=== PATIENT | female | born 1950 | race Caucasian/White ===

== ENCOUNTER 2023-04-26 15:52 | Outpatient (OUT) | payer OTHER, MEDICARE, SELFPAY ==
[2023-04-26 16:23] LABS: Basophils Absolute Auto 0.1 10^3/uL (0.0-0.1); Basophils Percent Auto 0.7 % (0.2-2.0); Eosinophils Absolute Auto 0.2 10^3/uL (0.0-0.7); Hemoglobin 14.3 g/dL (12.0-16.0); Immature Granulocytes Abs Auto 0.03 10^3/uL (0.00-0.03); Immature Granulocytes Pct Auto 0.4 % (0.0-0.5); Lymphocytes Absolute Auto 2.7 10^3/uL (1.2-3.8); Lymphocytes Percent Auto 32.2 % (20.5-60.0); Mean Corpuscular HGB Conc 33.3 g/dL (29.9-35.2); Mean Corpuscular Hemoglobin 30.8 pg (26.7-34.0); Mean Corpuscular Volume 92.5 fL (81.0-99.0); Mean Platelet Volume 10.2 fL (9.5-13.5); Monocytes Absolute Auto 0.9 10^3/uL (0.3-0.8); Monocytes Percent Auto 10.4 % (1.7-12.0); Neutrophils Absolute Auto 4.6 10^3/uL (1.4-6.5); Neutrophils Percent Auto 54.3 % (43.0-75.0); Platelet Count 170 10^3/uL (150-450); Red Blood Count 4.65 10^6/uL (4.20-5.40); White Blood Count 8.5 10^3/uL (4.0-11.0)
[2023-04-26 16:27] LABS: Estimated GFR (African America 48 (>=60); Estimated GFR (Non-African Ame 39 (>=60)
[2023-04-26 16:28] LABS: C Reactive Protein <0.2 mg/dL (<=1.0)
[2023-04-26 16:49] LABS: Erythrocyte Sedimentation Rate 13 mm/hr (<=30)
[2023-04-26 16:58] LABS: Bilirubin Urine NEGATIVE (NEGATIVE); Blood Urine NEGATIVE (NEGATIVE); Clarity Urine CLEAR (CLEAR); Color Urine LT. YELLOW (YELLOW); Glucose Urine UA NEGATIVE (NEGATIVE); Ketones Urine NEGATIVE (NEGATIVE); Leukocyte Esterase Urine SMALL (NEGATIVE); Nitrite Urine NEGATIVE (NEGATIVE); Protein Urine NEGATIVE (NEG/TRACE); Specific Gravity Urine <=1.005 (1.005-1.025); Urobilinogen Urine 0.2 EU/dL (0.2-1.0)
[2023-04-26 17:53] LABS: Bacteria Urine TRACE #/HPF (NONE SEEN); Cast Seen? NONE SEEN #/LPF (NONE SEEN); Crystals Seen? None Seen #/HPF (None Seen); Mucus Urine NONE SEEN (NONE SEEN); RBC Urine 0-2 #/HPF (0-2); Squamous Epithelial Cell Urine RARE #/LPF (NONE/RARE); Urine Culture Indicated YES
[2023-04-28 06:08] LABS: Complement C3, Serum 149 mg/dL (82-167); Complement C4, Serum 24 mg/dL (12-38)
== END 2023-04-26 15:53 | disposition home or self-care (01) ==
LOC: LAB 15:53
PROVIDERS: PCP Internal Medicine; Visit Provider Internal Medicine Rheumatology
DX: M35.9 Systemic involvement of connective tissue, unspecified (principal)
CPT/HCPCS: 36415; 81001; 82565; 85025; 85652; 86140; 86160; 87086

== ENCOUNTER 2023-06-11 15:55 | Outpatient (OUT) | payer OTHER, MEDICARE, SELFPAY ==
[2023-06-11 16:39] LABS: Estimated GFR (African America >60 (>=60); Estimated GFR (Non-African Ame >60 (>=60)
[2023-06-11 16:44] LABS: Bilirubin Urine NEGATIVE (NEGATIVE); Blood Urine NEGATIVE (NEGATIVE); Clarity Urine CLEAR (CLEAR); Color Urine LT. YELLOW (YELLOW); Glucose Urine UA NEGATIVE (NEGATIVE); Ketones Urine NEGATIVE (NEGATIVE); Leukocyte Esterase Urine NEGATIVE (NEGATIVE); Nitrite Urine NEGATIVE (NEGATIVE); Protein Urine NEGATIVE (NEG/TRACE); Specific Gravity Urine 1.015 (1.005-1.025); Urobilinogen Urine 0.2 EU/dL (0.2-1.0)
[2023-06-11 16:51] LABS: Bacteria Urine NONE SEEN #/HPF (NONE SEEN); Cast Seen? NONE SEEN #/LPF (NONE SEEN); Crystals Seen? None Seen #/HPF (None Seen); Mucus Urine NONE SEEN (NONE SEEN); RBC Urine 0-2 #/HPF (0-2); Squamous Epithelial Cell Urine NONE SEEN #/LPF (NONE/RARE); Urine Culture Indicated NO; WBC Urine NONE SEEN #/HPF (NONE SEEN)
== END 2023-06-11 15:56 | disposition home or self-care (01) ==
LOC: LAB 15:55
PROVIDERS: PCP Internal Medicine; Visit Provider Internal Medicine Rheumatology
DX: N18.9 Chronic kidney disease, unspecified (principal)
CPT/HCPCS: 36415; 81001; 82565

== ENCOUNTER 2023-10-16 16:03 | Outpatient (OUT) | payer OTHER, MEDICARE, SELFPAY ==
--- NOTE | 2023-10-16 16:07 | MM_ITS ---
Patient Name: LEXII VAZQUEZ MR#: [id number] : 1950 Exam Date: 10/16/2023 Ordering Doctor: DR Jevon Medina D.O. RADIOLOGY REPORT PROCEDURE: MM TOMOSYNTHESIS SCREENING BI COMPARISON: MG MAMM SCREEN 3D JAMEY CAD, 10/10/2021. MG MAMM SCREEN 3D JAMEY CAD, 10/12/2022. INDICATIONS: screening Calculator Name NCI Breast Cancer Risk Assessment Tool 5 Year Breast Cancer Risk 2.40% Lifetime Breast Cancer Risk 5.80% Personal Breast Cancer No Personal Ovarian Cancer No Treatments None Family Cancers Father with leukemia cancer at age 89. LOCATION: [facility] BREAST COMPOSITION: Heterogeneously dense,which may obscure small masses. FINDINGS: DIAGNOSTIC CATEGORY 2--BENIGN FINDING. NO CHANGE FROM COMPARISON. Scattered benign-appearing calcifications are present. Scattered benign-appearing lymph nodes are present. RIGHT BREAST: No significant suspicious finding. LEFT BREAST: No significant suspicious finding. Linear scar markers RECOMMENDATIONS: ROUTINE MAMMOGRAM AND CLINICAL EVALUATION IN 12 MONTHS. PLEASE NOTE: A NORMAL MAMMOGRAM DOES NOT EXCLUDE THE POSSIBILITY OF BREAST CANCER. A CLINICALLY SUSPICIOUS PALPABLE LUMP SHOULD BE BIOPSIED. Dictated by: Richmond Armstrong MD on 10/17/2023 at 06:54 Approved by: Richmond Armstrong MD on 10/17/2023 at 06:57
== END 2023-10-16 16:04 | disposition home or self-care (01) ==
LOC: MAMMO 16:04
PROVIDERS: PCP Internal Medicine; Visit Provider Internal Medicine
DX: Z12.31 Encounter for screening mammogram for malignant neoplasm of breast (principal); Z80.6 Family history of leukemia
CPT/HCPCS: 77063; 77067

== ENCOUNTER 2023-12-13 15:47 | Outpatient (OUT) | payer OTHER, MEDICARE, SELFPAY ==
[2023-12-13 16:05] LABS: Basophils Absolute Auto 0.1 10^3/uL (0.0-0.1); Basophils Percent Auto 0.8 % (0.2-2.0); Eosinophils Absolute Auto 0.2 10^3/uL (0.0-0.7); Eosinophils Percent Auto 2.1 % (0.9-7.0); Hematocrit 43.3 % (36.0-48.0); Hemoglobin 14.1 g/dL (12.0-16.0); Immature Granulocytes Abs Auto 0.02 10^3/uL (0.00-0.03); Immature Granulocytes Pct Auto 0.2 % (0.0-0.5); Lymphocytes Absolute Auto 3.3 10^3/uL (1.2-3.8); Lymphocytes Percent Auto 37.3 % (20.5-60.0); Mean Corpuscular HGB Conc 32.6 g/dL (29.9-35.2); Mean Corpuscular Hemoglobin 31.2 pg (26.7-34.0); Mean Corpuscular Volume 95.8 fL (81.0-99.0); Mean Platelet Volume 10.5 fL (9.5-13.5); Monocytes Absolute Auto 0.8 10^3/uL (0.3-0.8); Monocytes Percent Auto 9.3 % (1.7-12.0); Neutrophils Absolute Auto 4.5 10^3/uL (1.4-6.5); Neutrophils Percent Auto 50.3 % (43.0-75.0); Platelet Count 170 10^3/uL (150-450); Red Blood Count 4.52 10^6/uL (4.20-5.40); Red Cell Distribution Width 12.9 % (11.0-15.0)
[2023-12-13 16:24] LABS: C Reactive Protein <0.50 mg/dL (<=0.50); Estimated GFR (African America >60 (>=60); Estimated GFR (Non-African Ame 57 (>=60)
[2023-12-13 16:34] LABS: Erythrocyte Sedimentation Rate 14 mm/hr (<=30)
[2023-12-13 16:56] LABS: Bilirubin Urine NEGATIVE (NEGATIVE); Blood Urine SMALL (NEGATIVE); Clarity Urine CLEAR (CLEAR); Color Urine LT. YELLOW (YELLOW); Glucose Urine UA NEGATIVE (NEGATIVE); Ketones Urine NEGATIVE (NEGATIVE); Leukocyte Esterase Urine TRACE (NEGATIVE); Nitrite Urine NEGATIVE (NEGATIVE); Protein Urine NEGATIVE (NEG/TRACE); Specific Gravity Urine <=1.005 (1.005-1.025); Urobilinogen Urine 0.2 EU/dL (0.2-1.0)
[2023-12-13 17:12] LABS: WBC Urine 0-2 #/HPF (NONE SEEN)
[2023-12-13 17:13] LABS: Bacteria Urine TRACE #/HPF (NONE SEEN); Cast Seen? NONE SEEN #/LPF (NONE SEEN); Crystals Seen? None Seen #/HPF (None Seen); Mucus Urine NONE SEEN (NONE SEEN); RBC Urine NONE SEEN #/HPF (0-2); Squamous Epithelial Cell Urine FEW #/LPF (NONE/RARE)
[2023-12-15 05:11] LABS: Complement C3, Serum 144 mg/dL (82-167); Complement C4, Serum 23 mg/dL (12-38)
== END 2023-12-13 15:48 | disposition home or self-care (01) ==
LOC: LAB 15:47
PROVIDERS: PCP Internal Medicine; Visit Provider Internal Medicine Rheumatology
DX: M32.9 Systemic lupus erythematosus, unspecified (principal); Z79.899 Other long term (current) drug therapy
CPT/HCPCS: 36415; 81001; 82565; 85025; 85652; 86140; 86160

== ENCOUNTER 2023-12-31 15:57 | Outpatient (OUT) | payer OTHER, MEDICARE, SELFPAY ==
--- NOTE | 2023-12-31 16:00 | XR_ITS ---
The [address] [address] Patient Name: LEXII VAZQUEZ MRN: [id number] date: 1950 Sex: F Assigned Patient Location: [facility] Current Patient Location: Accession/Order Number: [id number] Exam Date: 12/31/2023 16:08 Report Date: 01/01/2024 08:13 At the request of: BELINDA RITTER Procedure: XR abdomen 1V EXAMINATION: XR abdomen 1V HISTORY: Kidney Stone N20.0 ; follow-up COMPARISON: XR abdomen 12/23/2022 FINDINGS: KIDNEY/URETER - RIGHT: Stable small calcification projecting over superior pole of the kidney. KIDNEY/URETER - LEFT: A few small calcifications projecting over left kidney. PELVIS: No visible ureteral stones. Stable right pelvic calcification favoring a phlebolith. BOWEL: No abnormal dilation or deviation. BONES: Dextroscoliosis and degenerative changes of lumbar spine. OTHER: Negative. No abnormal gaseous collections. XR/XR abdomen 1V IMPRESSION: 1. Grossly stable bilateral nephrolithiasis. 2. Evaluation of right kidney is limited by dense overlying bowel content. Electronically authenticated by: ALEXANDRO ZAPATA Date: 01/01/2024 08:13
--- OUTSIDE RECORDS SUMMARY | 2023-12-31 16:05 | XMS_ITS | CCD ---
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 Name Role Phone Jevon Medina Unavailable Unavailable Unavailable Jevon Medina Unavailable ADAM, DR BILLINGSLEY Primary Care Unavailable RIYA, BELINDA Admitting Unavailable RIYA, BELINDA Attending Unavailable RIYA, BELINDA Consulting Unavailable BALL, DR BILLINGSLEY Primary Care Unavailable BALL, DR BILLINGSLEY Admitting Unavailable BALL, DR BILLINGSLEY Attending Unavailable BALL, DR BILLINGSLEY Consulting Unavailable HALADAY, DR RAO Attending Unavailable HALADAY, DR RAO Consulting Unavailable BALL, DR BILLINGSLEY Primary Care Unavailable HALADAY, DR RAO Admitting Unavailable BALL, DR BILLINGSLEY Admitting Unavailable BALL, DR BILLINGSLEY Attending Unavailable BALL, DR BILLINGSLEY Consulting Unavailable BALL, DR BILLINGSLEY Primary Care Unavailable Zieber, Jose Armando Consulting Unavailable HALADAY, DR RAO Attending Unavailable HALADAY, DR RAO Consulting Unavailable HALADAY, DR RAO Admitting Unavailable BALL, DR BILLINGSLEY Primary Care Unavailable BALL, DR BILLINGSLEY Admitting Unavailable BALL, DR BILLINGSLEY Attending Unavailable BALL, DR BILLINGSLEY Consulting Unavailable BALL, DR BILLINGSLEY Primary Care Unavailable Zieber, Jose Armando Consulting Unavailable RIYA, BELINDA Youssef Attending Unavailable RIYA, BELINDA Youssef Attending Unavailable BROWN, ENEIDA Clemens Attending Unavailable BROWN, ENEIDA Clemens Attending Unavailable BROWN, ENEIDA Clemens Attending Unavailable Allergies Allergy Classification Reported Allergen(s) Allergy Type Date of Onset Reaction(s) Facility (1 source) Contrast media Allergy to substance (finding) [facility] [employer] 250 DO Work Phone: (17 sources) hydrOXYzine; Translations: [V[facility]il CAPS] [facility] (1 source) Metoclopramide; Translations: [Reglan TABS] Drug Allergy -[facility] 250 DO Work Phone: (8 sources) Contrast media Propensity to adverse reactions shortness of breath [facility] Other (8 sources) hydrOXYzine Drug Allergy Unknown [facility] Other (9 sources) Wheat; Translations: [Wheat] Propensity to adverse reactions hives [facility] Repository (2 sources) hydrOXYzine; Translations: [Vistaril] Drug Allergy [facility] Repository (1 source) Iodine (And Iodine Containting Drugs) Drug allergy (disorder) [facility] Repository (2 sources) Iothalamate; Translations: [Reglan] Drug Allergy [facility] Repository (1 source) Wheat Containing Prod Drug allergy (disorder) [facility] Repository (1 source) Contrast media; Translations: [Contrast Dye] Propensity to adverse reactions (disorder) [facility] Repository (3 sources) Vistazine *ANTIANXIETY AGENTS* Propensity to adverse reactions Comment:Vistal ine [employer] [facility] Other (3 sources) VISTALINE Propensity to adverse reactions 5 Unknown [employer] Other (3 sources) Dyes Propensity to adverse reactions Comment:IVP Dye [facility] Other Medications Current Medications Medication Drug Class(es) Dates Sig (Normalized) Sig (Original) alendronic acid 70 mg oral tablet (8 sources) Bisphosphonate take 1 tablet by nohemy th every week Alendronate Sodium 70 MG TAKE 1 TABLET BY MOUTH ONCE A WEEK WITH GLASS OF WATER NO EATING/LAYING FLAT X30 MINUTES Active take 1 tablet by mouth once michelle y Alendronate Sodium 70 MG 1 tablet 30 minutes before the first food, beverage or medicine of the day with plain water Orally Active ASA (8 sources) ASA 1 tab Oral A ctive atenolol 50 mg oral tablet (9 sources) beta-Adrenergic Alida take 1 tablet by mouth once daily Atenolol 50 MG TAKE ONE TABLET BY MOUTH DAILY Active atorvastatin 20 mg oral tablet (9 sources) HMG-CoA Reductase Inhibitor Atorvastatin Calcium 20 MG TAKE 1 TABLET BY MOUTH EVERYDAY AT BEDTIME Oral Once a day for 90 days Active azithromycin 250 mg oral tablet (7 sources) Macrolide Antimicrobial Start: 023 Azithromycin 250 MG as directed Orally daily for 5 days Nov, Active cephalexin 500 mg oral tablet (3 sources) Cephalosporin Antibacterial Start: 023 Cephalexin 500 MG 1 tablet Orally 7 for 5 days May, Active cholecalciferol 0.025 mg oral capsule (3 sources) Vitamin D take 1 capsule by mouth every twenty-four hours Vitamin D3 1000 UNIT 1 capsule Orally Once a day Active Citracal +D3 250-107-500 MG-MG-UNIT (8 sources) Citracal +D3 250 -107-500 MG-MG-UNIT Orally Active Echinacea (8 sources) Echinacea Active hydroxychloroquine sulfate 200 mg oral tablet (9 sources) Antimalarial, Antirheumatic Agent take 1 tablet by mouth every twenty-four hours Hydroxychloroquine Sulfate 200 MG 1 tablet with food or milk Orally Once a day Active Lidocaine-Hydrocortisone Joaquin 3-0.5 % (8 sources) Lidocaine-Hydroc ortisone Joaquin 3-0.5 % as directed Externally twice daily for 7 days Active lisinopril 10 mg oral tablet (9 sources) Angiotensin Converting Enzyme Inhibitor take 1 tablet by mouth once daily Lisinopril 10 MG TAKE ONE TABLET BY MOUTH DAILY Active Multivitamin preparation (8 sources) take 1 tablet by mouth once michelle y Multivitamin - 1 tablet Orally Once a day Active pantoprazole 20 mg delayed release oral tablet (9 sources) Proton Pump Inhibitor Pantoprazo le Sodium 20 MG TAKE ONE TABLET BY MOUTH DAILY ON EMPTY STOMACH FOLLOWED IN 30 MINUTES BY BREAKFAST. for 90 Active take 1 tablet by mouth every twe nty-four hours potassium bicarbonate 25 meq effervescent oral tablet (9 sources) take 1 tablet by nohemy th twice daily at mealtime Effer-K 25 MEQ 1 tablet dissolved in water with meals Orally Twice a day Active turmeric extract 500 mg oral capsule (9 sources) Turmeric 500 MG as directed Orally Active take 1 capsule by mouth once geetha ly Turmeric 500 MG Oral Capsule TAKE 1 CAPSULE Daily Quantity: 0 Refills: 0 Ordered: 24-Nov-2021 DO Active vitamin B12 (9 sources) Vitamin B12 Vitamin B12 Acti ve take 1 tablet by mouth once michelle y Vitamin B12 1000 MCG Oral Tablet Extended Release Take 1 tablet daily Quantity: 0 Refills: 0 Ordered: 24-Nov-2021 DO Active Vitamin D3 1000 UNIT (5 sources) take 1 capsule by mouth once geetha ly Vitamin D3 1000 UNIT 1 capsule Orally Once a day Active Completed/Discontinued Medications Medication Drug Class(es) Dates Sig (Normalized) Sig (Original) amoxicillin 500 mg oral capsule (9 sources) Penicillin-class Antibacterial Start: 05-26-2020 Amoxicillin 500 MG take 6 tablets 1 hour before procedure and 3 tablets 6 hours after Orally Twice a day for 1 day(s) May, Not-Taking Start: 05-26-2020 take 4 capsules by m outh every hour Amoxicillin 500 MG Oral Capsule TAKE 4 CAPSULES 1 HOUR PRIOR TO DENTAL APPOINTMENT. Quantity: 4 Refills: 0 Ordered: 24-Nov-2021 DO Active ascorbic acid 1000 mg oral tablet (1 source) Vitamin C take 1 tablet by mouth once daily Vitamin C 1000 MG Oral Tablet TAKE 1 TABLET DAILY. Quantity: 0 Refills: 0 Ordered: 24-Nov-2021 DO Active Calcium (1 source) Phosphate Binder, Calcium Calcium 600 + D TABS TAKE 1 TABLET DAILY. Quantity: 0 Refills: 0 Ordered: 24-Nov-2021 DO Active HYLAN G-F 20 (20 sources) Start: 01-15-2020 Start: 01-15-2020 [facility] December 2 mL Start: 01-08-2020 Start: 01-08-2020 [facility] December 2 mL Start: 01-01-2020 Start: 01-01-2020 [facility] December 2 mL Multi Vitamin Oral Tablet (1 source) take 1 tablet by mouth once daily Multi Vitamin Oral Tablet TAKE 1 TABLET DAILY. Quantity: 0 Refills: 0 Ordered: 24-Nov-2021 DO Active potassium 99 mg extended release oral tablet (1 source) take 1 tablet by mouth once daily Potassium 99 MG Oral Tablet TAKE 1 TABLET DAILY. Quantity: 0 Refills: 0 Ordered: 24-Nov-2021 DO Active Triamcinolone (20 sources) Corticosteroid Start: 08-19-2019 Start: 08-19-2019 Kenalog -40 mg Jul, 40 mg Start: 06-09-2019 Start: 06-09-2019 Kenalog -40 mg May, 40 mg Start: 12-24-2018 Start: 12-24-2018 Kenalog -40 mg December, 40 mg Start: 06-17-2018 Start: 06-17-2018 Kenalog -40 mg May, 40 mg Problems Active Problems Problem Classification Problem Date Documented Da te Episodic/Chronic Abdominal pain (1 source) Unspecified abdominal pain; Translations: [UNSPECIFIED ABDOMINAL PAIN] Onset: 12-28-2022 Episodic Acute bronchitis (1 source) Acute bronchitis due to other specified organisms Episodic Calculus of urinary tract (16 sources) History of calculus of kidney; Translations: [Personal history of urinary calculi] Onset: 12-23-2022 Resolved: 07-11-2021 Episodic Chronic obstructive pulmonary disease and bronchiectasis (1 source) Bronchitis; Translations: [Bronchitis, not specified as acute or chronic] Episodic Diabetes mellitus with complications (10 sources) Hyperglycemia due to type 2 diabetes mellitus; Translations: [Type 2 diabetes mellitus with hyperglycemia] Chronic Disorders of lipid metabolism (12 sources) Hyperlipidemia; Translations: [Other and unspecified hyperlipidemia] Onset: 05-06-2013 Chronic Esophageal disorders (9 sources) Gastro-esophageal reflux disease with esophagitis; Translations: [Gastroesophageal reflux disease with esophagitis without hemorrhage] Onset: 05-06-2013 Chronic Essential hypertension (15 sources) Essential hypertension; Translations: [Unspecified essential hypertension] Onset: 05-06-2013 Chronic Gastrointestinal hemorrhage (1 source) Hemorrhage of anus and rectum Episodic Hemorrhoids (1 source) Residual hemorrhoidal skin tags Episodic Immunizations and screening for infectious disease (1 source) Vaccination given; Translations: [Encounter for immunization] Episodic Joint disorders and dislocations; trauma-related (16 sources) Tear of medial meniscus of knee; Translations: [Other tear of medial meniscus, current injury, right knee, subsequent encounter] Episodic Menopausal disorders (4 sources) Decreased estrogen level; 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 Nonmalignant breast conditions (7 sources) Fibrocystic disease of breast; Translations: [Diffuse cystic mastopathy of right breast] Chronic Nonspecific chest pain (1 source) Precordial pain Episodic Osteoarthritis (20 sources) Arthritis of right knee; Translations: [Unilateral primary osteoarthritis, right knee] Onset: 09-01-2014 Chronic Osteoporosis (7 sources) Age-related osteoporosis without current pathological fracture; Translations: [Senile osteoporosis] Onset: 02-02-2022 Chronic Other aftercare (3 sources) Patient encounter status; Translations: [Aftercare following joint replacement surgery] Chronic Other aftercare (1 source) Other prison (current) drug therapy; Translations: [OTH [facility] CURRENT DRUG THERAPY] Onset: 10-26-2022 Episodic Other connective tissue disease (16 sources) History of total knee arthroplasty; Translations: [Presence of right artificial knee joint] Chronic Other gastrointestinal disorders (1 source) Irritable bowel syndrome; Translations: [Irritable bowel syndrome without diarrhea] Onset: 09-01-2014 Chronic Other injuries and conditions due to external causes (1 source) History of fall; Translations: [History of falling] Episodic Other nutritional; endocrine; and metabolic disorders (1 source) Obesity; Translations: [Obesity, unspecified] Chronic Other nutritional; endocrine; and metabolic disorders (1 source) Obese class I; Translations: [Body mass index 32.0-32.9, adult] Onset: 09-08-2015 Chronic Other nutritional; endocrine; and metabolic disorders (1 source) Body mass index 30+ - obesity; Translations: [Body mass index (BMI) 30.0-30.9, adult] Onset: 09-08-2015 Chronic Other nutritional; endocrine; and metabolic disorders (1 source) Simple obesity ; Translations: [Other obesity due to excess calories] Onset: 09-08-2015 Chronic Other skin disorders (1 source) Sebaceous cyst Episodic Residual codes; unclassified (3 sources) Postprocedural state finding; Translations: [Other specified postprocedural states] Episodic Residual codes; unclassified (9 sources) Postmenopausal state; Translations: [Asymptomatic menopausal state] Episodic Residual codes; unclassified (1 source) Family history of leukemia; Translations: [FAMILY HISTORY OF LEUKEMIA] Onset: 10-16-2022 Episodic Residual codes; unclassified (1 source) Preventive procedure; Translations: [Encounter for other specified prophylactic measures] Episodic Skin and subcutaneous tissue infections (2 sources) Carbuncle of chest wall; Translations: [Carbuncle of chest wall] Onset: 10-15-2017 Episodic Systemic lupus erythematosus and connective tissue disorders (8 sources) Systemic lupus erythematosus, unspecified; Translations: [Systemic involvement of connective tissue, unspecified] Onset: 04-14-2022 Chronic Past or Other Problems Problem Classification Problem Date Documented Da te Episodic/Chronic Allergic reactions (3 sources) Contact dermatitis; Translations: [Contact dermatitis and other eczema, due to unspecified cause] Onset: 04-04-2016 Resolved: 07-11-2021 Episodic Bacterial infection; unspecified site (1 source) Bacterial infectious disease; Translations: [Bacterial infection, unspecified, in conditions classified elsewhere and of unspecified site] Onset: 10-15-2017 Episodic Diabetes mellitus without complication (1 source) Impaired fasting glycemia; Translations: [Impaired fasting glucose] Onset: 09-08-2015 Episodic E Codes: Adverse effects of medical drugs (2 sources) Adverse effect of loop [high-ceiling] diuretics, initial encounter; Translations: [Adverse reaction to biological substance] Onset: 12-20-2017 Resolved: 07-11-2021 Episodic Esophageal disorders (6 sources) Esophageal disorders; Translations: [Gastro-esophageal reflux disease with esophagitis, without bleeding] Neoplasms of unspecified nature or uncertain behavior (1 source) Neoplasm of uncertain behavior of skin; Translations: [Neoplasm of uncertain behavior of skin] Onset: 04-09-2018 Episodic Nonmalignant breast conditions (1 source) Inflammatory disorder of breast; Translations: [Abscess of the breast and nipple] Resolved: 03-29-2021 Episodic Other bone disease and musculoskeletal deformities (1 source) Bone density finding; Translations: [Other specified disorders of bone density and structure, unspecified site] Onset: 12-18-2016 Episodic Other liver diseases (1 source) Elevated levels of transaminase & lactic acid dehydrogenase; Translations: [Nonspecific elevation of levels of transaminase or lactic acid dehydrogenase (LDH)] Onset: 03-20-2014 Episodic Other nutritional; endocrine; and metabolic disorders (1 source) Overweight; Translations: [Overweight] Onset: 01-17-2022 Resolved: 07-21-2022 Episodic Other screening for suspected conditions (not mental disorders or infectious disease) (5 sources) Encounter for screening mammogram for malignant neoplasm of breast; Translations: [Blood chemistry abnormal] Onset: 03-20-2014 Episodic Other skin disorders (1 source) Atrophoderma; Translations: [Unspecified hypertrophic and atrophic condition of skin] Onset: 11-04-2015 Episodic Other upper respiratory infections (2 sources) Acute sinusitis; Translations: [Acute sinusitis, unspecified] Onset: 03-01-2015 Episodic Residual codes; unclassified (4 sources) Asymptomatic menopausal state; Translations: [ASYMPTOMATIC MENOPAUSAL STATE] Onset: 01-31-2022 Episodic Sprains and strains (1 source) Sprain of hip; Translations: [Sprain and strain of other specified sites of hip and thigh] Onset: 03-01-2015 Episodic Unclassified (1 source) Never smoked tobacco; Translations: [Never smoker] Results Test Name Value Interpretation Reference Range Facility Patient Educationon 01-03-20 Patient Education Urology Kidney Stones Kidney stones are rock-like masses that form inside of the kidneys. Kidneys are organs that make pee (urine). A kidney stone may move into other parts of the urinary tract, including: ? The tubes that connect the kidneys to the bladder (ureters). ? The bladder. ? The tube that carries urine out of the body (urethra). Kidney stones can cause very bad pain and can block the flow of pee. The stone usually leaves your body (passes) through your pee. You may need to have a doctor take out the stone. What are the causes? Kidney stones may be caused by: ? A condition in which certain glands make too much parathyroid hormone (primary hyperparathyroidism). ? A buildup of a type of crystals in the bladder made of a chemical called uric acid. The body makes uric acid when you eat certain foods. ? Narrowing (stricture) of one or both of the ureters. ? A kidney blockage that you were born with. ? Past surgery on the kidney or the ureters, such as gastric bypass surgery. What increases the risk? You are more likely to develop this condition if: ? You have had a kidney stone in the past. ? You have a family history of kidney stones. ? You do not drink enough water. ? You eat a diet that is high in protein, salt (sodium), or sugar. ? You are overweight or very overweight (obese). What are the signs or symptoms? Symptoms of a kidney stone may include: ? Pain in the side of the belly, right below the ribs (flank pain). Pain usually spreads (radiates) to the groin. ? Needing to pee often or right away (urgently). ? Pain when going pee (urinating). ? Blood in your pee (hematuria). ? Feeling like you may vomit (nauseous). ? Vomiting. ? Fever and chills. How is this treated? Treatment depends on the size, location, and makeup of the kidney stones. The stones will often pass out of the body through peeing. You may need to: ? Drink more fluid to help pass the stone. In some cases, you may be given fluids through an IV tube put into one of your veins at the hospital. ? Take medicine for pain. ? Make changes in your diet to help keep kidney stones from coming back. Sometimes, medical procedures are needed to remove a kidney stone. This may involve: ? A procedure to break up kidney stones using a beam of light (laser) or shock waves. ? Surgery to remove the kidney stones. Follow these instructions at home: Medicines ? Take [id number] and prescription medicines only as told by your doctor. ? Ask your doctor if the medicine prescribed to you requires you to avoid driving or using heavy machinery. Eating and drinking ? Drink enough fluid to keep your pee pale yellow. You may be told to drink at least 8?10 glasses of water each day. This will help you pass the stone. ? If told by your doctor, change your diet. This may include: ? Limiting how much salt you eat. ? Eating more fruits and vegetables. ? Limiting how much meat, poultry, fish, and eggs you eat. ? Follow instructions from your doctor about eating or drinking restrictions. General instructions ? Collect pee samples as told by your doctor. You may need to collect a pee sample: ? 24 hours after a stone comes out. ? 8?12 weeks after a stone comes out, and every 6?12 months after that. ? Strain your pee every time you pee (urinate), for as long as told. Use the strainer that your doctor recommends. ? Do not throw out the stone. Keep it so that it can be tested by your doctor. ? Keep all follow-up visits as told by your doctor. This is important. You may need follow-up tests. How is this prevented? To prevent another kidney stone: ? Drink enough fluid to keep your pee pale yellow. This is the best way to prevent kidney stones. ? Eat healthy foods. ? Avoid certain foods as told by your doctor. You may be told to eat less protein. ? Stay at a healthy weight. Where to find more information ? National Kidney Foundation (NKF): www.kidney.org ? [facility] [facility] (UCF): www.urologyhealth.org Contact a doctor if: ? You have pain that gets worse or does not get better with medicine. Get help right away if: ? You have a fever or chills. ? You get very bad pain. ? You get new pain in your belly (abdomen). ? You pass out (faint). ? You cannot pee. Summary ? Kidney stones are rock-like masses that form inside of the kidneys. ? Kidney stones can cause very bad pain and can block the flow of pee. ? The stones will often pass out of the body through peeing. ? Drink enough fluid to keep your pee pale yellow. This information is not intended to replace advice given to you by your health care provider. Make sure you discuss any questions you have with your health care provider. Document Revised: 04/10/2022 Document Reviewed: 04/10/2022 [employer] Patient Education ? 2022 [employer] [facility] Urology Office/Clinic Noteon 01-02-2023 Urology Office/Clinic Note Chief Complaint 1 year f/u HPI Staff Gissell is a 72 y/o female here for a 1 year f/u w/KUB and SOULEYMANE. KUB done 12/23/2022 showed 3mm small calcification projecting over the right kidney with largest measuring 6mm. Lower pole left kidney calcification measuring 4mm. SOULEYMANE done 12/23/2022 showed bilateral calculus. Dysuria: _denies Incomplete bladder emptying: _denies Hematuria: _denies Frequency: _denies Urgency: _denies Nocturia: _voids at night but the urge does not wake her up Stream: _stop and go Leaking: _denies Post void dripping: _denies Wearing pads/ Depends: _denies Urge incontinence: _denies Stress incontinence: _at times Incontinence without Sensory Awareness: _denies Abdominal pain: _denies Flank pain: _denies Sexual complaints: _ History of Present Illness staff HPI reviewed and agree. Review of Systems PHQ Score Initial Depression Screen Score: 0 no fever, chills, malaise, myalgia. no rash/lesions. no chest pain, palpitations, or SOB. no abdominal pain, nausea, vomiting. no unilateral calf swelling, redness, pain Physical Exam Vitals & Measurements HR: 58(Peripheral) BP: 138/82 HT: 62 in HT: 158 cm WT: 80 kg WT: 176 lb BMI: 32.05 General: nontoxic, NAD Mouth: moist mucosa Lungs: normal respiratory effort Cardio: regular rate, good distal perfusion Abdomen: nondistended, no suprapubic distention or tenderness, no CVA tenderness Neurologic: Grossly normal Skin: No rashes or suspicious lesions Assessment/Plan UA completed in office today shows no microhematuria or signs of infection. pt has minimal urinary sx. occasional weak stream/has to bend fwd to initiate stream - not bothersome. nocturia x2 but wakes due to other causes - not bothersome. rare urgency, rare GLORIA - not bothersome. will monitor. 1. Kidney stone (N20.0: Calculus of kidney) s/p bilateral ESWL Oct 2020. no recent stone passage, gross hematuria, or flank pain (again c/o midline low back pain but on exam it is much lower than kidneys - likely musculoskeletal). current KUB shows a few small stones still in R kidney, appear similar to KUB 1 yr ago. pt will continue on Effer K. she has increased fluid intake. we will f/u in 1 yr with repeat KUB at that time. sooner PRN. Ordered: E&M of Est. Patient Low 20-29 Min [id number] XR Abdomen 1 View Follow-up With When Contact Information RIYA BLOOM, ADOLFO AVELAR Within 1 year Additional Instructions: Patient Education Kidney Stones, [id number] Problem List/Past Medical History Ongoing Arthritis Diverticulosis Gastric ulcer HTN (hypertension) Kidney stone Lower abdominal pain Rectal bleed Ureteral stone Historical No qualifying data Procedure/Surgical History ESWL of kidney (10/21/2020), ESWL of kidney (10/14/2020), Colonoscopy (06/30/2019), Colonoscopy (09/11/2017), EGD (09/11/2017), Appendectomy, Breast Biopsy, Breast surgery, Hysterectomy, Toe Surgery. Medications Aspirin 81 mg Tab-EC, 81 mg= 1 tab(s), Oral, Daily atenolol 50 mg Tab, 50 mg= 1 tab(s), Oral, Daily chondroitin-glucosamine, Oral, Daily Citracal + D, Oral, Daily echinacea, 1 tab, Oral, Daily Effer-K 25 mEq oral tablet, effervescent, 25 mEq= 1 tab(s), Oral, BID, 3 refills hydroxychloroquine 200 mg Tab, Oral, Daily lisinopril 10 mg Tab, 10 mg= 1 tab(s), Oral, Daily Metamucil 525 mg oral capsule, 1050 mg= 2 cap(s), Oral, BID, 1 refills milk thistle, Oral, Daily One A Day Women 50 Plus, 1 tab, Oral, Daily pantoprazole 20 mg Oral EC Tab, 20 mg= 1 tab(s), Oral, Daily, 1 refills potassium chloride 99 mg oral tablet, 99 mg= 1 tab(s), Oral, Daily turmeric curcumin, 1 tab, Oral, Daily Vitamin C, 500 mg, Oral, Daily Vitamin D3, 1000 International_Unit, Oral, Daily Allergies Contrast Dye Reglan (itching) Vistaril (Unknown) Wheat Social History Alcohol - Denies Alcohol Use, 03/27/2019 Exercise - Occasional exercise, 03/27/2019 Other Caffeine-none, 03/27/2019 Substance Abuse - Denies Substance Abuse, 03/27/2019 Tobacco Never (less than 100 in lifetime) Tobacco Use:. Never Smokeless Tobacco Use:., 11/23/2021 Family History Leukemia: Father. Immunizations Vaccine Date Status SARS-CoV-2 (COVID-19) mRNA-1273 vaccine 11/16/2020 Recorded SARS-CoV-2 (COVID-19) mRNA-1273 vaccine 10/19/2020 Recorded Normal [facility] Comment on above: Result Comment: Elec tronically Signed By: BELINDA RITTER PA-C\.br\Date and Time Signed: 01/02/23 15:46 EDT RAD - MISCon 12-28-2022 RAD - MISC [id number]:12 7 Normal [facility] RAD - Ultrasound Reporton RAD - Ultrasound Report [id number]:12 7 Normal [facility] US KIDNEYSon 12-23-2022 US KIDNEYS BILATERAL RENAL ULTRASOUND: 12/23/2022 9:05 AM PDT HISTORY: Kidney stone. TECHNIQUE: Real-time sonography through the kidneys and bladder was performed. Doppler evaluation of both kidneys was obtained. COMPARISON: CT abdomen/pelvis 06/08/2021. FINDINGS: RIGHT KIDNEY: Size: 10.6 x 4.4 x 4 cm. Volume 96.9 cc. Normal in size and echogenicity. Multiple nonobstructing stones are present. The largest is in the interpolar region of the right kidney and measures 9 x 6 x 4 mm. No hydronephrosis. LEFT KIDNEY: Size: 10.2 x 5 x 4.8 cm. Volume 125.5 cc. Normal in size and echogenicity. No collecting system dilatation. The nonobstructing stone in the lower pole of the left kidney seen on the CT from 06/08/2021 is not visualized on today's exam. No hydronephrosis. BLADDER: Normal in appearance. No wall thickening or mass. IMPRESSION: 1. Multiple nonobstructing stones in the right kidney. 2. Nonobstructing stone in the left kidney seen on the prior CT is not visualized on today's exam and may have passed or may have been obscured by overlying bowel gas. 3. No hydronephrosis. Electronically authenticated by: RONALD RAM Date: 2022-12-23 12:08 Normal [facility] XR KUB 1 VIEWon 12-23-2022 XR KUB 1 VIEW EXAMINATION: XR KUB 1 VIEW, [id number] HISTORY: Kidney stone COMPARISON: Same day renal ultrasound and CT abdomen/pelvis 06/08/2021. Abdominal radiograph 11/19/2021. FINDINGS: Nonobstructive bowel gas pattern. At least 3 small calcifications project over the right kidney with the largest measuring 6 mm. A calcification projecting over the lower pole of the left kidney measuring 4 mm. No new or enlarging soft tissue calcifications are seen. There is mild S-shaped curvature of the thoracolumbar spine. IMPRESSION: Calcifications projecting over both kidneys, similar compared with 11/19/2021. Electronically authenticated by: RONALD RAM Date: 2022-12-23 12:11 Normal [facility] CBC AUTO DIFFon 12-22-2022 BASO # 0.1 103/ul Normal 0.0-0.1 [facility] Comment on above: Performed By: #### C BC #### [facility] [address] [place] [address] Dr. Justyna Woodruff Basophils/100 WBC (Bld) 0.9 % Normal 0.2-2.0 [facility] Comment on above: Performed By: #### C BC #### [facility] [address] [place] [address] Dr. Justyna Woodruff EO # 0.2 103/ul Normal 0.0-0.7 [facility] Comment on above: Performed By: #### C BC #### [facility] [address] [place] [address] Dr. Justyna Woodruff Eosinophils/100 WBC (Bld) 2.0 % Normal 0.9-7.0 [facility] Comment on above: Performed By: #### C BC #### [facility] [address] [place] [address] Dr. Justyna Woodruff Erythrocyte distribution width (RBC) [Ratio] 13.1 % Normal 11.0-15.0 [facility] Comment on above: Performed By: #### C BC #### [facility] [address] [place] [address] Dr. Justyna Woodruff Hematocrit (Bld) [Volume fraction] 44.6 % Normal 36.0-48.0 [facility] Comment on above: Performed By: #### C BC #### [facility] [address] [place] [address] Dr. Justyna Woodruff Hemoglobin (Bld) [Mass/Vol] 14.5 g/dL Normal 12.0-16.0 [facility] Comment on above: Performed By: #### C BC #### [facility] [address] [place] [address] Dr. Justyna Woodruff IG # 0.02 10e3/ul Normal 0.00-0.03 [facility] Comment on above: Performed By: #### C BC #### [facility] [address] [place] [address] Dr. Justyna Woodruff IG % 0.3 % Normal 0.0-0.5 [facility] Comment on above: Performed By: #### C BC #### [facility] [address] [place] [address] Dr. Justyna Woodruff LYMPH # 2.6 103/ul Normal 1.2-3.8 [facility] Comment on above: Performed By: #### C BC #### [facility] [address] [place] [address] Dr. Justyna Woodruff Lymphocytes/100 WBC (Bld) 34.1 % Normal 20.5-60.0 [facility] Comment on above: Performed By: #### C BC #### [facility] [address] [place] [address] Dr. Justyna Woodruff MANUAL DIFF REQ NO Normal [facility] Comment on above: Performed By: #### C BC #### [facility] [address] [place] [address] Dr. Justyna Woodruff MCH (RBC) [Entitic mass] 31.0 pg Normal 26.7-34.0 [facility] Comment on above: Performed By: #### C BC #### [facility] [address] [place] [address] Dr. Justyna Woodruff MCHC (RBC) [Mass/Vol] 32.5 g/dL Normal 29.9-35.2 [facility] Comment on above: Performed By: #### C BC #### [facility] [address] [place] [address] Dr. Justyna Woodruff MCV (RBC) [Entitic vol] 95.5 fL Normal 81.0-99.0 [facility] Comment on above: Performed By: #### C BC #### [facility] [address] [place] [address] Dr. Justyna Woodruff MONO # 0.7 103/ul Normal 0.3-0.8 [facility] Comment on above: Performed By: #### C BC #### [facility] [address] [place] [address] Dr. Justyna Woodruff Monocytes/100 WBC (Bld) 8.6 % Normal 1.7-12.0 [facility] Comment on above: Performed By: #### C BC #### [facility] [address] [place] [address] Dr. Justyna Woodruff NEUT # 4.1 103/ul Normal 1.4-6.5 [facility] Comment on above: Performed By: #### C BC #### [facility] [address] [address] [address] Justyna Woodruff Neutrophils/100 WBC (Bld) 54.1 % Normal 43.0-75.0 [facility] Comment on above: Performed By: #### C BC #### [facility] [address] [address] [address] Justyna Woodruff Platelet mean volume (Bld) [Entitic vol] 10.8 fL Normal 9.5-13.5 [facility] Comment on above: Performed By: #### C BC #### [facility] [address] [place] [address] Dr. Justyna Woodruff PLT 172 103/ul Normal 150-450 [facility] Comment on above: Performed By: #### C BC #### [facility] [address] [place] [address] Dr. Justyna Woodruff RBC 4.67 106/ul Normal 4.20-5.40 [facility] Comment on above: Performed By: #### C BC #### [facility] [address] [place] [address] Dr. Justyna Woodruff WBC 7.5 103/ul Normal 4.0-11.0 [facility] Comment on above: Performed By: #### C BC #### [facility] [address] [place] [address] Dr. Justyna Woodruff LIPID PROFILEon 12-22-2022 CHOL-HDL RATIO NORM SEE BELOW Normal [facility] Comment on above: Result Comment: 3.3 - 4.4 LOW RISK 4.4 - 7.1 AVERAGE RISK 7.1 - 11.0 MODERATE RISK >11.0 HIGH RISK Performed By: #### C MP, LIPID, T4, TSH #### [facility] [address] [place] [address] Dr. Justyna Woodruff Cholesterol [Mass/Vol] 150 mg/dL Normal <=200 [facility] Comment on above: Performed By: #### C MP, LIPID, T4, TSH #### [facility] [address] [place] [address] Dr. Justyna Woodruff Cholesterol in HDL [Mass/Vol] 45 mg/dL Normal 40-60 [facility] Comment on above: Performed By: #### C MP, LIPID, T4, TSH #### [facility] [address] [address] [address] Justyna Woodruff Cholesterol in LDL [Mass/Vol] 79.6 mg/dL Normal [facility] Comment on above: Performed By: #### C MP, LIPID, T4, TSH #### [facility] [address] [address] [address] Justyna Woodruff Cholesterol.total /Cholesterol in HDL [Mass ratio] 3.3 {ratio} Normal [facility] Comment on above: Performed By: #### C MP, LIPID, T4, TSH #### [facility] [address] [place] [address] Dr. Justyna Woodruff HDL NORMAL > or = 60 mg/dl - LO W CARDIOVASCULAR RISK <40 mg/dl - HIGH CARDIOVASCULAR RISK Normal [facility] Comment on above: Performed By: #### C MP, LIPID, T4, TSH #### [facility] [address] [place] [address] Dr. Justyna Woodruff LDL CALC NORMAL SEE BELOW Normal [facility] Comment on above: Result Comment: <100 mg/dl OPTIMAL 100 - 129 mg/dl NEAR OR ABOVE OPTIMAL 130 - 159 mg/dl BORDERLINE HIGH 160 - 189 mg/dl HIGH >190 mg/dl VERY HIGH Performed By: #### C MP, LIPID, T4, TSH #### [facility] [address] [address] [address] Justyna Woodruff Triglyceride [Mass/Vol] 127 mg/dL Normal <=150 [facility] Comment on above: Performed By: #### C MP, LIPID, T4, TSH #### [facility] [address] [place] [address] Dr. Justyna Woodruff VLDL CALC 25.4 mg/dL Normal [facility] Comment on above: Performed By: #### C MP, LIPID, T4, TSH #### [facility] [address] [place] [address] Dr. Justyna Woodruff PROF 14(COMP METB)on 023 Albumin [Mass/Vol] 3.7 g/dL Normal 3.4-5.0 [facility] Comment on above: Performed By: #### C MP, LIPID, T4, TSH #### [facility] [address] [place] [address] Dr. Justyna Woodruff Albumin/Globulin [Mass ratio] 0.9 {ratio} Normal [facility] Comment on above: Performed By: #### C MP, LIPID, T4, TSH #### [facility] [address] [place] [address] Dr. Justyna Woodruff ALP [Catalytic activity/Vol] 59 U/L Normal 46-116 [facility] Comment on above: Performed By: #### C MP, LIPID, T4, TSH #### [facility] [address] [place] [address] Dr. Justyan Woodruff ALT [Catalytic activity/Vol] 36 U/L Normal 14-59 [facility] Comment on above: Performed By: #### C MP, LIPID, T4, TSH #### [facility] [address] [place] [address] Dr. Justyna Woodruff Anion gap [Moles/Vol] 11.0 mmol/L Normal [facility] Comment on above: Performed By: #### C MP, LIPID, T4, TSH #### [facility] [address] [place] [address] Dr. Justyna Woodruff AST [Catalytic activity/Vol] 17 U/L Normal 15-37 [facility] Comment on above: Performed By: #### C MP, LIPID, T4, TSH #### [facility] [address] [place] [address] Dr. Justyna Woodruff Bilirubin [Mass/Vol] 0.8 mg/dL Normal 0.2-1.0 [facility] Comment on above: Performed By: #### C MP, LIPID, T4, TSH #### [facility] [address] [place] [address] Dr. Justyna Woodruff Calcium [Mass/Vol] 9.3 mg/dL Normal 8.5-10.1 [facility] Comment on above: Performed By: #### C MP, LIPID, T4, TSH #### [facility] [address] [address] [address] Justyna Woodruff Chloride [Moles/Vol] 105 mmol/L Normal 98-107 [facility] Comment on above: Performed By: #### C MP, LIPID, T4, TSH #### [facility] [address] [address] [address] Justyna Woodruff CO2 [Moles/Vol] 28.8 mmol/L Normal 21.0-32.0 [facility] Comment on above: Performed By: #### C MP, LIPID, T4, TSH #### [facility] [address] [address] [address] Justyna Woodruff Creatinine [Mass/Vol] 0.99 mg/dL Normal 0.55-1.02 [facility] Comment on above: Performed By: #### C MP, LIPID, T4, TSH #### [facility] [address] [place] [address] Dr. Justyna Woodruff EGFR-AF SPANISH >60 Normal >=60 [facility] Comment on above: Performed By: #### C MP, LIPID, T4, TSH #### [facility] [address] [address] [address] Justyna Woodruff EGFR-NON AF SPANISH 55 mL/min/1.73m2 Critically low >=60 [facility] Comment on above: Performed By: #### C MP, LIPID, T4, TSH #### [facility] [address] [place] [address] Dr. Justyna Woodruff Globulin (S) [Mass/Vol] 3.9 g/dL Normal [facility] Comment on above: Performed By: #### C MP, LIPID, T4, TSH #### [facility] [address] [place] [address] Dr. Justyna Woodruff Glucose [Mass/Vol] 119 mg/dL Critically high 74-106 [facility] Comment on above: Performed By: #### C MP, LIPID, T4, TSH #### [facility] [address] [address] [address] Justyna Woodruff Potassium [Moles/Vol] 3.8 mmol/L Normal 3.5-5.1 [facility] Comment on above: Performed By: #### C MP, LIPID, T4, TSH #### [facility] [address] [place] [address] Dr. Justyna Woodruff Protein [Mass/Vol] 7.6 g/dL Normal 6.4-8.2 [facility] Comment on above: Performed By: #### C MP, LIPID, T4, TSH #### [facility] [address] [place] [address] Dr. Justyna Woodruff Sodium [Moles/Vol] 141 mmol/L Normal 136-145 [facility] Comment on above: Performed By: #### C MP, LIPID, T4, TSH #### [facility] [address] [place] [address] Dr. Justyna Woodruff Urea nitrogen [Mass/Vol] 17.0 mg/dL Normal 7.0-18.0 [facility] Comment on above: Performed By: #### C MP, LIPID, T4, TSH #### [facility] [address] [place] [address] Dr. Justyna Woodruff Urea nitrogen/Creatini ne [Mass ratio] 17.2 mg/mg Normal [facility] Comment on above: Performed By: #### C MP, LIPID, T4, TSH #### [facility] [address] [place] [address] Dr. Justyna Woodruff T4on 12-22-2022 T4 [Mass/Vol] 8.50 ug/dL Normal 4.80-13.[address] [facility] Comment on above: Performed By: #### C CHARLY #### [facility] [address] [place] [address] Dr. Justyna Woodruff TSHon 12-22-2022 TSH 1.396 uIU/mL Normal 0.358-3.740 [facility] Comment on above: Performed By: #### C MP, LIPID, T4, TSH #### [facility] [address] [place] [address] Dr. Justyna Woodruff Reminderson 12-11-2022 Reminders - From: Bettina Powell To: [facility] - Recalls Riya; Sent: 11/01/2022 15:49:20 EDT Show up: 11/02/2022 15:49:00 EDT Subject: 1yr SOULEYMANE/KUB Due Date/Time: 11/03/2022 15:49:00 EDT Reminder/Recall This recall was entered into the Clinical pool originally. I created a new recall in [facility]ATINA recalls. LUZMA From: Natalie Alvarez To: [facility] - Clinical; Sent: 11/23/2021 09:27:28 EDT Show up: 11/01/2022 09:27:00 EDT Subject: 1 year Renal US/ KUB Reminder/Recall Patient needs renal US/ Kub prior to office visit on 11-29-22 with Juana Ritter APPT R/S TO 01/02/23 Spoke to Pt and she would like this imaging done @ [facility]. will fax order and call to schedule. Pt is scheduled for 12/23/22 @ [place]. Normal [facility] C3 and C4 COMPLEMENTon 10-25 Complement C3, Serum 134 mg/dL Normal 82-167 [facility] Comment on above: Performed By: #### C CHARLY #### [facility] [address] [place] [address] Dr. Justyna Woodruff Complement C4, Serum 17 mg/dL Normal 12-38 [facility] Comment on above: Performed By: #### C CHARLY #### [facility] [address] [place] [address] Dr. Justyna Woodruff CBC AUTO DIFFon 10-23-2022 BASO # 0.1 103/ul Normal 0.0-0.1 [facility] Comment on above: Performed By: #### C BC #### [facility] [address] [place] [address] Dr. Justyna Woodruff Basophils/100 WBC (Bld) 0.7 % Normal 0.2-2.0 [facility] Comment on above: Performed By: #### C BC #### [facility] [address] [place] [address] Dr. Justyna Woodruff EO # 0.1 103/ul Normal 0.0-0.7 [facility] Comment on above: Performed By: #### C BC #### [facility] [address] [place] [address] Dr. Justyna Woodruff Eosinophils/100 WBC (Bld) 1.8 % Normal 0.9-7.0 [facility] Comment on above: Performed By: #### C BC #### [facility] [address] [place] [address] Dr. Justyna Woodruff Erythrocyte distribution width (RBC) [Ratio] 13.0 % Normal 11.0-15.0 [facility] Comment on above: Performed By: #### C BC #### [facility] [address] [place] [address] Dr. Justyna Woodruff Hematocrit (Bld) [Volume fraction] 41.1 % Normal 36.0-48.0 [facility] Comment on above: Performed By: #### C BC #### [facility] [address] [place] [address] Dr. Justyna Woodruff Hemoglobin (Bld) [Mass/Vol] 13.8 g/dL Normal 12.0-16.0 [facility] Comment on above: Performed By: #### C BC #### [facility] [address] [place] [address] Dr. Justyna Woodruff IG # 0.01 10e3/ul Normal 0.00-0.03 [facility] Comment on above: Performed By: #### C BC #### [facility] [address] [place] [address] Dr. Justyna Woodruff IG % 0.1 % Normal 0.0-0.5 [facility] Comment on above: Performed By: #### C BC #### [facility] [address] [place] [address] Dr. Justyna Woodruff LYMPH # 2.7 103/ul Normal 1.2-3.8 [facility] Comment on above: Performed By: #### C BC #### [facility] [address] [place] [address] Dr. Justyna Woodruff Lymphocytes/100 WBC (Bld) 37.0 % Normal 20.5-60.0 [facility] Comment on above: Performed By: #### C BC #### [facility] [address] [place] [address] Dr. Justyna Woodruff MANUAL DIFF REQ NO Normal [facility] Comment on above: Performed By: #### C BC #### [facility] [address] [place] [address] Dr. Justyna Woodruff MCH (RBC) [Entitic mass] 31.3 pg Normal 26.7-34.0 [facility] Comment on above: Performed By: #### C BC #### [facility] [address] [place] [address] Dr. Justyna Woodruff MCHC (RBC) [Mass/Vol] 33.6 g/dL Normal 29.9-35.2 [facility] Comment on above: Performed By: #### C BC #### [facility] [address] [place] [address] Dr. Justyna Woodruff MCV (RBC) [Entitic vol] 93.2 fL Normal 81.0-99.0 [facility] Comment on above: Performed By: #### C BC #### [facility] [address] [place] [address] Dr. Justyna Woodruff MONO # 0.7 103/ul Normal 0.3-0.8 [facility] Comment on above: Performed By: #### C BC #### [facility] [address] [place] [address] Dr. Justyna Woodruff Monocytes/100 WBC (Bld) 9.9 % Normal 1.7-12.0 [facility] Comment on above: Performed By: #### C BC #### [facility] [address] [place] [address] Dr. Justyna Woodruff NEUT # 3.6 103/ul Normal 1.4-6.5 [facility] Comment on above: Performed By: #### C BC #### [facility] [address] [place] [address] Dr. Justyna Woodruff Neutrophils/100 WBC (Bld) 50.5 % Normal 43.0-75.0 [facility] Comment on above: Performed By: #### C BC #### [facility] [address] [place] [address] Dr. Justyna Woodruff Platelet mean volume (Bld) [Entitic vol] 9.9 fL Normal 9.5-13.5 [facility] Comment on above: Performed By: #### C BC #### [facility] [address] [place] [address] Dr. Justyna Woodruff PLT 151 103/ul Normal 150-450 [facility] Comment on above: Performed By: #### C BC #### [facility] [address] [place] [address] Dr. Justyna Woodruff RBC 4.41 106/ul Normal 4.20-5.40 [facility] Comment on above: Performed By: #### C BC #### [facility] [address] [place] [address] Dr. Justyna Woodruff WBC 7.2 103/ul Normal 4.0-11.0 [facility] Comment on above: Performed By: #### C BC #### [facility] [address] [place] [address] Dr. Justyna Woodruff CREATININEon 10-23-2022 Creatinine [Mass/Vol] 0.89 mg/dL Normal 0.55-1.02 [facility] Comment on above: Performed By: #### C CHARLY #### [facility] [address] [place] [address] Dr. Justyna Woodruff EGFR-AF SPANISH >60 Normal >=60 [facility] Comment on above: Performed By: #### C CHARLY #### [facility] [address] [place] [address] Dr. Justyna Woodruff EGFR-NON AF SPANISH >60 Normal >=60 [facility] Comment on above: Performed By: #### C CHARLY #### [facility] [address] [place] [address] Dr. Justyna Woodruff SED RATE WESTERGRENon 2022 SED RATE 4 mm/hr Normal <=30 [facility] Comment on above: Performed By: #### S EDR #### [facility] [address] [address] [address] Justyna Woodruff UA RANDOM W/MICROSCOPICon BACTERIA NONE SEEN Normal NONE SEEN [facility] Comment on above: Performed By: #### C CHARLY #### [facility] [address] [address] [address] Justyna Woodruff Bilirubin Ql (U) Negative Normal NEGATIVE [facility] Comment on above: Performed By: #### C CHARLY #### [facility] [address] [place] [address] Dr. Justyna Woodruff CAST NONE SEEN Normal NONE SEEN [facility] Comment on above: Performed By: #### C CHARLY #### [facility] [address] [place] [address] Dr. Justyna Woodruff Clarity (U) CLEAR Normal CLEAR [facility] Comment on above: Performed By: #### C CHARLY #### [facility] [address] [place] [address] Dr. Justyna Woodruff Color (U) LT. YELLOW Normal YELLOW [facility] Comment on above: Performed By: #### C CHARLY #### [facility] [address] [place] [address] Dr. Justyna Woodruff Crystals LM Nom (Urine sed) NONE SEEN Normal NONE SEEN [facility] Comment on above: Performed By: #### C CHARLY #### [facility] [address] [place] [address] Dr. Justyna Woodruff Epithelial cells LM Ql (Urine sed) MODERATE Abnormal NONE SEEN /RARE [facility] Comment on above: Performed By: #### C CHARLY #### [facility] [address] [place] [address] Dr. Justyna Woodruff Glucose Ql (U) Negative Normal NEGATIVE [facility] Comment on above: Performed By: #### C CHARLY #### [facility] [address] [place] [address] Dr. Justyna Woodruff Hemoglobin Ql (U) TRACE-INTACT Abnormal NEGATIVE [facility] Comment on above: Performed By: #### C CHARLY #### [facility] [address] [place] [address] Dr. Justyna Woodruff Ketones Ql (U) Negative Normal NEGATIVE [facility] Comment on above: Performed By: #### C CHARLY #### [facility] [address] [place] [address] Dr. Justyna Woodruff LEUKOCYTES SMALL Abnormal NEGATIVE [facility] Comment on above: Performed By: #### C CHARLY #### [facility] [address] [place] [address] Dr. Justyna Woodruff MUCOUS NONE SEEN Normal NONE SEEN [facility] Comment on above: Performed By: #### C CHARLY #### [facility] [address] [place] [address] Dr. Justyna Woodruff Nitrite Ql (U) Negative Normal NEGATIVE [facility] Comment on above: Performed By: #### C CHARLY #### [facility] [address] [place] [address] Dr. Justyna Woodruff pH (U) 6.5 [pH] Normal 5-9 [facility] Comment on above: Performed By: #### C CHARLY #### [facility] [address] [place] [address] Dr. Justyna Woodruff RBC 2-5 Abnormal 0-2 [facility] Comment on above: Performed By: #### C CHARLY #### [facility] [address] [place] [address] Dr. Justyna Woodruff SPEC GRAVITY 1.020 Normal 1.005-<=1.025 [facility] Comment on above: Performed By: #### C CHARLY #### [facility] [address] [place] [address] Dr. Justyna Woodruff UA PROTEIN Negative Normal NEGATIVE/ TRACE [facility] Comment on above: Performed By: #### C CHARLY #### [facility] [address] [place] [address] Dr. Justyna Woodruff Urobilinogen Qn (U) 0.2 {Aliya'U}/dL Normal 0.2 - 1.0 [facility] Comment on above: Performed By: #### C CHARLY #### [facility] [address] [address] [address] Justyna Woodruff WBC 2-5 Abnormal NONE SEEN [facility] Comment on above: Performed By: #### C CHARLY #### [facility] [address] [address] [address] Justyna Woodruff MG MAMM SCREEN 3D JAMEY CADon 10-12-2022 MG MAMM SCREEN 3D JAMEY CAD Patient: GISSELL MUÑOZ Exam Date: 10/12/2022 : 1950 Gender:F Ordering : DR JEVON MEDINA D.O. Admission #: [id number] Family : Order #: [id number] CLICK HERE TO VIEW EXAM RADIOLOGY REPORT PROCEDURE: MAMMOGRAM SCREENING 3D BILATERAL CAD COMPARISON: MG MAMM SCREEN JAMEY W CAD, 09/28/2020. MG MAMM SCREEN JAMEY W CAD, 09/25/2019. MAMMO JAMEY DX, 04/30/2007. MG MAMM SCREEN 3D JAMEY CAD, 10/10/2021. INDICATIONS: Screening for malignant neoplasm of breast Calculator Name NCI Breast Cancer Risk Assessment Tool 5 Year Breast Cancer Risk 2.40% Lifetime Breast Cancer Risk 6.10% Personal Breast Cancer No Personal Ovarian Cancer No Treatments None Family Cancers Father with leukemia cancer at age 89. LOCATION: The [facility] BREAST COMPOSITION: Heterogeneously dense,which may obscure small masses. FINDINGS: DIAGNOSTIC CATEGORY 2--BENIGN FINDING: RIGHT BREAST: No significant suspicious finding. Stable biopsy marker clip upper inner quadrant. Scattered benign-appearing calcifications are present. No significant change has occurred. LEFT BREAST: No significant suspicious finding. Scattered benign-appearing calcifications are present. No significant change has occurred. RECOMMENDATIONS: ROUTINE MAMMOGRAM AND CLINICAL EVALUATION IN 12 MONTHS. PLEASE NOTE: A NORMAL MAMMOGRAM DOES NOT EXCLUDE THE POSSIBILITY OF BREAST CANCER. A CLINICALLY SUSPICIOUS PALPABLE LUMP SHOULD BE BIOPSIED. Dictated by: Jose Armando Garcia M.D. on 10/13/2022 at 10:21 Approved by: Jose Armando Garcia M.D. on 10/13/2022 at 10:24 Normal [facility] C3 and C4 COMPLEMENTon 04-17 Complement C3, Serum 142 mg/dL Normal 82-167 [facility] Comment on above: Performed By: #### C SUITE #### [facility] [address] [address] [address] Justyna Woodruff Complement C4, Serum 23 mg/dL Normal 12-38 [facility] Comment on above: Performed By: #### C SUITE #### [facility] [address] [place] [address] Dr. Justyna Woodruff CBC AUTO DIFFon 04-14-2022 BASO # 0.1 103/ul Normal 0.0-0.1 [facility] Comment on above: Performed By: #### C CHARLY #### [facility] [address] [place] [address] Dr. Justyna Woodruff Basophils/100 WBC (Bld) 0.6 % Normal 0.2-2.0 [facility] Comment on above: Performed By: #### C CHARLY #### [facility] [address] [place] [address] Dr. Justyna Woodruff EO # 0.2 103/ul Normal 0.0-0.7 [facility] Comment on above: Performed By: #### C CHARLY #### [facility] [address] [place] [address] Dr. Justyna Woodruff Eosinophils/100 WBC (Bld) 1.8 % Normal 0.9-7.0 [facility] Comment on above: Performed By: #### C CHARLY #### [facility] [address] [place] [address] Dr. Justyna Woodruff Erythrocyte distribution width (RBC) [Ratio] 13.0 % Normal 11.0-15.0 [facility] Comment on above: Performed By: #### C CHARLY #### [facility] [address] [place] [address] Dr. Justyna Woodruff Hematocrit (Bld) [Volume fraction] 42.1 % Normal 36.0-48.0 [facility] Comment on above: Performed By: #### C CHARLY #### [facility] [address] [place] [address] Dr. Justyna Woodruff Hemoglobin (Bld) [Mass/Vol] 14.0 g/dL Normal 12.0-16.0 [facility] Comment on above: Performed By: #### C CHARLY #### [facility] [address] [address] [address] Justyna Woodruff IG # 0.02 10e3/ul Normal 0.00-0.03 [facility] Comment on above: Performed By: #### C CHARLY #### [facility] [address] [address] [address] Justyna Woodruff IG % 0.2 % Normal 0.0-0.5 [facility] Comment on above: Performed By: #### C CHARLY #### [facility] [address] [place] [address] Dr. Justyna Woodruff LYMPH # 2.9 103/ul Normal 1.2-3.8 [facility] Comment on above: Performed By: #### C CHARLY #### [facility] [address] [place] [address] Dr. Justyna Woodruff Lymphocytes/100 WBC (Bld) 35.2 % Normal 20.5-60.0 [facility] Comment on above: Performed By: #### C CHARLY #### [facility] [address] [place] [address] Dr. Jsutyna Woodruff MANUAL DIFF REQ NO Normal [facility] Comment on above: Performed By: #### C CHARLY #### [facility] [address] [place] [address] Dr. Justyna Woodruff MCH (RBC) [Entitic mass] 31.0 pg Normal 26.7-34.0 [facility] Comment on above: Performed By: #### C CHARLY #### [facility] [address] [place] [address] Dr. Justyna Woodruff MCHC (RBC) [Mass/Vol] 33.3 g/dL Normal 29.9-35.2 [facility] Comment on above: Performed By: #### C CHARLY #### [facility] [address] [place] [address] Dr. Justyna Woodruff MCV (RBC) [Entitic vol] 93.3 fL Normal 81.0-99.0 [facility] Comment on above: Performed By: #### C CHARLY #### [facility] [address] [address] [address] Justyna Woodruff MONO # 0.9 103/ul Critically high 0.3-0.8 [facility] Comment on above: Performed By: #### C CHARLY #### [facility] [address] [place] [address] Dr. Justyna Woodruff Monocytes/100 WBC (Bld) 10.6 % Normal 1.7-12.0 [facility] Comment on above: Performed By: #### C CHARLY #### [facility] [address] [place] [address] Dr. Justyna Woodruff NEUT # 4.3 103/ul Normal 1.4-6.5 [facility] Comment on above: Performed By: #### C CHARLY #### [facility] [address] [place] [address] Dr. Justyna Woodruff Neutrophils/100 WBC (Bld) 51.6 % Normal 43.0-75.0 [facility] Comment on above: Performed By: #### C CHARLY #### [facility] [address] [place] [address] Dr. Justyna Woodruff Platelet mean volume (Bld) [Entitic vol] 10.0 fL Normal 9.5-13.5 [facility] Comment on above: Performed By: #### C CHARLY #### [facility] [address] [place] [address] Dr. Justyna Woodruff PLT 158 103/ul Normal 150-450 [facility] Comment on above: Performed By: #### C CHARLY #### [facility] [address] [place] [address] Dr. Justyna Woodruff RBC 4.51 106/ul Normal 4.20-5.40 [facility] Comment on above: Performed By: #### C CHARLY #### [facility] [address] [place] [address] Dr. Justyna Woodruff WBC 8.3 103/ul Normal 4.0-11.0 [facility] Comment on above: Performed By: #### C CHARLY #### [facility] [address] [place] [address] Dr. Justyna Woodruff CREATININEon 04-14-2022 Creatinine [Mass/Vol] 1.07 mg/dL Critically high 0.55-1.02 [facility] Comment on above: Performed By: #### C CHARLY #### [facility] [address] [place] [address] Dr. Justyna Woodruff EGFR-AF SPANISH >60 Normal >=60 [facility] Comment on above: Performed By: #### C CHARLY #### [facility] [address] [place] [address] Dr. Justyna Woodruff EGFR-NON AF SPANISH 51 mL/min/1.73m2 Critically low >=60 [facility] Comment on above: Performed By: #### C CHARLY #### [facility] [address] [place] [address] Dr. Justyna Woodruff [facility] SED RATE 6 mm/hr Normal <=30 [facility] Comment on above: Performed By: #### S EDR #### [facility] [address] [place] [address] Dr. Justyna Woodrfuf UA RANDOM W/MICROSCOPICon BACTERIA NONE SEEN Normal NONE SEEN [facility] Comment on above: Performed By: #### C CHARLY #### [facility] [address] [place] [address] Dr. Justyna Woodruff Bilirubin Ql (U) Negative Normal NEGATIVE [facility] Comment on above: Performed By: #### C CHARLY #### [facility] [address] [place] [address] Dr. Justyna Woodruff CAST NONE SEEN Normal NONE SEEN [facility] Comment on above: Performed By: #### C CHARLY #### [facility] [address] [place] [address] Dr. Justyna Woodruff Clarity (U) CLEAR Normal CLEAR [facility] Comment on above: Performed By: #### C CHARLY #### [facility] [address] [place] [address] Dr. Justyna Woodruff Color (U) LT. YELLOW Normal YELLOW [facility] Comment on above: Performed By: #### C CHARLY #### [facility] [address] [address] [address] Justyna Woodruff Crystals LM Nom (Urine sed) NONE SEEN Normal NONE SEEN [facility] Comment on above: Performed By: #### C CHARLY #### [facility] [address] [place] [address] Dr. Justyna Woodruff Epithelial cells LM Ql (Urine sed) FEW Abnormal NONE SEEN /RARE [facility] Comment on above: Performed By: #### C CHARLY #### [facility] [address] [place] [address] Dr. Justyna Woodruff Glucose Ql (U) Negative Normal NEGATIVE [facility] Comment on above: Performed By: #### C CHARLY #### [facility] [address] [place] [address] Dr. Justyna Woodruff Hemoglobin Ql (U) SMALL Abnormal NEGATIVE [facility] Comment on above: Performed By: #### C CHARLY #### [facility] [address] [place] [address] Dr. Justyna Woodruff Ketones Ql (U) Negative Normal NEGATIVE [facility] Comment on above: Performed By: #### C CHARLY #### [facility] [address] [place] [address] Dr. Justyna Woodruff LEUKOCYTES SMALL Abnormal NEGATIVE [facility] Comment on above: Performed By: #### C CHARLY #### [facility] [address] [place] [address] Dr. Justyna Woodruff MUCOUS NONE SEEN Normal NONE SEEN [facility] Comment on above: Performed By: #### C CHARLY #### [facility] [address] [place] [address] Dr. Justyna Woodruff Nitrite Ql (U) Negative Normal NEGATIVE [facility] Comment on above: Performed By: #### C CHARLY #### [facility] [address] [place] [address] Dr. Justyna Woodruff pH (U) 7.0 [pH] Normal 5-9 [facility] Comment on above: Performed By: #### C CHARLY #### [facility] [address] [place] [address] Dr. Justyna Woodruff RBC 0-2 Normal 0-2 [facility] Comment on above: Performed By: #### C CHARLY #### [facility] [address] [place] [address] Dr. Justyna Woodruff SPEC GRAVITY 1.015 Normal 1.005-<=1.025 [facility] Comment on above: Performed By: #### C CHARLY #### [facility] [address] [place] [address] Dr. Justyna Woodruff UA PROTEIN Negative Normal NEGATIVE/ TRACE [facility] Comment on above: Performed By: #### C CHARLY #### [facility] [address] [place] [address] Dr. Justyna Woodruff Urobilinogen Qn (U) 0.2 {Aliya'U}/dL Normal 0.2 - 1.0 [facility] Comment on above: Performed By: #### C CHARLY #### [facility] [address] [place] [address] Dr. Justyna Woodruff WBC 0-2 Abnormal NONE SEEN [facility] Comment on above: Performed By: #### C CHARLY #### [facility] [address] [place] [address] Dr. Justyna Woodruff XR DEXA BONE DENSITYon 01-31 XR DEXA BONE DENSITY EXAMINATION: XR DEXA BONE DENSITY, 01/31/2022 3:04 PM EDT HISTORY: Menopause present COMPARISON: DEXA bone densitometry 01/29/2020 TECHNIQUE: Dual-energy X-ray absorptiometry (DEXA) bone density study performed for the axial skeleton. FINDINGS: SPINE ANALYSIS: Average bone mineral density is 1.156 g/cm2. T-score (standard deviation relative to young adult mean): -0.4 . +2.9% change since prior study. HIP ANALYSIS: Lowest bone mineral density is within the right femoral trochanter, 0.499 g/cm2. T-score (standard deviation relative to young adult mean): -3.1 . +2.0% change since prior study. IMPRESSION: [employer] Classification: Osteoporosis - High Fracture Risk Electronically authenticated by: JOSE ARMANDO GARCIA Date: 2022-01-31 17:41 Normal [facility] Office Visit (Cardiology)on 11-24-2021 Follow-up visit Diagnoses/Problems Assessed Essential hypertension (401.9) (I10) Hyperlipidemia (272.4) (E78.5) Class 1 obesity with body mass index (BMI) of 33.0 to 33.9 in adult (278.00,V85.33) (E66.9,Z68.33) Never smoker Orders Class 1 obesity with body mass index (BMI) of 33.0 to 33.9 in adult Healthy Weight Tips; Status:Complete - Retrospective Authorization; Done: [id number] SocHx: Never smoker Tobacco Use Screening; Status:Complete; Done: [id number] Tobacco Use Screening; Status:Complete; Done: [id number] Unlinked Stop: Aspirin EC 81 MG Oral Tablet Delayed Release Patient Instructions By signing my name below, I, Aym Leung LPN, Scribe, attest that this documentation has been prepared under the direction and in the presence of Dr. Yakov Ding MD. All medical record entries made by the Jonathanibe were at my direction and personally dictated by me. I have reviewed the chart and agree that the record accurately reflects my personal performance of the history, physical exam, discussion and plan. Please bring all medicines, vitamins, and herbal supplements with you when you come to the office. Prescriptions will not be filled unless you are compliant with your follow up appointments or have a follow up appointment scheduled as per instruction of your physician. Refills should be requested at the time of your visit. Follow-up as needed only Chief Complaint GISSELL MUÑOZ is being seen for an annual follow-up of. 71-year-old white female who I saw in 2019 for cardiac clearance prior to knee surgery which was done without complications. She does have rheumatoid arthritis followed by rheumatology treated with hydroxychloroquine. She has hypertension on medical therapy and hyperlipidemia on statin therapy. When I saw the patient back then it was for abnormal EKG which I disagreed with in my interpretation to the EKG were normal. 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 She has no previous cardiac investigation for ischemic heart disease and has no echoes or stress test however the patient is totally asymptomatic and the risk factor have been under control. She was noted to be taking aspirin and I did not find indication for it therefore advised her to stop taking it. Her weight is above target and she is working on it. She had blood work done recently at [facility] which I requested. Apart from obesity physical examination was normal Assessment/recommendation s: 1?hypertension currently under control on lisinopril and atenolol, both are well-tolerated 2?hyperlipidemia on statin managed by PCP 3?rheumatoid arthritis followed by rheumatology and stable on hydroxychloroquine 4?obesity, encouraged the patient for weight loss and low calorie diet and exercise. Patient will follow up with me in as-needed basis Surgical History Problems History of Appendectomy History of Breast biopsy History of Cardiac catheterization History of Carpal tunnel surgery History of Complete colonoscopy History of Esophageal dilation History of Hysterectomy History of Knee replacement History of Lithotripsy History of Liver biopsy Past Medical History Problems History of Preop cardiovascular exam (V72.81) (Z01.810) Resolved Date: 24 Nov 2021 Current Meds Medication NameInstruction Amoxicillin 500 MG Oral CapsuleTAKE 4 CAPSULES 1 HOUR PRIOR TO DENTAL APPOINTMENT. Atenolol 50 MG Oral TabletTake 1 tablet daily Atorvastatin Calcium 20 MG Oral TabletTAKE 1 TABLET Bedtime Calcium 600 + D TABSTAKE 1 TABLET DAILY. Effer-K 25 MEQ Oral Tablet EffervescentDISSOLVE 1 TABLET IN 6 TO 8 OUNCES OF WATER AND DRINK ONCE DAILY. Hydroxychloroquine Sulfate 200 MG Oral TabletTAKE 1 TABLET DAILY. Lisinopril 10 MG Oral TabletTAKE 1 TABLET DAILY. Multi Vitamin Oral TabletTAKE 1 TABLET DAILY. Pantoprazole Sodium 20 MG Oral Tablet Delayed ReleaseTAKE 1 TABLET DAILY. Potassium 99 MG Oral TabletTAKE 1 TABLET DAILY. Turmeric 500 MG Oral CapsuleTAKE 1 CAPSULE Daily Vitamin B12 1000 MCG Oral Tablet Extended ReleaseTake 1 tablet daily Vitamin C 1000 MG Oral TabletTAKE 1 TABLET DAILY. Allergies Medication Reglan TABS Recorded By: Suzette Lujan; 11/24/2021 8:24:33 AM Vistaril CAPS Recorded By: Suzette Lujan; 11/24/2021 8:24:33 AM NonMedication IV Contrast Dye Recorded By: Suzette Lujan; 11/24/2021 8:24:33 AM Social History Problems Never smoker No alcohol use No caffeine use No illicit drug use Review of Systems Constitutional: not feeling tired. Cardiovascular: no intermittent leg claudication and as noted in HPI. Respiratory: no cough and no shortness of breath. Gastrointestinal: no change in bowel habits and no blood in stools. Integumentary: no skin rashes. Neurological: no seizures and no frequent falls. All other systems have been reviewed and are negative for complaint. Vitals Vital Signs Recorded: 24Nov2021 08:28AM Heart Rate63, L Brachial Artery [id number], LUE, S (more content not included)... Normal [employer] Tobacco Screening.on 022 Adult depression screening assessment No [facility] [employer] 250 DO Work Phone: Fall risk assessment a) No falls within the last year [facility] [employer] 250 DO Work Phone: Tobacco use status [facility] b) No [facility] [employer] 250 DO Work Phone: XR knee RT 2Von 04-27-2021 XR knee RT 2V [facility] [place] [address] [place] [address] XRay Report Signed Patient: Gissell Muñoz MR#: [id number] : 1950 Acct:[id number] Age/Sex: 70 / F ADM Date: 04/27/21 Loc: [facility] Room: Type: [facility] Attending Dr: Ollie Ledbetter MD Ordering Provider: Ollie Ledbetter MD Date of Service: 04/27/21 XR/XR knee RT 2V: Status post total right knee replacement Copies to: Ollie Ledbetter MD Two-view RIGHT knee plain film COMPARISON:08/11/20 HISTORY:Yearly follow-up assessment for RIGHT total knee arthroplasty No hardware failure loosening identified. No fracture or dislocation. Small suprapatellar effusion. No soft tissue abnormality. XR/XR knee RT 2V IMPRESSION:Uncomplicated RIGHT knee arthroplasty. Impression dictated by: Sharad Mendez M.D.04/27/2021 12:32 PM Dictation Location: [place] [address] Transcribed By: [facility] 04/27/21 1232 Dictated By: Sharad Mendez DO 04/27/21 1231 Signed By: 04/27/21 1232 [facility] Vital Signs Date Time Vital Sign Value Performing Clinician Facility 06-04-2023 15:00-0400 Body height 156.21 cm Jevon Ball Other [facility] Other 06-04-2023 15:00-0400 Body mass index (BMI) [Ratio] 34.42 kg/m2 Jevon Ball Other [facility] Other 06-04-2023 15:00-0400 Body weight 84.01 kg Jevon Ball Other [facility] Other 06-04-2023 15:00-0400 Diastolic blood pressure 83 mm[Hg] Jevon Ball Other [facility] Other 06-04-2023 15:00-0400 Respiratory rate 12 /min Jevon Ball Other [facility] Other 06-04-2023 15:00-0400 Systolic blood pressure 130 mm[Hg] Jevon Ball Other [facility] Other 03-02-2023 14:00-0400 Body height 156.21 cm Jevon Ball Other [facility] Other 03-02-2023 14:00-0400 Body mass index (BMI) [Ratio] 33.94 kg/m2 Jevon Ball Other [facility] Other 03-02-2023 14:00-0400 Body weight 82.83 kg Jevon Ball Other [facility] Other 03-02-2023 14:00-0400 Diastolic blood pressure 84 mm[Hg] Jevon Ball Other [facility] Other 03-02-2023 14:00-0400 Respiratory rate 12 /min Jevon Ball Other [facility] Other 03-02-2023 14:00-0400 Systolic blood pressure 133 mm[Hg] Jevon Ball Other [facility] Other 01-23-2023 15:30-0400 Body height 156.21 cm Jevon Ball Other [facility] Other 01-23-2023 15:30-0400 Body mass index (BMI) [Ratio] 34.42 kg/m2 Jevon Ball Other [facility] Other 01-23-2023 15:30-0400 Body weight 84.01 kg Jevon Ball Other [facility] Other 01-23-2023 15:30-0400 Diastolic blood pressure 84 mm[Hg] Jevon Ball Other [facility] Other 01-23-2023 15:30-0400 Respiratory rate 12 /min Jevon Ball Other [facility] Other 01-23-2023 15:30-0400 Systolic blood pressure 145 mm[Hg] Jevon Ball Other [facility] Other 10-02-2022 14:45-0500 Body height 156.21 cm Jevon Ball Other [facility] Other 10-02-2022 14:45-0500 Body mass index (BMI) [Ratio] 34.2 kg/m2 Jevon Ball Other [facility] Other 10-02-2022 14:45-0500 Body weight 83.46 kg Jevon Ball Other [facility] Other 10-02-2022 14:45-0500 Diastolic blood pressure 82 mm[Hg] Jevon Ball Other [facility] Other 10-02-2022 14:45-0500 Respiratory rate 12 /min Jevon Ball Other [facility] Other 10-02-2022 14:45-0500 Systolic blood pressure 130 mm[Hg] Jevon Ball Other [facility] Other 11-24-2021 08:28-0400 Body height 157.48 cm Jevon E Ball Work Phone: [facility] [employer] 250 DO Work Phone: 11-24-2021 08:28-0400 Body mass index (BMI) [Ratio] 33.47 kg/m2 Jevon E Ball Work Phone: [facility] [employer] 250 DO Work Phone: 11-24-2021 08:28-0400 Body surface area Derived from formula 1.84 m2 Jevon E Ball Work Phone: [facility] [employer] 250 DO Work Phone: 11-24-2021 08:28-0400 Body weight 83.01 kg Jevon E Ball Work Phone: [facility] [employer] 250 DO Work Phone: 11-24-2021 08:28-0400 Diastolic blood pressure 80 mm[Hg] Jevon E Ball Work Phone: [facility] 250 DO Work Phone: 11-24-2021 08:28-0400 Heart rate 63 /min Jevon E Ball Work Phone: [facility] 250 DO Work Phone: 11-24-2021 08:28-0400 Systolic blood pressure 135 mm[Hg] Jevon E Ball Work Phone: [facility] [employer] 250 DO Work Phone: Encounters Encounter Date Encounter Type Care Provider Facility Start: 01-08-2024 ambulatory BELINDA Nievesi ty:JAYLEN Kendrick Start: 11-20-2023 End: 11-20-2023 ambulatory ENEIDA GROSS Not Available Start: 09-11-2023 End: 09-11-2023 ambulatory ENEIDA Clemens RENATO Not Available Start: 07-03-2023 End: 07-03-2023 ambulatory ENEIDA A RENATO Not Available Start: 06-14-2023 End: 06-14-2023 ambulatory Jevon Medina Other [facility] Other Start: 06-14-2023 Telephone encounter Jevon Medina [facility] Start: 06-11-2023 End: 06-11-2023 ambulatory Jevon Adam Other [facility] Other Start: 06-11-2023 Telephone encounter Jevon Medina [facility] Start: 06-04-2023 End: 06-04-2023 ambulatory Jevon Ball Other [facility] Other Start: 06-04-2023 Office outpatient vi sit 15 minutes Jevon Ball [facility] Start: 03-02-2023 End: 03-02-2023 ambulatory Jevon Adam Other [facility] Other Start: 03-02-2023 Office outpatient vi sit 15 minutes Jevon Ball [facility] Start: 01-23-2023 End: 01-23-2023 ambulatory Jevon Ball Other [facility] Other Start: 01-23-2023 Patient encounter procedure Jevon Ball [facility] Start: 01-02-2023 End: 01-03-2023 ambulatory BELINDA RITTER Facility:JAYLEN Kendrick Start: 12-26-2022 End: 12-26-2022 ambulatory Jevon Ball Other [facility] Other Start: 12-26-2022 Telephone encounter Jevon Medina [facility] Start: 12-23-2022 End: 12-24-[address] JEVON MEDINA Facility:[facility] Start: 12-22-2022 End: 12-23-[address] JEVON MEDINA Facility:[facility] Start: 11-21-2022 End: 11-21-2022 ambulatory Jevon Medina Other [facility] Other Start: 11-21-2022 Office outpatient vi sit 15 minutes Jevon Medina [facility] Start: 10-23-2022 End: 10-24-[address] JALEN WELSH Facility:[facility] Start: 10-12-2022 End: 10-13-[address] JEVON MEDINA Facility:[facility] Start: 10-02-2022 End: 10-02-2022 ambulatory Jevon Medina Other [facility] Other Start: 10-02-2022 Office outpatient vi sit 15 minutes Jevon Medina [facility] Start: 04-14-2022 End: 04-15-[address] JALEN WELSH Facility:[facility] Start: 01-31-2022 End: 02-01-[address] JEVON MEDINA Facility:[facility] Start: 01-17-2022 Adult health examination Jevon Medina Other [facility] Other Start: 11-24-2021 Office outpatient vi sit 25 minutes Jevon Medina Work Phone: [facility] [employer] 250 DO Work Phone: Start: 07-11-2021 End: 07-11-2021 Pre-procedure evaluation check Jevon Medina Other [facility] Other End: 11-24-2021 Patient encounter status Jevon Medina Work Phone: [facility] [employer] 250 DO Work Phone: Procedures Date Procedure Procedure Detail Performing Clinician Start: 01-17-2022 Depression screening Be lalit Medina Other Start: 09-08-2015 General examination of patient Jevon Medina Other Start: 05-06-2013 Preoperative cardiov ascular examination Jeovn Medina Other Appendectomy Jevon E Ball Work Phone: Arthroplasty of knee Benjami n E Ball Work Phone: Biopsy of breast Jevon E Ball Work Phone: Biopsy of liver Jevon E B all Work Phone: Cardiac catheterization Benj bernal E Ball Work Phone: Decompression of med sheryl nerve Jevon E Ball Work Phone: Dilation of esophagus Benjam in E Ball Work Phone: History of operative procedure on knee Jevon Medina Other Hysterectomy Jevon E Ball Work Phone: Lithotripsy Jevon E Ball Work Phone: Screening for osteoporosis B enjamin [place] Other Screening mammography Nuzhat in [place] Other Subacute bacterial endocarditis prophylaxis Jevon Medina Other Total colonoscopy Jevon E Adam Work Phone: Immunizations Immunization Date Immunization Notes Care Provider Miriam fitzgerald 05-29-2023 influenza, high dose seasonal, preservative-free Jevon Medina Other [facility] Other 06-04-2022 influenza, high dose seasonal, preservative-free Jevon Medina Other [facility] Other 06-04-2022 influenza virus vaccine, split virus (incl. purified surface antigen) Jevon Medina Other [facility] Other 12-01-2021 COVID-19 Vaccine Moderna - Documentation Purposes Only Jevon Medina Other [facility] Other 06-14-2021 Moderna COVID-19 Vaccine 100 MCG/0.5ML Intramuscular Suspension Jevon Medina Work Phone: [facility] [address] DO Work Phone: 05-28-2021 zoster vaccine recombinant Jevon Medina Work Phone: [place] [address] DO Work Phone: 05-28-2021 zoster vaccine, live Benjami n Ball Other [facility] Other 05-01-2021 Fluad Quadrivalent 0 .5 ML Intramuscular Prefilled Syringe Jevon Medina Work Phone: [place] [address] DO Work Phone: 05-01-2021 influenza virus vaccine, split virus (incl. purified surface antigen) Jevon Medina Other [facility] Other 12-20-2020 zoster vaccine, live Benjami n Ball Other [facility] Other 12-19-2020 zoster vaccine recombinant Jevon Medina Work Phone: [place] [address] DO Work Phone: 11-16-2020 Moderna COVID-19 Vaccine 100 MCG/0.5ML Intramuscular Suspension Jevon Medina Work Phone: [place] [address] DO Work Phone: 10-19-2020 Moderna COVID-19 Vaccine 100 MCG/0.5ML Intramuscular Suspension Jevon Medina Work Phone: [place] [address] DO Work Phone: 06-21-2020 pneumococcal conjuga te vaccine, 13 valent Jevon Medina Work Phone: [place] [address] DO Work Phone: 06-18-2020 pneumococcal conjuga te vaccine, 13 valent Jevon Medina Other [facility] Other 05-20-2020 influenza, high dose seasonal, preservative-free Jevon Medina Work Phone: [place] [address] DO Work Phone: 04-20-2020 influenza virus vaccine, unspecified formulation Jevon Medina Work Phone: [place] [address] DO Work Phone: 06-05-2019 Seasonal trivalent influenza vaccine, adjuvanted, preservative free Jevon Medina Work Phone: [place] [address] DO Work Phone: 06-05-2018 influenza, injectabl e, quadrivalent, preservative free Jevon Medina Work Phone: [place] [address] DO Work Phone: 08-20-2013 pneumococcal polysaccharide vaccine, 23 valent Jevon Medina Work Phone: [place] [address] DO Work Phone: 04-30-2012 tetanus and diphther ia toxoids, adsorbed, preservative free, for adult use (5 Lf of tetanus toxoid and 2 Lf of diphtheria toxoid) Jevon Adam Other [facility] Other Payers Date Payer Category Payer [employer] others) [id number] 2019 [employer] [id number] 1959 [employer] ( [employer] others) [id number] 1959 Medicare [id number] 2.1 [id number] 1959 Self-pay 1959 Unknown [id number] 2. [id number] 1950 Unknown [id number] [id number] 1950 Unknown [id number] [id number] 1950 Unknown [id number] [id number] 1950 Unknown [id number] [id number] 1950 Unknown [id number] [id number] 1950 Unknown [id number] [id number] 1950 Unknown [id number] [id number] 1950 Unknown [id number] [id number] 1950 Unknown [id number] [id number] 1950 Unknown [id number] [id number] Unknown Unknown [id number] [id number] Social History Date Type Detail Facility No alcohol use No alcohol use [facility] 250 DO Work Phone: Sex Assigned At Sex Assigned At [facility] Other Evaluation note 06-04-2023 Note Date & Type Note Facility 06-04-2023 Evaluation note Encounter Date Diagnosis Assessment Notes May, Sebaceous cyst (ICD-10 - L72.3) May, Local infection of the skin and subcutaneous tissue, unspecified (ICD-10 - L08.9) Cleanse w/ soap and water. Warm compresses Gentle pressure to express infected material Begin antibiotics Call w/ increased pain, swelling or drainage May, Primary hypertension (ICD-10 - I10) This patient is instructed to consume a healthy, low-fat, low-salt diet. They are also encouraged to continue exercise to achieve/mainta in a normal BMI. [facility] Other Evaluation note 01-23-2023 Note Date & Type Note Facility 01-23-2023 Evaluation note Encounter Date Diagnosis Assessment Notes Jan, Medicare annual wellness visit, subsequent (ICD-10 - Z00.00) Personalized health advice was given to the beneficiary including a written plan for screenings discussed and provided. Advanced care planning reviewed and/or information given as requested. Additional counseling was provided here today in regards to, [ ]. The above visit was performed by [ ], under direct supervision of [ ]. Document reviewed and amended by provider signed below. Jan, Controlled type 2 diabetes mellitus with hyperglycemia, without long-term current use of insulin (ICD-10 - E11.65) This patient is following a comprehensive diabetic treatment plan. They are checking their feet daily for calluses and nonhealing ulcers. They are being seen for yearly dilated eye examinations. Goals: SBP less than 130, LDL less than 100, FBS less than 140, AC and A1C less than 7%. They are checking their BS daily, will which are reviewed at the office visit. Continue regular routine monitoring of A1C,] Microalbumin, Dilated eye exam and Foot exam Jan, Primary hypertension (ICD-10 - I10) This patient is instructed to consume a healthy, low-fat, low-salt diet. They are also encouraged to continue exercise to achieve/maintain a normal BMI. Jan, Hypercholesterolemia (ICD-10 - E78.00) Instructed on diet and exercise with continued statin therapy.Discusse d the beneficial effects of lowering cholesterol in reducing the risk for cerebrovascular and cardiovascular disease. Jan, Gastroesophageal reflux disease with esophagitis without hemorrhage (ICD-10 - K21.00) Diet instructions: Smaller portions, avoid eating and laying flat, avoid eating or drinking prior to bedtime. Weight loss. Jan, Age-related osteoporosis without current pathological fracture (ICD-10 - M81.0) Ca and Vit D supplements along w/ weight bearing exercise. Continue Alendronate, tolerating w/o ADR. DEXA every 2-3 years [facility] Other Evaluation note 11-21-2022 Note Date & Type Note Facility 11-21-2022 Evaluation note Encounter Date Diagnosis Assessment Notes Nov, Acute bronchitis due to other specified organisms (ICD-10 - J20.8) Instructed to use Robitussin or Mucinex for cough, saline or Flonase NS for congestion, Tylenol for pain and fever. Nov, Essential hypertension (ICD-10 - I10) Avoid use of decongestants [facility] Other Evaluation note 10-02-2022 Note Date & Type Note Facility 10-02-2022 Evaluation note Encounter Date Diagnosis Assessment Notes Sep, Rectal bleeding (ICD-10 - K62.5) Avoid straining, push fluids, increased fiber. Monitor for now, call if any further bleeding and a referral to GI will be sent Sep, External hemorrhoid, bleeding (ICD-10 - K64.4) Tucks wipes, Lidocaine/cor tisone [facility] Other Evaluation note Note Date & Type Note Facility Evaluation note No Information [facility] Other Evaluation note Note Date & Type Note Facility Evaluation note [facility] Other History general Narrative - Reported Note Date & Type Note Facility History general Narrative - Reported Type Medical History hypertension Medical History lupus Medical History Pure hypercholesterolemia Medical History Gastro-esophageal re flux disease with esophagitis, without bleeding Medical History Essential hypertension Medical History Controlled type 2 di abetes mellitus with hyperglycemia, without long-term current use of insulin Medical History Estrogen deficiency Medical History Post-menopause Medical History SBE (subacute bacter ial 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 candidate Medical History History of nephrolithiasis Medical History Primary osteoarthrit is of right knee Medical History Fibrocystic disease of right breast Surgical History left knee surgery 2012 Surgical History right knee scope w/ menisectomy 02/2019 Surgical History appendix Surgical History carpal tunnel Surgical History colonoscopy/EGD 06/30/2019 Surgical History hysterectomy Surgical History liver biopsy Surgical History hearth cath Surgical History right TKA 04/2020 Surgical History Colonscopy 1999 Hospitalization History See Above [facility] Other History general Narrative - Reported Note Date & Type Note Facility History general Narrative - Reported [facility] Other Summary Purpose Family History No Family History Records FoundUnknown Family Member Name Dates Details Family history of diabetes m ellitus: Mother(V18.0, Z83.3) Status:Active Family history of leukemia: Father(V16.6, Z80.6) Status:Active Family history of malignant neoplasm of prostate: Father(V16.42, Z80.42) Status:Active Heart problem: Father Status:Active Advance Directives No Advanced Directives Records FoundNo Advanced Directives Records FoundNo Advanced Directives Records FoundNo Advanced Directives Records FoundNo Advanced Directives Records Found Chief Complaint * GISSELL MUÑOZ is being seen for an annual follow-up of. * 71-year-old white female who I saw in 2019 for cardiac clearance prior to knee surgery which was done without complications. She does have rheumatoid arthritis followed by rheumatology treated with hydroxychloroquine. She has hypertension on medical therapy and hyperlipidemia on statin therapy. When I saw the patient back then it was for abnormal EKG which I disagreed with in my interpretation tothe EKG were normal. 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 She has noprevious cardiac investigation for ischemic heart disease and has no echoes or stress test however the patient is totally asymptomatic and the risk factor have been under control. She was noted to betaking aspirin and I did not find indication for it therefore advised her to stop taking it. Her weight is above target and she is working on it. [facility] Apart from obesity physical examination was normal * Assessment/recommendations: * 1 hypertension currently under control on lisinopril and atenolol, both are well-tolerated * 2 hyperlipidemia on statin managed by PCP * 3 rheumatoid arthritis followed by rheumatology and stable on hydroxychloroquine * 4 obesity, encouraged the patient for weight loss and low calorie diet and exercise. * Patient will follow up with me in as-needed basis Additional Source Comments INFORMATION SOURCE (unrecogn ized section and content) DATE CREATED AUTHOR 09/13/2021 [facility] DATE CREATED AUTHOR AUTHOR'S ORGANIZ ATION 11/26/2021 [employer] DATE CREATED AUTHOR AUTHOR'S ORGANIZ ATION 12/29/[address] [facility] DATE CREATED AUTHOR AUTHOR'S ORGANIZ ATION 01/03/2023 [facility] DATE CREATED AUTHOR AUTHOR'S ORGANIZ ATION 11/21/2023 [facility] EPIC REASON FOR VISIT (unrecogniz ed section and content) rectum bleedingCOUGH, GREEN MUCUSLab ResultsWellnessCYST UNDER BREASTLab ResultsUpdate FOR RECORDS PERTAINING TO PATIENTS WHO ARE OR HAVE BEEN ENROLLED IN A CHEMICAL DEPENDENCY/SUBSTANCEABUSE PROGRAM, SOME INFORMATION MAY BE OMITTED. This clinical summary was aggregated from multiple sources. Caution should be exercised in using it in the provision of clinical care. This summary normalizes information from multiple sources, and as a consequence, information in this document may materially change the coding, format and clinical context of patient data. In addition, data may be omitted in some cases. CLINICAL DECISIONS SHOULD BE BASED ON THE PRIMARY CLINICAL RECORDS. [employer] provides no warranty or guarantee of the accuracy or completeness of information in this document.
== END 2023-12-31 15:58 | disposition home or self-care (01) ==
LOC: RAD 15:57
PROVIDERS: PCP Internal Medicine; Visit Provider Physician Assistant
DX: N20.0 Calculus of kidney (principal)
CPT/HCPCS: 74018

== ENCOUNTER 2024-06-12 15:51 | Outpatient (OUT) | payer OTHER, MEDICARE, SELFPAY ==
--- OUTSIDE RECORDS SUMMARY | 2024-06-12 16:05 | XMS_ITS | CCD ---
Author Organization [facility] Care Team Providers Care Dredge Pumper Name Role Phone Jevon Medina Unavailable Unavailable Unavailable Jevon Medina Unavailable ADAM, DR BILLINGSLEY Primary Care Unavailable RIYA, DELFINA Admitting Unavailable DELFINA RITTER Attending Unavailable DELFINA RITTER Consulting Unavailable ADAM, DR BILLINGSLEY Primary Care Unavailable BALL, DR BILLINGSLEY Admitting Unavailable BALL, DR BILLINGSLEY Attending Unavailable BALL, DR BILLINGSLEY Consulting Unavailable HALADAY, DR RAO Attending Unavailable HALADAY, DR RAO Consulting Unavailable BALL, DR BILLINGSLEY Primary Care Unavailable HALADAY, DR RAO Admitting Unavailable BALL, DR BILLINGSLEY Admitting Unavailable BALL, DR BILLINGSLEY Attending Unavailable BALL, DR BILLINGSLEY Consulting Unavailable BALL, DR BILLINGSLEY Primary Care Unavailable ZieberJose Armando Consulting Unavailable HALADAY, DR RAO Attending Unavailable HALADAY, DR RAO Consulting Unavailable HALADAY, DR RAO Admitting Unavailable BALL, DR BILLINGSLEY Primary Care Unavailable BALL, DR BILLINGSLEY Admitting Unavailable BALL, DR BILLINGSLEY Attending Unavailable BALL, DR BILLINGSLEY Consulting Unavailable BALL, DR BILLINGSLEY Primary Care Unavailable ZieberJose Armando Consulting Unavailable JEVON MEDINA Primary Care Physician [phone] DELFINA RITTER Attending Unavailable RIYADELFINA AREVALO Attending Unavailable ENEIDA GROSS Attending Unavailable ENEIDA GROSS Attending Unavailable ENEIDA GROSS Attending Unavailable ENEIDA GROSS Attending Unavailable ENEIDA GROSS Attending Unavailable Allergies Allergy Classification Reported Allergen(s) Allergy Type Date of Onset Reaction(s) Facility (1 source) Contrast media Allergy to substance (finding) [facility] 250 DO Work Phone: (18 sources) hydrOXYzine; Translations: [Vistaril CAPS] Drug Allergy Unknown (qualifier value) [facility] (2 sources) Metoclopramide; Translations: [Reglan TABS] Drug Allergy itching [facility] (8 sources) Contrast media Propensity to adverse reactions shortness of breath [facility] [employer] Other (9 sources) hydrOXYzine Drug Allergy 4 Unknown, Unknown Reaction [facility] (11 sources) Wheat; Translations: [Wheat] Propensity to adverse reactions 4 hives [facility] (2 sources) hydrOXYzine; Translations: [Vistaril] Drug Allergy [facility] (1 source) Iodine (And Iodine Containting Drugs) Drug allergy (disorder) [facility] (2 sources) Iothalamate; Translations: [Reglan] Drug Allergy [facility] (1 source) Wheat Containing Prod Drug allergy (disorder) [facility] (4 sources) Vistazine *ANTIANXIETY AGENTS* Propensity to adverse reactions 3 Comment:Vistal ine [facility] (3 sources) VISTALINE Propensity to adverse reactions 5 Unknown [employer] Other (4 sources) Dyes Propensity to adverse reactions 3 Comment:IVP Dye [facility] (2 sources) Contrast media; Translations: [Contrast Dye] Drug allergy [facility] (1 source) hydrOXYzine Drug Allergy 4 Swelling of Lip/Tongue/Thr oat [facility] (1 source) Iodinated Contrast Media Allergy to substance 4 Difficulty Breathing, shortness of breath [facility] Medications Current Medications Medication Drug Class(es) Dates Sig (Normalized) Sig (Original) alendronic acid 70 mg oral tablet (13 sources) Bisphosphonate Start: 01-22-2024 End: 01-22-2024 take 70 mg by mouth every week Alendronate Active 70 MG PO every week 12 90 January 22, 2024 4:05pm Start: 01-08-2024 take 1 tablet by nohemy th every week alendronate 70 mg Tab 70 mg = 1 tab(s), Oral, qWeek, Refills(s) 0 Start Date: 01/08/24 Status: Ordered Start: 11-05-2023 End: 01-22-2024 take 1 tablet by mouth every week Alendronate Discontinued 0 .ROUTE .COMPLEX November 05, 2023 5:05pm January 22, 2024 3:35pm TAKE 1 TABLET BY MOUTH ONCE A WEEK WITH GLASS OF WATER NO EATING/LAYING FLAT X30 MINUTES Start: 11-05-2023 End: 11-05-2023 take 70 mg by mouth every week Alendronate Discontinue d 70 MG PO every week November 05, 2023 12:00am November 05, 2023 5:05pm take 1 tablet by nohemy th every week Alendronate Sodium 70 MG TAKE 1 TABLET BY MOUTH ONCE A WEEK WITH GLASS OF WATER NO EATING/LAYING FLAT X30 MINUTES Active take 1 tablet by nohemy th once daily Alendronate Sodium 70 MG 1 tablet 30 minutes before the first food, beverage or medicine of the day with plain water Orally Active ASA (8 sources) ASA 1 tab Oral A ctive ascorbic acid 500 mg oral capsule (4 sources) Vitamin C Start: 01-22-2024 Ascorbic Acid (Vitamin C) Active MG PO January 22, 2024 12:00am Start: 06-30-2019 End: 01-22-2024 take 1 tablet by mouth once daily Ascorbic Acid (Vitamin C) (Vitamin C) 500 mg Tablet Discontinued 500 MG PO Daily April 30, 2020 12:00am January 22, 2024 3:51pm take 1 tablet by nohemy th once daily Vitamin C 1000 MG Oral Tablet TAKE 1 TABLET DAILY. Quantity: 0 Refills: 0 Ordered: 24-Nov-2021 DO Active atenolol 50 mg oral tablet (11 sources) beta-Adrenergic Alida Start: 09-14-2015 take 50 mg by mouth once daily Atenolol Active 50 MG PO Daily February 17, 2019 12:00am atorvastatin 20 mg oral tablet (13 sources) HMG-CoA Reductase Inhibitor Start: 01-08-2024 take 1 tablet by mouth once daily atorvastatin 20 mg Tab 20 mg = 1 tab(s), Oral, Daily, Refills(s) 0 Start Date: 01/08/24 Status: Ordered Start: 12-24-2023 take 1 tablet by nohemy th once daily at bedtime Atorvastatin Active 0 .ROUTE .COMPLEX December 24, 2023 1:41pm TAKE 1 TABLET BY MOUTH EVERY DAY AT BEDTIME Start: 12-24-2023 End: 12-24-2023 take 20 mg by mouth once daily Atorvastatin Discontinu ed 20 MG PO Daily December 24, 2023 12:00am December 24, 2023 1:41pm Start: 12-24-2023 End: 12-24-2023 take 10 mg by mouth once daily Atorvastatin Discontinu ed 10 MG PO Daily December 24, 2023 12:00am December 24, 2023 1:34pm Atorvastatin Claudio cium 20 MG TAKE 1 TABLET BY MOUTH EVERYDAY AT BEDTIME Oral Once a day for 90 days Active azithromycin 250 mg oral tablet (7 sources) Macrolide Antimicrobial Start: 11-21-2022 Azithromycin 250 MG as directed Orally daily for 5 days Nov, Active Calcium Citrate (1 source) Start: 09-11-2017 Citracal + D Oral, Daily, Refill(s) 0, Prophylaxis Start Date: 09/11/17 Status: Ordered Calcium Phosphate-Vitamin D3 (Citracal + D3 (Calcium Phos)) 250 mg calcium- 500 unit Tablet,Chewable (1 source) Start: 02-17-2019 take 1 tablet by mouth once daily Calcium Phosphate-Vitamin D3 (Citracal + D3 (Calcium Phos)) 250 mg calcium- 500 unit Tablet,Chewable Active 1 TAB PO Daily February 17, 2019 12:00am calcium polycarbophil 625 mg oral tablet (1 source) Start: 04-30-2020 take 2 tablets by mouth once daily Calcium Polycarbophil (Fiber-Tabs) 625 mg Tablet Active 1250 MG PO Daily April 30, 2020 12:00am cephalexin 500 mg oral tablet (3 sources) Cephalosporin Antibacterial Start: 06-04-2023 Cephalexin 500 MG 1 tablet Orally 7 for 5 days May, Active cholecalciferol 0.025 mg oral capsule (5 sources) Vitamin D Start: 01-22-2024 take 25 ug by mouth once daily Cholecalciferol (Vitamin D3) Active 25 MCG PO Daily January 22, 2024 12:00am Start: 02-17-2019 take 2 capsules by m outh once daily Cholecalciferol (Vitamin D3) (Vitamin D3) 1,000 unit Capsule Active 2000 UNIT PO Daily February 17, 2019 12:00am take 1 capsule by mo ut every twenty-four hours Vitamin D3 1000 UNIT 1 capsule Orally Once a day Active Citracal +D3 250-107-500 MG- MG-UNIT (8 sources) Citracal +D3 250 -107-500 MG-MG-UNIT Orally Active Echinacea (8 sources) Echinacea Active Echinacea (2 sources) Start: 04-30-2020 take 760 mg by mouth once daily Echinacea Active 760 MG PO Daily April 30, 2020 12:00am Start: 03-27-2019 take 1 tablet by nohemy th once daily echinacea 1 tab, Oral, Daily, Refills(s) 0, Prophylaxis Start Date: 03/27/19 Status: Ordered hydroxychloroquine sulfate 200 mg oral tablet (12 sources) Antimalarial, Antirheumatic Agent Start: 07-28-2019 take 1 mg by mouth once daily hydroxychloroquine 200 mg Tab mg tab(s), Oral, Daily, Refills(s) 0 Start Date: 07/28/19 Status: Ordered Start: 02-17-2019 take 200 mg by mouth every other day Hydroxychloroquine Active 200 MG PO every other day April 30, 2020 12:00am Every other day at 1200 and 1800; odd days Lidocaine-Hydrocortisone Joaquin 3-0.5 % (8 sources) Lidocaine-Hydroc ortisone Joaquin 3-0.5 % as directed Externally twice daily for 7 days Active lisinopril 10 mg oral tablet (12 sources) Angiotensin Converting Enzyme Inhibitor Start: 11-02-2023 take 1 tablet by mouth once daily Lisinopril Active 0 .ROUTE .COMPLEX 90 November 02, 2023 8:41am TAKE ONE TABLET BY MOUTH DAILY Start: 09-14-2015 End: 11-02-2023 take 10 mg by mouth once daily at bedtime Lisinopril Discontinued 10 MG PO Daily at bedtime February 17, 2019 12:00am November 02, 2023 8:41am Zhubnftt-Tha-Gwanl Acid-Vit K (Multi For Her 50 Plus) 400-80 mcg Capsule (1 source) Start: 04-30-2020 take 50-400 capsules by mouth once daily Scofftcq-Gsz-Zoeap Acid-Vit K (Multi For Her 50 Plus) 400-80 mcg Capsule Active 1 CAP PO Daily April 30, 2020 12:00am Multivitamin preparation (8 sources) take 1 tablet by mouth once michelle y Multivitamin - 1 tablet Orally Once a day Active One A Day Women 50 Plus (1 source) Start: 06-30-2019 take 1 tablet by mouth once daily One A Day Women 50 Plus 1 tab, Oral, Daily, Refill(s) 0, Prophylaxis Start Date: 06/30/19 Status: Ordered pantoprazole 20 mg delayed release oral tablet (12 sources) Proton Pump Inhibitor Start: 04-30-2020 take 1 tablet by mouth once daily pantoprazole 20 mg Oral EC Tab 20 mg = 1 tab(s), Oral, Daily, # 90 tab(s), Refills(s) 1, [facility] 157, cm, 09/15/20 8:30:00 EST, Height/Length Dosing, 80.4, kg, 09/15/20 8:30:00 EST, Weight Dosing Start Date: 09/15/20 Status: Ordered Start: 02-17-2019 End: 04-30-2020 take 40 mg by mouth once daily Pantoprazole Discontinu ed 40 MG PO Daily February 17, 2019 12:00am April 30, 2020 2:19pm potassium bicarbonate 25 meq effervescent oral tablet (10 sources) Start: 01-22-2024 Potassium Bica rb-Citric Acid (Effer-K) 25 mEq tablet, effervescent Active 25 MEQ PO Daily January 22, 2024 12:00am take 1 tablet by nohemy th twice daily at mealtime Effer-K 25 MEQ 1 tablet dissolved in keri er with meals Orally Twice a day Active potassium chloride 1.33 meq oral tablet (1 source) Start: 06-30-2019 take 1 tablet by mouth once daily potassium chloride 99 mg oral tablet 99 mg = 1 tab(s), Oral, Daily, # 100 tab(s), Refills(s) 0 Start Date: 06/30/19 Status: Ordered potassium gluconate 2.5 meq oral tablet (1 source) Start: 04-30-2020 take 600 mg by mouth once daily Potassium Gluconate Active 600 MG PO Daily April 30, 2020 12:00am turmeric curcumin (1 source) Start: 06-30-2019 take 1 tablet by mouth once daily turmeric curcumin turmeric curcumin, 1 tab, Oral, Daily Start Date: 06/30/19 Status: Ordered Turmeric Curcumin (1 source) Start: 04-30-2020 take 500 mg by mouth once daily Turmeric Curcumin Active 500 MG PO Daily April 30, 2020 12:00am turmeric extract 500 mg oral capsule (9 sources) Turmeric 500 MG as directed Orally Active take 1 capsule by mouth once geetha ly Turmeric 500 MG Oral Capsule TAKE 1 CAPSULE Daily Quantity: 0 Refills: 0 Ordered: 24-Nov-2021 DO Active vitamin b12 1 mg oral tablet (10 sources) Vitamin B12 Start: 04-30-2020 take 1000 ug by mouth once daily Cyanocobalamin (Vitamin B-12) Active 1000 MCG PO Daily April 30, 2020 12:00am Vitamin B12 Acti ve take 1 tablet by mouth once michelle y Vitamin B12 1000 MCG Oral Tablet Extended Release Take 1 tablet daily Quantity: 0 Refills: 0 Ordered: 24-Nov-2021 DO Active Vitamin B12 1000 mcg Tab (1 source) Start: 01-08-2024 take 1 tablet by mouth once daily Vitamin B12 1000 mcg Tab 1,000 mcg = 1 tab(s), Oral, Daily, Refills(s) 0 Start Date: 01/08/24 Status: Ordered Vitamin D3 (1 source) Start: 09-14-2015 Vitamin D3 1,0 00 International_Unit, Oral, Daily, Refills(s) 0, Prophylaxis Start Date: 09/14/15 Status: Ordered Vitamin D3 1000 UNIT (5 sources) take 1 capsule by mouth once geetha ly Vitamin D3 1000 UNIT 1 capsule Orally Once a day Active Completed/Discontinued Medications Medication Drug Class(es) Dates Sig (Normalized) Sig (Original) acetaminophen 325 mg / oxyCODONE hydrochloride 5 mg oral tablet (1 source) Opioid Agonist Start: 05-18-2020 End: 01-22-2024 take 1 tablet by mouth every four to six hours Oxycodone-Acetamin ophen (Percocet) 5-325 mg tablet Discontinued 1 - 2 TAB PO EVERY 4-6 HOURS 40 7 May 18, 2020 January 22, 2024 3:38pm amoxicillin 500 mg oral capsule (9 sources) [...] 4 Refills: 0 Ordered: 24-Nov-2021 DO Active aspirin 81 mg delayed release oral tablet (2 sources) Platelet Aggregation Inhibitor, Nonsteroidal Anti-inflammatory Drug Start: 04-30-2020 End: 01-22-2024 Aspirin (Meño Low Dose Aspirin) 81 mg Tablet,Delayed Release (Dr/Ec) Discontinued 81 MG PO Daily at bedtime April 30, 2020 12:00am January 22, 2024 3:51pm Start: 02-17-2019 End: 04-30-2020 take 81 mg by mouth once daily Aspirin Discontinued 81 MG PO Daily February 17, 2019 12:00am April 30, 2020 2:17pm Calcium (1 source) Phosphate Binder, Calcium Calcium 600 + D TABS TAKE 1 TABLET DAILY. Quantity: 0 Refills: 0 Ordered: 24-Nov-2021 DO Active Cranberry (1 source) Non-Standardized Food Allergenic Extract, Non-Standardized Plant Allergenic Extract Start: 9 End: 0 take 500 mg by mouth once daily Cranberry Discontinued 500 MG PO Daily February 17, 2019 12:00am April 30, 2020 2:18pm docusate sodium 100 mg oral capsule (1 source) Start: 0 End: 4 take 1 capsule by mouth twice daily Docusate Sodium (Dok) 100 mg Capsule Discontinued 100 MG PO Twice daily 0 May 18, 2020 12:00am January 22, 2024 3:52pm Effer-K 25 mEq oral tablet, effervescent (1 source) Start: 1 take 1 tablet by mouth twice daily Effer-K 25 mEq oral tablet, effervescent 25 mEq = 1 tab(s), Oral, BID, # 180 tab(s), Refills(s) 3, Pharmacy: [facility] #[id number], 158, cm, 04/15/21 8:47:00 EDT, Height/Length Dosing, 80, kg, 04/15/21 8:47:00 EDT, Weight Dosing Start Date: 04/15/21 Status: Ordered furosemide 20 mg oral tablet (1 source) Loop Diuretic Start: 9 End: 0 take 20 mg by mouth once daily Furosemide Discontinued 20 MG PO Daily February 17, 2019 12:00am April 30, 2020 2:18pm HYLAN G-F 20 (20 sources) Start: 0 Start: 01-15-2020 [facility] December 2 mL Start: 01-08-2020 Start: 01-08-2020 [facility] December 2 mL Start: 01-01-2020 Start: 01-01-2020 [facility] December 2 mL Multi Vitamin Oral Tablet [...] 0 Refills: 0 Ordered: 24-Nov-2021 DO Active psyllium 525 mg oral capsule (1 source) Start: take 8 capsules by mouth twice daily Metamucil 525 mg oral capsule 1,050 mg = 2 cap(s), Oral, BID, Take 2 hour apart from the other medications with at least 8 ounces of water, # 160 cap(s), Refills(s) 1, Pharmacy: [facility]/pharmacy #[id number] Start Date: 07/28/19 Status: Ordered rivaroxaban 10 mg oral tablet (1 source) Factor Xa Inhibitor Start: End: take 1 tablet by mouth once daily Rivaroxaban (Xarelto) 10 mg Tablet Discontinued 10 MG PO Daily with supper 0 May 18, 2020 12:00am January 22, 2024 3:53pm sulfamethoxazole 400 mg / trimethoprim 80 mg oral tablet (1 source) Dihydrofolate Reductase Inhibitor Antibacterial, Sulfonamide Antimicrobial Start: End: take 1 tablet by mouth every twelve hours Sulfamethoxazole-Tr imethoprim (Bactrim) 400-80 mg Tablet Discontinued 1 TAB PO Q12H February 17, 2019 12:00am April 30, 2020 2:29pm tiZANidine 4 mg oral capsule (1 source) Central alpha-2 Adrenergic Agonist Start: End: take 4 mg by mouth every eight hours Tizanidine Discontinued 4 MG PO Q8H May 18, 2020 9:28am January 22, 2024 3:53pm Triamcinolone (20 sources) Corticosteroid Start: 019 Start: 08-19-2019 Kenalog -40 mg Jul, 40 mg Start: 06-09-2019 Start: 06-09-2019 Kenalog -40 mg May, 40 mg Start: 12-24-2018 Start: 12-24-2018 Kenalog -40 mg December, 40 mg Start: 06-17-2018 Start: 06-17-2018 Kenalog -40 mg May, 40 mg Problems Active Problems Problem Classification Problem Date Documented Da te Episodic/Chronic Abdominal pain (2 sources) Unspecified abdominal pain; Translations: [Lower abdominal pain] Onset: 12-28-2022 03-22-2020 Episodic Acute bronchitis (1 source) Acute bronchitis due to other specified organisms Episodic Calculus of urinary tract (20 sources) History of calculus of kidney; Translations: [Personal history of urinary calculi] Onset: 12-23-2022 Resolved: 07-11-2021 Episodic Chronic obstructive pulmonary disease and bronchiectasis (1 source) Bronchitis; Translations: [Bronchitis, not specified as acute or chronic] Episodic Diabetes mellitus with complications (12 sources) Hyperglycemia due to type 2 diabetes mellitus; Translations: [Type 2 diabetes mellitus with hyperglycemia] Chronic Disorders of lipid metabolism (14 sources) Hyperlipidemia; Translations: [Other and unspecified hyperlipidemia] Onset: 05-06-2013 Chronic Diverticulosis and diverticulitis (1 source) Diverticula of intestine 03-27-2019 Chronic Esophageal disorders (11 sources) Gastro-esophageal reflux disease with esophagitis; Translations: [Gastroesophageal reflux disease with esophagitis without hemorrhage] Onset: 05-06-2013 01-20-2024 Chronic Essential hypertension (18 sources) Essential hypertension; Translations: [Unspecified essential hypertension] Onset: 05-06-2013 Chronic Gastroduodenal ulcer (except hemorrhage) (1 source) Gastric ulcer 03-27-2019 Chronic Gastrointestinal hemorrhage (2 sources) Hemorrhage of anus and rectum; Translations: [Rectal hemorrhage] Episodic Genitourinary symptoms and ill-defined conditions (2 sources) Nocturia; Translations: [Nocturia] Onset: 01-08-2024 Episodic Hemorrhoids (1 source) Residual hemorrhoidal skin [...] [Unilateral primary osteoarthritis, right knee] Onset: 09-01-2014 03-27-2019 Chronic Osteoporosis (9 sources) Age-related osteoporosis without current pathological fracture; Translations: [Senile osteoporosis] Onset: 02-02-2022 Chronic Other aftercare (3 sources) Patient encounter status; Translations: [Aftercare following joint replacement surgery] Chronic Other aftercare (1 source) Other half-way (current) drug therapy; Translations: [OTH [facility] CURRENT DRUG THERAPY] Onset: 10-26-2022 Episodic Other connective tissue disease (17 sources) History of total knee arthroplasty; Translations: [Presence of right artificial knee joint] 01-08-2024 Chronic Other gastrointestinal disorders (1 source) Irritable [...] to excess calories] Onset: 09-08-2015 Chronic Other screening for suspected conditions (not mental disorders or infectious disease) (6 sources) Encounter for screening mammogram for malignant neoplasm of breast; Translations: [Blood chemistry abnormal] Onset: 03-20-2014 Episodic Other skin disorders (1 source) Sebaceous cyst [...] [Overweight] Onset: 01-17-2022 Resolved: 07-21-2022 Episodic Other skin disorders (1 source) Atrophoderma; [...] Test Name Value Interpretation Reference Range Facility Screenson 01-09-2024 Screens [id number] Normal [facility] Ambulatory Visit Summaryon 0 01-08-2024 Ambulatory Visit Summary MUÑOZGISSELL CAMEJO :1950 Visit Date:01/08/2024 Ambulatory Visit Instructions Your Diagnosis Kidney stone Nocturia Tests Performed XR Abdomen 1 View -- Results Pending -- Please visit your patient portal for your results or contact your primary care physician. Your Care Team Attending Physician - DELFINA RITTER PA-C Primary Care Physician - JEVON MEDINA DO This Is Your Medications List Contact prescribing physician if questions or concerns Non-Formulary Medication (turmeric curcumin) alendronate (alendronate 70 mg Tab) ascorbic acid (Vitamin C) atenolol (atenolol 50 mg Tab) atorvastatin (atorvastatin 20 mg Tab) calcium-vitamin D (Citracal + D) cholecalciferol (Vitamin D3) cyanocobalamin (Vitamin B12 1000 mcg Tab) echinacea hydroxychloroquine (hydroxychloroquine 200 mg Tab) lisinopril (lisinopril 10 mg Tab) multivitamin with minerals (One A Day Women 50 Plus) pantoprazole (pantoprazole 20 mg Oral EC Tab) potassium bicarbonate (Effer-K 25 mEq oral tablet, effervescent) potassium chloride (potassium chloride 99 mg oral tablet) psyllium (Metamucil 525 mg oral capsule) Procedures Performed KUB X-ray (12/31/2023), ESWL of kidney (10/21/2020), ESWL of kidney (10/14/2020), Colonoscopy (06/30/2019), Colonoscopy (09/11/2017), EGD (09/11/2017), Appendectomy, Breast Biopsy, Breast surgery, Hysterectomy, Toe Surgery. Discharge Vitals Temperature (Temporal Artery) 36.8 ?C Heart Rate (Peripheral) 54 Respiratory Rate 16 Blood Pressure 126/83 Height 158 cm Height 62 in Weight 82 kg Weight 180.4 lb BMI 32.85 What to do next Scheduled Follow-Up Appointments Sunday. 2024 3:00 PM EDT With: DELFINA RITTER PA-C Where: [facility] Patient Educationon 01-08-20 Patient Education Urology Kidney Stones Kidney stones are solid, rock-like deposits that form inside of the kidneys. The kidneys are a pair of organs that make urine. A kidney stone may form in a kidney and move into other parts of the urinary tract, including the tubes that connect the kidneys to the bladder (ureters), the bladder, and the tube that carries urine out of the body (urethra). As the stone moves through these areas, it can cause intense pain and block the flow of urine. Kidney stones are created when high levels of certain minerals are found in the urine. The stones are usually passed out of the body through urination, but in some cases, medical treatment may be needed to remove them. What are the causes? Kidney stones may be caused by: ? A condition in which certain glands produce too much parathyroid hormone (primary hyperparathyroidism), which causes too much calcium buildup in the blood. ? A buildup of uric acid crystals in the bladder (hyperuricosuria). Uric acid is a chemical that the body produces when you eat certain foods. It usually leaves the body in the urine. ? Narrowing (stricture) of one or both of the ureters. ? A kidney blockage that is present at (congenital obstruction). ? Past surgery on the kidney or the ureters. What increases the risk? The following factors may make you more likely to develop this condition: ? Having had a kidney stone in the past. ? Having a family history of kidney stones. ? Not drinking enough water. ? Eating a diet that is high in protein, salt (sodium), or sugar. ? Being overweight or obese. What are the signs or symptoms? Symptoms of a kidney stone may include: ? Pain in the side of the abdomen, right below the ribs (flank pain). Pain usually spreads (radiates) to the groin. ? Needing to urinate often or urgently. ? Painful urination. ? Blood in the urine (hematuria). ? Nausea. ? Vomiting. ? Fever and chills. How is this diagnosed? This condition may be diagnosed based on: ? Your symptoms and medical history. ? A physical exam. ? Blood tests. ? Urine tests. These may be done before and after the stone passes out of your body through urination. ? Imaging tests, such as a CT scan, abdominal X-ray, or ultrasound. ? A procedure to examine the inside of the bladder (cystoscopy). How is this treated? Treatment for kidney stones depends on the size, location, and makeup of the stones. Kidney stones will often pass out of the body through urination. You may need to: ? Increase your fluid intake to help pass the stone. In some cases, you may be given fluids through an IV and may need to be monitored in the hospital. ? Take medicine for pain. ? Make changes in your diet to help prevent kidney stones from coming back. Sometimes, procedures are needed to remove a kidney stone. This may involve: ? A procedure to break up kidney stones using: ? A focused beam of light (laser therapy). ? Shock waves (extracorporeal shock wave lithotripsy). ? Surgery to remove kidney stones. This may be needed if you have severe pain or have stones that block your urinary tract. Follow these instructions at home: Medicines ? Take alvu-ula-ogweykt and prescription medicines only as told by your health care provider. ? Ask your health care provider if the medicine prescribed to you requires you to avoid driving or using heavy machinery. Eating and drinking ? Drink enough fluid to keep your urine pale yellow. You may be instructed to drink at least 8?10 glasses of water each day. This will help you pass the kidney stone. ? If directed, change your diet. This may include: ? Limiting how much sodium you eat. ? Eating more fruits and vegetables. ? Limiting how much animal protein you eat. Animal proteins include red meat, poultry, fish, and eggs. ? Eating a normal amount of calcium (1,000?1,300 mg per day). ? Follow instructions from your health care provider about eating or drinking restrictions. General instructions ? Collect urine samples as told by your health care provider. You may need to collect a urine sample: ? 24 hours after you pass the stone. ? 8?12 weeks after you pass the kidney stone, and every 6?12 months after that. ? Strain your urine every time you urinate, for as long as directed. Use the strainer that your health care provider recommends. ? Do not throw out the kidney stone after passing it. Keep the stone so it can be tested by your health care provider. Testing the makeup of your kidney stone may help prevent you from getting kidney stones in the future. ? Keep all follow-up visits. You may need follow-up X-rays or ultrasounds to make sure that your stone has passed. How is this prevented? To prevent another kidney stone: ? Drink enough fluid to keep your urine pale yellow. This is the best way to prevent kidney stones. ? Eat a healthy diet. Follow recommendations from (more content not included)... Normal [facility] Urology Office/Clinic Noteon 01-08-2024 Urology Office/Clinic Note Chief Complaint 1 yr f/u w/ KUB HPI Staff PRW pt 1yr DX: Kidney Stone *Potassium Bicarb 25 meq BID therapy KUB 12/31/23 *Stable BL Kidney Stones Dysuria: denies Incomplete bladder emptying: yes Hematuria: denies Frequency: denies Urgency: denies Nocturia: about every 2 hours Stream: stop and go Leaking: denies Post void dripping: denies Wearing pads/ Depends: denies Urge incontinence: denies Stress incontinence: denies Incontinence without Sensory Awareness: denies Abdominal pain: denies Flank pain: denies Sexual complaints: _ History of Present Illness staff HPI reviewed and agree. Review of Systems PHQ Score Initial Depression Screen Score: 0 SCORE no fever, chills, malaise, myalgia. no rash/lesions. no chest pain, palpitations, or SOB. no abdominal pain, nausea, vomiting. no unilateral calf swelling, redness, pain Physical Exam Vitals & Measurements T: 36.8 ?C(Temporal Artery) HR: 54(Peripheral) RR: 16 BP: 126/83 HT: 62 in HT: 158 cm WT: 82 kg WT: 180.4 lb BMI: 32.85 General: nontoxic, NAD Mouth: moist mucosa Lungs: normal respiratory effort Cardio: regular rate, good distal perfusion Abdomen: nondistended, no suprapubic distention or tenderness, no CVA tenderness Neurologic: Grossly normal Skin: No rashes or suspicious lesions Assessment/Plan PRW pt BBS 16. good control 1. Kidney stone (N20.0: Calculus of kidney) S/p R ESWL 10/14/20 and L ESWL 10/21/20. SOULEYMANE 12/23/22 [facility] - Multiple nonobstructing R renal stones, largest in interpolar region measuring 9 x 6 x 4 mm. No hydro. KUB 12/23/22 [facility] - At least 3 small calcifications projecting over R kidney, largest measuring 6 mm. A calcification projecting over LLP measuring 4 mm. KUB 12/31/23 [facility] - Stable small calcification projecting over RSP. A few small calcifications projecting over L kidney. Taking Effer-K 25 mEq bid. Risks/benefits discussed. Will continue. Reviewed imaging results, stones appear stable. UA today shows small leuks, likely contamination. Denies any UTI sx. Drinking water during the day. Denies any stone episodes in the past year. Will continue to monitor. -KUB in 1 year -Cont Effer-K -Cont sx monitoring -Increase water intake 2. Nocturia (R35.1: Nocturia) Getting up q2hrs during. Not waking up due to urge to void. States she just voids while she is awake. Not bothersome. Follow-up With When Contact Information RIYA BLOOM, DELFINA Youssef, URL [address] [place] [address] [phone] Additional Instructions: 1 yr w/ KUB Patient Education Kidney Stones Documentation recorded by the scribe Angle Ledbetter accurately reflects the services(s) I performed and decisions made by me. Authenticated by Delfina Ritter PA-C on 01/08/2024 15:17:24. I, Angle Ledbetter, personally scribed for Delfina Ritter PA-C on 01/08/2024 15:14:41. . Problem List/Past Medical History Ongoing Arthritis Diverticulosis Gastric ulcer HTN (hypertension) Kidney stone Lower abdominal pain Nocturia Rectal bleed Ureteral stone Historical No qualifying data Procedure/Surgical History KUB X-ray (12/31/2023), ESWL of kidney (10/21/2020), ESWL of kidney (10/14/2020), Colonoscopy (06/30/2019), Colonoscopy (09/11/2017), EGD (09/11/2017), Appendectomy, Breast Biopsy, Breast surgery, Hysterectomy, Toe Surgery. Medications alendronate 70 mg Tab, 70 mg= 1 tab(s), Oral, qWeek atenolol 50 mg Tab, 50 mg= 1 tab(s), Oral, Daily atorvastatin 20 mg Tab, 20 mg= 1 tab(s), Oral, Daily Citracal + D, Oral, Daily echinacea, 1 tab, Oral, Daily Effer-K 25 mEq oral tablet, effervescent, 25 mEq= 1 tab(s), Oral, BID, 3 refills hydroxychloroquine 200 mg Tab, Oral, Daily lisinopril 10 mg Tab, 10 mg= 1 tab(s), Oral, Daily Metamucil 525 mg oral capsule, 1050 mg= 2 cap(s), Oral, BID, 1 refills One A Day Women 50 Plus, 1 tab, Oral, Daily pantoprazole 20 mg Oral EC Tab, 20 mg= 1 tab(s), Oral, Daily, 1 refills potassium chloride 99 mg oral tablet, 99 mg= 1 tab(s), Oral, Daily turmeric curcumin, 1 tab, Oral, Daily Vitamin B12 1000 mcg Tab, 1000 mcg= 1 tab(s), Oral, Daily Vitamin C, 500 mg, Oral, Daily Vitamin D3, 1000 International_Unit, Oral, Daily Allergies Contrast Dye Reglan (itching) Vistaril (Unknown) Wheat Social History Alcohol - Denies Alcohol Use, 03/27/2019 Exercise - Occasional exercise, 03/27/2019 Other Caffeine-none, 03/27/2019 Substance Abuse - Denies Substance Abuse, 03/27/2019 Tobacco Never (less than 100 in lifetime) Tobacco Use:. Never Smokeless Tobacco Use:., 01/08/2024 Family History Leukemia: Father. Immunizations Vaccine Date Status influenza virus vaccine, inactivated 05/29/2023 Recorded influenza virus vaccine, inactivated 06/04/2022 Recorded SARS-CoV-2 (COVID-19) mRNA-1273 vaccine 12/01/2021 Recorded SARS-CoV-2 (COVID-19) mRNA-1273 vaccine 06/14/2021 Recorded zoster vaccine, [facility] (more content not included)... Normal [facility] Comment on above: Result Comment: Elec tronically Signed By: DELFINA RITTER PA-C\.br\Date and Time Signed: 01/08/24 15:20 EDT\.br\Electronically Co-Signed By: Angle Ledbetter\.br\Date and Time Co-Signed: 01/08/24 15:14 EDT RAD - MISCon 01-01-2024 RAD - MISC [id number] Normal [facility] Automated epithelial cells c ount in urine sediment (number/area)on 12-13-2023 Epithelial cells Auto (Urine sed) [#/Area] FEW #/LPF NONE/RARE [facility] Automated urine specific gra vity by refractometryon 12-13-2023 Specific gravity Refractometry automated (U) [Rel density] <=1.005 1.005-1.025 [facility] Bacteria [Presence] in Urine by Automatedon 12-13-2023 Bacteria Auto Ql (U) TRACE #/HPF NONE SEEN [facility] Basophils Auto (Bld) [#/Vol] on 12-13-2023 Basophils (Bld) [#/Vol] 0.1 10 3/uL 0.0-0.1 [facility] Basophils/100 WBC Auto (Bld) on 12-13-2023 Basophils/100 WBC (Bld) 0.8 % 0.2-2.0 [facility] Bilirubin Auto test strip (U ) [Mass/Vol]on 12-13-2023 Bilirubin (U) [Mass/Vol] Negative NEGATIVE [facility] Casts typing in urine sedime nt by light microscopyon 12-13-2023 Casts LM Nom (Urine sed) NONE SEEN #/LPF NONE SEEN [facility] Color Auto (U)on 12-13-2023 Color (U) LT. YELLOW YELLOW [facility] Eosinophils/100 WBC Auto (Bl d)on 12-13-2023 Eosinophils/100 WBC (Bld) 2.1 % 0.9-7.0 [facility] Erythrocyte distribution wid th Auto (RBC) [Ratio]on 12-13-2023 Erythrocyte distribution width (RBC) [Ratio] 12.9 % 11.0-15.0 [facility] Estimated glomerular filtrat ion rate (GFR) non- Americanon 12-13-2023 GFR/1.73 sq M.predicted among non-blacks MDRD (S/P/Bld) [Vol rate/Area] 57 mL/min/{1.73_m2} >=60 [facility] Glucose [Mass/volume] in Uri ne by Test stripon 12-13-2023 Glucose Test strip (U) [Mass/Vol] Negative NEGATIVE [facility] Hematocrit Auto (Bld) [Volum e fraction]on 12-13-2023 Hematocrit (Bld) [Volume fraction] 43.3 % 36.0-48.0 [facility] Hemoglobin [Mass/volume] in Bloodon 12-13-2023 Hemoglobin (Bld) [Mass/Vol] 14.1 g/dL 12.0-16.0 [facility] Ketones Auto test strip (U) [Mass/Vol]on 12-13-2023 Ketones (U) [Mass/Vol] Negative NEGATIVE [facility] Laboratory - Chemistry and C hemistry - challengeon 12-13-2023 Creatinine [Mass/Vol] 0.96 mg/dL 0.55-1.02 [facility] GFR/1.73 sq M.predicted MDRD (S/P/Bld) [Vol rate/Area] mL/min/{1.73_m2} >=60 [facility] - Hematology and Cell countson 12-13-2023 ESR (Bld) [Velocity] 14 mm/h <=30 [facility] Immature granulocytes/100 WBC (Bld) 0.2 % 0.0-0.5 [facility] Leukocytes [#/area] in Urine sediment by Automated counton 12-13-2023 WBC Auto (Urine sed) [#/Area] NONE SEEN #/HPF 0-2 [facility] Leukocytes [#/area] in Urine sediment by Microscopy high power fieldon 12-13-2023 WBC LM.HPF (Urine sed) [#/Area] 0-2 #/HPF NONE SEEN [facility] Leukocytes [#/volume] correc trevin for nucleated erythrocytes in Blood by Automated counon 12-13-2023 WBC corrected for nucl RBC Auto (Bld) [#/Vol] 9.0 10 3/uL 4.0-11.0 [facility] Lymphocytes Auto (Bld) [#/Vo l]on 12-13-2023 Lymphocytes (Bld) [#/Vol] 3.3 10 3/uL 1.2-3.8 [facility] Lymphocytes/100 WBC Auto (Bl d)on 12-13-2023 Lymphocytes/100 WBC (Bld) 37.3 % 20.5-60.0 [facility] MCH Auto (RBC) [Entitic mass ]on 12-13-2023 MCH (RBC) [Entitic mass] 31.2 pg 26.7-34.0 [facility] MCHC Auto (RBC) [Mass/Vol]on 12-13-2023 MCHC (RBC) [Mass/Vol] 32.6 g/dL 29.9-35.2 [facility] MCV Auto (RBC) [Entitic vol] on 12-13-2023 MCV (RBC) [Entitic vol] 95.8 fL 81.0-99.0 [facility] Monocytes Auto (Bld) [#/Vol] on 12-13-2023 Monocytes (Bld) [#/Vol] 0.8 10 3/uL 0.3-0.8 [facility] Monocytes/100 WBC Auto (Bld) on 12-13-2023 Monocytes/100 WBC (Bld) 9.3 % 1.7-12.0 [facility] Mucus LM Ql (Urine sed)on Mucus Ql (Urine sed) NONE SEEN NONE SEEN [facility] Neutrophils Auto (Bld) [#/Vo l]on 12-13-2023 Neutrophils (Bld) [#/Vol] 4.5 10 3/uL 1.4-6.5 [facility] Neutrophils/100 WBC Auto (Bl d)on 12-13-2023 Neutrophils/100 WBC (Bld) 50.3 % 43.0-75.0 [facility] No Panel Informationon 12-12 C-Reactive Protein, Quantitative <0.50 mg/dL <=0.50 [facility] Eosinophils # (Auto) 0.2 10 3/uL 0.0-0.7 [facility] Immature Granulocyte # (Auto) 0.02 10 3/uL 0.00-0.03 [facility] Platelet mean volume Auto (B ld) [Entitic vol]on 12-13-2023 Platelet mean volume (Bld) [Entitic vol] 10.5 fL 9.5-13.5 [facility] Platelets Auto (Bld) [#/Vol] on 12-13-2023 Platelets (Bld) [#/Vol] 170 10 3/uL 150-450 [facility] Protein Auto test strip (U) [Mass/Vol]on 12-13-2023 Protein (U) [Mass/Vol] Negative NEG/TRACE [facility] RBC Auto (Bld) [#/Vol]on RBC (Bld) [#/Vol] 4.52 10 6/uL 4.20-5.40 [facility] Serum or plasma complement C 3 measurement (mass/volume)on 12-13-2023 Complement C3 [Mass/Vol] 144 mg/dL 82-167 [facility] Serum or plasma complement C 4 measurement (mass/volume)on 12-13-2023 Complement C4 [Mass/Vol] 23 mg/dL 12-38 [facility] Comment on above: Performed at: [facility] [place] [address] [id number] Director: Maikol Escalante PhD, Phone: [phone] Specific gravity Auto test s trip (U) [Rel density]on 12-13-2023 Specific gravity (U) [Rel density] CLEAR CLEAR [facility] Urine hemoglobin detection b y automated test stripon 12-13-2023 Hemoglobin Auto test strip Ql (U) SMALL NEGATIVE [facility] Urine nitrite detection by a utomated test stripon 12-13-2023 Nitrite Auto test strip Ql (U) TRACE NEGATIVE [facility] Nitrite Auto test strip Ql (U) Negative NEGATIVE [facility] Urine sediment crystal ident ification by light microscopyon 12-13-2023 Crystals LM Nom (Urine sed) None Seen #/HPF None Seen [facility] Urobilinogen Auto test strip (U) [Mass/Vol]on 12-13-2023 Urobilinogen Qn (U) 0.2 {Aliya'U}/dL 0.2-1.0 [facility] pH Auto test strip (U)on pH (U) 6.0 [pH] 5.0-9.0 [facility] Basophils Auto (Bld) [#/Vol] on 11-21-2023 Basophils (Bld) [#/Vol] 0.1 10 3/uL 0.0-0.1 [facility] Basophils/100 WBC Auto (Bld) on 11-21-2023 Basophils/100 WBC (Bld) 0.9 % 0.2-2.0 [facility] Cholesterol in LDL Calc [Mas s/Vol]on 11-21-2023 Cholesterol in LDL [Mass/Vol] 69.8 mg/dL [facility] Comment on above: <100 mg/dl [id number] 0-129 mg/dl NEAR OR ABOVE [id number] mg/dl BORDERLINE [id number] mg/dl HIGH>190 mg/dl VERY HIGH Cholesterol in VLDL Calc [Ma ss/Vol]on 11-21-2023 Cholesterol in VLDL [Mass/Vol] 26.2 mg/dL [facility] Eosinophils/100 WBC Auto (Bl d)on 11-21-2023 Eosinophils/100 WBC (Bld) 2.3 % 0.9-7.0 [facility] Erythrocyte distribution wid th Auto (RBC) [Ratio]on 11-21-2023 Erythrocyte distribution width (RBC) [Ratio] 13.2 % 11.0-15.0 [facility] Estimated glomerular filtrat ion rate (GFR) non- Americanon 11-21-2023 GFR/1.73 sq M.predicted among non-blacks MDRD (S/P/Bld) [Vol rate/Area] 45 mL/min/{1.73_m2} >=60 [facility] Globulin Calc (S) [Mass/Vol] on 11-21-2023 Globulin (S) [Mass/Vol] 3.7 g/dL [facility] Glucose mean value [Mass/vol ume] in Blood Estimated from glycated hemoglobinon 11-21-2023 Average glucose Estimated from glycated hemoglobin (Bld) [Mass/Vol] 148 mg/dL [facility] Hematocrit Auto (Bld) [Volum e fraction]on 11-21-2023 Hematocrit (Bld) [Volume fraction] 44.0 % 36.0-48.0 [facility] Hemoglobin [Mass/volume] in Bloodon 11-21-2023 Hemoglobin (Bld) [Mass/Vol] 14.0 g/dL 12.0-16.0 [facility] Laboratory - Chemistry and C hemistry - challengeon 11-21-2023 Albumin [Mass/Vol] 3.4 g/dL 3.4-5.0 [facility] ALP [Catalytic activity/Vol] 63 U/L 46-116 [facility] ALT [Catalytic activity/Vol] 40 U/L 14-59 [facility] AST [Catalytic activity/Vol] 20 U/L 15-37 [facility] Bilirubin [Mass/Vol] 0.7 mg/dL 0.2-1.0 [facility] Calcium [Mass/Vol] 9.1 mg/dL 8.5-10.1 [facility] Chloride [Moles/Vol] 105 mmol/L 98-107 [facility] Cholesterol [Mass/Vol] 144 mg/dL <=200 [facility] Cholesterol in HDL [Mass/Vol] 48 mg/dL 40-60 [facility] Comment on above: > or =60 mg/dl - LOW CARDIOVASCULAR RISK<40 mg/dl - HIGH CARDIOVASCULAR RISK CO2 [Moles/Vol] 27.6 mmol/L 21.0-32.0 [facility] Creatinine [Mass/Vol] 1.18 mg/dL 0.55-1.02 [facility] GFR/1.73 sq M.predicted MDRD (S/P/Bld) [Vol rate/Area] 54 mL/min/{1.73_m2} >=60 [facility] Glucose [Mass/Vol] 124 mg/dL 74-106 [facility] Potassium [Moles/Vol] 4.0 mmol/L 3.5-5.1 [facility] Protein [Mass/Vol] 7.1 g/dL 6.4-8.2 [facility] Sodium [Moles/Vol] 143 mmol/L 136-145 [facility] T4 [Mass/Vol] 8.50 ug/dL 4.80-13.90 [facility] Triglyceride [Mass/Vol] 131 mg/dL <=150 [facility] TSH Qn 1.657 m[IU]/L 0.358-3.740 [facility] Urea nitrogen [Mass/Vol] 21.0 mg/dL 7.0-18.0 [facility] Urea nitrogen/Creatinine [Mass ratio] 17.8 mg/mg [facility] Laboratory - Hematology and Cell countson 11-21-2023 HbA1c (Bld) [Mass fraction] 6.8 % 4.5-6.2 [facility] Comment on above: ADA RECOMMENDED LIMI T 4.0 - 6.0ADA THERAPEUTIC TARGET < 7.0ACTION SUGGESTED> 7.0 Immature granulocytes/100 WBC (Bld) 0.3 % 0.0-0.5 [facility] Leukocytes [#/volume] correc trevin for nucleated erythrocytes in Blood by Automated counon 11-21-2023 WBC corrected for nucl RBC Auto (Bld) [#/Vol] 7.8 10 3/uL 4.0-11.0 [facility] Lymphocytes Auto (Bld) [#/Vo l]on 11-21-2023 Lymphocytes (Bld) [#/Vol] 2.4 10 3/uL 1.2-3.8 [facility] Lymphocytes/100 WBC Auto (Bl d)on 11-21-2023 Lymphocytes/100 WBC (Bld) 30.9 % 20.5-60.0 [facility] MCH Auto (RBC) [Entitic mass ]on 11-21-2023 MCH (RBC) [Entitic mass] 31.3 pg 26.7-34.0 [facility] MCHC Auto (RBC) [Mass/Vol]on 11-21-2023 MCHC (RBC) [Mass/Vol] 31.8 g/dL 29.9-35.2 [facility] MCV Auto (RBC) [Entitic vol] on 11-21-2023 MCV (RBC) [Entitic vol] 98.4 fL 81.0-99.0 [facility] Monocytes Auto (Bld) [#/Vol] on 11-21-2023 Monocytes (Bld) [#/Vol] 0.6 10 3/uL 0.3-0.8 [facility] Monocytes/100 WBC Auto (Bld) on 11-21-2023 Monocytes/100 WBC (Bld) 8.2 % 1.7-12.0 [facility] Neutrophils Auto (Bld) [#/Vo l]on 11-21-2023 Neutrophils (Bld) [#/Vol] 4.5 10 3/uL 1.4-6.5 [facility] Neutrophils/100 WBC Auto (Bl d)on 11-21-2023 Neutrophils/100 WBC (Bld) 57.4 % 43.0-75.0 [facility] No Panel Informationon 11-20 Eosinophils # (Auto) 0.2 10 3/uL 0.0-0.7 [facility] Immature Granulocyte # (Auto) 0.02 10 3/uL 0.00-0.03 [facility] Platelet mean volume Auto (B ld) [Entitic vol]on 11-21-2023 Platelet mean volume (Bld) [Entitic vol] 11.3 fL 9.5-13.5 [facility] Platelets Auto (Bld) [#/Vol] on 11-21-2023 Platelets (Bld) [#/Vol] 161 10 3/uL 150-450 [facility] RBC Auto (Bld) [#/Vol]on RBC (Bld) [#/Vol] 4.47 10 6/uL 4.20-5.40 [facility] Serum or plasma albumin/glob ulin mass ratioon 11-21-2023 Albumin/Globulin [Mass ratio] 0.9 {ratio} [facility] Serum or plasma anion gap de terminationon 11-21-2023 Anion gap [Moles/Vol] 14.4 mmol/L [facility] Serum or plasma total choles terol/high density lipoprotein (HDL) cholesterol mass james 11-21-2023 Cholesterol.total/C holesterol in HDL [Mass ratio] 3.0 {ratio} [facility] Comment on above: 3.3 - 4.4 LOW RISK4. 4 - 7.1 AVERAGE RISK7.1 - 11.0 MODERATE RISK>11.0 HIGH RISK US KIDNEYSon 12-23-2022 US KIDNEYS BILATERAL RENAL [...] 3. No hydronephrosis. Electronically authenticated by: RONALD Perez: 2022-12-23 12:08 Normal [facility] XR KUB 1 VIEWon 12-23-2022 XR KUB 1 VIEW EXAMINATION: XR KUB 1 VIEW, [id number] HISTORY: Kidney stone COMPARISON: Same day renal [...] RONALD RAM Date: 2022-12-23 12:11 Normal [facility] CBC AUTO DIFFon 12-22-2022 BASO # 0.1 103/ul Normal 0.0-0.1 [facility] Comment on above: Performed By: #### C BC #### [facility] [address] [place] [address] Dr. Justyna Woodruff Basophils/100 WBC (Bld) 0.9 % Normal 0.2-2.0 [facility] Comment on above: Performed By: #### C BC #### [facility] [address] [place] [address] Dr. Justyna Woodruff EO # 0.2 103/ul Normal 0.0-0.7 [facility] Comment on above: Performed By: #### C BC #### [facility] [address] [place] [address] Dr. Justyna Woodruff Eosinophils/100 WBC (Bld) 2.0 % Normal 0.9-7.0 [facility] Comment on above: Performed By: #### C BC #### [facility] [address] [place] [address] Dr. Justyna Woodruff Erythrocyte distribution width (RBC) [Ratio] 13.1 % Normal 11.0-15.0 [facility] Comment on above: Performed By: #### C BC #### [facility] [address] [place] [address] Dr. Justyna Woodruff Hematocrit (Bld) [Volume fraction] 44.6 % Normal 36.0-48.0 [facility] Comment on above: Performed By: #### C BC #### [facility] [address] [place] [address] Dr. Justyna Woodruff Hemoglobin (Bld) [Mass/Vol] 14.5 g/dL Normal 12.0-16.0 [facility] Comment on above: Performed By: #### C BC #### [facility] [address] [place] [address] Dr. Justyna Woodruff IG # 0.02 10e3/ul Normal 0.00-0.03 [facility] Comment on above: Performed By: #### C BC #### [facility] [address] [place] [address] Dr. Justyna Woodruff IG % 0.3 % Normal 0.0-0.5 [facility] Comment on above: Performed By: #### C BC #### [facility] [address] [place] [address] Dr. Justyna Woodruff LYMPH # 2.6 103/ul Normal 1.2-3.8 [facility] Comment on above: Performed By: #### C BC #### [facility] [address] [place] [address] Dr. Justyna Woodruff Lymphocytes/100 WBC (Bld) 34.1 % Normal 20.5-60.0 [facility] Comment on above: Performed By: #### C BC #### [facility] [address] [place] [address] Dr. Justyna Woodruff MANUAL DIFF REQ NO Normal [facility] Comment on above: Performed By: #### C BC #### [facility] [address] [place] [address] Dr. Justyna Woodruff MCH (RBC) [Entitic mass] 31.0 pg Normal 26.7-34.0 [facility] Comment on above: Performed By: #### C BC #### [facility] [address] [place] [address] Dr. Justyna Woodruff MCHC (RBC) [Mass/Vol] 32.5 g/dL Normal 29.9-35.2 [facility] Comment on above: Performed By: #### C BC #### [facility] [address] [address] [address] Justyna Woodruff MCV (RBC) [Entitic vol] 95.5 fL Normal 81.0-99.0 [facility] Comment on above: Performed By: #### C BC #### [facility] [address] [address] [address] Justyna Woodruff MONO # 0.7 103/ul Normal 0.3-0.8 [facility] Comment on above: Performed By: #### C BC #### [facility] [address] [place] [address] Dr. Justyna Woodruff Monocytes/100 WBC (Bld) 8.6 % Normal 1.7-12.0 [facility] Comment on above: Performed By: #### C BC #### [facility] [address] [place] [address] Dr. Justyna Woodruff NEUT # 4.1 103/ul Normal 1.4-6.5 [facility] Comment on above: Performed By: #### C BC #### [facility] [address] [place] [address] Dr. Justyna Woodruff Neutrophils/100 WBC (Bld) 54.1 % Normal 43.0-75.0 [facility] Comment on above: Performed By: #### C BC #### [facility] [address] [place] [address] Dr. Justyna Woodruff Platelet mean volume (Bld) [Entitic vol] 10.8 fL Normal 9.5-13.5 [facility] Comment on above: Performed By: #### C BC #### [facility] [address] [place] [address] Dr. Justyna Woodruff PLT 172 103/ul Normal 150-450 [facility] Comment on above: Performed By: #### C BC #### [facility] [address] [place] [address] Dr. Justyna Woodruff RBC 4.67 106/ul Normal 4.20-5.40 [facility] Comment on above: Performed By: #### C BC #### [facility] [address] [address] [address] Justyna Woodruff WBC 7.5 103/ul Normal 4.0-11.0 [facility] Comment on above: Performed By: #### C BC #### [facility] [address] [place] [address] [address] Justyna Woodruff LIPID PROFILEon 12-22-2022 CHOL-HDL RATIO NORM SEE BELOW Normal [facility] Comment on above: Result Comment: 3.3 - 4.4 LOW RISK 4.4 - 7.1 AVERAGE RISK 7.1 - 11.0 MODERATE RISK >11.0 HIGH RISK Performed By: #### C MP, LIPID, T4, TSH #### [facility] [address] [address] [address] Justyna Woodruff Cholesterol [Mass/Vol] 150 mg/dL Normal <=200 [facility] Comment on above: Performed By: #### C MP, LIPID, T4, TSH #### [facility] [address] [address] [address] Justyna Woodruff Cholesterol in HDL [Mass/Vol] 45 mg/dL Normal 40-60 [facility] Comment on above: Performed By: #### C MP, LIPID, T4, TSH #### [facility] [address] [place] [address] Dr. Justyna Woodruff Cholesterol in LDL [Mass/Vol] 79.6 mg/dL Normal [facility] Comment on above: Performed By: #### C MP, LIPID, T4, TSH #### [facility] [address] [address] [address] Justyna Woodruff Cholesterol.total/C holesterol in HDL [Mass ratio] 3.3 {ratio} Normal [facility] Comment on above: Performed By: #### C MP, LIPID, T4, TSH #### [facility] [address] [address] [address] Justyna Woodruff HDL NORMAL > or = 60 mg/dl - LO W CARDIOVASCULAR RISK <40 mg/dl - HIGH CARDIOVASCULAR RISK Normal [facility] Comment on above: Performed By: #### C MP, LIPID, T4, TSH #### [facility] [address] [address] [address] Justyna Woodruff LDL CALC NORMAL SEE BELOW Normal [facility] Comment on above: Result Comment: <100 mg/dl OPTIMAL 100 - 129 mg/dl NEAR OR ABOVE OPTIMAL 130 - 159 mg/dl BORDERLINE HIGH 160 - 189 mg/dl HIGH >190 mg/dl VERY HIGH Performed By: #### C MP, LIPID, T4, TSH #### [facility] [address] [address] [address] Justyna Woodruff Triglyceride [Mass/Vol] 127 mg/dL Normal <=150 [facility] Comment on above: Performed By: #### C MP, LIPID, T4, TSH #### [facility] [address] [address] [address] Justyna Woodruff VLDL CALC 25.4 mg/dL Normal [facility] Comment on above: Performed By: #### C MP, LIPID, T4, TSH #### [facility] [address] [place] [address] Dr. Justyna Woodruff PROF 14(COMP METB)on 023 Albumin [Mass/Vol] 3.7 g/dL Normal 3.4-5.0 [facility] [place] [facility] Comment on above: Performed By: #### C MP, LIPID, T4, TSH #### [facility] [address] [address] [address] Justyna Woodruff Albumin/Globulin [Mass ratio] 0.9 {ratio} Normal [facility] Comment on above: Performed By: #### C MP, LIPID, T4, TSH #### [facility] [address] [address] [address] Justyna Woodruff ALP [Catalytic activity/Vol] 59 U/L Normal 46-116 [facility] Comment on above: Performed By: #### C MP, LIPID, T4, TSH #### [facility] [address] [address] [address] Justyna Woodruff ALT [Catalytic activity/Vol] 36 U/L Normal 14-59 [facility] Comment on above: Performed By: #### C MP, LIPID, T4, TSH #### [facility] [address] [address] [address] Justyna Woodruff Anion gap [Moles/Vol] 11.0 mmol/L Normal [facility] Comment on above: Performed By: #### C MP, LIPID, T4, TSH #### [facility] [address] [address] [address] Justyna Woodruff AST [Catalytic activity/Vol] 17 U/L Normal 15-37 [facility] Comment on above: Performed By: #### C MP, LIPID, T4, TSH #### [facility] [address] [address] [address] Justyna Woodruff Bilirubin [Mass/Vol] 0.8 mg/dL Normal 0.2-1.0 [facility] Comment on above: Performed By: #### C MP, LIPID, T4, TSH #### [facility] [address] [address] [address] Justyna Woodruff Calcium [Mass/Vol] 9.3 mg/dL Normal 8.5-10.1 [facility] [place] [facility] Comment on above: Performed By: #### C MP, LIPID, T4, TSH #### [facility] [address] [place] [address] Dr. Justyna Woodruff Chloride [Moles/Vol] 105 mmol/L Normal 98-107 [facility] Comment on above: Performed By: #### C MP, LIPID, T4, TSH #### [facility] [address] [address] [address] Justyna Woodruff CO2 [Moles/Vol] 28.8 mmol/L Normal 21.0-32.0 [facility] Comment on above: Performed By: #### C MP, LIPID, T4, TSH #### [facility] [address] [place] [address] Dr. Justyna Woodruff Creatinine [Mass/Vol] 0.99 mg/dL Normal 0.55-1.02 [facility] Comment on above: Performed By: #### C MP, LIPID, T4, TSH #### [facility] [address] [place] [address] Dr. Justyna Woodruff EGFR-AF CITIZEN [place] >60 Normal >=60 [facility] Comment on above: Performed By: #### C MP, LIPID, T4, TSH #### [facility] [address] [address] [address] Justyna Woodruff EGFR-NON AF CITIZEN OF [place] 55 mL/min/1.73m2 Critically low >=60 [facility] Comment on above: Performed By: #### C MP, LIPID, T4, TSH #### [facility] [address] [address] [address] Justyna Woodruff Globulin (S) [Mass/Vol] 3.9 g/dL Normal [facility] Comment on above: Performed By: #### C MP, LIPID, T4, TSH #### [facility] [address] [address] [address] Justyna Woodruff Glucose [Mass/Vol] 119 mg/dL Critically high 74-106 [facility] Comment on above: Performed By: #### C MP, LIPID, T4, TSH #### [facility] [address] [address] [address] Justyna Woodruff Potassium [Moles/Vol] 3.8 mmol/L Normal 3.5-5.1 [facility] Comment on above: Performed By: #### C MP, LIPID, T4, TSH #### [facility] [address] [address] [address] Justyna Woodruff Protein [Mass/Vol] 7.6 g/dL Normal 6.4-8.2 [facility] Comment on above: Performed By: #### C MP, LIPID, T4, TSH #### [facility] [address] [address] [address] Justyna Woodruff Sodium [Moles/Vol] 141 mmol/L Normal 136-145 [facility] Comment on above: Performed By: #### C MP, LIPID, T4, TSH #### [facility] [address] [address] [address] Justyna Woodruff Urea nitrogen [Mass/Vol] 17.0 mg/dL Normal 7.0-18.0 [facility] Comment on above: Performed By: #### C MP, LIPID, T4, TSH #### [facility] [address] [place] [address] Dr. Justyna Woodruff Urea nitrogen/Creatinine [Mass ratio] 17.2 mg/mg Normal [facility] Comment on above: Performed By: #### C MP, LIPID, T4, TSH #### [facility] [address] [place] [address] Dr. Justyna Woodruff T4on 12-22-2022 T4 [Mass/Vol] 8.50 ug/dL Normal 4.80-13.90 [facility] Comment on above: Performed By: #### C CHARLY #### [facility] [address] [place] [address] Dr. Justyna Woodruff TSHon 12-22-2022 TSH 1.396 uIU/mL Normal 0.358-3.740 [facility] Comment on above: Performed By: #### C MP, LIPID, T4, TSH #### [facility] [address] [place] [address] Dr. Justyna Woodruff C3 and C4 COMPLEMENTon 10-25 Complement C3, Serum 134 mg/dL Normal 82-167 [facility] Comment on above: Performed By: #### C CHARLY #### [facility] [address] [place] [address] Dr. Justyna Woodruff Complement C4, Serum 17 mg/dL Normal 12-38 [facility] Comment on above: Performed By: #### C CHARLY #### [facility] [address] [place] [address] Dr. Justyna Woodruff CBC AUTO DIFFon 10-23-2022 BASO # 0.1 103/ul Normal 0.0-0.1 [facility] Comment on above: Performed By: #### C BC #### [facility] [address] [place] [address] Dr. Justyna Woodruff Basophils/100 WBC (Bld) 0.7 % Normal 0.2-2.0 [facility] Comment on above: Performed By: #### C BC #### [facility] [address] [place] [address] Dr. Justyna Woodruff EO # 0.1 103/ul Normal 0.0-0.7 [facility] Comment on above: Performed By: #### C BC #### [facility] [address] [place] [address] Dr. Justyna Woodruff Eosinophils/100 WBC (Bld) 1.8 % Normal 0.9-7.0 [facility] Comment on above: Performed By: #### C BC #### [facility] [address] [place] [address] Dr. Justyna Woodruff Erythrocyte distribution width (RBC) [Ratio] 13.0 % Normal 11.0-15.0 [facility] Comment on above: Performed By: #### C BC #### [facility] [address] [place] [address] Dr. Justyna Woodruff Hematocrit (Bld) [Volume fraction] 41.1 % Normal 36.0-48.0 [facility] Comment on above: Performed By: #### C BC #### [facility] [address] [place] [address] Dr. Justyna Woodruff Hemoglobin (Bld) [Mass/Vol] 13.8 g/dL Normal 12.0-16.0 [facility] Comment on above: Performed By: #### C BC #### [facility] [address] [place] [address] Dr. Justyna Woodruff IG # 0.01 10e3/ul Normal 0.00-0.03 [facility] Comment on above: Performed By: #### C BC #### [facility] [address] [place] [address] Dr. Justyna Woodruff IG % 0.1 % Normal 0.0-0.5 [facility] Comment on above: Performed By: #### C BC #### [facility] [address] [place] [address] Dr. Justyna Woodruff LYMPH # 2.7 103/ul Normal 1.2-3.8 [facility] Comment on above: Performed By: #### C BC #### [facility] [address] [place] [address] Dr. Justyna Woodruff Lymphocytes/100 WBC (Bld) 37.0 % Normal 20.5-60.0 [facility] Comment on above: Performed By: #### C BC #### [facility] [address] [place] [address] Dr. Justyna Woodruff MANUAL DIFF REQ NO Normal [facility] Comment on above: Performed By: #### C BC #### [facility] [address] [place] [address] Dr. Justyna Woodruff MCH (RBC) [Entitic mass] 31.3 pg Normal 26.7-34.0 [facility] Comment on above: Performed By: #### C BC #### [facility] [address] [place] [address] Dr. Justyna Woodruff MCHC (RBC) [Mass/Vol] 33.6 g/dL Normal 29.9-35.2 [facility] Comment on above: Performed By: #### C BC #### [facility] [address] [place] [address] Dr. Justyna Woodruff MCV (RBC) [Entitic vol] 93.2 fL Normal 81.0-99.0 [facility] Comment on above: Performed By: #### C BC #### [facility] [address] [place] [address] Dr. Justyna Woodruff MONO # 0.7 103/ul Normal 0.3-0.8 [facility] Comment on above: Performed By: #### C BC #### [facility] [address] [place] [address] Dr. Justyna Woodruff Monocytes/100 WBC (Bld) 9.9 % Normal 1.7-12.0 [facility] Comment on above: Performed By: #### C BC #### [facility] [address] [place] [address] Dr. Justyna Woodruff NEUT # 3.6 103/ul Normal 1.4-6.5 [facility] Comment on above: Performed By: #### C BC #### [facility] [address] [place] [address] Dr. Justyna Woodruff Neutrophils/100 WBC (Bld) 50.5 % Normal 43.0-75.0 [facility] Comment on above: Performed By: #### C BC #### [facility] [address] [place] [address] Dr. Justyna Woodruff Platelet mean volume (Bld) [Entitic vol] 9.9 fL Normal 9.5-13.5 [facility] Comment on above: Performed By: #### C BC #### [facility] [address] [place] [address] Dr. Justyna Woodruff PLT 151 103/ul Normal 150-450 [facility] Comment on above: Performed By: #### C BC #### [facility] [address] [place] [address] Dr. Justyna Woodruff RBC 4.41 106/ul Normal 4.20-5.40 [facility] Comment on above: Performed By: #### C BC #### [facility] [address] [place] [address] Dr. Justyna Woodruff WBC 7.2 103/ul Normal 4.0-11.0 [facility] Comment on above: Performed By: #### C BC #### [facility] [address] [place] [address] Dr. Justyna Woodruff CREATININEon 10-23-2022 Creatinine [Mass/Vol] 0.89 mg/dL Normal 0.55-1.02 [facility] Comment on above: Performed By: #### C CHARLY #### [facility] [address] [place] [address] Dr. Justyna Woodruff EGFR-AF CITIZEN [place] >60 Normal >=60 [facility] Comment on above: Performed By: #### C CHARLY #### [facility] [address] [place] [address] Dr. Justyna Woodruff EGFR-NON AF CITIZEN OF [place] >60 Normal >=60 [facility] Comment on above: Performed By: #### C CHARLY #### [facility] [address] [place] [address] Dr. Justyna Woodruff SED RATE WESTERGRENon 2022 SED RATE 4 mm/hr Normal <=30 [facility] Comment on above: Performed By: #### S EDR #### [facility] [address] [place] [address] Dr. Justyna Woodruff UA RANDOM W/MICROSCOPICon BACTERIA NONE SEEN Normal NONE SEEN [facility] Comment on above: Performed By: #### C CHARLY #### [facility] [address] [place] [address] Dr. Justyna Woodruff Bilirubin Ql (U) Negative Normal NEGATIVE [facility] Comment on above: Performed By: #### C CHARLY #### [facility] [address] [place] [address] Dr. Justyna Woodruff CAST NONE SEEN Normal NONE SEEN [facility] Comment on above: Performed By: #### C CHARLY #### [facility] [address] [place] [address] Dr. Justyna Woodruff Clarity (U) CLEAR Normal CLEAR [facility] Comment on above: Performed By: #### C CHARLY #### [facility] [address] [place] [address] Dr. Justyna Woodruff Color (U) LT. YELLOW Normal YELLOW [facility] Comment on above: Performed By: #### C CHARLY #### [facility] [address] [place] [address] Dr. Justyna Woodruff Crystals LM Nom (Urine sed) NONE SEEN Normal NONE SEEN [facility] Comment on above: Performed By: #### C CHARLY #### [facility] [address] [place] [address] Dr. Justyna Woodruff Epithelial cells LM Ql (Urine sed) MODERATE Abnormal NONE SEEN /RARE [facility] Comment on above: Performed By: #### C CHARLY #### [facility] [address] [place] [address] Dr. Justyna Woodruff Glucose Ql (U) Negative Normal NEGATIVE [facility] Comment on above: Performed By: #### C CHARLY #### [facility] [address] [place] [address] Dr. Justyna Woodruff Hemoglobin Ql (U) TRACE-INTACT Abnormal NEGATIVE [facility] Comment on above: Performed By: #### C CHARLY #### [facility] [address] [place] [address] Dr. Justyna Woodruff Ketones Ql (U) Negative Normal NEGATIVE [facility] Comment on above: Performed By: #### C CHARLY #### [facility] [address] [place] [address] Dr. Justyna Woodruff LEUKOCYTES SMALL Abnormal NEGATIVE [facility] Comment on above: Performed By: #### C CHARLY #### [facility] [address] [place] [address] Dr. Justyna Woodruff MUCOUS NONE SEEN Normal NONE SEEN [facility] Comment on above: Performed By: #### C CHARLY #### [facility] [address] [place] [address] Dr. Justyna Woodruff Nitrite Ql (U) Negative Normal NEGATIVE [facility] Comment on above: Performed By: #### C CHARLY #### [facility] [address] [place] [address] Dr. Justyna Woodruff pH (U) 6.5 [pH] Normal 5-9 [facility] Comment on above: Performed By: #### C CHARLY #### [facility] [address] [place] [address] Dr. Justyna Woodruff RBC 2-5 Abnormal 0-2 [facility] Comment on above: Performed By: #### C CHARLY #### [facility] [address] [place] [address] Dr. Justyna Woodruff SPEC GRAVITY 1.020 Normal 1.005-<=1.025 [facility] Comment on above: Performed By: #### C CHARLY #### [facility] [address] [place] [address] Dr. Justyna Woodruff UA PROTEIN Negative Normal NEGATIVE/ TRACE [facility] Comment on above: Performed By: #### C CHARLY #### [facility] [address] [place] [address] Dr. Justyna Woodruff Urobilinogen Qn (U) 0.2 {Aliya'U}/dL Normal 0.2 - 1. 0 [facility] Comment on above: Performed By: #### C CHARLY #### [facility] [address] [place], [place] [address] Dr. Justyna Woodruff WBC 2-5 Abnormal NONE SEEN [facility] Comment on above: Performed By: #### C CHARLY #### [facility] [id number] Justyna Woodruff MG MAMM SCREEN 3D JAMEY CADon 10-12-2022 MG MAMM SCREEN 3D JAMEY CAD Patient: GISSELL MUÑOZ Exam Date: 10/12/2022 : 1950 Gender:F Ordering : DR JEVON MEDINA D.O. Admission #: [id number] Family : Order #: [id number] CLICK HERE TO VIEW EXAM RADIOLOGY REPORT [...] leukemia cancer at age 89. LOCATION: [facility] BREAST COMPOSITION: Heterogeneously dense,which may obscure small [...] M.D. on 10/13/2022 at 10:24 Normal [facility] C3 and C4 COMPLEMENTon 04-17 Complement C3, Serum 142 mg/dL Normal 82-167 [facility] Comment on above: Performed By: #### C SUITE #### [facility] [address] [place] [address] Dr. Justyna Woodruff Complement C4, Serum 23 mg/dL Normal 12-38 [facility] Comment on above: Performed By: #### C SUITE #### [facility] [address] [place] [address] Dr. Justyna Woodruff CBC AUTO DIFFon 04-14-2022 BASO # 0.1 103/ul Normal 0.0-0.1 [facility] Comment on above: Performed By: #### C CHARLY #### [facility] [address] [place] [address] Dr. Justyna Woodruff Basophils/100 WBC (Bld) 0.6 % Normal 0.2-2.0 [facility] Comment on above: Performed By: #### C CHARLY #### [facility] [address] [place] [address] Dr. Justyna Woodruff EO # 0.2 103/ul Normal 0.0-0.7 [facility] Comment on above: Performed By: #### C CHARLY #### [facility] [address] [place] [address] Dr. Justyna Woodruff Eosinophils/100 WBC (Bld) 1.8 % Normal 0.9-7.0 [facility] Comment on above: Performed By: #### C CHARLY #### [facility] [address] [place] [address] Dr. Justyna Woodruff Erythrocyte distribution width (RBC) [Ratio] 13.0 % Normal 11.0-15.0 [facility] Comment on above: Performed By: #### C CHARLY #### [facility] [address] [place] [address] Dr. Justyna Woodruff Hematocrit (Bld) [Volume fraction] 42.1 % Normal 36.0-48.0 [facility] Comment on above: Performed By: #### C CHARLY #### [facility] [address] [place] [address] Dr. Justyna Woodruff Hemoglobin (Bld) [Mass/Vol] 14.0 g/dL Normal 12.0-16.0 [facility] Comment on above: Performed By: #### C CHARLY #### [facility] [address] [place] [address] Dr. Justyna Woodruff IG # 0.02 10e3/ul Normal 0.00-0.03 [facility] Comment on above: Performed By: #### C CHARLY #### [facility] [address] [place] [address] Dr. Justyna Woodruff IG % 0.2 % Normal 0.0-0.5 [facility] Comment on above: Performed By: #### C CHARLY #### [facility] [address] [place] [address] Dr. Justyna Woodruff LYMPH # 2.9 103/ul Normal 1.2-3.8 [facility] Comment on above: Performed By: #### C CHARLY #### [facility] [address] [place] [address] Dr. Justyna Woodruff Lymphocytes/100 WBC (Bld) 35.2 % Normal 20.5-60.0 [facility] Comment on above: Performed By: #### C CHARLY #### [facility] [address] [place] [address] Dr. Justyna Woodruff MANUAL DIFF REQ NO Normal [facility] Comment on above: Performed By: #### C CHARLY #### [facility] [address] [place] [address] Dr. Justyna Woodruff MCH (RBC) [Entitic mass] 31.0 pg Normal 26.7-34.0 [facility] Comment on above: Performed By: #### C CHARLY #### [facility] [address] [place] [address] Dr. Justyna Woodruff MCHC (RBC) [Mass/Vol] 33.3 g/dL Normal 29.9-35.2 [facility] Comment on above: Performed By: #### C CHARLY #### [facility] [address] [place] [address] Dr. Justyna Woodruff MCV (RBC) [Entitic vol] 93.3 fL Normal 81.0-99.0 [facility] Comment on above: Performed By: #### C CHARLY #### [facility] [address] [address] [address] Justyna Woodruff MONO # 0.9 103/ul Critically high 0.3-0.8 [facility] Comment on above: Performed By: #### C CHARLY #### [facility] [address] [address] [address] Justyna Woodruff Monocytes/100 WBC (Bld) 10.6 % Normal 1.7-12.0 [facility] Comment on above: Performed By: #### C CHARLY #### [facility] [address] [place] [address] Dr. Justyna Woodruff NEUT # 4.3 103/ul Normal 1.4-6.5 [facility] Comment on above: Performed By: #### C CHARLY #### [facility] [address] [place] [address] Dr. Justyna Woodruff Neutrophils/100 WBC (Bld) 51.6 % Normal 43.0-75.0 [facility] Comment on above: Performed By: #### C CHARLY #### [facility] [address] [place] [address] Dr. Justyna Woodruff Platelet mean volume (Bld) [Entitic vol] 10.0 fL Normal 9.5-13.5 [facility] Comment on above: Performed By: #### C CHARLY #### [facility] [address] [place] [address] Dr. Justyna Woodruff PLT 158 103/ul Normal 150-450 [facility] Comment on above: Performed By: #### C CHARLY #### [facility] [address] [place] [address] Dr. Justyna Woodruff RBC 4.51 106/ul Normal 4.20-5.40 [facility] Comment on above: Performed By: #### C CHARLY #### [facility] [address] [place] [address] Dr. Justyna Woodruff WBC 8.3 103/ul Normal 4.0-11.0 [facility] Comment on above: Performed By: #### C CHARLY #### [facility] [address] [place] [address] Dr. Justyna Woodruff CREATININEon 04-14-2022 Creatinine [Mass/Vol] 1.07 mg/dL Critically high 0.55-1.02 [facility] Comment on above: Performed By: #### C CHARLY #### [facility] [address] [place] [address] Dr. Justyna Woodruff EGFR-AF CITIZEN OF [place] >60 Normal >=60 [facility] Comment on above: Performed By: #### C CHARLY #### [facility] [address] [place] [address] Dr. Justyna Woodruff EGFR-NON AF CITIZEN OF [place] 51 mL/min/1.73m2 Critically low >=60 [facility] Comment on above: Performed By: #### C CHARLY #### [facility] [address] [place] [address] Dr. Justyna Woodruff SED RATE WESTERGRENon 2021 SED RATE 6 mm/hr Normal <=30 [facility] Comment on above: Performed By: #### S EDR #### [facility] [address] [place] [address] Dr. Justyna Woodruff UA RANDOM W/MICROSCOPICon BACTERIA NONE SEEN Normal NONE SEEN [facility] Comment on above: Performed By: #### C CHARLY #### [facility] [address] [place] [address] Dr. Justyna Woodruff Bilirubin Ql (U) Negative Normal NEGATIVE [facility] Comment on above: Performed By: #### C CHARLY #### [facility] [address] [place] [address] Dr. Justyna Woodruff CAST NONE SEEN Normal NONE SEEN [facility] Comment on above: Performed By: #### C CHARLY #### [facility] [address] [place] [address] Dr. Justyna Woodruff Clarity (U) CLEAR Normal CLEAR [facility] Comment on above: Performed By: #### C CHARLY #### [facility] [address] [place] [address] Dr. Justyna Woodruff Color (U) LT. YELLOW Normal YELLOW [facility] Comment on above: Performed By: #### C CHARLY #### [facility] [address] [address] [address] Justyna Woodruff Crystals LM Nom (Urine sed) NONE SEEN Normal NONE SEEN [facility] Comment on above: Performed By: #### C CHARLY #### [facility] [address] [address] [address] Justyna Woodruff Epithelial cells LM Ql (Urine sed) FEW Abnormal NONE SEEN /RARE [facility] Comment on above: Performed By: #### C CHARLY #### [facility] [address] [address] [address] Justyna Woodruff Glucose Ql (U) Negative Normal NEGATIVE [facility] Comment on above: Performed By: #### C CHARLY #### [facility] [address] [place] [address] Dr. Justyna Woodruff Hemoglobin Ql (U) SMALL Abnormal NEGATIVE [facility] Comment on above: Performed By: #### C CHARLY #### [facility] [address] [place] [address] Dr. Justyna Woodruff Ketones Ql (U) Negative Normal NEGATIVE [facility] Comment on above: Performed By: #### C CHARLY #### [facility] [address] [address] [address] Justyna Woodruff LEUKOCYTES SMALL Abnormal NEGATIVE [facility] Comment on above: Performed By: #### C CHARLY #### [facility] [address] [address] [address] Justyna Woodruff MUCOUS NONE SEEN Normal NONE SEEN [facility] Comment on above: Performed By: #### C CHARLY #### [facility] [address] [address] [address] Justyna Woodruff Nitrite Ql (U) Negative Normal NEGATIVE [facility] Comment on above: Performed By: #### C CHARLY #### [facility] [address] [place] [address] Dr. Justyna Woodruff pH (U) 7.0 [pH] Normal 5-9 [facility] Comment on above: Performed By: #### C CHARLY #### [facility] [address] [place] [address] Dr. Justyna Woodruff RBC 0-2 Normal 0-2 [facility] Comment on above: Performed By: #### C CHARLY #### [facility] [address] [place] [address] Dr. Justyna Woodruff SPEC GRAVITY 1.015 Normal 1.005-<=1.025 [facility] Comment on above: Performed By: #### C CHARLY #### [facility] [address] [place] [address] Dr. Justyna Woodruff UA PROTEIN Negative Normal NEGATIVE/ TRACE [facility] Comment on above: Performed By: #### C CHARLY #### [facility] [address] [place] [address] Dr. Justyna Woodruff Urobilinogen Qn (U) 0.2 {Aliya'U}/dL Normal 0.2 - 1. 0 [facility] Comment on above: Performed By: #### C CHARLY #### [facility] [address] [place] [address] Dr. Justyna Woodruff WBC 0-2 Abnormal NONE SEEN [facility] Comment on above: Performed By: #### C CHARLY #### [facility] [address] [place] [address] Dr. Justyna Woodruff XR DEXA BONE DENSITYon [...] ARMANDO GARCIA Date: 2022-01-31 17:41 Normal [facility] Office Visit (Cardiology)on 11-24-2021 Follow-up visit Diagnoses/Problems Assessed Essential hypertension (401.9) (I10) Hyperlipidemia (272.4) (E78.5) Class 1 obesity with body mass index (BMI) of 33.0 to 33.9 in adult (278.00,V85.33) (E66.9,Z68.33) Never smoker Orders Class 1 obesity with body mass index (BMI) of 33.0 to 33.9 in adult Healthy Weight Tips; Status:Complete - Retrospective Authorization; Done: [id number] SocHx: Never smoker Tobacco Use Screening; Status:Complete; Done: [id number] Tobacco Use Screening; Status:Complete; Done: [id number] Unlinked Stop: Aspirin EC 81 MG Oral Tablet Delayed Release Patient Instructions By signing my name below, I, Amy Leung LPN ,[place], attest that this documentation has been prepared under the direction and in the presence of Dr. Yakov Ding MD. All medical record entries made by the Scribe were at my direction and personally dictated [...] She had blood work done recently at [facility] which I requested. Apart from obesity physical examination was normal Assessment/recommendatio ns: 1?hypertension currently under control on lisinopril and [...] 24Nov2021 08:28AM Heart Rate63, L Brachial Artery Bmbbuqyy127, LUE, S (more content not included)... Normal [employer] Tobacco Screening.on 022 Adult depression screening assessment No [facility] DO Work Phone: Fall risk assessment a) No falls within the last year [facility] Work Phone: Tobacco use status [facility] b) No -[facility] 250 DO Work Phone: XR knee RT 2Von 04-27-2021 XR knee RT 2V [facility] [address] [place] [address] XRay Report Signed Patient: Gissell Muñoz MR#: [id number] 401 : 1950 Acct:[id number] Age/Sex: 70 / F ADM Date: 04/27/21 Loc: [facility] [place] Room: Type: [facility] Attending Dr: Ollie Ledbetter MD Ordering Provider: [...] Sharad Mendez M.D.04/27/2021 12:32 PM Dictation Location: [place] [address] Transcribed By: [facility] 04/27/21 1232 Dictated By: Sharad Mendez DO 04/27/21 1231 Signed By: 04/27/21 1232 Normal [facility] Vital Signs Date Time Vital Sign Value Performing Clinician Facility 01-22-2024 15:39-0400 Body height 156.21 cm [facility] 01-22-2024 15:39-0400 Body mass index (BMI) [Ratio] 33.5 kg/m2 [facility] 01-22-2024 15:39-0400 Body weight 81.87 kg [facility] 01-22-2024 15:39-0400 Diastolic blood pressure 78 mm[Hg] [facility] 01-22-2024 15:39-0400 Heart rate 58 /min [facility] 01-22-2024 15:39-0400 Respiratory rate 12 /min [facility] 01-22-2024 15:39-0400 Systolic blood pressure 130 mm[Hg] [facility] 01-08-2024 14:54-0400 Blood Pressure Location DELFINA BUCHANANRY [facility] 01-08-2024 14:54-0400 Body temperature 98.24 [degF] DELFINA RIYA [facility] 01-08-2024 14:54-0400 Diastolic blood pressure 83 mm[Hg] DELFINA RIYA [facility] 01-08-2024 14:54-0400 Heart rate 54 /min DELFINA RIYA [facility] 01-08-2024 14:54-0400 Respiratory rate 16 /min DELFINA RIYA [facility] 01-08-2024 14:54-0400 Systolic blood pressure 126 mm[Hg] DELFINA RIYA [facility] 06-04-2023 15:00-0400 Body height 156.21 cm Jevon Adam Other [employer] Other 06-04-2023 15:00-0400 Body mass index (BMI) [Ratio] 34.42 kg/m2 Jevon Ball Other [employer] Other 06-04-2023 15:00-0400 Body weight 84.01 kg Jevon Ball Other [employer] Other 06-04-2023 15:00-0400 Diastolic blood pressure 83 mm[Hg] Jevon Ball Other [employer] Other 06-04-2023 15:00-0400 Respiratory rate 12 /min Jevon Ball Other [employer] Other 06-04-2023 15:00-0400 Systolic blood pressure 130 mm[Hg] Jevon Ball Other [employer] Other 03-02-2023 14:00-0400 Body height 156.21 cm Jevon Ball Other [employer] Other 03-02-2023 14:00-0400 Body mass index (BMI) [Ratio] 33.94 kg/m2 Jevon Ball Other [employer] Other 03-02-2023 14:00-0400 Body weight 82.83 kg Jevon Ball Other [employer] Other 03-02-2023 14:00-0400 Diastolic blood pressure 84 mm[Hg] Jevon Ball Other [employer] Other 03-02-2023 14:00-0400 Respiratory rate 12 /min Jevon Ball Other [employer] Other 03-02-2023 14:00-0400 Systolic blood pressure 133 mm[Hg] Jevon Ball Other [employer] Other 01-23-2023 15:30-0400 Body height 156.21 cm Jevon Ball Other [employer] Other 01-23-2023 15:30-0400 Body mass index (BMI) [Ratio] 34.42 kg/m2 Jevon Ball Other [employer] Other 01-23-2023 15:30-0400 Body weight 84.01 kg Jevon Ball Other [employer] Other 01-23-2023 15:30-0400 Diastolic blood pressure 84 mm[Hg] Jevon Ball Other [employer] Other 01-23-2023 15:30-0400 Respiratory rate 12 /min Jevon Ball Other [employer] Other 01-23-2023 15:30-0400 Systolic blood pressure 145 mm[Hg] Jevon Ball Other [employer] Other 10-02-2022 14:45-0500 Body height 156.21 cm Jevon Ball Other [employer] Other 10-02-2022 14:45-0500 Body mass index (BMI) [Ratio] 34.2 kg/m2 Jevon Ball Other [employer] Other 10-02-2022 14:45-0500 Body weight 83.46 kg Jevon Ball Other [employer] Other 10-02-2022 14:45-0500 Diastolic blood pressure 82 mm[Hg] Jevon Ball Other [employer] Other 10-02-2022 14:45-0500 Respiratory rate 12 /min Jevon Medina Other [facility] [employer] Other 10-02-2022 14:45-0500 Systolic blood pressure 130 mm[Hg] Jevon Ball Other [facility] [employer] Other 11-24-2021 08:28-0400 Body height 157.48 cm Jevon E Ball Work Phone: [facility] [employer] 250 DO Work Phone: 11-24-2021 08:28-0400 Body mass index (BMI) [Ratio] 33.47 kg/m2 Jevon E Ball Work Phone: [facility] [employer] 250 DO Work Phone: 11-24-2021 08:28-0400 Body surface area Derived from formula 1.84 m2 Jevon E Ball Work Phone: [facility] [employer] 250 DO Work Phone: 11-24-2021 08:28-0400 Body weight 83.01 kg Jevon E Ball Work Phone: [facility] [employer] 250 DO Work Phone: 11-24-2021 08:28-0400 Diastolic blood pressure 80 mm[Hg] Jevon E Ball Work Phone: [facility] [employer] 250 DO Work Phone: 11-24-2021 08:28-0400 Heart rate 63 /min Jevon E Ball Work Phone: [facility] [employer] 250 DO Work Phone: 11-24-2021 08:28-0400 Systolic blood pressure 135 mm[Hg] Jevon E Ball Work Phone: [facility] [employer] 250 DO Work Phone: Encounters Encounter Date Encounter Type Care Provider Facility Start: 01-06-2025 ambulatory DELFINA Valverde ty:JAYLEN Kendrick Start: 04-08-2024 End: 04-08-2024 ambulatory ENEIDA Sarath GROSS Not Available Start: 01-29-2024 End: 01-29-2024 ambulatory ENEIDA A BROWN Not Available Start: 01-22-2024 End: 01-22-2024 ambulatory [facility] Work Phone: Start: 01-22-2024 End: 01-22-2024 Patient encounter procedure [facility] Physician [facility] Work Phone: Start: 01-08-2024 End: 01-09-2024 ambulatory DELFINA Domonique RIYA Facility:JAYLEN Kendrick Start: 01-08-2024 End: 01-08-2024 Patient encounter procedure DELFINA BUCHANANRY [facility] Start: 12-13-2023 Non-patient / Non-visit [facility] Physician [facility] [employer] Work Phone: Start: 11-21-2023 Non-patient / Non-visit [facility] Physician [facility] Work Phone: Start: 11-20-2023 End: 11-20-2023 ambulatory ENEIDA GROSS Not Available Start: 11-05-2023 Non-patient / Non-visit [facility] Physician [facility] Work Phone: Start: 09-11-2023 End: 09-11-2023 ambulatory ENEIDA Sarath GROSS Not Available Start: 07-03-2023 End: 07-03-2023 ambulatory ENEIDA A BROWN Not Available Start: 06-14-2023 End: 06-14-2023 ambulatory Jevon Medina Other [employer] Other Start: 06-14-2023 Telephone encounter Jevon Medina [facility] Start: 06-11-2023 End: 06-11-2023 ambulatory Jevon Medina Other [employer] Other Start: 06-11-2023 Telephone encounter Jevon Medina [facility] Start: 06-04-2023 End: 06-04-2023 ambulatory Jevon Medina Other [employer] Other Start: 06-04-2023 Office outpatient vi sit 15 minutes Jevon Medina [facility] Start: 03-02-2023 End: 03-02-2023 ambulatory Jevon Medina Other [employer] Other Start: 03-02-2023 Office outpatient vi sit 15 minutes Jevon Medina [facility] Start: 01-23-2023 End: 01-23-2023 ambulatory Jevon Medina Other [employer] Other Start: 01-23-2023 Patient encounter procedure Jevon Medina [facility] Start: 12-26-2022 End: 12-26-2022 ambulatory Jevon Medina Other [employer] Other Start: 12-26-2022 Telephone encounter Jevon ALVAREZ [facility] Start: 12-23-2022 End: 12-24-[address] JEVON MEDINA Facility:[facility] Start: 12-22-2022 End: 12-23-[address] JEVON MEDINA Facility:[facility] Start: 11-21-2022 End: 11-21-2022 ambulatory Jevon Medina Other [employer] Other Start: 11-21-2022 Office outpatient vi sit 15 minutes Jevon Medina [facility] Start: 10-23-2022 End: 10-24-[address] JALEN WELSH Facility:[facility] Start: 10-12-2022 End: 10-13-[address] JEVON MEDINA Facility:[facility] Start: 10-02-2022 End: 10-02-2022 ambulatory Jevon Medina Other [employer] Other Start: 10-02-2022 Office outpatient vi sit 15 minutes Jevon Medina [facility] Start: 04-14-2022 End: 04-15-[address] JALEN WELSH Facility:[facility] Start: 01-31-2022 End: 02-01-[address] JEVON MEDINA Facility:[facility] Start: 01-17-2022 Adult health examination Jevon Medina Other [employer] Other Start: 11-24-2021 Office outpatient vi sit 25 minutes Jevon Medina Work Phone: [facility] [employer] 250 DO Work Phone: Start: 07-11-2021 End: 07-11-2021 Pre-procedure evaluation check Jevon Adam Other [facility] [employer] Other End: 11-24-2021 Patient encounter status Jevon Medina Work Phone: [facility] [employer] 250 DO Work Phone: Procedures Date Procedure Procedure Detail Performing Clinician Start: 12-31-2023 Radiography of [id number] DELFINA RITTER Start: 01-17-2022 Depression screening Be lalit Medina Other Start: 10-21-2020 Extracorporeal shock wave lithotripsy of calculus of kidney DELFINA RITTER Start: 10-14-2020 Extracorporeal shock wave lithotripsy of calculus of kidney DELFINA RITTER Start: 06-30-2019 Colonoscopy DELFINA ARANGO Start: 09-11-2017 Colonoscopy DELFINA ARANGO Comment on above: diverticulosis Start: 09-11-2017 EGD 2 DELFINAELPIDIO ARANGO Comment on above: biopsy Start: 09-08-2015 General examination of patient Jevon Medina Other Start: 05-06-2013 Preoperative cardiov ascular examination Jevon Medina Other Appendectomy Jevon Medina Work Phone: Appendectomy DELFINA RITTER Arthroplasty of knee Benjami n E Adam Work Phone: Biopsy of breast Jevon E Adam Work Phone: Biopsy of liver Jevon E B all Work Phone: Breast Biopsy DELFINA RITTER Breast surgery (qual ifier value) DELFINA RITTER Cardiac catheterization Benj bernal E Adam Work Phone: Decompression of med sheryl nerve Jevon E Adam Work Phone: Dilation of esophagus Benjam in E Ball Work Phone: History of operative procedure on knee Jevon Medina Other Hysterectomy Jevon E Adam Work Phone: Hysterectomy DELFINA RITTER Lithotripsy Jevon E Adam Work Phone: Screening for osteoporosis B enjamin Adam Other Screening mammography Nuzhat in Adam Other Subacute bacterial endocarditis prophylaxis Jevon Medina Other Toe Surgery DELFINA RITTER Total colonoscopy Jevon Medina Work Phone: Immunizations Immunization Date Immunization Notes Care Provider Miriam fitzgerald 05-29-2023 influenza virus vaccine, unspecified formulation DELFINA RITTER [facility] 05-29-2023 influenza, high dose seasonal, preservative-free Jevon Medina Other [employer] Other 06-04-2022 influenza, high dose seasonal, preservative-free Jevon Medina Other [employer] Other 06-04-2022 influenza virus vaccine, split virus (incl. purified surface antigen) Jevon Medina Other [employer] Other 06-04-2022 influenza virus vaccine, unspecified formulation DELFINA RITTER [facility] 12-01-2021 COVID-19 Vaccine Moderna - Documentation Purposes Only Jevon Adam Other [facility] 06-14-2021 Moderna COVID-19 Vaccine 100 MCG/0.5ML Intramuscular Suspension Jevon Domonique Medina Work Phone: [facility] 05-28-2021 zoster vaccine recombinant Jevon Domonique Adam Work Phone: [facility] 05-28-2021 zoster vaccine, live Benjami n Ball Other [facility] 05-01-2021 Fluad Quadrivalent 0 .5 ML Intramuscular Prefilled Syringe Jevon Medina Work Phone: [facility] 250 DO Work Phone: 05-01-2021 influenza virus vaccine, split virus (incl. purified surface antigen) Jevon Medina Other [facility] [employer] Other 05-01-2021 influenza virus vaccine, unspecified formulation DELFINA RITTER [facility] 12-20-2020 zoster vaccine, live Benjami n Ball Other [facility] 12-19-2020 zoster vaccine recombinant Jevon Domonique Medina Work Phone: [facility] 11-16-2020 Moderna COVID-19 Vaccine 100 MCG/0.5ML Intramuscular Suspension Jevon Medina Work Phone: [facility] 10-19-2020 Moderna COVID-19 Vaccine 100 MCG/0.5ML Intramuscular Suspension Jevon Medina Work Phone: [facility] 06-21-2020 pneumococcal conjuga te vaccine, 13 valent Jevon E Adam Work Phone: [facility] 06-18-2020 pneumococcal conjuga te vaccine, 13 valent Jevon Medina Other [facility] 05-20-2020 influenza virus vaccine, unspecified formulation DELFINA RITTER [facility] 05-20-2020 influenza, high dose seasonal, preservative-free Jevon E Adam Work Phone: [facility] 250 DO Work Phone: 04-20-2020 influenza virus vaccine, unspecified formulation Jevon E Adam Work Phone: [facility] 06-05-2019 influenza virus vaccine, unspecified formulation DELFINA RITTER [facility] 06-05-2019 Seasonal trivalent influenza vaccine, adjuvanted, preservative free Jevon Medina Work Phone: [place] [address] DO Work Phone: 06-05-2018 influenza virus vaccine, unspecified formulation DELFINA RITTER [facility] 06-05-2018 influenza, injectabl e, quadrivalent, preservative free Jevon E Adam Work Phone: [facility] 250 DO Work Phone: 08-20-2013 pneumococcal polysaccharide vaccine, 23 valent Jevon E Adam Work Phone: [facility] 04-30-2012 tetanus and diphther ia toxoids, adsorbed, preservative free, for adult use (5 Lf of tetanus toxoid and 2 Lf of diphtheria toxoid) Jevon Medina Other [facility] Payers Date Payer Category Payer [employer] [id number] 2019 [employer] [id number] [employer] ( [employer] others) [id number] 1959 Medicare [id number] [id number] 1959 Self-pay 1959 Unknown [id number] 1950 Unknown [id number] [id number] 1950 Unknown [id number] [id number] 1950 Unknown [id number] 2.16.840.1.261030.3.579.2.593 1950 Unknown [id number] 2.16.840.1.958571.3.579.2.593 1950 Unknown [id number] 2.16.840.1.385262.3.579.2.593 1950 Unknown [id number] 2.16.840.1.630714.3.579.2.727 1950 Unknown [id number] 2.16.840.1.742821.3.579.2.727 1950 Unknown [id number] 2.16.840.1.771540.3.579.2.125 9 1950 Unknown [id number] 2.16.840.1.142601.3.579.2.125 9 1950 Unknown [id number] 2.16.840.1.386944.3.579.2.125 9 1950 Unknown [id number] 2.16.840.1.862061.3.579.2.125 9 1950 Unknown [id number] 2.16.840.1.686606.3.579.2.125 9 [employer] ( [employer] others[employer] for Life [id number] Unknown Unknown [id number] [id number] Social History Date Type Detail Facility No alcohol use No alcohol use [facility] 250 DO Work Phone: Sex Assigned At [facility] Start: 05-17-2020 End: 01-08-2024 Tobacco smoking status Never smoked tobacco (finding) [facility] Tobacco smoking status Never [facility] Start: 1950 Sex Assigned At Female F [facility] Medical Equipment Procedure Code Equipment Code Equipment Origin al Text Equipment Identifier Dates Arthroplasty, knee, total, minimally invasive Orthopaedic cement, non-medicated [id number] FDA Start: 05-17-2020 Arthroplasty, knee, total, minimally invasive Uncoated knee femur prosthesis ()[id number] FDA Start: 05-17-2020 Arthroplasty, knee, total, minimally invasive Tibial insert ()[id number] FDA Start: 05-17-2020 Arthroplasty, knee, total, minimally invasive Polyethylene patella prosthesis ()[id number] FDA Start: 05-17-2020 Arthroplasty, knee, total, minimally invasive Uncoated knee tibia prosthesis, metallic ()[id number] FDA Start: 05-17-2020 Functional Status Date Assessment Result Facility 01-08-2024 Functional Status N/A [facility] Clinical Notes 10-02-2022 to 01-08-2024 Note Date & Type Note Facility 01-08-2024 Hospital Discharg e instructions Patient Education 01/08/2024 15:12:44 Kidney Stones Kidney Stones Kidney stones are solid, rock-like deposits that form inside of the kidneys. The kidneys are a pair of organs that make urine. A kidney stone may form in a kidney and move into other parts of the urinary tract, including the tubes that connect the kidneys to the bladder (ureters), the bladder, and the tube that carries urine out of the body (urethra). As the stone moves through these areas, it can cause intense pain and block the flow of urine. Kidney stones are created when high levels of certain minerals are found in the urine. The stones are usually passed out of the body through urination, but in some cases, medical treatment may be needed to remove them. What are the causes? Kidney stones may be caused by: A condition in which certain glands produce too much parathyroid hormone (primary hyperparathyroidism), which causes too much calcium buildup in the blood. A buildup of uric acid crystals in the bladder (hyperuricosuria). Uric acid is a chemical that the body produces when you eat certain foods. It usually leaves the body in the urine. Narrowing (stricture) of one or both of the ureters. A kidney blockage that is present at (congenital obstruction). Past surgery on the kidney or the ureters. What increases the risk? The following factors may make you more likely to develop this condition: Having had a kidney stone in the past. Having a family history of kidney stones. Not drinking enough water. Eating a diet that is high in protein, salt (sodium), or sugar. Being overweight or obese. What are the signs or symptoms? Symptoms of a kidney stone may include: Pain in the side of the abdomen, right below the ribs (flank pain). Pain usually spreads (radiates) to the groin. Needing to urinate often or urgently. Painful urination. Blood in the urine (hematuria). Nausea. Vomiting. Fever and chills. How is this diagnosed? This condition may be diagnosed based on: Your symptoms and medical history. A physical exam. Blood tests. Urine tests. These may be done before and after the stone passes out of your body through urination. Imaging tests, such as a CT scan, abdominal X-ray, or ultrasound. A procedure to examine the inside of the bladder (cystoscopy). How is this treated? Treatment for kidney stones depends on the size, location, and makeup of the stones. Kidney stones will often pass out of the body through urination. You may need to: Increase your fluid intake to help pass the stone. In some cases, you may be given fluids through an IV and may need to be monitored in the hospital. Take medicine for pain. Make changes in your diet to help prevent kidney stones from coming back. Sometimes, procedures are needed to remove a kidney stone. This may involve: A procedure to break up kidney stones using: ?A focused beam of light (laser therapy). ?Shock waves (extracorporeal shock wave lithotripsy). Surgery to remove kidney stones. This may be needed if you have severe pain or have stones that block your urinary tract. Follow these instructions at home: Medicines Take zpyk-fsk-mqrttrr and prescription medicines only as told by your health care provider. Ask your health care provider if the medicine prescribed to you requires you to avoid driving or using heavy machinery. Eating and drinking Drink enough fluid to keep your urine pale yellow. You may be instructed to drink at least 8 10 glasses of water each day. This will help you pass the kidney stone. If directed, change your diet. This may include: ?Limiting how much sodium you eat. ?Eating more fruits and vegetables. ?Limiting how much animal protein you eat. Animal proteins include red meat, poultry, fish, and eggs. ?Eating a normal amount of calcium (1,000 1,300 mg per day). Follow instructions from your health care provider about eating or drinking restrictions. General instructions Collect urine samples as told by your health care provider. You may need to collect a urine sample: ?24 hours after you pass the stone. ?8 12 weeks after you pass the kidney stone, and every 6 12 months after that. Strain your urine every time you urinate, for as long as directed. Use the strainer that your health care provider recommends. Do not throw out the kidney stone after passing it. Keep the stone so it can be tested by your health care provider. Testing the makeup of your kidney stone may help prevent you from getting kidney stones in the future. Keep all follow-up visits. You may need follow-up X-rays or ultrasounds to make sure that your stone has passed. How is this prevented? To prevent another kidney stone: Drink enough fluid to keep your urine pale yellow. This is the best way to prevent kidney stones. Eat a healthy diet. Follow recommendations from your health care provider about foods to avoid. Recommendations vary depending on the type of kidney stone that you have. You may be instructed to eat a low-protein diet. Maintain a healthy weight. Where to find more information National Kidney Foundation (NKF): www.kidney.org [facility] (F): www.urologyhealth.org Contact a health care provider if: You have pain that gets worse or does not get better with medicine. Get help right away if: You have a fever or chills. You develop severe pain. You develop new abdominal pain. You faint. You are unable to urinate. Summary Kidney stones are solid, rock-like deposits that form inside of the kidneys. Kidney stones can cause nausea, vomiting, blood in the urine, abdominal pain, and the urge to urinate often. Treatment for kidney stones depends on the size, location, and makeup of the stones. Kidney stones will often pass out of the body through urination. Kidney stones can be prevented by drinking enough fluids, eating a healthy diet, and maintaining a healthy weight. This information is not intended to replace advice given to you by your health care provider. Make sure you discuss any questions you have with your health care provider. Document Revised: 11/15/2022 Document Reviewed: 11/15/2022 [employer] Patient Education 2022 [employer]. Follow Up Care 01/02/2023 15:46:57 With:DELFINA RITTER PA-C, URL Address: [address] [place] [address]. [place] [address] [phone] When: Unknown [facility] 06-04-2023 Evaluation note Encounter Date Diagnosis Assessment [...] exercise to achieve/mainta in a normal BMI. [employer] Other 06-06-2023 Evaluation note* Encounter Date Diagnosis Assessment Notes Treatment Notes Treatment Clinical Notes Jan, Medicare annual well ness visit, subsequent (ICD-10 - Z00.00) Personalized health [...] on diet and exercise with continued statin therapy.Discussed the beneficial effects of lowering cholesterol in reducing the risk for cerebrovascular and cardiovascular disease. Jan, Gastroesophageal ref lux disease with esophagitis without hemorrhage (ICD-10 - K21.00) Diet instructions: Smaller portions, avoid eating and laying flat, avoid eating or drinking prior to bedtime. Weight loss. Jan, Age-related osteopor osis without current pathological fracture (ICD-10 - M81.0) Ca and Vit D supplements along w/ weight bearing exercise. Continue Alendronate, tolerating w/o ADR. DEXA every 2-3 years [employer] Other 04-04-2023 Evaluation note* Encounter Date Diagnosis Assessment Notes Treatment Notes Treatment Clinical Notes Nov, Acute bronchitis due to other specified organisms (ICD-10 - J20.8) Instructed to use Robitussin or Mucinex for cough, saline or Flonase NS for congestion, Tylenol for pain and fever. Nov, Essential hypertension (ICD-10 - I10) Avoid use of decongestants [facility] Other 02-13-2023 Evaluation note* Encounter Date Diagnosis Assessment Notes Treatment Notes Treatment Clinical Notes Sep, Rectal bleeding (ICD-10 - K62.5) Avoid straining, push fluids, increased fiber. Monitor for now, call if any further bleeding and a referral to GI will be sent Sep, External hemorrhoid, bleeding (ICD-10 - K64.4) Tucks wipes, Lidocaine/cortison e [employer] Other Evaluation + Plan note Future Appointments Appointment Date:01/06/2025 03:00:00 PM Scheduled Provider:DELFINA RITTER PA-C Location:[facility] Appointment Type:URO Office Visit [facility] evaluation noteNo InformationNortIntenseDebate Other Evaluation noteNoSagoon Other Evaluation note* Diagnosis Onset Date Resolution Status GERD (gastroesophageal reflux disease) acute Hypercholesterolemia acute Hypertension acute Osteoporosis acute Type 2 diabetes mellitus with hyperglycemia acute Medicare annual wellness visit, subsequent noneactive Screening mammogram for breast cancer noneactive [facility] Work Phone: History general Narrative - Reported* Type Description Date Medical History hypertension Medical History lupus Medical [...] History History of nephrolithiasis Medical History Primary osteoarthritis of right knee Medical History Fibrocystic disease of right timbo ast Surgical History left knee surgery 2012 Surgical History right knee scope w/ menisectomy 02/2019 Surgical History appendix Surgical History carpal tunnel Surgical History colonoscopy/EGD 06/30/2019 Surgical History hysterectomy Surgical History liver biopsy Surgical History hearth cath Surgical History right TKA 04/2020 Surgical History Colonscopy 1999 Hospitalization History See Above [facility] [employer] [place] Other History [facility] - [facility] [employer] Other Hospital course Narrative No data available for this section [facility] progress note No data available for this section [facility] Summary Purpose Family History No Family History Records FoundUnknown Family Member Name Dates Details Family history of diabetes m ellitus: Mother(V18.0, Z83.3) Status:Active Family history of leukemia: Father(V16.6, Z80.6) Status:Active Family history of malignant neoplasm of prostate: Father(V16.42, Z80.42) Status:Active Heart problem: Father Status:Active Relationship Condition Age at Onset Recorded Date/T rowan father Heart disease Unknown Leukemia Unknown brother Osteoarthritis Unknown Arthritis Unknown Unknown Malignant neoplasm Unknown Not Specified Unknown Advance Directives No Advanced Directives Records Found Advance Directive Response Recorded Date/ Time Advance Directives No June 28, 2017 9:41am Chief Complaint * GISSELL MUÑOZ is being [...] [facility]. Apart from obesity physical examination [...] follow up with me in as-needed basis Chief Complaint and Reason for Visit Chief Complaint Amb Documentation 6 month follow up Reason for Visit GERD (gastroesophage al reflux disease) Hypercholesterolemia Hypertension Osteoporosis Type 2 diabetes mellitus with hyperglycemia Medicare annual wellness visit, subsequent Screening mammogram for breast cancer Additional Source Comments INFORMATION SOURCE (unrecogn ized section and content) DATE CREATED AUTHOR 09/13/2021 [facility] DATE CREATED AUTHOR AUTHOR'S ORGANIZ ATION 11/26/2021 [employer] DATE CREATED AUTHOR AUTHOR'S ORGANIZ ATION 12/29/2022 [facility] DATE CREATED AUTHOR AUTHOR'S ORGANIZ ATION 01/11/2024 [place] [facility] DATE CREATED AUTHOR AUTHOR'S ORGANIZ ATION 04/10/[address] [facility] EPIC REASON FOR VISIT (unrecogniz ed section and content) rectum bleedingCOUGH, GREEN MUCUSLab ResultsWellnessCYST UNDER BREASTLab ResultsUpdate Patient Care team informatio n (unrecognized section and content) Team Status: Active Member Role Status Dates Jevon Medina DO Primary Care Provider Active Team Status: Active Member Role Status Dates Jevon Medina DO Primary Care Provider Active Start: November 05, 2023 POORNIMA Peters Attending Provider Active Start : November 05, 2023 Team Status: Active Member Role Status Dates Jevon Medina DO Primary Care Provide r, Attending Provider Active Start: November 21, 2023 Team Status: Active Member Role Status Dates Jevon Medina DO Primary Care Provide r, Attending Provider Active Start: December 13, 2023 Team Status: Inactive Member Role Status Dates Jevon Medina DO Primary Care Provide r, Attending Provider Active Start: January 22, 2024 End: January 22, 2024 Goals (unrecognized section and content) Goals may be documented in a n alternate section FOR RECORDS PERTAINING TO PATIENTS WHO ARE [...] BE BASED ON THE PRIMARY CLINICAL RECORDS. [facility]. provides no warranty or guarantee of the accuracy or completeness of information in this document.
[2024-06-12 16:10] LABS: Basophils Absolute Auto 0.1 10^3/uL (0.0-0.1); Basophils Percent Auto 0.9 % (0.2-2.0); Eosinophils Absolute Auto 0.3 10^3/uL (0.0-0.7); Eosinophils Percent Auto 2.9 % (0.9-7.0); Hemoglobin 15.2 g/dL (12.0-16.0); Immature Granulocytes Abs Auto 0.03 10^3/uL (0.00-0.03); Immature Granulocytes Pct Auto 0.3 % (0.0-0.5); Mean Corpuscular HGB Conc 33.8 g/dL (29.9-35.2); Mean Corpuscular Hemoglobin 32.3 pg (26.7-34.0); Mean Corpuscular Volume 95.5 fL (81.0-99.0); Monocytes Absolute Auto 0.9 10^3/uL (0.3-0.8); Monocytes Percent Auto 9.8 % (1.7-12.0); Neutrophils Absolute Auto 4.6 10^3/uL (1.4-6.5); Neutrophils Percent Auto 52.1 % (43.0-75.0); Platelet Count 170 10^3/uL (150-450); Red Blood Count 4.71 10^6/uL (4.20-5.40); Red Cell Distribution Width 12.7 % (11.0-15.0); White Blood Count 8.9 10^3/uL (4.0-11.0)
[2024-06-12 16:30] LABS: Erythrocyte Sedimentation Rate 10 mm/hr (<=30)
[2024-06-12 16:34] LABS: Bilirubin Urine NEGATIVE (NEGATIVE); Blood Urine TRACE-I (NEGATIVE); Clarity Urine CLEAR (CLEAR); Color Urine LT. YELLOW (YELLOW); Glucose Urine UA NEGATIVE (NEGATIVE); Ketones Urine NEGATIVE (NEGATIVE); Leukocyte Esterase Urine MODERATE (NEGATIVE); Nitrite Urine NEGATIVE (NEGATIVE); Protein Urine NEGATIVE (NEG/TRACE); Specific Gravity Urine 1.015 (1.005-1.025); Urobilinogen Urine 0.2 EU/dL (0.2-1.0); pH Urine 6.5 (5.0-9.0)
[2024-06-12 16:47] LABS: Bacteria Urine TRACE #/HPF (NONE SEEN); Cast Seen? NONE SEEN #/LPF (NONE SEEN); Crystals Seen? None Seen #/HPF (None Seen); Mucus Urine TRACE (NONE SEEN); Squamous Epithelial Cell Urine MODERATE #/LPF (NONE/RARE)
[2024-06-12 17:22] LABS: Estimated GFR (African America 51 (>=60 mL/min/1.73m^2); Estimated GFR (Non-African Ame 42 (>=60 mL/min/1.73m^2)
[2024-06-14 10:08] LABS: Complement C3, Serum 157 mg/dL (82-167); Complement C4, Serum 24 mg/dL (12-38)
== END 2024-06-12 15:52 | disposition home or self-care (01) ==
LOC: LAB 15:51
PROVIDERS: PCP Internal Medicine; Visit Provider Internal Medicine Rheumatology
DX: M32.9 Systemic lupus erythematosus, unspecified (principal)
CPT/HCPCS: 36415; 81001; 82565; 85025; 85652; 86160

== ENCOUNTER 2024-07-31 15:44 | Outpatient (OUT) | payer MEDICARE, OTHER, SELFPAY ==
[2024-07-31 17:09] LABS: Estimated Average Glucose 151 mg/dL; Glycohemoglobin A1C 6.9 % (4.5-6.2)
== END 2024-07-31 15:45 | disposition home or self-care (01) ==
LOC: LAB 15:44
PROVIDERS: PCP Internal Medicine; Visit Provider Internal Medicine
DX: E11.65 Type 2 diabetes mellitus with hyperglycemia (principal)
CPT/HCPCS: 36415; 83036

== ENCOUNTER 2024-10-17 13:39 | Outpatient (OUT) | payer OTHER, MEDICARE, SELFPAY ==
--- NOTE | 2024-10-17 14:12 | MM_ITS ---
Patient Name: LEXII VAZQUEZ MR#: [id number] : 1950 Exam Date: 10/17/2024 Ordering Doctor: DR Jevon Medina D.O. RADIOLOGY REPORT PROCEDURE: MM TOMOSYNTHESIS SCREENING BI COMPARISON: MM TOMOSYNTHESIS SCREENING BI, 10/16/2023. MG MAMM SCREEN 3D JAMEY CAD, 10/12/2022. MG MAMM SCREEN 3D JAMEY CAD, 10/10/2021. MAMMO JAMEY DX, 04/30/2007. INDICATIONS: Screening Calculator Name NCI Breast Cancer Risk Assessment Tool 5 Year Breast Cancer Risk 2.40% Lifetime Breast Cancer Risk 5.50% Personal Breast Cancer No Personal Ovarian Cancer No Treatments None Family Cancers Father with leukemia cancer at age 89. LOCATION: [facility] BREAST COMPOSITION: The breasts are heterogeneously dense,which may obscure small masses. FINDINGS: RIGHT BREAST: No significant suspicious finding. There is a biopsy clip on the right with benign-appearing calcifications. LEFT BREAST: No significant suspicious finding. Benign-appearing calcifications are present on the left. DIAGNOSTIC CATEGORY 2--BENIGN FINDING. NO CHANGE FROM COMPARISON. RECOMMENDATIONS: ROUTINE MAMMOGRAM AND CLINICAL EVALUATION IN 12 MONTHS. PLEASE NOTE: A NORMAL MAMMOGRAM DOES NOT EXCLUDE THE POSSIBILITY OF BREAST CANCER. A CLINICALLY SUSPICIOUS PALPABLE LUMP SHOULD BE BIOPSIED. Dictated by: Loi Montalvo MD on 10/17/2024 at 15:02 Approved by: Loi Montalvo MD on 10/17/2024 at 15:06
== END 2024-10-17 13:40 | disposition home or self-care (01) ==
LOC: MAMMO 13:39
PROVIDERS: PCP Internal Medicine; Visit Provider Internal Medicine
DX: Z12.31 Encounter for screening mammogram for malignant neoplasm of breast (principal); Z80.6 Family history of leukemia
CPT/HCPCS: 77063; 77067

== ENCOUNTER 2024-12-30 13:40 | Outpatient (OUT) | payer OTHER, MEDICARE, SELFPAY ==
--- OUTSIDE RECORDS SUMMARY | 2024-12-30 14:01 | XMS_ITS | CCD ---
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 Gun Name Role Phone Jevon Medina Unavailable Unavailable Unavailable Jevon Medina Unavailable DR JEVON MEDINA Primary Care Unavailable RIYA, DELFINA Admitting Unavailable RIYA, DELFINA Attending Unavailable RIYADELFINA AREVALO Consulting Unavailable ADAM, DR BILLINGSLEY Primary Care [...] Unavailable BALL, DR BILLINGSLEY Primary Care Unavailable Ziebray, Jose Armando Consulting Unavailable JEVON MEDINA Primary Care Physician [phone] Jevon Medina MD Primary Care Provider SALO DUQUE Attending Unavailable SALO DUQUE Attending Unavailable SALO DUQUE Attending Unavailable SALO DUQUE Attending Unavailable SALO DUQUE Attending Unavailable SALO DUQUE Referring Unavailable Jevon Medina DO Primary Care Provider [facility] Dwight STOUT [facility] Ad[facility] Unavailable Jevon Medina Primary Care Unavailable DELFINA RITTER Attending Unavailable RIYA, DELFINA E Attending Unavailable Allergies Allergy Classification Reported Allergen(s) Allergy Type Date of Onset Reaction(s) Facility (1 source) Contrast media Allergy to substance (finding) -[facility] 250 DO Work Phone: (20 sources) hydrOXYzine; Translations: [Vistaril CAPS] Drug Allergy 3 Unknown (qualifier value), Unknown [facility] (9 sources) Metoclopramide; Translations: [Reglan TABS] Drug Allergy 3 Itching [facility] (8 sources) Contrast media Propensity to adverse reactions shortness of breath [facility] [employer] Other (11 sources) hydrOXYzine Drug Allergy 4 Unknown, Unknown Reaction [facility] (13 sources) Wheat; Translations: [Wheat] Propensity to adverse reactions 4 hives [facility] (2 sources) hydrOXYzine; Translations: [Vistaril] Drug Allergy [facility] (1 source) Iodine (And Iodine Containting Drugs) Drug allergy (disorder) [facility] (2 sources) Iothalamate; Translations: [Reglan] Drug Allergy [facility] (1 source) Wheat Containing Prod Drug allergy (disorder) [facility] (6 sources) Vistazine *ANTIANXIETY AGENTS* Propensity to adverse reactions 3 Comment:Vistal ine [facility] (3 sources) VISTALINE Propensity to adverse reactions 5 Unknown [facility] [employer] Other (6 sources) Dyes Propensity to adverse reactions 3 Comment:IVP Dye [facility] (2 sources) Contrast media; Translations: [Contrast Dye] Drug allergy [facility] (3 sources) hydrOXYzine Drug Allergy 4 Swelling of Lip/Tongue/Thr oat [facility] (10 sources) Iodinated Contrast Media Allergy to substance 3 Itching [facility] (7 sources) WHEAT DEXTRIN Drug Allergy 3 GI intolerance [facility] Medications Current Medications Medication Drug Class(es) Dates Sig (Normalized) Sig (Original) alendronic acid 70 mg oral tablet (20 sources) Bisphosphonate Start: 01-22-2024 End: 01-22-2024 take 1 tablet by mouth every week Alendronate 70 mg tablet Active 70 MG PO every week 12 January 22, 2024 4:05pm Start: 01-08-2024 take 1 tablet by nohemy th every week alendronate 70 mg Tab 70 mg = 1 tab(s), Oral, qWeek, Refills(s) 0 Start Date: 01/08/24 Status: Ordered Start: 11-05-2023 End: 01-22-2024 take 1 tablet by mouth every week Alendronate 70 mg tablet Discontinued 0 .ROUTE .COMPLEX November 05, 2023 5:05pm January 22, 2024 3:35pm TAKE 1 TABLET BY MOUTH ONCE A WEEK WITH GLASS OF WATER NO EATING/LAYING FLAT X30 MINUTES Start: 11-05-2023 End: 11-05-2023 take 1 tablet by mouth every week Alendronate 70 mg tablet Discontinued 70 MG PO every week November 05, 2023 12:00am November 05, 2023 5:05pm Start: 01-26-2023 alendronate (F osamax) 70 MG tablet Take 70 mg by mouth every 7 (seven) days. 01/26/2023 Active take 1 tablet by nohemy th every week Alendronate Sodium 70 MG TAKE 1 TABLET BY MOUTH ONCE A WEEK WITH GLASS OF WATER NO EATING/LAYING FLAT X30 MINUTES Active take 1 tablet by nohemy th once daily Alendronate Sodium 70 MG 1 tablet 30 minutes before the first food, beverage or medicine of the day with plain water Orally Active amoxicillin 875 mg oral tablet (11 sources) Penicillin-class Antibacterial Start: 10-07-2024 take 1 tablet by mouth twice daily Amoxicillin 875 mg tablet Active 875 MG PO Twice daily 14 October 07, 2024 1:00am Start: 05-26-2020 Amoxicillin 50 0 MG take 6 tablets 1 hour before procedure and 3 tablets 6 hours after Orally Twice a day for 1 day(s) May, Not-Taking Start: 05-26-2020 take 4 capsules by m outh every hour Amoxicillin 500 MG Oral Capsule TAKE 4 CAPSULES 1 HOUR PRIOR TO DENTAL APPOINTMENT. Quantity: 4 Refills: 0 Ordered: 24-Nov-2021 DO Active ASA (8 sources) ASA 1 tab Oral A ctive ascorbic acid 500 mg oral capsule (8 sources) Vitamin C Start: 01-22-2024 Ascorbic Acid (Vitamin C) 500 mg capsule Active MG PO January 22, 2024 12:00am Start: 01-22-2024 Ascorbic Acid (Vitamin C) Active [...] DO Active atenolol 50 mg oral tablet (20 sources) beta-Adrenergic Alida Start: 04-30-2024 take 1 tablet by mouth once daily Atenolol 50 mg tablet Active 0 .ROUTE .COMPLEX April 30, 2024 12:57pm TAKE 1 TABLET BY MOUTH DAILY Start: 09-14-2015 End: 04-30-2024 take 1 tablet by mouth once daily Atenolol 50 mg Tablet Discontinued 50 MG PO Daily February 17, 2019 12:00am April 30, 2024 12:58pm atorvastatin 20 mg oral tablet (20 sources) HMG-CoA Reductase Inhibitor Start: 12-24-2023 take 1 tablet by mouth once daily at bedtime Atorvastatin 20 mg tablet Active 0 .ROUTE .COMPLEX December 24, 2023 1:41pm TAKE 1 TABLET BY MOUTH EVERY DAY AT BEDTIME Start: 12-24-2023 End: 12-24-2023 take 1 tablet by mouth once daily Atorvastatin 10 mg tablet Discontinued 10 MG PO Daily December 24, 2023 12:00am December 24, 2023 1:34pm Start: 04-21-2023 End: 12-24-2023 take 1 tablet by mouth once daily Atorvastatin 20 mg tablet Discontinued 20 MG PO Daily December 24, 2023 12:00am December 24, 2023 1:41pm azithromycin 250 mg oral tablet (7 sources) Macrolide Antimicrobial Start: 11-21-2022 Azithromycin 250 MG as directed Orally daily for 5 days Nov, Active Calcium Citrate (1 source) Start: 09-11-2017 Citracal + D Oral, Daily, Refill(s) 0, Prophylaxis Start Date: 09/11/17 Status: Ordered Calcium Phosphate-Vitamin D3 (Citracal + D3 (Calcium Phos)) 250 mg calcium- 500 unit Tablet,Chewable (3 sources) Start: 02-17-2019 take 1 tablet by mouth once daily Calcium Phosphate-Vitamin D3 (Citracal + D3 (Calcium Phos)) 250 mg calcium- 500 unit Tablet,Chewable Active 1 TAB PO Daily February 16, 2019 11:00pm Start: 02-17-2019 take 1 tablet by nohemy once daily Calcium Phosphate-Vitamin D3 (Citracal + D3 (Calcium Phos)) 250 mg calcium- 500 unit Tablet,Chewable Active 1 TAB PO Daily February 17, 2019 12:00am calcium polycarbophil 625 mg oral tablet (3 sources) Start: 04-30-2020 take 2 tablets by mouth once daily Calcium Polycarbophil (Fiber-Tabs) 625 mg Tablet Active 1250 MG PO Daily April 30, 2020 12:00am cephalexin 500 mg oral tablet (3 sources) Cephalosporin Antibacterial Start: 06-04-2023 Cephalexin 500 MG 1 tablet Orally 7 for 5 days May, Active cholecalciferol 0.025 mg oral capsule (9 sources) Vitamin D Start: 01-22-2024 take 1 capsule by mouth once daily Cholecalciferol (Vitamin D3) 25 mcg (1,000 unit) capsule Active 25 MCG PO Daily January 22, 2024 12:00am Start: 02-17-2019 End: 10-07-2024 take 2 capsules by mouth once daily Cholecalciferol (Vitamin D3) (Vitamin D3) 1,000 unit Capsule Discontinued 2000 UNIT PO Daily February 17, 2019 12:00am October 07, 2024 10:13am take 1 capsule by [facility] every twenty-four hours Vitamin D3 1000 UNIT 1 capsule Orally Once a day Active Citracal +D3 250-107-500 MG- MG-UNIT (8 sources) Citracal +D3 250 -107-500 MG-MG-UNIT Orally Active Echinacea (8 sources) Echinacea Active Echinacea (4 sources) Start: 04-30-2020 take 1 capsule by mo [facility] once daily Echinacea 380 mg Capsule Active 760 MG PO Daily April 30, 2020 12:00am Start: 04-30-2020 take 1 capsule by mo [facility] once daily Echinacea 380 mg Capsule Active 760 MG PO Daily April 29, 2020 11:00pm Start: 04-30-2020 take 760 mg by mouth once michelle y Echinacea Active 760 MG PO Daily April 30, 2020 12:00am Start: 03-27-2019 take 1 tablet by nohemy once daily echinacea 1 tab, Oral, Daily, Refills(s) 0, Prophylaxis Start Date: 03/27/19 Status: Ordered hydroxychloroquine sulfate 200 mg oral tablet (20 sources) Antimalarial, Antirheumatic Agent Start: 07-28-2019 take 1 tablet by mouth in the morning hydroxychloroquine (Plaquenil) 200 MG tablet Take 200 mg by mouth in the morning. 01/04/2023 Active Start: 02-17-2019 End: 10-07-2024 take 1 tablet by mouth every other day Hydroxychloroquine 200 mg Tablet Active 200 MG PO every other day April 30, 2020 12:00am Every other day at 1200 and 1800; odd days Lidocaine-Hydrocortisone Joaquin 3-0.5 % (8 sources) Lidocaine-Hydroc ortisone Joaquin 3-0.5 % as directed Externally twice daily for 7 days Active lisinopril 10 mg oral tablet (20 sources) Angiotensin Converting Enzyme Inhibitor Start: 11-02-2023 End: 10-22-2024 take 1 tablet by mouth once daily Lisinopril 10 mg tablet Active 0 .ROUTE .COMPLEX 90 October 22, 2024 9:49pm TAKE ONE TABLET BY MOUTH DAILY Start: 09-14-2015 End: 11-02-2023 take 1 tablet by mouth once daily at bedtime Lisinopril 10 mg Tablet Discontinued 10 MG PO Daily at bedtime February 17, 2019 12:00am November 02, 2023 8:41am Msuaivav-Piy-Wrjbe Acid-Vit K (Multi For Her 50 Plus) 400-80 mcg Capsule (3 sources) Start: 04-30-2020 take 50-400 capsules by mouth once daily Pebqyygz-Boh-Dwibw Acid-Vit K (Multi For Her 50 Plus) 400-80 mcg Capsule Active 1 CAP PO Daily April 29, 2020 11:00pm Start: 04-30-2020 take 50-400 capsules by mouth once daily Kaqcnbib-Txh-Xhxme Acid-Vit K (Multi For Her 50 Plus) [...] pantoprazole 20 mg delayed release oral tablet (18 sources) Proton Pump Inhibitor Start: 04-30-2024 take 1 tablet by mouth once daily at breakfast Pantoprazole 20 mg tablet,delayed release (DR/EC) Active 0 .ROUTE .COMPLEX 90 April 30, 2024 12:57pm TAKE 1 TABLET BY MOUTH DAILY ON AN EMPTY STOMACH FOLLOWED IN 30 MINUTES BY BREAKFAST Start: 04-30-2020 End: 04-30-2024 take 1 tablet by mouth once daily in the morning Pantoprazole 20 mg Tablet,Delayed Release (Dr/Ec) Discontinued 20 MG PO Every morning April 30, 2020 12:00am April 30, 2024 12:58pm Start: 02-17-2019 End: 04-30-2020 take 1 tablet by mouth once daily Pantoprazole 40 mg Tablet,Delayed Release (Dr/Ec) Discontinued 40 MG PO Daily February 17, 2019 12:00am April 30, 2020 2:19pm potassium bicarbonate 25 meq effervescent oral tablet (12 sources) Start: 01-22-2024 Potassium Bica rb-Citric Acid (Effer-K) 25 mEq tablet, effervescent Active 25 MEQ PO Daily January 22, 2024 12:00am take 1 tablet by [facility] twice daily at mealtime Effer-K 25 MEQ [...] Ordered potassium gluconate 2.5 meq oral tablet (3 sources) Start: 04-30-2020 take 1 tablet by mouth once daily Potassium Gluconate 600 mg (99 mg) Tablet Active 600 MG PO Daily April 30, 2020 12:00am turmeric curcumin (1 source) Start: 06-30-2019 take 1 tablet by mouth once daily turmeric curcumin turmeric curcumin, 1 tab, Oral, Daily Start Date: 06/30/19 Status: Ordered Turmeric Curcumin (1 source) Start: 04-30-2020 take 500 mg by mouth once daily Turmeric Curcumin Active 500 MG PO Daily April 30, 2020 12:00am Turmeric Curcumin 500 mg (2 sources) Start: 04-30-2020 take 500 mg by mouth once daily Turmeric Curcumin 500 mg Active 500 MG PO Daily April 30, 2020 12:00am Start: 04-30-2020 take 500 mg by mouth once michelle y Turmeric Curcumin 500 mg Active 500 MG PO Daily April 29, 2020 11:00pm turmeric extract 500 mg oral capsule (9 sources) Turmeric 500 MG as directed Orally Active take 1 capsule by mouth once geetha ly Turmeric 500 MG Oral Capsule TAKE 1 CAPSULE Daily Quantity: 0 Refills: 0 Ordered: 24-Nov-2021 DO Active vitamin b12 1 mg oral tablet (12 sources) Vitamin B12 Start: 04-30-2020 take 1 tablet by mouth once daily Cyanocobalamin (Vitamin B-12) 1,000 mcg Tablet Active 1000 MCG PO Daily April 30, [...] / oxyCODONE hydrochloride 5 mg oral tablet (3 sources) Opioid Agonist Start: 05-18-2020 End: 01-22-2024 take 1 tablet by mouth every four to six hours as needed for pain Oxycodone-Acetamin ophen (Percocet) 5-325 mg tablet Discontinued 1 - 2 TAB PO EVERY 4-6 HOURS as needed for pain 40 7 May 18, 2020 January 22, 2024 3:38pm aspirin 81 mg delayed release oral tablet (6 sources) Platelet Aggregation Inhibitor, Nonsteroidal Anti-inflammatory Drug Start: 04-30-2020 End: 01-22-2024 Aspirin (Meño Low Dose Aspirin) 81 mg Tablet,Delayed Release (Dr/Ec) Discontinued 81 MG PO Daily at bedtime April 30, 2020 12:00am January 22, 2024 3:51pm On Hold: Resume on 05/26/20. Hold while taking Xarelto Start: 02-17-2019 End: 04-30-2020 take 1 tablet by mouth once daily Aspirin 81 mg Tablet,Chewable Discontinued 81 MG PO Daily February 17, 2019 12:00am April 30, 2020 2:17pm Calcium (1 source) Phosphate Binder, Calcium Calcium 600 + D TABS TAKE 1 TABLET DAILY. Quantity: 0 Refills: 0 Ordered: 24-Nov-2021 DO Active Cranberry (3 sources) Non-Standardized Food Allergenic Extract, Non-Standardized Plant Allergenic Extract Start: 02-17-2019 End: 04-30-2020 take 1 capsule by mouth once daily Cranberry 500 mg Capsule Discontinued 500 MG PO Daily February 17, 2019 12:00am April 30, 2020 2:18pm Start: 02-17-2019 End: 04-30-2020 take 1 capsule by mouth once daily Cranberry 500 mg Capsule Discontinued 500 MG PO Daily February 16, 2019 11:00pm April 30, 2020 1:18pm Start: 02-17-2019 End: 04-30-2020 take 500 mg by mouth once daily Cranberry Discontinued 500 MG PO Daily February 17, 2019 12:00am April 30, 2020 2:18pm docusate sodium 100 mg oral capsule (3 sources) Start: 05-18-2020 End: 01-22-2024 take 1 capsule by mouth twice daily Docusate Sodium (Dok) 100 mg Capsule Discontinued 100 MG PO Twice daily 0 May 18, 2020 12:00am January 22, 2024 3:52pm Effer-K 25 mEq oral tablet, effervescent (1 source) Start: 04-15-2021 take 1 tablet by mouth twice daily Effer-K 25 mEq oral tablet, effervescent 25 mEq = 1 tab(s), Oral, BID, # 180 tab(s), Refills(s) 3, Pharmacy: [facility]/pharmacy #[id number], 158, cm, 04/15/21 8:47:00 EDT, Height/Length Dosing, 80, kg, 04/15/21 8:47:00 EDT, Weight Dosing Start Date: 04/15/21 Status: Ordered furosemide 20 mg oral tablet (3 sources) Loop Diuretic Start: 02-17-2019 End: 04-30-2020 take 1 tablet by mouth once daily Furosemide 20 mg Tablet Discontinued 20 MG PO Daily February 17, 2019 12:00am April 30, 2020 2:18pm HYLAN G-F 20 (20 sources) Start: 01-15-2020 Start: 01-15-2020 [facility] December 2 mL Start: 01-08-2020 Start: 01-08-2020 [facility] December 2 mL Start: 01-01-2020 Start: 01-01-2020 [facility] December 2 mL Multi Vitamin Oral [...] 525 mg oral capsule (1 source) Start: 019 take 8 capsules by mouth twice daily Metamucil 525 mg oral capsule 1,050 mg = 2 cap(s), Oral, BID, Take 2 hour apart from the other medications with at least 8 ounces of water, # 160 cap(s), Refills(s) 1, Pharmacy: [facility]/pharmacy #[id number] Start Date: 07/28/19 Status: Ordered rivaroxaban 10 mg oral tablet (3 sources) Factor Xa Inhibitor Start: End: take 1 tablet by mouth once daily Rivaroxaban (Xarelto) 10 mg Tablet Discontinued 10 MG PO Daily with supper 0 May 18, 2020 12:00am January 22, 2024 3:53pm sulfamethoxazole 400 mg / trimethoprim 80 mg oral tablet (3 sources) Dihydrofolate Reductase Inhibitor Antibacterial, Sulfonamide Antimicrobial Start: End: take 1 tablet by mouth every twelve hours Sulfamethoxazole-Tr imethoprim (Bactrim) 400-80 mg Tablet Discontinued 1 TAB PO Q12H February 17, 2019 12:00am April 30, 2020 2:29pm tiZANidine 4 mg oral capsule (3 sources) Central alpha-2 Adrenergic Agonist Start: End: take 1 capsule by mouth every eight hours as needed Tizanidine 4 mg capsule Discontinued 4 MG PO Q8H as needed for muscle spasticity May 18, 2020 9:28am January 22, 2024 3:53pm Triamcinolone (20 sources) Corticosteroid Start: Start: 08-19-2019 Kenalog -40 mg Jul, 40 mg Start: 06-09-2019 Start: 06-09-2019 Kenalog -40 mg May, 40 mg Start: 12-24-2018 Start: 12-24-2018 Kenalog -40 mg December, 40 mg Start: 06-17-2018 Start: 06-17-2018 Kenalog -40 mg May, 40 mg Problems Active Problems Problem Classification Problem Date Documented Da te Episodic/Chronic Acute bronchitis (2 sources) Acute bronchitis due to other specified organisms; Translations: [Acute bronchitis] Episodic Calculus of urinary tract (20 sources) History of calculus of kidney; Translations: [Personal history of urinary calculi] Onset: 12-23-2022 Resolved: 05-16-2023 Episodic Chronic obstructive pulmonary disease and bronchiectasis (1 source) Bronchitis; Translations: [Bronchitis, not specified as acute or chronic] Episodic Diabetes mellitus with complications (16 sources) Hyperglycemia due to type 2 diabetes mellitus; Translations: [Type 2 diabetes mellitus with hyperglycemia] Chronic Disorders of lipid metabolism (17 sources) Hyperlipidemia; Translations: [Other and unspecified hyperlipidemia] Onset: 05-06-2013 Chronic Esophageal disorders (14 sources) Gastro-esophageal reflux disease with esophagitis; Translations: [Gastroesophageal reflux disease with esophagitis without hemorrhage] Onset: 05-06-2013 01-20-2024 Chronic Essential hypertension (20 sources) Essential hypertension; Translations: [Unspecified essential hypertension] Onset: 05-06-2013 Resolved: 05-16-2023 Chronic Genitourinary symptoms and ill-defined conditions (2 sources) [...] level; 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 Mycoses (4 sources) Pain in toe; Translations: [Tinea unguium] 06-24-2024 Episodic Nonmalignant breast conditions (7 sources) Fibrocystic disease of breast; Translations: [Diffuse cystic mastopathy of right breast] Chronic Nonspecific chest pain (1 source) Precordial pain Episodic Osteoarthritis (20 sources) Arthritis of right knee; Translations: [Unilateral primary osteoarthritis, right knee] Onset: 09-01-2014 03-27-2019 Chronic Osteoporosis (12 sources) Age-related osteoporosis without current pathological fracture; Translations: [Senile osteoporosis] Onset: 02-02-2022 Chronic Other aftercare (3 sources) Patient encounter status; Translations: [Aftercare following joint replacement surgery] Chronic Other aftercare (1 source) Other shelter (current) drug therapy; Translations: [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 THERAPY] Onset: 10-26-2022 Episodic Other connective tissue disease (19 sources) History of total knee arthroplasty; Translations: [Presence of right artificial knee joint] 01-08-2024 Chronic Other connective tissue disease (3 sources) Pain in left foot; Translations: [Pain in left foot] 06-24-2024 Episodic Other connective tissue disease (3 sources) Disorder of musculoskeletal system; Translations: [Other specified disorders of synovium, left ankle and foot] 06-24-2024 Episodic Other connective tissue disease (1 source) Pain of toe of right foot; Translations: [Pain in right toe(s)] 09-08-2024 Episodic Other connective tissue disease (1 source) Pain of toe of left foot; Translations: [Pain in left toe(s)] 09-08-2024 Episodic Other gastrointestinal disorders (1 source) Irritable bowel syndrome; Translations: [Irritable bowel syndrome without diarrhea] Onset: 09-01-2014 Chronic Other injuries and conditions due to external causes (1 source) History of fall; Translations: [History of falling] Episodic Other nutritional; endocrine; and metabolic disorders (3 sources) Obesity; Translations: [Obesity, unspecified] 07-28-2024 Chronic Other nutritional; endocrine; and metabolic disorders [...] to excess calories] Onset: 09-08-2015 Chronic Other nutritional; endocrine; and metabolic disorders (1 source) Obesity, unspecified; Translations: [Obesity, unspecified] 07-28-2024 Chronic Other screening for suspected conditions (not [...] of connective tissue, unspecified] Onset: 04-14-2022 Chronic Viral infection (10 sources) Verruca plantaris; Translations: [Plantar wart] Onset: 05-16-2023 Resolved: 05-16-2023 05-16-2023 Episodic Past or Other Problems Problem Classification Problem Date Documented Da te Episodic/Chronic Abdominal pain (9 sources) Unspecified abdominal pain; Translations: [Lower abdominal pain] Onset: 12-28-2022 Resolved: 05-16-2023 03-22-2020 Episodic Allergic reactions (3 sources) Contact dermatitis; Translations: [Contact dermatitis and other eczema, due to unspecified cause] Onset: 04-04-2016 Resolved: 07-11-2021 Episodic Bacterial infection; unspecified site (1 source) Bacterial infectious disease; Translations: [Bacterial infection, unspecified, in conditions classified elsewhere and of unspecified site] Onset: 10-15-2017 Episodic Diabetes mellitus without complication (1 source) Impaired fasting glycemia; Translations: [Impaired fasting glucose] Onset: 09-08-2015 Episodic Diverticulosis and diverticulitis (8 sources) Diverticula of intestine; Translations: [Diverticulosis of large intestine without perforation or abscess without bleeding] Onset: 05-16-2023 Resolved: 05-16-2023 03-27-2019 Chronic E Codes: Adverse effects of medical drugs (2 sources) Adverse effect of loop [high-ceiling] diuretics, initial encounter; Translations: [Adverse reaction to biological substance] Onset: 12-20-2017 Resolved: 07-11-2021 Episodic Esophageal disorders (6 sources) Esophageal disorders; Translations: [Gastro-esophageal reflux disease with esophagitis, without bleeding] Gastroduodenal ulcer (except hemorrhage) (8 sources) Gastric ulcer; Translations: [Gastric ulcer, unspecified as acute or chronic, without hemorrhage or perforation] Onset: 05-16-2023 Resolved: 05-16-2023 03-27-2019 Chronic Gastrointestinal hemorrhage (9 sources) Hemorrhage of anus and rectum; Translations: [Rectal hemorrhage] Onset: 05-16-2023 Resolved: 05-16-2023 Episodic Neoplasms of unspecified nature or uncertain behavior [...] structure, unspecified site] Onset: 12-18-2016 Episodic Other connective tissue disease (1 source) Pain of toes of bilateral feet; Translations: [Pain in right toe(s)] 04-02-2024 Episodic Other liver diseases (1 source) Elevated [...] Test Name Value Interpretation Reference Range Facility A1C with Estimated Average G amos 11-25-2024 Glucose [Mass/Vol] 151 mg/dL Normal [facility] Comment on above: Result Comment: PERF ORMED BY: [place] [address] PATHOLOGIST MEDICAL MALPRACTICE [employer] RONY BANEGAS M.D. Performed By: #### L IPID, A1C WT eA, CHC CBC, CMP #### [address] HbA1c (Bld) [Mass fraction] 6.9 % High 4.3-5.6 [facility] Comment on above: Result Comment: Incr eased risk for diabetes: 5.7 - 6.4 diabetes: >6.4 glycemic control for adults with diabetes: <7.0 Performed By: #### L IPID, A1C WTH eA, CHC CBC, CMP #### [facility] [address] Alanine aminotransferase [En zymatic activity/volume] in Serum or PlasmaOrdered By: Dwihgt Pond on 11-25-2024 ALT [Catalytic activity/Vol] Alanine aminotransferase [Enzymatic activity/volume] in Serum or Plasma 7-52 [facility] Albumin [Mass/volume] in Ser um or Plasma by Bromocresol green (BCG) dye binding methoOrdered By: Dwight Pond on 11-25-2024 Albumin BCG dye [Mass/Vol] Albumin [Mass/volume] in Serum or Plasma by Bromocresol green (BCG) dye binding metho 3.5-5.7 [facility] Alkaline phosphatase [Enzyma tic activity/volume] in Serum or PlasmaOrdered By: Dwight Pond on 11-25-2024 ALP [Catalytic activity/Vol] Alkaline phosphatase [Enzymatic activity/volume] in Serum or Plasma 34-104 [facility] Aspartate aminotransferase [ Enzymatic activity/volume] in Serum or PlasmaOrdered By: Dwight Pond on 11-25-2024 AST [Catalytic activity/Vol] Aspartate aminotransferase [Enzymatic activity/volume] in Serum or Plasma 13-39 [facility] Basophils Auto (Bld) [#/Vol] Ordered By: Dwight Pond on 11-25-2024 Basophils (Bld) [#/Vol] Automated basoph il count 0.0-0.2 [facility] Basophils/100 WBC Auto (Bld) Ordered By: Dwight Pond on 11-25-2024 Basophils/100 WBC (Bld) Automated basophil % . [facility] Bilirubin.total [Mass/volume ] in Serum or PlasmaOrdered By: Dwight Pond on 11-25-2024 Bilirubin [Mass/Vol] Bilirubin.total [Mass/volume] in Serum or Plasma 0.3-1.0 [facility] Blood estimated average gluc ose determination by estimation from glycated hemoglobinOrdered By: Dwight Pond on 11-25-2024 Average glucose Estimated from glycated hemoglobin (Bld) [Mass/Vol] Glucose mean value [Mass/volume] in Blood Estimated from glycated hemoglobin [facility] Calcium [Mass/volume] in Ser um or PlasmaOrdered By: Dwight Pond on 11-25-2024 Calcium [Mass/Vol] Calcium [Mass/volume ] in Serum or Plasma 8.6-10.3 [facility] Carbon dioxide, total [Moles /volume] in Serum or PlasmaOrdered By: Dwight Pond on 11-25-2024 CO2 [Moles/Vol] Carbon dioxide, tota l [Moles/volume] in Serum or Plasma High 21.0-31.0 [facility] Chloride [Moles/volume] in S carlos or PlasmaOrdered By: Dwight Pond on 11-25-2024 Chloride [Moles/Vol] Chloride [Moles/vol ume] in Serum or Plasma 98-107 [facility] Cholesterol [Mass/volume] in Serum or PlasmaOrdered By: Dwight Pond on 11-25-2024 Cholesterol [Mass/Vol] Cholesterol [Mass/volume] in Serum or Plasma 140-200 [facility] Comment on above: Chol less than 200 m g/dl low riskChol 201-239 mg/dl borderline riskChol 240 mg/dl and greater high risk Cholesterol in HDL [Mass/vol ume] in Serum or PlasmaOrdered By: Dwight Pond on 11-25-2024 Cholesterol in HDL [Mass/Vol] Serum or plasma high density lipoprotein (HDL) cholesterol measurement 23-92 [facility] Comment on above: HDL CHOL ATP-III CLA SSIFICATION Cardiovascular RiskHDL > or equal to 60 mg/dL LOWHDL < 40 mg/dL HIGH Cholesterol in LDL Calc [Mas s/Vol]Ordered By: Dwight Pond on 11-25-2024 Cholesterol in LDL [Mass/Vol] Cholesterol in LDL [Mass/volume] in Serum or Plasma by calculation 0-100 [facility] Comment on above: LDL ATP III CLASSIFI CATIONLDL less than 100 mg/dL OptimalLDL 100-129 mg/dL Near or above optimalLDL 130-159 mg/dL Borderline highLDL 160-189 mg/dL HighLDL greater than 189 mg/dL Very high Cholesterol in VLDL Calc [Ma ss/Vol]Ordered By: Dwight Pond on 11-25-2024 Cholesterol in VLDL [Mass/Vol] Cholesterol in VLDL [Mass/volume] in Serum or Plasma by calculation [facility] Complete Blood Count no refl exon 11-25-2024 Basophils (Bld) [#/Vol] 0.1 10*3/uL Normal 0.0-0.2 [facility] Comment on above: Result Comment: PERF ORMED BY: [place] [address] PATHOLOGIST MEDICAL MALPRACTICE [employer] RONY BANEGAS M.D. Performed By: #### L IPID, A1C WTH eA, [facility] CBC, CMP #### [facility] [address] [place] [address] [place] Basophils/100 WBC (Bld) 0.7 % Normal . [facility] Comment on above: Performed By: #### L IPID, A1C WTH eA, [facility] CBC, CMP #### [place] [address] [place] Eosinophils (Bld) [#/Vol] 0.2 10*3/uL Normal 0.0-0.45 [facility] Comment on above: Performed By: #### L IPID, A1C WTH eA, [facility] CBC, CMP #### [place] [address] [place] Eosinophils/100 WBC (Bld) 1.9 % Normal . [facility] Comment on above: Performed By: #### L IPID, A1C WTH eA, [facility] CBC, CMP #### [address] Erythrocyte distribution width (RBC) [Ratio] 13.8 % Normal 11.9-15.3 [facility] Comment on above: Performed By: #### L IPID, A1C WTH eA, [facility] CBC, CMP #### [facility] [address] Hematocrit (Bld) [Volume fraction] 44.0 % Normal 34.0-46.4 [facility] Comment on above: Performed By: #### L IPID, A1C WTH eA, [facility] CBC, CMP #### [place] [address] [place] Hemoglobin (Bld) [Mass/Vol] 14.7 g/dL Normal 11.8-15.4 [facility] Comment on above: Performed By: #### L IPID, A1C WT eA, [facility] CBC, CMP #### [address] Lymphocytes (Bld) [#/Vol] 2.3 10*3/uL Normal 1.00-4.8 [facility] Comment on above: Performed By: #### L IPID, A1C WT eA, [facility] CBC, CMP #### [address] Lymphocytes/100 WBC (Bld) 29.0 % Normal . [facility] Comment on above: Performed By: #### L IPID, A1C WT eA, [facility] CBC, CMP #### [address] MCH (RBC) [Entitic mass] 31.6 pg Normal 24.7-34.3 [facility] Comment on above: Performed By: #### L IPID, A1C WT eA, [facility] CBC, CMP #### [address] MCV (RBC) [Entitic vol] 94.7 fL Normal 80-100 [facility] Comment on above: Performed By: #### L IPID, A1C WT eA, [facility] CBC, CMP #### [address] Mean Corpuscular HGB Conc 33.4 g/dL Normal 32.0-35.0 [facility] Comment on above: Performed By: #### L IPID, A1C WT eA, [facility] CBC, CMP #### [place] [address] [place] Monocytes (Bld) [#/Vol] 0.6 10*3/uL Normal 0.0-0.8 [facility] Comment on above: Performed By: #### L IPID, A1C WT eA, [facility] CBC, CMP #### [place] [address] [place] Monocytes/100 WBC (Bld) 8.2 % Normal . [facility] Comment on above: Performed By: #### L IPID, A1C WTH eA, [facility] CBC, CMP #### [facility] [address] [place] [address] [place] Neutrophils (Bld) [#/Vol] 4.7 10*3/uL Normal 1.8-7.7 [facility] Comment on above: Performed By: #### L IPID, A1C WTH eA, [facility] CBC, CMP #### [place] [address] [place] Neutrophils/100 WBC (Bld) 60.2 % Normal . [facility] Comment on above: Performed By: #### L IPID, A1C WTH eA, [facility] CBC, CMP #### [address] NRBC% 0.1 /100{WBC} Normal 0-0.5 [facility] Comment on above: Performed By: #### L IPID, A1C WTH eA, [facility] CBC, CMP #### [place] [address] [place] Platelet mean volume (Bld) [Entitic vol] 9.5 fL Normal 6.3-10.7 [facility] Comment on above: Performed By: #### L IPID, A1C WTH eA, [facility] CBC, CMP #### [place] [address] [place] Platelets (Bld) [#/Vol] 170 10*3/uL Normal 150-450 [facility] Comment on above: Performed By: #### L IPID, A1C WTH eA, [facility] CBC, CMP #### [place] [address] [place] RBC (Bld) [#/Vol] 4.65 10*6/uL Normal 3.60-5.00 [facility] Comment on above: Performed By: #### L IPID, A1C WTH eA, [facility] CBC, CMP #### [place] [address] [place] WBC (Bld) [#/Vol] 7.8 10*3/uL Normal 3.8-11.6 [facility] Comment on above: Performed By: #### L IPID, A1C WTH eA, [facility] CBC, CMP #### [address] Comprehensive Metabolic Pane kamille 11-25-2024 Albumin [Mass/Vol] 4.1 g/dL Normal 3.5-5.7 [facility] Comment on above: Performed By: #### L IPID, A1C WTH eA, [facility] CBC, CMP #### [address] Albumin/Globulin [Mass ratio] 1.5 {ratio} Normal [facility] Comment on above: Performed By: #### L IPID, A1C WTH eA, [facility] CBC, CMP #### [address] ALP [Catalytic activity/Vol] 51 U/L Normal 34-104 [facility] Comment on above: Performed By: #### L IPID, A1C WTH eA, [facility] CBC, CMP #### [address] ALT [Catalytic activity/Vol] 22 U/L Normal 7-52 [facility] Comment on above: Performed By: #### L IPID, A1C WTH eA, [facility] CBC, CMP #### [address] Anion gap [Moles/Vol] 10.0 mmol/L Normal 6.0-15.0 [facility] Comment on above: Performed By: #### L IPID, A1C WTH eA, [facility] CBC, CMP #### [place] [address] [place] AST [Catalytic activity/Vol] 20 U/L Normal 13-39 [facility] Comment on above: Performed By: #### L IPID, A1C WTH eA, [facility] CBC, CMP #### [address] Bilirubin [Mass/Vol] 0.8 mg/dL Normal 0.3-1.0 [facility] Comment on above: Performed By: #### L IPID, A1C WTH eA, [facility] CBC, CMP #### [facility] [address] Calcium [Mass/Vol] 10.2 mg/dL Normal 8.6-10.3 [facility] Comment on above: Performed By: #### L IPID, A1C WTH eA, [facility] CBC, CMP #### [place] [address] [place] Chloride [Moles/Vol] 104 mmol/L Normal 98-107 [facility] Comment on above: Performed By: #### L IPID, A1C WTH eA, [facility] CBC, CMP #### [address] CO2 [Moles/Vol] 31.7 mmol/L High 21.0-31.0 [facility] Comment on above: Performed By: #### L IPID, A1C WTH eA, [facility] CBC, CMP #### [address] Creatinine [Mass/Vol] 0.96 mg/dL Normal 0.60-1.20 [facility] Comment on above: Performed By: #### L IPID, A1C WTH eA, [facility] CBC, CMP #### [address] GFR/1.73 sq M.predicted MDRD (S/P/Bld) [Vol rate/Area] mL/min/{1.73_m2} Normal [facility] Comment on above: Performed By: #### L IPID, A1C WTH eA, [facility] CBC, CMP #### [place] [address] [place] Globulin (S) [Mass/Vol] 2.8 g/dL Normal [facility] Comment on above: Performed By: #### L IPID, A1C WTH eA, [facility] CBC, CMP #### [address] Glucose [Mass/Vol] 133 mg/dL High 70-100 [facility] Comment on above: Result Comment: [facility] Glucose Reference Range is dependent on time and content of last meal. Glucose of more than 200 mg/dL in a nonstressed, ambulatory subject supports the diagnosis of Diabetes Mellitus. ADA recommended reference range Performed By: #### L IPID, A1C WTH eA, [facility] CBC, CMP #### [facility] [address] Potassium [Moles/Vol] 4.7 mmol/L Normal 3.5-5.1 [facility] Comment on above: Performed By: #### L IPID, A1C WTH eA, [facility] CBC, CMP #### [facility] [address] Protein [Mass/Vol] 6.9 g/dL Normal 6.4-8.9 [facility] Comment on above: Performed By: #### L IPID, A1C WTH eA, [facility] CBC, CMP #### [facility] [address] [place] [address] [place] Sodium [Moles/Vol] 141 mmol/L Normal 136-145 [facility] Comment on above: Performed By: #### L IPID, A1C WTH eA, [facility] CBC, CMP #### [facility] [address] [place] [address] [place] Urea nitrogen [Mass/Vol] 18 mg/dL Normal 7-25 [facility] Comment on above: Performed By: #### L IPID, A1C WTH eA, [facility] CBC, CMP #### [facility] [address] [place] [address] [place] Creatinine [Mass/volume] in Serum or PlasmaOrdered By: Dwight Pond on 11-25-2024 Creatinine [Mass/Vol] Creatinine [Mass/volume] in Serum or Plasma 0.60-1.20 [facility] Eosinophils Auto (Bld) [#/Vo l]Ordered By: Dwight Pond on 11-25-2024 Eosinophils (Bld) [#/Vol] Automated eosinophil count 0.0-0.45 [facility] Eosinophils/100 WBC Auto (Bl d)Ordered By: Dwight Pond on 11-25-2024 Eosinophils/100 WBC (Bld) Automated eosinophil % . [facility] Erythrocyte distribution wid th Auto (RBC) [Ratio]Ordered By: Dwight Pond on 11-25-2024 Erythrocyte distribution width (RBC) [Ratio] Erythrocyte distribution width [Ratio] by Automated count 11.9-15.3 [facility] Globulin Calc (S) [Mass/Vol] Ordered By: Dwight Pond on 11-25-2024 Globulin (S) [Mass/Vol] Serum globulin measurement by calculation (mass/volume) [facility] Glucose [Mass/volume] in Ser um or PlasmaOrdered By: Dwight Pond on 11-25-2024 Glucose [Mass/Vol] Glucose [Mass/volume ] in Serum or Plasma High 70-100 [facility] Comment on above: ADA recommended refe rence rangeRandom Glucose Reference Range is dependent on time and content of last meal. Glucose of more than 200 mg/dL in a nonstressed, ambulatory subject supports the diagnosis of Diabetes Mellitus. Hematocrit Auto (Bld) [Volum e fraction]Ordered By: Dwight Pond on 11-25-2024 Hematocrit (Bld) [Volume fraction] Hematocrit [Volume Fraction] of Blood by Automated count 34.0-46.4 [facility] Hemoglobin A1c/Hemoglobin.to claudio in BloodOrdered By: Dwight Pond on 11-25-2024 HbA1c (Bld) [Mass fraction] Hemoglobin A1c percentage High 4.3-5.6 [facility] Comment on above: Increased risk for d iabetes: 5.7 - 6.4diabetes: >6.4glycemic control for adults with diabetes: <7.0 Hemoglobin [Mass/volume] in BloodOrdered By: Dwight Pond on 11-25-2024 Hemoglobin (Bld) [Mass/Vol] Hemoglobin [Mass/volume] in Blood 11.8-15.4 [facility] Leukocytes [#/volume] correc trevin for nucleated erythrocytes in Blood by Automated counOrdered By: Dwight Pond on 11-25-2024 WBC corrected for nucl RBC Auto (Bld) [#/Vol] Leukocytes [#/volume] corrected for nucleated erythrocytes in Blood by Automated coun 3.8-11.6 [facility] Lipid Panelon 11-25-2024 Cholesterol [Mass/Vol] 150 mg/dL Normal 140-200 [facility] Comment on above: Result Comment: Chol less than 200 mg/dl low risk Chol 201-239 mg/dl borderline risk Chol 240 mg/dl and greater high risk Performed By: #### L IPID, A1C [facility] eA, [facility] CBC, CMP #### [facility] [address] Cholesterol in HDL [Mass/Vol] 47 mg/dL Normal 23-92 [facility] Comment on above: Result Comment: HDL CHOL ATP-III CLASSIFICATION Cardiovascular Risk HDL > or equal to 60 mg/dL LOW HDL < 40 mg/dL HIGH Performed By: #### L IPID, A1C [facility] eA, [facility] CBC, CMP #### [facility] [address] Cholesterol.total/Tona sterol in HDL [Mass ratio] 3.2 {ratio} Normal <5.0 [facility] Comment on above: Result Comment: PERF ORMED BY: [place] [address] PATHOLOGIST MEDICAL MALPRACTICE [employer] RONY BANEGAS M.D. Performed By: #### L IPID, A1C [facility] eA, [facility] CBC, CMP #### [facility] [address] LDL Cholesterol,Calculated 71 mg/dL Normal 0-100 [facility] Comment on above: Result Comment: LDL ATP III CLASSIFICATION LDL less than 100 mg/dL Optimal LDL 100-129 mg/dL Near or above optimal LDL 130-159 mg/dL Borderline high LDL 160-189 mg/dL High LDL greater than 189 mg/dL Very high Performed By: #### L IPID, A1C [facility] eA, [facility] CBC, CMP #### [facility] [address] [place] [id number] [place] Triglyceride w/Reflex 159 mg/dL High 0-149 [facility] Comment on above: Result Comment: TRIG ATP III CLASSIFICATION TRIG less than 150 mg/dL Normal TRIG 150-199 mg/dL Borderline high TRIG 200-500 mg/dL High TRIG greater than 500 mg/dL Very high Standard traceable to the Center for Disease Conrtrol and Prevention (CDC) test method. Performed By: #### L IPID, A1C WT eA, [facility] CBC, CMP #### [facility] [address] VLDL CHOLESTEROL 31 mg/dL Normal [facility] Comment on above: Performed By: #### L IPID, A1C [facility] eA, [facility] CBC, CMP #### [facility] [address] Lymphocytes Auto (Bld) [#/Vo l]Ordered By: Dwight Pond on 11-25-2024 Lymphocytes (Bld) [#/Vol] Lymphocytes [#/volume] in Blood by Automated count 1.00-4.8 [facility] Lymphocytes/100 WBC Auto (Bl d)Ordered By: Dwight Pond on 11-25-2024 Lymphocytes/100 WBC (Bld) Lymphocytes/100 leukocytes in Blood by Automated count . [facility] MCH Auto (RBC) [Entitic mass ]Ordered By: Dwight Pond on 11-25-2024 MCH (RBC) [Entitic mass] MCH [Entitic mass] by Automated count 24.7-34.3 [facility] MCHC Auto (RBC) [Mass/Vol]Or dered By: Dwight Pond on 11-25-2024 MCHC (RBC) [Mass/Vol] MCHC [Mass/volume] by Automated count 32.0-35.0 [facility] MCV Auto (RBC) [Entitic vol] Ordered By: Dwight Pond on 11-25-2024 MCV (RBC) [Entitic vol] MCV [Entitic vol ume] by Automated count 80-100 [facility] Monocytes Auto (Bld) [#/Vol] Ordered By: Dwight Pond on 11-25-2024 Monocytes (Bld) [#/Vol] Automated blood monocyte count 0.0-0.8 [facility] Monocytes/100 WBC Auto (Bld) Ordered By: Dwight Pond on 11-25-2024 Monocytes/100 WBC (Bld) Automated monocyte % . [facility] Neutrophils Auto (Bld) [#/Vo l]Ordered By: Dwight Pond on 11-25-2024 Neutrophils (Bld) [#/Vol] Neutrophils [#/volume] in Blood by Automated count 1.8-7.7 [facility] Neutrophils/100 WBC Auto (Bl d)Ordered By: Dwight Pond on 11-25-2024 Neutrophils/100 WBC (Bld) Automated neutrophil % . [facility] No Panel InformationOrdered By: Dwight Pond on 11-25-2024 Estimated GFR (CKD-EPI) > 60.0 mL/Min [facility] Creatinine Clearance (Chem N/A [facility] Nucleated erythrocytes [Pres ence] in Blood by Automated countOrdered By: Dwight Pond on 11-25-2024 Nucleated RBC Auto Ql (Bld) Nucleated erythrocytes [Presence] in Blood by Automated count 0-0.5 [facility] Platelet mean volume Auto (B ld) [Entitic vol]Ordered By: Dwight Pond on 11-25-2024 Platelet mean volume (Bld) [Entitic vol] Platelet mean volume [Entitic volume] in Blood by Automated count 6.3-10.7 [facility] Platelets Auto (Bld) [#/Vol] Ordered By: Dwight Pond on 11-25-2024 Platelets (Bld) [#/Vol] Platelets [#/vol ume] in Blood by Automated count 150-450 [facility] Potassium [Moles/volume] in Serum or PlasmaOrdered By: Dwight Pond on 11-25-2024 Potassium [Moles/Vol] Potassium [Moles/volume] in Serum or Plasma 3.5-5.1 [facility] Protein [Mass/volume] in Ser um or PlasmaOrdered By: Dwight Pond on 11-25-2024 Protein [Mass/Vol] Protein [Mass/volume ] in Serum or Plasma 6.4-8.9 [facility] RBC Auto (Bld) [#/Vol]Ordere d By: Dwight Pond on 11-25-2024 RBC (Bld) [#/Vol] Erythrocytes [#/volu me] in Blood by Automated count 3.60-5.00 [facility] Serum or plasma albumin/glob ulin mass ratioOrdered By: Dwight Pond on 11-25-2024 Albumin/Globulin [Mass ratio] Serum or plasma albumin/globulin mass ratio [facility] Serum or plasma anion gap de terminationOrdered By: Dwight Pond on 11-25-2024 Anion gap [Moles/Vol] Serum or plasma an ion gap determination 6.0-15.0 [facility] Serum or plasma total choles terol/high density lipoprotein (HDL) cholesterol mass ratOrdered By: Dwight Pond on 11-25-2024 Cholesterol.total/Tona sterol in HDL [Mass ratio] Serum or plasma total cholesterol/high density lipoprotein (HDL) cholesterol mass rat <5.0 [facility] Sodium [Moles/volume] in Ser um or PlasmaOrdered By: Dwight Pond on 11-25-2024 Sodium [Moles/Vol] Sodium [Moles/volume ] in Serum or Plasma 136-145 [facility] Triglyceride [Mass/volume] i n Serum or PlasmaOrdered By: Dwight oPnd on 11-25-2024 Triglyceride [Mass/Vol] Triglyceride [Mass/volume] in Serum or Plasma High 0-149 [facility] Comment on above: TRIG ATP III CLASSIF ICATIONTRIG less than 150 mg/dL NormalTRIG 150-199 mg/dL Borderline highTRIG 200-500 mg/dL High TRIG greater than 500 mg/dL Very highStandard traceable to the Center for Disease Conrtrol and Prevention (CDC) test method. Urea nitrogen [Mass/volume] in Serum or PlasmaOrdered By: Dwight Pond on 11-25-2024 Urea nitrogen [Mass/Vol] Urea nitrogen [Mass/volume] in Serum or Plasma 7-25 [facility] WBC Auto (Bld) [#/Vol]Ordere d By: Dwight Pond on 11-25-2024 WBC (Bld) [#/Vol] Leukocytes [#/volume ] in Blood by Automated count 3.8-11.6 [facility] Glucose mean value [Mass/vol ume] in Blood Estimated from glycated hemoglobinon 07-31-2024 Average glucose Estimated from glycated hemoglobin (Bld) [Mass/Vol] Glucose mean value [Mass/volume] in Blood Estimated from glycated hemoglobin [facility] - Hematology and Cell countson 07-31-2024 HbA1c (Bld) [Mass fraction] 6.9 % High 4.5-6.2 [facility] Comment on above: ADA RECOMMENDED LIMI T 4.0 - 6.0ADA THERAPEUTIC TARGET < 7.0ACTION SUGGESTED> 7.0 [place] 01-09-2024 Screens [id number] FF [facility] Ambulatory Visit Summaryon 0 01-08-2024 Ambulatory Visit Summary GISSELL MUÑOZ :1950 Visit Date:01/08/2024 Ambulatory Visit Instructions Your [...] What to do next Scheduled Follow-Up Appointments Sunday 3:00 PM EDT With: DELFINA RITTER PA-C Where: [facility] Aroldo Normal [facility] Patient Educationon 01-08-20 Patient Education Urology [...] these instructions at home: Medicines ? Take [id number] and prescription medicines only as told by [...] recommendations from (more content not included)... Normal [facility] Urology Office/Clinic Noteon 01-08-2024 Urology Office/Clinic [...] Contact Information RIYA BLOOM, DELFINA Youssef, URL [address] [place] [address] [phone] Additional Instructions: 1 yr w/ KUB Patient Education Kidney Stones Documentation recorded by the adelaide Ledbetter accurately reflects the services(s) I performed [...] (COVID-19) mRNA-1273 vaccine 06/14/2021 Recorded zoster vaccine, [facility] (more content not included)... Normal [facility] Comment on above: Result Comment: Elec tronically Signed By: DELFINA RITTER PA-C\.br\Date and Time Signed: 01/08/24 15:20 EDT\.br\Electronically Co-Signed By: Angle Ledbetter\Date and Time Co-Signed: 01/08/24 15:14 EDT RAD - MISCon 01-01-2024 RAD - MISC [id number] FF Normal [facility] Automated epithelial cells c ount in urine sediment (number/area)on 12-13-2023 Epithelial cells Auto (Urine sed) [#/Area] FEW #/LPF NONE/RARE [facility] Automated urine specific gra vity by refractometryon 12-13-2023 Specific gravity Refractometry automated (U) [Rel density] <=1.005 1.005-1.025 [facility] Bacteria [Presence] in Urine by Automatedon 12-13-2023 Bacteria Auto Ql (U) TRACE #/HPF NONE SEEN [facility] Basophils Auto (Bld) [#/Vol] on 12-13-2023 Basophils (Bld) [#/Vol] 0.1 10 3/uL 0.0-0.1 [facility] Basophils/100 WBC Auto (Bld) on 12-13-2023 Basophils/100 WBC (Bld) 0.8 % 0.2-2.0 [facility] Bilirubin Auto test strip (U ) [Mass/Vol]on 12-13-2023 Bilirubin (U) [Mass/Vol] Negative NEGATIVE [facility] Casts typing in urine sedime nt by light microscopyon 12-13-2023 Casts LM Nom (Urine sed) NONE SEEN #/LPF NONE SEEN [facility] Color Auto (U)on 12-13-2023 Color (U) LT. YELLOW YELLOW [facility] Eosinophils/100 WBC Auto (Bl d)on 12-13-2023 Eosinophils/100 WBC (Bld) 2.1 % 0.9-7.0 [facility] Erythrocyte distribution wid th Auto (RBC) [Ratio]on 12-13-2023 Erythrocyte distribution width (RBC) [Ratio] 12.9 % 11.0-15.0 [facility] Estimated glomerular filtrat ion rate (GFR) non- Americanon 12-13-2023 GFR/1.73 sq M.predicted among non-blacks MDRD (S/P/Bld) [Vol rate/Area] 57 mL/min/{1.73_m2} >=60 [facility] Glucose [Mass/volume] in Uri ne by Test stripon 12-13-2023 Glucose Test strip (U) [Mass/Vol] Negative NEGATIVE [facility] Hematocrit Auto (Bld) [Volum e fraction]on 12-13-2023 Hematocrit (Bld) [Volume fraction] 43.3 % 36.0-48.0 [facility] Hemoglobin [Mass/volume] in Bloodon 12-13-2023 Hemoglobin (Bld) [Mass/Vol] 14.1 g/dL 12.0-16.0 [facility] Ketones Auto test strip (U) [Mass/Vol]on 12-13-2023 Ketones (U) [Mass/Vol] Negative NEGATIVE [facility] - Chemistry and C hemistry - challengeon 12-13-2023 Creatinine [Mass/Vol] 0.96 mg/dL 0.55-1.02 [facility] GFR/1.73 sq M.predicted MDRD (S/P/Bld) [Vol rate/Area] mL/min/{1.73_m2} >=60 [facility] Laboratory - Hematology and Cell countson 12-13-2023 ESR (Bld) [Velocity] 14 mm/h <=30 [facility] Immature granulocytes/100 WBC (Bld) 0.2 % 0.0-0.5 [facility] Leukocytes [#/area] in Urine sediment by Automated counton 12-13-2023 WBC Auto (Urine sed) [#/Area] NONE SEEN #/HPF 0-2 [facility] Leukocytes [#/area] in Urine sediment by Microscopy high power fieldon 12-13-2023 WBC LM.HPF (Urine sed) [#/Area] 0-2 #/HPF NONE SEEN [facility] Leukocytes [#/volume] correc trevin for nucleated erythrocytes in Blood by Automated counon 12-13-2023 WBC corrected for nucl RBC Auto (Bld) [#/Vol] 9.0 10 3/uL 4.0-11.0 [facility] Lymphocytes Auto (Bld) [#/Vo l]on 12-13-2023 Lymphocytes (Bld) [#/Vol] 3.3 10 3/uL 1.2-3.8 [facility] Lymphocytes/100 WBC Auto (Bl d)on 12-13-2023 Lymphocytes/100 WBC (Bld) 37.3 % 20.5-60.0 [facility] MCH Auto (RBC) [Entitic mass ]on 12-13-2023 MCH (RBC) [Entitic mass] 31.2 pg 26.7-34.0 [facility] MCHC Auto (RBC) [Mass/Vol]on 12-13-2023 MCHC (RBC) [Mass/Vol] 32.6 g/dL 29.9-35.2 [facility] MCV Auto (RBC) [Entitic vol] on 12-13-2023 MCV (RBC) [Entitic vol] 95.8 fL 81.0-99.0 [facility] Monocytes Auto (Bld) [#/Vol] on 12-13-2023 Monocytes (Bld) [#/Vol] 0.8 10 3/uL 0.3-0.8 [facility] Monocytes/100 WBC Auto (Bld) on 12-13-2023 Monocytes/100 WBC (Bld) 9.3 % 1.7-12.0 [facility] Mucus LM Ql (Urine sed)on Mucus Ql (Urine sed) NONE SEEN NONE SEEN [facility] Neutrophils Auto (Bld) [#/Vo l]on 12-13-2023 Neutrophils (Bld) [#/Vol] 4.5 10 3/uL 1.4-6.5 [facility] Neutrophils/100 WBC Auto (Bl d)on 12-13-2023 Neutrophils/100 WBC (Bld) 50.3 % 43.0-75.0 [facility] No Panel Informationon 12-12 C-Reactive Protein, Quantitative <0.50 mg/dL <=0.50 [facility] Eosinophils # (Auto) 0.2 10 3/uL 0.0-0.7 [facility] Immature Granulocyte # (Auto) 0.02 10 3/uL 0.00-0.03 [facility] Platelet mean volume Auto (B ld) [Entitic vol]on 12-13-2023 Platelet mean volume (Bld) [Entitic vol] 10.5 fL 9.5-13.5 [facility] Platelets Auto (Bld) [#/Vol] on 12-13-2023 Platelets (Bld) [#/Vol] 170 10 3/uL 150-450 [facility] Protein Auto test strip (U) [Mass/Vol]on 12-13-2023 Protein (U) [Mass/Vol] Negative NEG/TRACE [facility] RBC Auto (Bld) [#/Vol]on RBC (Bld) [#/Vol] 4.52 10 6/uL 4.20-5.40 [facility] Serum or plasma complement C 3 measurement (mass/volume)on 12-13-2023 Complement C3 [Mass/Vol] 144 mg/dL 82-167 [facility] Serum or plasma complement C 4 measurement (mass/volume)on 12-13-2023 Complement C4 [Mass/Vol] 23 mg/dL 12-38 [facility] Comment on above: Performed at: [facility] [employer] [address] Director: Maikol Escalante PhD, Phone: [phone] Specific gravity Auto test s trip (U) [Rel density]on 12-13-2023 Specific gravity (U) [Rel density] CLEAR CLEAR [facility] Urine hemoglobin detection b y automated test stripon 12-13-2023 Hemoglobin Auto test strip Ql (U) SMALL NEGATIVE [facility] Urine nitrite detection by a utomated test stripon 12-13-2023 Nitrite Auto test strip Ql (U) TRACE NEGATIVE [facility] Nitrite Auto test strip Ql (U) Negative NEGATIVE [facility] Urine sediment crystal ident ification by light microscopyon 12-13-2023 Crystals LM Nom (Urine sed) None Seen #/HPF None Seen [facility] Urobilinogen Auto test strip (U) [Mass/Vol]on 12-13-2023 Urobilinogen Qn (U) 0.2 {Aliya'U}/dL 0.2-1.0 [facility] pH Auto test strip (U)on pH (U) 6.0 [pH] 5.0-9.0 [facility] Basophils Auto (Bld) [#/Vol] on 11-21-2023 Basophils (Bld) [#/Vol] 0.1 10 3/uL 0.0-0.1 [facility] Basophils/100 WBC Auto (Bld) on 11-21-2023 Basophils/100 WBC (Bld) 0.9 % 0.2-2.0 [facility] Cholesterol in LDL Calc [Mas s/Vol]on 11-21-2023 Cholesterol in LDL [Mass/Vol] 69.8 mg/dL [facility] Comment on above: <100 mg/dl [id number] 0-129 mg/dl NEAR OR ABOVE [id number] mg/dl BORDERLINE [id number] mg/dl HIGH>190 mg/dl VERY HIGH Cholesterol in VLDL Calc [Ma ss/Vol]on 11-21-2023 Cholesterol in VLDL [Mass/Vol] 26.2 mg/dL [facility] Eosinophils/100 WBC Auto (Bl d)on 11-21-2023 Eosinophils/100 WBC (Bld) 2.3 % 0.9-7.0 [facility] Erythrocyte distribution wid th Auto (RBC) [Ratio]on 11-21-2023 Erythrocyte distribution width (RBC) [Ratio] 13.2 % 11.0-15.0 [facility] Estimated glomerular filtrat ion rate (GFR) non- Americanon 11-21-2023 GFR/1.73 sq M.predicted among non-blacks MDRD (S/P/Bld) [Vol rate/Area] 45 mL/min/{1.73_m2} >=60 [facility] Globulin Calc (S) [Mass/Vol] on 11-21-2023 Globulin (S) [Mass/Vol] 3.7 g/dL [facility] Glucose mean value [Mass/vol ume] in Blood Estimated from glycated hemoglobinon 11-21-2023 Average glucose Estimated from glycated hemoglobin (Bld) [Mass/Vol] 148 mg/dL [facility] Hematocrit Auto (Bld) [Volum e fraction]on 11-21-2023 Hematocrit (Bld) [Volume fraction] 44.0 % 36.0-48.0 [facility] Hemoglobin [Mass/volume] in Bloodon 11-21-2023 Hemoglobin (Bld) [Mass/Vol] 14.0 g/dL 12.0-16.0 [facility] Laboratory - Chemistry and C hemistry - challengeon 11-21-2023 Albumin [Mass/Vol] 3.4 g/dL 3.4-5.0 [facility] ALP [Catalytic activity/Vol] 63 U/L 46-116 [facility] ALT [Catalytic activity/Vol] 40 U/L 14-59 [facility] AST [Catalytic activity/Vol] 20 U/L 15-37 [facility] Bilirubin [Mass/Vol] 0.7 mg/dL 0.2-1.0 [facility] Calcium [Mass/Vol] 9.1 mg/dL 8.5-10.1 [facility] Chloride [Moles/Vol] 105 mmol/L 98-107 [facility] Cholesterol [Mass/Vol] 144 mg/dL <=200 [facility] Cholesterol in HDL [Mass/Vol] 48 mg/dL 40-60 [facility] Comment on above: > or =60 mg/dl - LOW CARDIOVASCULAR RISK<40 mg/dl - HIGH CARDIOVASCULAR RISK CO2 [Moles/Vol] 27.6 mmol/L 21.0-32.0 [facility] Creatinine [Mass/Vol] 1.18 mg/dL 0.55-1.02 [facility] GFR/1.73 sq M.predicted MDRD (S/P/Bld) [Vol rate/Area] 54 mL/min/{1.73_m2} >=60 [facility] Glucose [Mass/Vol] 124 mg/dL 74-106 [facility] Potassium [Moles/Vol] 4.0 mmol/L 3.5-5.1 [facility] Protein [Mass/Vol] 7.1 g/dL 6.4-8.2 [facility] Sodium [Moles/Vol] 143 mmol/L 136-145 [facility] T4 [Mass/Vol] 8.50 ug/dL 4.80-13.90 [facility] Triglyceride [Mass/Vol] 131 mg/dL <=150 [facility] TSH Qn 1.657 m[IU]/L 0.358-3.740 [facility] Urea nitrogen [Mass/Vol] 21.0 mg/dL 7.0-18.0 [facility] Urea nitrogen/Creatinine [Mass ratio] 17.8 mg/mg [facility] Laboratory - Hematology and Cell countson 11-21-2023 HbA1c (Bld) [Mass fraction] 6.8 % 4.5-6.2 [facility] Comment on above: ADA RECOMMENDED LIMI T 4.0 - 6.0ADA THERAPEUTIC TARGET < 7.0ACTION SUGGESTED> 7.0 Immature granulocytes/100 WBC (Bld) 0.3 % 0.0-0.5 [facility] Leukocytes [#/volume] correc trevin for nucleated erythrocytes in Blood by Automated counon 11-21-2023 WBC corrected for nucl RBC Auto (Bld) [#/Vol] 7.8 10 3/uL 4.0-11.0 [facility] Lymphocytes Auto (Bld) [#/Vo l]on 11-21-2023 Lymphocytes (Bld) [#/Vol] 2.4 10 3/uL 1.2-3.8 [facility] Lymphocytes/100 WBC Auto (Bl d)on 11-21-2023 Lymphocytes/100 WBC (Bld) 30.9 % 20.5-60.0 [facility] MCH Auto (RBC) [Entitic mass ]on 11-21-2023 MCH (RBC) [Entitic mass] 31.3 pg 26.7-34.0 [facility] MCHC Auto (RBC) [Mass/Vol]on 11-21-2023 MCHC (RBC) [Mass/Vol] 31.8 g/dL 29.9-35.2 [facility] MCV Auto (RBC) [Entitic vol] on 11-21-2023 MCV (RBC) [Entitic vol] 98.4 fL 81.0-99.0 [facility] Monocytes Auto (Bld) [#/Vol] on 11-21-2023 Monocytes (Bld) [#/Vol] 0.6 10 3/uL 0.3-0.8 [facility] Monocytes/100 WBC Auto (Bld) on 11-21-2023 Monocytes/100 WBC (Bld) 8.2 % 1.7-12.0 [facility] Neutrophils Auto (Bld) [#/Vo l]on 11-21-2023 Neutrophils (Bld) [#/Vol] 4.5 10 3/uL 1.4-6.5 [facility] Neutrophils/100 WBC Auto (Bl d)on 11-21-2023 Neutrophils/100 WBC (Bld) 57.4 % 43.0-75.0 [facility] No Panel Informationon 11-20 Eosinophils # (Auto) 0.2 10 3/uL 0.0-0.7 [facility] Immature Granulocyte # (Auto) 0.02 10 3/uL 0.00-0.03 [facility] Platelet mean volume Auto (B ld) [Entitic vol]on 11-21-2023 Platelet mean volume (Bld) [Entitic vol] 11.3 fL 9.5-13.5 [facility] Platelets Auto (Bld) [#/Vol] on 11-21-2023 Platelets (Bld) [#/Vol] 161 10 3/uL 150-450 [facility] RBC Auto (Bld) [#/Vol]on RBC (Bld) [#/Vol] 4.47 10 6/uL 4.20-5.40 [facility] Serum or plasma albumin/glob ulin mass ratioon 11-21-2023 Albumin/Globulin [Mass ratio] 0.9 {ratio} [facility] Serum or plasma anion gap de terminationon 11-21-2023 Anion gap [Moles/Vol] 14.4 mmol/L [facility] Serum or plasma total choles terol/high density lipoprotein (HDL) cholesterol mass james 11-21-2023 Cholesterol.total/Tona sterol in HDL [Mass ratio] 3.0 {ratio} [facility] Comment on above: 3.3 - 4.4 [...] by: RONALD RAM Date: 2022-12-23 12:08 Normal [facility] XR KUB 1 VIEWon 12-23-2022 XR KUB 1 VIEW EXAMINATION: XR KUB 1 VIEW, [id number] HISTORY: Kidney stone COMPARISON: Same day renal [...] by: RONALD RAM Date: 2022-12-23 12:11 Normal [facility] CBC AUTO DIFFon 12-22-2022 BASO # 0.1 103/ul Normal 0.0-0.1 [facility] Comment on above: Performed By: #### C BC #### [facility] [address] [place] [address] Dr. Justyna Woodruff Basophils/100 WBC (Bld) 0.9 % Normal 0.2-2.0 [facility] Comment on above: Performed By: #### C BC #### [facility] [address] [place] [address] Dr. Justyna Woodruff EO # 0.2 103/ul Normal 0.0-0.7 [facility] Comment on above: Performed By: #### C BC #### [facility] [address] [place] [address] Dr. Justyna Woodruff Eosinophils/100 WBC (Bld) 2.0 % Normal 0.9-7.0 [facility] Comment on above: Performed By: #### C BC #### [facility] [address] [place] [address] Dr. Justyna Woodruff Erythrocyte distribution width (RBC) [Ratio] 13.1 % Normal 11.0-15.0 [facility] Comment on above: Performed By: #### C BC #### [facility] [address] [place] [address] Dr. Justyna Woodruff Hematocrit (Bld) [Volume fraction] 44.6 % Normal 36.0-48.0 [facility] Comment on above: Performed By: #### C BC #### [facility] [address] [place] [address] Dr. Justyna Woodruff Hemoglobin (Bld) [Mass/Vol] 14.5 g/dL Normal 12.0-16.0 [facility] Comment on above: Performed By: #### C BC #### [facility] [address] [place] [address] Dr. Justyna Woodruff IG # 0.02 10e3/ul Normal 0.00-0.03 [facility] Comment on above: Performed By: #### C BC #### [facility] [address] [place] [address] Dr. Justyna Woodruff IG % 0.3 % Normal 0.0-0.5 [facility] Comment on above: Performed By: #### C BC #### [facility] [address] [place] [address] Dr. Justyna Woodruff LYMPH # 2.6 103/ul Normal 1.2-3.8 [facility] Comment on above: Performed By: #### C BC #### [facility] [address] [place] [address] Dr. Justyna Woodruff Lymphocytes/100 WBC (Bld) 34.1 % Normal 20.5-60.0 [facility] Comment on above: Performed By: #### C BC #### [facility] [address] [place] [address] Dr. Justyna Woodruff MANUAL DIFF REQ NO Normal [facility] Comment on above: Performed By: #### C BC #### [facility] [address] [place] [address] Dr. Justyna Woodruff MCH (RBC) [Entitic mass] 31.0 pg Normal 26.7-34.0 [facility] Comment on above: Performed By: #### C BC #### [facility] [address] [place] [address] Dr. Justyna Woodruff MCHC (RBC) [Mass/Vol] 32.5 g/dL Normal 29.9-35.2 [facility] Comment on above: Performed By: #### C BC #### [facility] [address] [place] [address] Dr. Justyna Woodruff MCV (RBC) [Entitic vol] 95.5 fL Normal 81.0-99.0 [facility] Comment on above: Performed By: #### C BC #### [facility] [address] [place] [address] Dr. Justyna Woodruff MONO # 0.7 103/ul Normal 0.3-0.8 [facility] Comment on above: Performed By: #### C BC #### [facility] [address] [place] [address] Dr. Justyna Woodruff Monocytes/100 WBC (Bld) 8.6 % Normal 1.7-12.0 [facility] Comment on above: Performed By: #### C BC #### [facility] [address] [address] [address] Justyna Woodruff NEUT # 4.1 103/ul Normal 1.4-6.5 [facility] Comment on above: Performed By: #### C BC #### [facility] [address] [address] [address] Justyna Woodruff Neutrophils/100 WBC (Bld) 54.1 % Normal 43.0-75.0 [facility] Comment on above: Performed By: #### C BC #### [facility] [address] [place] [address] Dr. Justyna Woodruff Platelet mean volume (Bld) [Entitic vol] 10.8 fL Normal 9.5-13.5 [facility] Comment on above: Performed By: #### C BC #### [facility] [address] [place] [address] Dr. Justyna Woodruff PLT 172 103/ul Normal 150-450 [facility] Comment on above: Performed By: #### C BC #### [facility] [address] [place] [address] Dr. Justyna Woodruff RBC 4.67 106/ul Normal 4.20-5.40 [facility] Comment on above: Performed By: #### C BC #### [facility] [address] [place] [address] Dr. Justyna Woodruff WBC 7.5 103/ul Normal 4.0-11.0 [facility] Comment on above: Performed By: #### C BC #### [facility] [address] [place] [address] Dr. Justyna Woodruff LIPID PROFILEon 12-22-2022 CHOL-HDL RATIO NORM SEE BELOW Normal [facility] Comment on above: Result Comment: 3.3 - 4.4 LOW RISK 4.4 - 7.1 AVERAGE RISK 7.1 - 11.0 MODERATE RISK >11.0 HIGH RISK Performed By: #### C MP, LIPID, T4, TSH #### [facility] [address] [place] [address] Dr. Justyna Woodruff Cholesterol [Mass/Vol] 150 mg/dL Normal <=200 [facility] Comment on above: Performed By: #### C MP, LIPID, T4, TSH #### [facility] [address] [address] [address] Justyna Woodruff Cholesterol in HDL [Mass/Vol] 45 mg/dL Normal 40-60 [facility] Comment on above: Performed By: #### C MP, LIPID, T4, TSH #### [facility] [address] [address] [address] Justyna Woodruff Cholesterol in LDL [Mass/Vol] 79.6 mg/dL Normal [facility] Comment on above: Performed By: #### C MP, LIPID, T4, TSH #### [facility] [address] [place] [address] Dr. Justyna Woodruff Cholesterol.total/Tona sterol in HDL [Mass ratio] 3.3 {ratio} Normal [facility] Comment on above: Performed By: #### C MP, LIPID, T4, TSH #### [facility] [address] [place] [address] Dr. Justyna Woodruff HDL NORMAL > or = 60 mg/dl - LO W CARDIOVASCULAR RISK <40 mg/dl - HIGH CARDIOVASCULAR RISK Normal [facility] Comment on above: Performed By: #### C MP, LIPID, T4, TSH #### [facility] [address] [place] [address] Dr. Justyna Woodruff LDL CALC NORMAL SEE BELOW Normal [facility] Comment on above: Result Comment: <100 mg/dl OPTIMAL 100 - 129 mg/dl NEAR OR ABOVE OPTIMAL 130 - 159 mg/dl BORDERLINE HIGH 160 - 189 mg/dl HIGH >190 mg/dl VERY HIGH Performed By: #### C MP, LIPID, T4, TSH #### [facility] [address] [place] [address] Dr. Justyna Woodruff Triglyceride [Mass/Vol] 127 mg/dL Normal <=[address] [facility] Comment on above: Performed By: #### C MP, LIPID, T4, TSH #### [facility] [address] [place] [address] Dr. Justyna Woodruff VLDL CALC 25.4 mg/dL Normal [facility] Comment on above: Performed By: #### C MP, LIPID, T4, TSH #### [facility] [address] [place] [address] Dr. Justyna Woodruff PROF 14(COMP METB)on 023 Albumin [Mass/Vol] 3.7 g/dL Normal 3.4-5.0 [facility] Comment on above: Performed By: #### C MP, LIPID, T4, TSH #### [facility] [address] [place] [address] Dr. Justyna Woodruff Albumin/Globulin [Mass ratio] 0.9 {ratio} Normal [facility] Comment on above: Performed By: #### C MP, LIPID, T4, TSH #### [facility] [address] [place] [address] Dr. Justyna Woodruff ALP [Catalytic activity/Vol] 59 U/L Normal 46-116 [facility] Comment on above: Performed By: #### C MP, LIPID, T4, TSH #### [facility] [address] [place] [address] Dr. Justyna Woodruff ALT [Catalytic activity/Vol] 36 U/L Normal 14-59 [facility] Comment on above: Performed By: #### C MP, LIPID, T4, TSH #### [facility] [address] [place] [address] Dr. Justyna Woodruff Anion gap [Moles/Vol] 11.0 mmol/L Normal [facility] Comment on above: Performed By: #### C MP, LIPID, T4, TSH #### [facility] [address] [place] [address] Dr. Justyna Woodruff AST [Catalytic activity/Vol] 17 U/L Normal 15-37 [facility] Comment on above: Performed By: #### C MP, LIPID, T4, TSH #### [facility] [address] [place] [address] Dr. Justyna Woodruff Bilirubin [Mass/Vol] 0.8 mg/dL Normal 0.2-1.0 [facility] Comment on above: Performed By: #### C MP, LIPID, T4, TSH #### [facility] [address] [place] [address] Dr. Justyna Woodruff Calcium [Mass/Vol] 9.3 mg/dL Normal 8.5-10.1 [facility] Comment on above: Performed By: #### C MP, LIPID, T4, TSH #### [facility] [address] [place] [address] Dr. Justyna Woodruff Chloride [Moles/Vol] 105 mmol/L Normal 98-107 [facility] Comment on above: Performed By: #### C MP, LIPID, T4, TSH #### [facility] [address] [place] [address] Dr. Justyna Woodruff CO2 [Moles/Vol] 28.8 mmol/L Normal 21.0-32.0 [facility] Comment on above: Performed By: #### C MP, LIPID, T4, TSH #### [facility] [address] [place] [address] Dr. Justyna Woodruff Creatinine [Mass/Vol] 0.99 mg/dL Normal 0.55-1.02 [facility] Comment on above: Performed By: #### C MP, LIPID, T4, TSH #### [facility] [address] [place] [address] Dr. Justyna Woodruff EGFR-AF BULGARIAN >60 Normal >=60 [facility] Comment on above: Performed By: #### C MP, LIPID, T4, TSH #### [facility] [address] [place] [address] Dr. Justyna Woodruff EGFR-NON AF BULGARIAN 55 mL/min/1.73m2 Critically low >=60 [facility] Comment on above: Performed By: #### C MP, LIPID, T4, TSH #### [facility] [address] [place] [address] Dr. Justyna Woodruff Globulin (S) [Mass/Vol] 3.9 g/dL Normal T [facility] Comment on above: Performed By: #### C MP, LIPID, T4, TSH #### [facility] [address] [place] [address] Dr. Justyna Woodruff Glucose [Mass/Vol] 119 mg/dL Critically high 74-[address] [facility] Comment on above: Performed By: #### C MP, LIPID, T4, TSH #### [facility] [address] [place] [address] Dr. Justyna Woodruff Potassium [Moles/Vol] 3.8 mmol/L Normal 3.5-5.1 [facility] Comment on above: Performed By: #### C MP, LIPID, T4, TSH #### [facility] [address] [place] [address] Dr. Justyna Woodruff Protein [Mass/Vol] 7.6 g/dL Normal 6.4-8.[address] [facility] Comment on above: Performed By: #### C MP, LIPID, T4, TSH #### [facility] [address] [place] [address] Dr. Justyna Woodruff Sodium [Moles/Vol] 141 mmol/L Normal 136-145 [facility] Comment on above: Performed By: #### C MP, LIPID, T4, TSH #### [facility] [address] [place] [address] Dr. Justyna Woodruff Urea nitrogen [Mass/Vol] 17.0 mg/dL Normal 7.0-18.0 [facility] Comment on above: Performed By: #### C MP, LIPID, T4, TSH #### [facility] [address] [place] [address] Dr. Justyna Woodruff Urea nitrogen/Creatinine [Mass ratio] 17.2 mg/mg Normal [facility] Comment on above: Performed By: #### C MP, LIPID, T4, TSH #### [facility] [address] [place] [address] Dr. Justyna Woodruff T4on 12-22-2022 T4 [Mass/Vol] 8.50 ug/dL Normal 4.80-13.90 [facility] Comment on above: Performed By: #### C CHARLY #### [facility] [address] [place] [address] Dr. Justyna Woodruff TSHon 12-22-2022 TSH 1.396 uIU/mL Normal 0.358-3.740 [facility] Comment on above: Performed By: #### C MP, LIPID, T4, TSH #### [facility] [address] [place] [address] Dr. Justyna Woodruff C3 and C4 COMPLEMENTon 10-25 Complement C3, Serum 134 mg/dL Normal 82-167 [facility] Comment on above: Performed By: #### C CHARLY #### [facility] [address] [place] [address] Dr. Justyna Woodruff Complement C4, Serum 17 mg/dL Normal 12-38 [facility] Comment on above: Performed By: #### C CHARLY #### [facility] [address] [place] [address] Dr. Justyna Woodruff CBC AUTO DIFFon 10-23-2022 BASO # 0.1 103/ul Normal 0.0-0.1 [facility] Comment on above: Performed By: #### C BC #### [facility] [address] [place] [address] Dr. Justyna Woodruff Basophils/100 WBC (Bld) 0.7 % Normal 0.2-2.0 [facility] Comment on above: Performed By: #### C BC #### [facility] [address] [place] [address] Dr. Justyna Woodruff EO # 0.1 103/ul Normal 0.0-0.7 [facility] Comment on above: Performed By: #### C BC #### [facility] [address] [place] [address] Dr. Justyna Woodruff Eosinophils/100 WBC (Bld) 1.8 % Normal 0.9-7.0 [facility] Comment on above: Performed By: #### C BC #### [facility] [address] [place] [address] Dr. Justyna Woodruff Erythrocyte distribution width (RBC) [Ratio] 13.0 % Normal 11.0-15.0 [facility] Comment on above: Performed By: #### C BC #### [facility] [address] [place] [address] Dr. Justyna Woodruff Hematocrit (Bld) [Volume fraction] 41.1 % Normal 36.0-48.0 [facility] Comment on above: Performed By: #### C BC #### [facility] [address] [place] [address] Dr. Justyna Woodruff Hemoglobin (Bld) [Mass/Vol] 13.8 g/dL Normal 12.0-16.0 [facility] Comment on above: Performed By: #### C BC #### [facility] [address] [place] [address] Dr. Justyna Woodruff IG # 0.01 10e3/ul Normal 0.00-0.03 [facility] Comment on above: Performed By: #### C BC #### [facility] [address] [place] [address] Dr. Justyna Woodruff IG % 0.1 % Normal 0.0-0.5 [facility] Comment on above: Performed By: #### C BC #### [facility] [address] [place] [address] Dr. Justyna Woodruff LYMPH # 2.7 103/ul Normal 1.2-3.8 [facility] Comment on above: Performed By: #### C BC #### [facility] [address] [place] [address] Dr. Justyna Woodruff Lymphocytes/100 WBC (Bld) 37.0 % Normal 20.5-60.0 [facility] Comment on above: Performed By: #### C BC #### [facility] [address] [place] [address] Dr. Justyna Woodruff MANUAL DIFF REQ NO Normal [facility] Comment on above: Performed By: #### C BC #### [facility] [address] [place] [address] Dr. Justyna Woodruff MCH (RBC) [Entitic mass] 31.3 pg Normal 26.7-34.0 [facility] Comment on above: Performed By: #### C BC #### [facility] [address] [place] [address] Dr. Justyna Woodruff MCHC (RBC) [Mass/Vol] 33.6 g/dL Normal 29.9-35.2 [facility] Comment on above: Performed By: #### C BC #### [facility] [address] [address] [address] Justyna Woodruff MCV (RBC) [Entitic vol] 93.2 fL Normal 81.0-99.0 [facility] Comment on above: Performed By: #### C BC #### [facility] [address] [address] [address] Justyna Woodruff MONO # 0.7 103/ul Normal 0.3-0.8 [facility] Comment on above: Performed By: #### C BC #### [facility] [address] [address] [address] Justyna Woodruff Monocytes/100 WBC (Bld) 9.9 % Normal 1.7-12.0 [facility] Comment on above: Performed By: #### C BC #### [facility] [address] [address] [address] Justyna Woodruff NEUT # 3.6 103/ul Normal 1.4-6.5 [facility] Comment on above: Performed By: #### C BC #### [facility] [address] [address] [address] Justyna Woodruff Neutrophils/100 WBC (Bld) 50.5 % Normal 43.0-75.0 [facility] Comment on above: Performed By: #### C BC #### [facility] [address] [address] [address] Justyna Woodruff Platelet mean volume (Bld) [Entitic vol] 9.9 fL Normal 9.5-13.5 [facility] Comment on above: Performed By: #### C BC #### [facility] [address] [address] [address] Justyna Woodruff PLT 151 103/ul Normal 150-450 [facility] Comment on above: Performed By: #### C BC #### [facility] [address] [address] [address] Justyna Woodruff RBC 4.41 106/ul Normal 4.20-5.40 [facility] Comment on above: Performed By: #### C BC #### [facility] [address] [place] [address] Dr. Justyna Woodruff WBC 7.2 103/ul Normal 4.0-11.0 [facility] Comment on above: Performed By: #### C BC #### [facility] [address] [place] [address] Dr. Justyna Woodruff CREATININEon 10-23-2022 Creatinine [Mass/Vol] 0.89 mg/dL Normal 0.55-1.02 [facility] Comment on above: Performed By: #### C CHARLY #### [facility] [address] [place] [address] Dr. Justyna Woodruff EGFR-AF BULGARIAN >60 Normal >=60 [facility] Comment on above: Performed By: #### C CHARLY #### [facility] [address] [place] [address] Dr. Justyna Woodruff EGFR-NON AF BULGARIAN >60 Normal >=60 [facility] Comment on above: Performed By: #### C CHARLY #### [facility] [address] [place] [address] Dr. Justyna Woodruff SED RATE LEHIGHTONERGRENon 2022 SED RATE 4 mm/hr Normal <=30 [facility] Comment on above: Performed By: #### S EDR #### [facility] [address] [place] [address] Dr. Justyna Woodruff UA RANDOM W/MICROSCOPICon BACTERIA NONE SEEN Normal NONE SEEN [facility] Comment on above: Performed By: #### C CHARLY #### [facility] [address] [place] [address] Dr. Justyna Woodruff Bilirubin Ql (U) Negative Normal NEGATIVE [facility] Comment on above: Performed By: #### C CHARLY #### [facility] [address] [place] [address] Dr. Justyna Woodruff CAST NONE SEEN Normal NONE SEEN [facility] Comment on above: Performed By: #### C CHARLY #### [facility] [address] [place] [address] Dr. Justyna Woodruff Clarity (U) CLEAR Normal CLEAR [facility] Comment on above: Performed By: #### C CHARLY #### [facility] [address] [place] [address] Dr. Justyna Woodruff Color (U) LT. YELLOW Normal YELLOW [facility] Comment on above: Performed By: #### C CHARLY #### [facility] [address] [place] [address] Dr. Justyna Woodruff Crystals LM Nom (Urine sed) NONE SEEN Normal NONE SEEN [facility] Comment on above: Performed By: #### C CHARYL #### [facility] [address] [place] [address] Dr. Justyna Woodruff Epithelial cells LM Ql (Urine sed) MODERATE Abnormal NONE SEEN /RARE [facility] Comment on above: Performed By: #### C CHARLY #### [facility] [address] [place] [address] Dr. Justyna Woodruff Glucose Ql (U) Negative Normal NEGATIVE [facility] Comment on above: Performed By: #### C CHARLY #### [facility] [address] [place] [address] Dr. Justyna Woodruff Hemoglobin Ql (U) TRACE-INTACT Abnormal NEGATIVE [facility] Comment on above: Performed By: #### C CHARLY #### [facility] [address] [place] [address] Dr. Justyna Woodruff Ketones Ql (U) Negative Normal NEGATIVE [facility] Comment on above: Performed By: #### C CHARLY #### [facility] [address] [place] [address] Dr. Justyna Woodruff LEUKOCYTES SMALL Abnormal NEGATIVE [facility] Comment on above: Performed By: #### C CHARLY #### [facility] [address] [place] [address] Dr. Justyna Woodruff MUCOUS NONE SEEN Normal NONE SEEN [facility] Comment on above: Performed By: #### C CHARLY #### [facility] [address] [place] [address] Dr. Justyna Woodruff Nitrite Ql (U) Negative Normal NEGATIVE [facility] Comment on above: Performed By: #### C CHARLY #### [facility] [address] [place] [address] Dr. Justyna Woodruff pH (U) 6.5 [pH] Normal 5-9 [facility] Comment on above: Performed By: #### C CHARLY #### [facility] [address] [place] [address] Dr. Justyna Woodruff RBC 2-5 Abnormal 0-2 [facility] Comment on above: Performed By: #### C CHARLY #### [facility] [address] [place] [address] Dr. Justyna Woodruff SPEC GRAVITY 1.020 Normal 1.005-<=1.0 25 [facility] Comment on above: Performed By: #### C CHARLY #### [facility] [address] [place] [address] Dr. Justyna Woodruff UA PROTEIN Negative Normal NEGATIVE/ TRACE [facility] Comment on above: Performed By: #### C CHARLY #### [facility] [address] [place] [address] Dr. Justyna Woodruff Urobilinogen Qn (U) 0.2 {Aliya'U}/dL Normal 0.2 - 1. 0 [facility] Comment on above: Performed By: #### C CHARLY #### [facility] [address] [place] [address] Dr. Justyna Woodruff WBC 2-5 Abnormal NONE SEEN [facility] Comment on above: Performed By: #### C CHARLY #### [facility] [address] [place] [address] Dr. Justyna Woodruff MG MAMM SCREEN 3D JAMEY CADon 10-12-2022 MG MAMM SCREEN 3D JAMEY CAD Patient: GISSELL MUÑOZ Exam Date: 10/12/2022 : 1950 Gender:F Ordering : DR JEVON MEDINA D.O. Admission #: [id number] Family : Order #: [id number] CLICK HERE TO VIEW EXAM RADIOLOGY REPORT [...] leukemia cancer at age 89. LOCATION: [facility] BREAST COMPOSITION: Heterogeneously dense,which may obscure [...] Garcia M.D. on 10/13/2022 at 10:24 Normal [facility] C3 and C4 COMPLEMENTon 04-17 Complement C3, Serum 142 mg/dL Normal 82-167 [facility] Comment on above: Performed By: #### C SUITE #### [facility] [address] [place] [address] Dr. Justyna Woodruff Complement C4, Serum 23 mg/dL Normal 12-38 [facility] Comment on above: Performed By: #### C SUITE #### [facility] [address] [place] [address] Dr. Justyna Woodruff CBC AUTO DIFFon 04-14-2022 BASO # 0.1 103/ul Normal 0.0-0.1 [facility] Comment on above: Performed By: #### C CHARLY #### [facility] [address] [place] [address] Dr. Justyna Woodruff Basophils/100 WBC (Bld) 0.6 % Normal 0.2-2.0 [facility] Comment on above: Performed By: #### C CHARLY #### [facility] [address] [place] [address] Dr. Justyna Woodruff EO # 0.2 103/ul Normal 0.0-0.7 [facility] Comment on above: Performed By: #### C CHARLY #### [facility] [address] [place] [address] Dr. Justyna Woodruff Eosinophils/100 WBC (Bld) 1.8 % Normal 0.9-7.0 [facility] Comment on above: Performed By: #### C CHARLY #### [facility] [address] [place] [address] Dr. Justyna Woodruff Erythrocyte distribution width (RBC) [Ratio] 13.0 % Normal 11.0-15.0 [facility] Comment on above: Performed By: #### C CHARLY #### [facility] [address] [place] [address] Dr. Justyna Woodruff Hematocrit (Bld) [Volume fraction] 42.1 % Normal 36.0-48.0 [facility] Comment on above: Performed By: #### C CHARLY #### [facility] [address] [place] [address] Dr. Justyna Woodruff Hemoglobin (Bld) [Mass/Vol] 14.0 g/dL Normal 12.0-16.0 [facility] Comment on above: Performed By: #### C CHARLY #### [facility] [address] [place] [address] Dr. Justyna Woodruff IG # 0.02 10e3/ul Normal 0.00-0.03 [facility] Comment on above: Performed By: #### C CHARLY #### [facility] [address] [place] [address] Dr. Justyna Woodruff IG % 0.2 % Normal 0.0-0.5 [facility] Comment on above: Performed By: #### C CHARLY #### [facility] [address] [place] [address] Dr. Justyna Woodruff LYMPH # 2.9 103/ul Normal 1.2-3.8 [facility] Comment on above: Performed By: #### C CHARLY #### [facility] [address] [place] [address] Dr. Justyna Woodruff Lymphocytes/100 WBC (Bld) 35.2 % Normal 20.5-60.0 [facility] Comment on above: Performed By: #### C CHARLY #### [facility] [address] [place] [address] Dr. Justyna Woodruff MANUAL DIFF REQ NO Normal [facility] Comment on above: Performed By: #### C CHARLY #### [facility] [address] [place] [address] Dr. Justyna Woodruff MCH (RBC) [Entitic mass] 31.0 pg Normal 26.7-34.0 [facility] Comment on above: Performed By: #### C CHARLY #### [facility] [address] [place] [address] Dr. Justyna Woodruff MCHC (RBC) [Mass/Vol] 33.3 g/dL Normal 29.9-35.2 [facility] Comment on above: Performed By: #### C CHARLY #### [facility] [address] [place] [address] Dr. Justyna Woodruff MCV (RBC) [Entitic vol] 93.3 fL Normal 81.0-99.0 [facility] Comment on above: Performed By: #### C CHARLY #### [facility] [address] [place] [address] Dr. Justyna Woodruff MONO # 0.9 103/ul Critically high 0.3-0.8 [facility] Comment on above: Performed By: #### C CHARLY #### [facility] [address] [place] [address] Dr. Justyna Woodruff Monocytes/100 WBC (Bld) 10.6 % Normal 1.7-12.0 [facility] Comment on above: Performed By: #### C CHARLY #### [facility] [address] [place] [address] Dr. Justyna Woodruff NEUT # 4.3 103/ul Normal 1.4-6.5 [facility] Comment on above: Performed By: #### C CHARLY #### [facility] [address] [place] [address] Dr. Justyna Woodruff Neutrophils/100 WBC (Bld) 51.6 % Normal 43.0-75.0 [facility] Comment on above: Performed By: #### C CHARLY #### [facility] [address] [place] [address] Dr. Justyna Woodruff Platelet mean volume (Bld) [Entitic vol] 10.0 fL Normal 9.5-13.5 [facility] Comment on above: Performed By: #### C CHARLY #### [facility] [address] [address] [address] Justyna Woodruff PLT 158 103/ul Normal 150-450 [facility] Comment on above: Performed By: #### C CHARLY #### [facility] [address] [place] [address] Dr. Justyna Woodruff RBC 4.51 106/ul Normal 4.20-5.40 [facility] Comment on above: Performed By: #### C CHARLY #### [facility] [address] [place] [address] Dr. Justyna Woodruff WBC 8.3 103/ul Normal 4.0-11.0 [facility] Comment on above: Performed By: #### C CHARLY #### [facility] [address] [place] [address] Dr. Justyna Woodruff CREATININEon 04-14-2022 Creatinine [Mass/Vol] 1.07 mg/dL Critically high 0.55-1.02 [facility] Comment on above: Performed By: #### C CHARLY #### [facility] [address] [place] [address] Dr. Justyna Woodruff EGFR-AF BULGARIAN >60 Normal >=60 [facility] Comment on above: Performed By: #### C CHARLY #### [facility] [address] [place] [address] Dr. Justyna Woodruff EGFR-NON AF BULGARIAN 51 mL/min/1.73m2 Critically low >=60 [facility] Comment on above: Performed By: #### C CHARLY #### [facility] [address] [place] [address] Dr. Justyna Woodruff SED RATE WESTERGREN 2021 SED RATE 6 mm/hr Normal <=30 [facility] Comment on above: Performed By: #### S EDR #### [facility] [address] [place] [address] Dr. Justyna Woodruff UA RANDOM W/MICROSCOPICon BACTERIA NONE SEEN Normal NONE SEEN [facility] Comment on above: Performed By: #### C CHARLY #### [facility] [address] [place] [address] Dr. Justyna Woodruff Bilirubin Ql (U) Negative Normal NEGATIVE [facility] Comment on above: Performed By: #### C CHARLY #### [facility] [address] [place] [address] Dr. Justyna Woodruff CAST NONE SEEN Normal NONE SEEN [facility] Comment on above: Performed By: #### C CHARLY #### [facility] [address] [place] [address] Dr. Justyna Woodruff Clarity (U) CLEAR Normal CLEAR [facility] Comment on above: Performed By: #### C CHARLY #### [facility] [address] [place] [address] Dr. Justyna Woodruff Color (U) LT. YELLOW Normal YELLOW [facility] Comment on above: Performed By: #### C CHARLY #### [facility] [address] [place] [address] Dr. Justyna Woodruff Crystals LM Nom (Urine sed) NONE SEEN Normal NONE SEEN [facility] Comment on above: Performed By: #### C CHARLY #### [facility] [address] [place] [address] Dr. Justyna Woodruff Epithelial cells LM Ql (Urine sed) FEW Abnormal NONE SEEN /RARE [facility] Comment on above: Performed By: #### C CHARLY #### [facility] [address] [place] [address] Dr. Justyna Woodruff Glucose Ql (U) Negative Normal NEGATIVE [facility] Comment on above: Performed By: #### C CHARLY #### [facility] [address] [place] [address] Dr. Justyna Woodruff Hemoglobin Ql (U) SMALL Abnormal NEGATIVE [facility] Comment on above: Performed By: #### C CHARLY #### [facility] [address] [place] [address] Dr. Justyna Woodruff Ketones Ql (U) Negative Normal NEGATIVE [facility] Comment on above: Performed By: #### C CHARLY #### [facility] [address] [place] [address] Dr. Justyna Woodruff LEUKOCYTES SMALL Abnormal NEGATIVE [facility] Comment on above: Performed By: #### C CHARLY #### [facility] [address] [place] [address] Dr. Justyna Woodruff MUCOUS NONE SEEN Normal NONE SEEN [facility] Comment on above: Performed By: #### C CHARLY #### [facility] [address] [place] [address] Dr. Justyna Woodruff Nitrite Ql (U) Negative Normal NEGATIVE [facility] Comment on above: Performed By: #### C CHARYL #### [facility] [address] [place] [address] Dr. Justyna Woodruff pH (U) 7.0 [pH] Normal 5-9 [facility] Comment on above: Performed By: #### C CHARLY #### [facility] [address] [place] [address] Dr. Justyna Woodruff RBC 0-2 Normal 0-2 [facility] Comment on above: Performed By: #### C CHARLY #### [facility] [address] [place] [address] Dr. Justyna Woodruff SPEC GRAVITY 1.015 Normal 1.005-<=1.0 25 [facility] Comment on above: Performed By: #### C CHARLY #### [facility] [address] [place] [address] Dr. Justyna Woodruff UA PROTEIN Negative Normal NEGATIVE/ TRACE [facility] Comment on above: Performed By: #### C CHARLY #### [facility] [address] [place] [address] Dr. Justyna Woodruff Urobilinogen Qn (U) 0.2 {Aliya'U}/dL Normal 0.2 - 1. 0 [facility] Comment on above: Performed By: #### C CHARLY #### [facility] [address] [place], [place] [address] Dr. Justyna Woodruff WBC 0-2 Abnormal NONE SEEN [facility] Comment on above: Performed By: #### C CHARLY #### [facility] [address] [place], [place] [address] Dr. Justyna Woodruff XR DEXA BONE DENSITYon 01-31 XR DEXA BONE DENSITY EXAMINATION: XR DEX A BONE DENSITY, 01/31/2022 3:04 PM EDT HISTORY: [...] ARMANDO GARCIA Date: 2022-01-31 17:41 Normal [facility] Office Visit (Cardiology)on 11-24-2021 Follow-up visit Diagnoses/Problems Assessed Essential hypertension (401.9) (I10) Hyperlipidemia (272.4) (E78.5) Class 1 obesity with body mass index (BMI) of 33.0 to 33.9 in adult (278.00,V85.33) (E66.9,Z68.33) Never smoker Orders Class 1 obesity with body mass index (BMI) of 33.0 to 33.9 in adult Healthy Weight Tips; Status:Complete - Retrospective Authorization; Done: [id number] SocHx: Never smoker Tobacco Use Screening; Status:Complete; Done: [id number] Tobacco Use Screening; Status:Complete; Done: [id number] Unlinked Stop: Aspirin EC 81 MG Oral Tablet Delayed Release Patient Instructions By signing my name below, I, Amy Leung LPN, Scribe, attest that this documentation has been prepared under the direction and in the presence of Dr. Yakov Ding MD. All medical record entries made by the [place] were at my direction and personally dictated [...] She had blood work done recently at [facility] which I requested. Apart from obesity physical examination was normal Assessment/recommendati ons: 1?hypertension currently under control on lisinopril and [...] [id number] 08:28AM Heart Rate63, L Brachial Artery [id number], LUE, S (more content not included)... Normal NormOxys Tobacco Screening.on 022 Adult depression screening assessment No [facility] [employer] [address] DO Work Phone: Fall risk assessment a) No falls within the last year [facility] [employer] [address] DO Work Phone: Tobacco use status CP b) No [facility] [employer] [address] DO Work Phone: Vital Signs Date Time Vital Sign Value Performing Clinician Facility 11-19-2024 16:31-0400 Body height 165.1 cm Salo Duque DPM Work Phone: [facility] 11-19-2024 16:31-0400 Body mass index (BMI) [Ratio] 33.28 kg/m2 Salo Duque DPM Work Phone: [facility] 11-19-2024 16:31-0400 Body weight 90.72 kg Salo Duque DPM Work Phone: [facility] 11-19-2024 16:31-0400 Respiratory rate 16 /min Salo Duque DPM Work Phone: [facility] 10-07-2024 09:10-0500 Body height 156.21 cm [facility] 10-07-2024 09:10-0500 Body mass index (BMI) [Ratio] 32.3 kg/m2 [facility] 10-07-2024 09:10-0500 Body weight 79.03 kg [facility] 10-07-2024 09:10-0500 Diastolic blood pressure 82 mm[Hg] [facility] 10-07-2024 09:10-0500 Heart rate 67 /min [facility] 10-07-2024 09:10-0500 Respiratory rate 12 /min [facility] 10-07-2024 09:10-0500 Systolic blood pressure 132 mm[Hg] [facility] 09-12-2024 14:54-0500 Body height 165.1 cm Salo Duque DPM Work Phone: [facility] 09-12-2024 14:54-0500 Body mass index (BMI) [Ratio] 33.28 kg/m2 Salo Duque DPM Work Phone: [facility] 09-12-2024 14:54-0500 Body weight 90.72 kg Salo Duque DPM Work Phone: [facility] 09-12-2024 14:54-0500 Respiratory rate 18 /min Salo Duque DPM Work Phone: [facility] 07-28-2024 15:52-0500 Body height 156.21 cm [facility] 07-28-2024 15:52-0500 Body mass index (BMI) [Ratio] 32.9 kg/m2 [facility] 07-28-2024 15:52-0500 Body weight 80.39 kg [facility] 07-28-2024 15:52-0500 Diastolic blood pressure 79 mm[Hg] [facility] 07-28-2024 15:52-0500 Heart rate 60 /min [facility] 07-28-2024 15:52-0500 Respiratory rate 12 /min [facility] 07-28-2024 15:52-0500 Systolic blood pressure 147 mm[Hg] [facility] 06-24-2024 15:23-0500 Body height 165.1 cm Salo Brown DPM Work Phone: [facility] 06-24-2024 15:23-0500 Body mass index (BMI) [Ratio] 33.28 kg/m2 Salo Brown DPM Work Phone: [facility] 06-24-2024 15:23-0500 Body weight 90.72 kg Salo Brown DPM Work Phone: [facility] 06-24-2024 15:23-0500 Diastolic blood pressure 80 mm[Hg] Salo Duque DPM Work Phone: [facility] 06-24-2024 15:23-0500 Heart rate 79 /min Salo Brown DPM Work Phone: [facility] 06-24-2024 15:23-0500 Systolic blood pressure 125 mm[Hg] Salo Brown DPM Work Phone: [facility] 04-08-2024 15:32-0400 Body height 165.1 cm Salo Brown DPM Work Phone: [facility] 04-08-2024 15:32-0400 Body mass index (BMI) [Ratio] 33.28 kg/m2 Salo Duque DPM Work Phone: [facility] 04-08-2024 15:32-0400 Body weight 90.72 kg Salo Duque DPM Work Phone: [facility] 04-08-2024 15:32-0400 Diastolic blood pressure 78 mm[Hg] Salo Duque DPM Work Phone: [facility] 04-08-2024 15:32-0400 Heart rate 81 /min Salo Duque DPM Work Phone: [facility] 04-08-2024 15:32-0400 Systolic blood pressure 126 mm[Hg] Salo Duque DPM Work Phone: [facility] 01-22-2024 15:39-0400 Body height 156.21 cm [facility] 01-22-2024 15:39-0400 Body mass index (BMI) [Ratio] 33.5 kg/m2 [facility] 01-22-2024 15:39-0400 Body weight 81.87 kg [facility] 01-22-2024 15:39-0400 Diastolic blood pressure 78 mm[Hg] [facility] 01-22-2024 15:39-0400 Heart rate 58 /min [facility] 01-22-2024 15:39-0400 Respiratory rate 12 /min [facility] 01-22-2024 15:39-0400 Systolic blood pressure 130 mm[Hg] [facility] 01-08-2024 14:54-0400 Blood Pressure Location DELFINA RITTER [facility] 01-08-2024 14:54-0400 Body temperature 98.24 [degF] DELFINA RITTER [facility] 01-08-2024 14:54-0400 Diastolic blood pressure 83 mm[Hg] DELFINA RITTER [facility] 01-08-2024 14:54-0400 Heart rate 54 /min DELFINA RIYA [facility] 01-08-2024 14:54-0400 Respiratory rate 16 /min DELFINA RIYA [facility] 01-08-2024 14:54-0400 Systolic blood pressure 126 mm[Hg] DELFINA RIYA [facility] 06-04-2023 15:00-0400 Body height 156.21 cm Jevon Ball Other [facility] [employer] Other 06-04-2023 15:00-0400 Body mass index (BMI) [Ratio] 34.42 kg/m2 Jevon Ball Other [email or web address] Other 06-04-2023 15:00-0400 Body weight 84.01 kg Jevon Ball Other [email or web address] Other 06-04-2023 15:00-0400 Diastolic blood pressure 83 mm[Hg] Jevon Ball Other [email or web address] Other 06-04-2023 15:00-0400 Respiratory rate 12 /min Jevon Ball Other [email or web address] Other 06-04-2023 15:00-0400 Systolic blood pressure 130 mm[Hg] Jevon Ball Other [email or web address] Other 03-02-2023 14:00-0400 Body height 156.21 cm Jevon Ball Other [email or web address] Other 03-02-2023 14:00-0400 Body mass index (BMI) [Ratio] 33.94 kg/m2 Jevon Ball Other [email or web address] Other 03-02-2023 14:00-0400 Body weight 82.83 kg Jevon Ball Other [email or web address] Other 03-02-2023 14:00-0400 Diastolic blood pressure 84 mm[Hg] Jevon Ball Other [email or web address] Other 03-02-2023 14:00-0400 Respiratory rate 12 /min Jevon Ball Other [email or web address] Other 03-02-2023 14:00-0400 Systolic blood pressure 133 mm[Hg] Jevon Ball Other [email or web address] Other 01-23-2023 15:30-0400 Body height 156.21 cm Jevon Ball Other [email or web address] Other 01-23-2023 15:30-0400 Body mass index (BMI) [Ratio] 34.42 kg/m2 Jevon Ball Other [email or web address] Other 01-23-2023 15:30-0400 Body weight 84.01 kg Jevon Ball Other [email or web address] Other 01-23-2023 15:30-0400 Diastolic blood pressure 84 mm[Hg] Jevon Ball Other [email or web address] Other 01-23-2023 15:30-0400 Respiratory rate 12 /min Jevon Ball Other [email or web address] Other 01-23-2023 15:30-0400 Systolic blood pressure 145 mm[Hg] Jevon Ball Other [email or web address] Other 10-02-2022 14:45-0500 Body height 156.21 cm Jevon Ball Other [employer] Other 10-02-2022 14:45-0500 Body mass index (BMI) [Ratio] 34.2 kg/m2 Jevon Ball Other [employer] Other 10-02-2022 14:45-0500 Body weight 83.46 kg Jevon Ball Other [employer] Other 10-02-2022 14:45-0500 Diastolic blood pressure 82 mm[Hg] Jevon Ball Other [employer] Other 10-02-2022 14:45-0500 Respiratory rate 12 /min Jevon Ball Other [employer] Other 10-02-2022 14:45-0500 Systolic blood pressure 130 mm[Hg] Jevon Ball Other [employer] Other 11-24-2021 08:28-0400 Body height 157.48 cm Jevon E Ball Work Phone: [facility] [employer] 250 DO Work Phone: 11-24-2021 08:28-0400 Body mass index (BMI) [Ratio] 33.47 kg/m2 Jevon E Ball Work Phone: [facility] [employer] 250 DO Work Phone: 11-24-2021 08:28-0400 Body surface area Derived from formula 1.84 m2 Jevon E Ball Work Phone: [employer] 250 DO Work Phone: 11-24-2021 08:28-0400 Body weight 83.01 kg Jevon E Ball Work Phone: [facility] [employer] 250 DO Work Phone: 11-24-2021 08:28-0400 Diastolic blood pressure 80 mm[Hg] Jevon E Ball Work Phone: [facility] 250 DO Work Phone: 11-24-2021 08:28-0400 Heart rate 63 /min Jevon Medina Work Phone: [facility] 250 DO Work Phone: 11-24-2021 08:28-0400 Systolic blood pressure 135 mm[Hg] Jevon Medina Work Phone: [facility] 250 DO Work Phone: Encounters Encounter Date Encounter Type Care Provider Facility Start: 01-26-2025 ambulatory DELFINA Valverde ty:JAYLEN Kendrick Start: 11-25-2024 End: 11-25-2024 ambulatory Jevon Medina DO Work Phone: [facility] Work Phone: Start: 11-25-2024 End: 11-25-2024 Departed Referred Jevon Medina DO Work Phone: [facility] [employer] Work Phone: Start: 11-19-2024 End: 11-19-2024 ambulatory SALO DUQUE Not Available Start: 11-19-2024 End: 11-19-2024 Office outpatient visit 15 minutes Salo Duque DPM Work Phone: [facility] [place] [facility] Comment on above: Other specified diso rders of synovium, left ankle and foot (Primary Dx); Verruca plantaris; Foot pain, left; Pain due to onychomycosis of toenails of both feet Start: 10-07-2024 End: 10-07-2024 ambulatory [facility] Work Phone: Start: 10-07-2024 End: 10-07-2024 Patient encounter procedure [facility] Work Phone: Start: 09-12-2024 End: 09-12-2024 Office outpatient visit 15 minutes Salo Duque DPM Work Phone: [facility] Comment on above: DJD (degenerative ting int disease), ankle and foot, left (Primary Dx); Other specified disorders of synovium, left ankle and foot; Verruca plantaris; Foot pain, left; Onychomycosis; Toe pain, right; Toe pain, left Start: 09-12-2024 End: 09-12-2024 ambulatory SALO DUQUE Not Available Start: 09-12-2024 End: 09-12-2024 Bamboo flowsheet Salo Duque DPM Work Phone: [facility] Start: 09-12-2024 End: 09-12-2024 Bamboo flowsheet Salo Duque DPM Work Phone: [facility] Start: 07-31-2024 Non-patient / Non-visit [facility] Work Phone: Start: 07-28-2024 End: 07-28-2024 Patient encounter procedure [facility] Work Phone: Start: 06-24-2024 End: 06-25-2024 ambulatory SALO DUQUE Not Available Start: 06-24-2024 End: 06-24-2024 Office outpatient visit 15 minutes Salo Duque DPM Work Phone: [facility] Comment on above: Foot pain, left (Mackenzie chapin Dx); Pain due to onychomycosis of toenails of both feet; DJD (degenerative joint disease), ankle and foot, left; Verruca plantaris; Other specified disorders of synovium, left ankle and foot Start: 06-24-2024 End: 06-24-2024 ambulatory SALO DUQUE Not Available Start: 06-24-2024 End: 06-24-2024 Bamboo flowsheet Salo Duque DPM Work Phone: [facility] Start: 06-24-2024 End: 06-24-2024 Bamboo flowsheet Salo Duque DPM Work Phone: [facility] Start: 04-08-2024 End: 04-08-2024 Patient encounter procedure Salo Duque DPM Work Phone: [facility] Comment on above: Onychomycosis (Prima ry Dx); Toe pain, bilateral Start: 04-08-2024 End: 04-08-2024 ambulatory SALO DUQUE Not Available Start: 04-08-2024 End: 04-08-2024 Bamboo flowsheet Salo Duque DPM Work Phone: [facility] Start: 04-08-2024 End: 04-08-2024 Bamboo flowsheet Salo Duque DPM Work Phone: [facility] Start: 01-29-2024 End: 01-29-2024 ambulatory SALO DUQUE Not Available Start: 01-22-2024 End: 01-22-2024 ambulatory [facility] Work Phone: Start: 01-22-2024 End: 01-22-2024 Patient encounter procedure [facility] Work Phone: Start: 01-08-2024 End: 01-08-2024 ambulatory DELFINA RITTER Facility:[facility] Start: 01-08-2024 End: 01-08-2024 Patient encounter procedure DELFINA RITTER [facility] Start: 12-13-2023 Non-patient / Non-visit [facility] Work Phone: Start: 11-21-2023 Non-patient / Non-visit [facility] Work Phone: Start: 11-05-2023 Non-patient / Non-visit [facility] Work Phone: Start: 06-14-2023 End: 06-14-2023 ambulatory Jevon Medina Other [email or web address] Other Start: 06-14-2023 Telephone encounter Jevon [facility] Start: 06-11-2023 End: 06-11-2023 ambulatory Jevon Adam Other [email or web address] Other Start: 06-11-2023 Telephone encounter Jevon Adam [facility] Start: 06-04-2023 End: 06-04-2023 ambulatory Jevon Medina Other [email or web address] Other Start: 06-04-2023 Office outpatient vi sit 15 minutes Jevon Ball [facility] Start: 03-02-2023 End: 03-02-2023 ambulatory Jevon Medina Other [email or web address] Other Start: 03-02-2023 Office outpatient vi sit 15 minutes Jevon Adam [facility] Start: 01-23-2023 End: 01-23-2023 ambulatory Jevon Medina Other [email or web address] Other Start: 01-23-2023 Patient encounter procedure Jevon Adam [facility] Start: 12-26-2022 End: 12-26-2022 ambulatory Jevon Medina Other [email or web address] Other Start: 12-26-2022 Telephone encounter Jevon Medina [facility] Start: 12-23-2022 End: 12-24-[address] JEVON MEDINA Facility:[facility] Start: 12-22-2022 End: 12-23-[address] JEVON MEDINA Facility:[facility] Start: 11-21-2022 End: 11-21-2022 ambulatory Jevon Medina Other [email or web address] Other Start: 11-21-2022 Office outpatient vi sit 15 minutes Jevon Medina [facility] Start: 10-23-2022 End: 10-24-[address] JALEN WELSH Facility:[facility] Start: 10-12-2022 End: 10-13-[address] JEVON MEDINA Facility:[facility] Start: 10-02-2022 End: 10-02-2022 ambulatory Jevon Adam Other [email or web address] Other Start: 10-02-2022 Office outpatient vi sit 15 minutes Jevon [facility] Start: 04-14-2022 End: 04-15-[address] JALEN WELSH Facility:[facility] Start: 01-31-2022 End: 02-01-[address] JEVON MEDINA Facility:[facility] Start: 01-17-2022 Adult health examination Paulomilena Medina Other [email or web address] Other Start: 11-24-2021 Office outpatient vi sit 25 minutes Jevon Medina Work Phone: [facility] [employer] 250 DO Work Phone: Start: 07-11-2021 End: 07-11-2021 Pre-procedure evaluation check Jevon Medina Other [email or web address] Other End: 11-24-2021 Patient encounter status Jevon Medina Work Phone: [facility] [employer] 250 DO Work Phone: Procedures Date Procedure Procedure Detail Performing Clinician Start: 12-31-2023 Radiography of [id number] DELFINA RITTER Start: 01-17-2022 Depression screening Be lalit Medina Other Start: 10-21-2020 Extracorporeal shock wave lithotripsy of calculus of kidney DELFINA RITTER Start: 10-14-2020 Extracorporeal shock wave lithotripsy of calculus of kidney DELFINA RITTER Start: 06-30-2019 Colonoscopy Salo wright DPM Work Phone: Start: 06-30-2019 Colonoscopy DELFINA ARANGO Start: 09-11-2017 Colonoscopy DELFINA Ellis ERRY Comment on above: diverticulosis Start: 09-11-2017 EGD 2 DELFINA ARANGO Comment on above: biopsy Start: 09-08-2015 General examination of patient Jevon Medina Other Start: 05-06-2013 Preoperative cardiov ascular examination Jevon Medina Other Appendectomy Jevon Medina Work Phone: Appendectomy DELFINA RITTER Arthroplasty of knee Lalaami n E Adam Work Phone: Biopsy of breast Jevon Medina Work Phone: Biopsy of liver Jevon Youssef B all Work Phone: Breast Biopsy DELFINA RITTER Breast surgery (qual ifier value) DELFNIA RITTER Cardiac catheterization Lala bernal E Adam Work Phone: Decompression of med sheryl nerve Jevon Medina Work Phone: Dilation of esophagus Nuzhat in Domonique Medina Work Phone: History of operative procedure on knee Jevon Medina Other Hysterectomy Jevon Medina Work Phone: Hysterectomy DELFINA RITTER Lithotripsy Jevon Medina Work Phone: Screening for osteoporosis B enjamin Adam Other Screening mammography Nuzhat in Adam Other Subacute bacterial endocarditis prophylaxis Jevon Medina Other Toe Surgery DELFINA RITTER Total colonoscopy Jevon Medina Work Phone: Plan of Treatment Date Care Activity Detail Author Start: 06-30-2029 Screening for malign ant neoplasm of colon [facility] Start: 06-21-2025 Pneumococcal Vaccine : 65+ Years (3 of 3 - PPSV23 or PCV20) Pneumococcal Vaccine: 65+ Years (3 of 3 - PPSV23 or PCV20) [facility] Start: 04-20-2025 Influenza vaccination Influenz a Vaccine (Season Ended) [facility] Start: 01-30-2025 End: 01-30-2025 Patient encounter procedure 01/30/2025 2:00 PM EDT Procedure Visit [facility] [address] [place] [id number] Salo Duque, DPM [address] [address] [facility] Start: 11-21-2024 End: 11-21-2024 Patient encounter procedure 11/21/2024 3:00 PM EDT Procedure [facility] [address] [place] [id number] Salo Duque, DPM [address] [address] [facility] Start: 09-12-2024 End: 09-12-2024 Patient encounter procedure 09/12/2024 3:00 PM EST Procedure Visit [facility] [address] [place] [phone] Salo Duque, DPM [address] [address] DJD (degenerative joint disease), ankle and foot, left (Primary Dx); Other specified disorders of synovium, left ankle and foot; Verruca plantaris; Foot pain, left; Onychomycosis; Toe pain, right; Toe pain, left [facility] Comment on above: DJD (degenerative ting int disease), ankle and foot, left (Primary Dx); Other specified disorders of synovium, left ankle and foot; Verruca plantaris; Foot pain, left; Onychomycosis; Toe pain, right; Toe pain, left Start: 09-02-2024 End: 09-02-2024 Patient encounter procedure 09/02/2024 3:30 PM EST Procedure Visit [facility] [address] [place] [phone] Salo Duque DPM [address] [address] [facility] Start: 06-25-2024 End: 06-25-2024 Professional / ancillary services management 06/25/2024 8:00 AM EST Ancillary Procedure [facility] [address] [place] [id number] Arrived [facility] Comment on above: Arrived Start: 06-24-2024 End: 06-24-2024 Patient encounter procedure 06/24/2024 3:30 PM EST Procedure Visit [facility] [address] [place] [phone] Salo Duque DPM [address] [address] Pain due to onychomycosis of toenails of both feet (Primary Dx) [facility] Comment on above: Pain due to onychomy cosis of toenails of both feet (Primary Dx) Start: 06-17-2024 End: 06-17-2024 Patient encounter procedure 06/17/2024 3:30 PM EDT Procedure Visit [facility] [address] [place] [phone] Salo Duque DPM [address] [address] [facility] Start: 04-20-2024 Influenza vaccination Influenza Vacc ine (#1) [facility] Start: 04-08-2024 End: 04-08-2024 Patient encounter procedure 04/08/2024 3:30 PM EDT Procedure Visit [facility] [address] [place] [phone] Salo Duque DPM [address] [address] Verruca plantaris (Primary Dx); Foot pain, right; Onychomycosis; Toe pain, bilateral [facility] Comment on above: Verruca plantaris (P rimary Dx); Foot pain, right; Onychomycosis; Toe pain, bilateral Start: 1990 Screening for malign ant neoplasm of breast Mammogram [facility] Start: 1950 Screening for malign ant neoplasm of colon [facility] XR Ankle - left 3 Views XR ankle 3+ views left Imaging Routine DJD (degenerative joint disease), ankle and foot, left 06/24/2024 7:05 PM EST [facility] Work Phone: Immunizations Immunization Date Immunization Notes Care Provider Miriam bacon 05-29-2023 influenza virus vaccine, unspecified formulation DELFINA RITTER [facility] 05-29-2023 influenza, high dose seasonal, preservative-free Jevon Medina Other [email or web address] Other 06-04-2022 influenza, high dose seasonal, preservative-free Jevon Medina Other [email or web address] Other 06-04-2022 influenza virus vaccine, split virus (incl. purified surface antigen) Jevon Medina Other [email or web address] Other 06-04-2022 influenza virus vaccine, unspecified formulation DELFINA RITTER [facility] 12-01-2021 COVID-19 Vaccine Moderna - Documentation Purposes Only Jevon Medina Other [facility] 06-14-2021 Moderna COVID-19 Vaccine 100 MCG/0.5ML Intramuscular Suspension Jevon Medina Work Phone: [facility] 05-28-2021 zoster vaccine recombinant Jevon Medina Work Phone: [facility] 05-28-2021 zoster vaccine, live Benjami n Ball Other [facility] 05-01-2021 Fluad Quadrivalent 0 .5 ML Intramuscular Prefilled Syringe Jevon Domonique Medina Work Phone: [facility] 250 DO Work Phone: 05-01-2021 influenza virus vaccine, split virus (incl. purified surface antigen) Jevon Medina Other [facility] [employer] Other 05-01-2021 influenza virus vaccine, unspecified formulation DELFINA RITTER [facility] 12-20-2020 zoster vaccine, live Benjami n Ball Other [facility] 12-19-2020 zoster vaccine recombinant Jevon Domonique Medina Work Phone: [facility] 11-16-2020 Moderna COVID-19 Vaccine 100 MCG/0.5ML Intramuscular Suspension Jevon E Adam Work Phone: [facility] 10-19-2020 Moderna COVID-19 Vaccine 100 MCG/0.5ML Intramuscular Suspension Jevon E Adam Work Phone: [facility] 06-21-2020 pneumococcal conjuga te vaccine, 13 valent Jevon E Adam Work Phone: [facility] 06-18-2020 pneumococcal conjuga te vaccine, 13 valent Jevon Medina Other [facility] 05-20-2020 influenza virus vaccine, unspecified formulation DELFINA RITTER [facility] 05-20-2020 influenza, high dose seasonal, preservative-free Jevon Medina Work Phone: [facility] 250 DO Work Phone: 04-20-2020 influenza virus vaccine, unspecified formulation Jevon Medina Work Phone: [facility] 06-05-2019 influenza virus vaccine, unspecified formulation DELFINA RITTER [facility] 06-05-2019 Seasonal trivalent influenza vaccine, adjuvanted, preservative free Jevon Domonique Medina Work Phone: [place] [address] DO Work Phone: 06-05-2018 influenza virus vaccine, unspecified formulation DELFINA RITTER [facility] 06-05-2018 influenza, injectabl e, quadrivalent, preservative free Jevon Youssef Adam Work Phone: [place] [address] DO Work Phone: 08-20-2013 pneumococcal polysaccharide vaccine, 23 valent Jevon Medina Work Phone: [facility] 04-30-2012 tetanus and diphther ia toxoids, adsorbed, preservative free, for adult use (5 Lf of tetanus toxoid and 2 Lf of diphtheria toxoid) Jevon Medina Other [facility] Payers Date Payer Category Payer Private Health Insurance [employer] [id number] 2023 Unknown 2020 [employer] ( and others) [id number] 2019 [employer] ( and others) FOR LIFE [id number] 2019-Present [address] [place] [address] [id number] 2019 () [id number] 2019 [employer] ( and others) [id number] 2015 Medicare [id number] 1959 [employer] ( and others) [id number] 1959 Medicare [id number] 1959 Self-pay 1959 Unknown [id number] 1950 Unknown [id number] 2.16.840.1.299669.3.579.2. 593 1950 Unknown [id number] 2.16.840.1.315085.3.579.2. 593 1950 Unknown [id number] 2.16.840.1.089661.3.579.2. 593 1950 Unknown [id number] 2.16.840.1.783348.3.579.2. 593 1950 Unknown [id number] 2.16.840.1.230523.3.579.2. 593 1950 Unknown [id number] 2.16.840.1.396755.3.579.2. 1259 1950 Unknown [id number] 2.16.840.1.759574.3.579.2. 1259 1950 Unknown [id number] 2.16.840.1.671723.3.579.2. 1259 1950 Unknown [id number] 2.16.840.1.935773.3.579.2. 1259 1950 Unknown [id number] 2.16.840.1.663187.3.579.2. 9 1950 Unknown [id number] 2.16.840.1.197070.3.579.2. 1259 1950 Unknown [id number] 2.16.840.1.960550.3.579.2. 727 1950 Unknown [id number] 2.16.840.1.027538.3.579.2. 727 Department of [facility] e ( and others) for Life [id number] Unknown [id number] Social History Date Type Detail Facility Start: 04-08-2024 End: 09-12-2024 No alcohol use No alcohol use [facility] 250 DO Work Phone: Start: 04-08-2024 End: 09-12-2024 Sex Assigned At [facility] Start: 05-17-2020 End: 01-08-2024 Tobacco smoking status Never smoked tobacco (finding) [facility] Tobacco smoking status Never [facility] Start: 1950 Sex Assigned At Female [facility] Start: 02-13-2023 Tobacco use and exposure Smokeless tobacco non-user [facility] Start: 04-08-2024 End: 11-19-2024 Alcoholic beverage intake Lifetime non-drinker (finding) [facility] Start: 1950 Sex assigned at Not on file [facility] Start: 10-07-2024 End: 12-02-2024 Sex Female (finding) [facility] NEGATED: Highlighted rowStart: NINF History of tobacco use Passive smoker [facility] Medical Equipment Procedure Code Equipment Code Equipment Origin al Text Equipment Identifier Dates Arthroplasty, knee, total, minimally invasive Orthopaedic cement, non-medicated [id number] FDA Start: 05-17-2020 Arthroplasty, knee, total, minimally invasive Uncoated knee femur prosthesis [id number] FDA Start: 05-17-2020 Arthroplasty, knee, total, minimally invasive Tibial insert [id number] FDA Start: 05-17-2020 Arthroplasty, knee, total, minimally invasive Polyethylene patella prosthesis [id number] FDA Start: 05-17-2020 Arthroplasty, knee, total, minimally invasive Uncoated knee tibia prosthesis, metallic [id number] FDA Start: 05-17-2020 Functional Status Date Assessment Result Facility 01-08-2024 Functional Status N/A [facility] Clinical Notes 10-02-2022 to 11-19-2024 Salo Duque, YADY - 11/19/2024 3:50 PM EDT Note Date & Type Note Facility 11-19-2024 History of Presen t illness Narrative 6Patient: Gissell Muñoz : 1950 PCP: Jevon Medina MD SUBJECTIVE Patient presents today with a CC of elongated, thick nails. Pt states nails have been elongated and thick for many years and cause pain with ambulation in shoegear. Pt has tried previous treatment with minimal relief. Pt presents today for nail care and treatment. Patient presents today for follow up of skin lesion/neoplasm of unknown origin to the left foot Pt states that previous treatment of acid tx with some improvement Pt rates pain the pain on a 1-10 scale an intensity of 5 Pt presents today for followup. Patient presents today for follow up of capsulitis and synovitis to the left ankle synovium with djd. Currently they rate their pain on a 1-10 scale a 5 States prior treatments of steroid injection and nsaids with intermittent improvement. States pain is aggrevated with WB. Allergies: Allergies Allergen Reactions Hydroxyzine Unknown Iodinated Contrast Media Itching Metoclopramide Itching Wheat GI intolerance Past Medical History: Past Medical History: Diagnosis Date Arthritis Diverticula of intestine 05/16/2023 Diverticulitis Gastric ulcer 05/16/2023 HTN (hypertension) (CMS/HCC) 05/16/2023 Hyperlipidemia (CMS/HCC) Hypertension (CMS/HCC) Kidney stone 05/16/2023 Kidney stones Lower abdominal pain 05/16/2023 Osteoarthritis of knee Rectal bleed 05/16/2023 Ureteral stone 05/16/2023 Verruca plantaris 05/16/2023 Medications: Current Outpatient Medications: alendronate (Fosamax) 70 MG tablet, Take 70 mg by mouth every 7 (seven) days., Disp: , Rfl: atenolol (Tenormin) 50 MG tablet, Take 50 mg by mouth 1 (one) time each day at the same time., Disp: , Rfl: atorvastatin (Lipitor) 20 MG tablet, Take 20 mg by mouth at bedtime., Disp: , Rfl: hydroxychloroquine (Plaquenil) 200 MG tablet, Take 200 mg by mouth in the morning., Disp: , Rfl: lisinopril 10 MG tablet, Take 10 mg by mouth 1 (one) time each day at the same time., Disp: , Rfl: Social History: Social History Socioeconomic History Marital status: Spouse name: Not on file Number of children: Not on file Years of education: Not on file Highest education level: Not on file Occupational History Not on file Tobacco Use Smoking status: Never Passive exposure: Never Smokeless tobacco: Never Vaping Use Vaping status: Unknown Substance and Sexual Activity Alcohol use: Never Drug use: Never Sexual activity: Defer Partners: Decline to Answer Other Topics Concern Not on file Social History Narrative Not on file Social Drivers of Health Financial Resource Strain: Not on file Food Insecurity: Not on file Transportation Needs: Not on file Physical Activity: Not on file Stress: Not on file Social Connections: Not on file Intimate Partner Violence: Not on file Housing Stability: Not on file ROS: General: denies fever, chills, fatigue, malaise GI: denies abdominal pain or ulcerations with anti-inflammatory medication OBJECTIVE LE EXAM: DERM: Elongated thick yellow crumbly nails digits 1 through 10. Positive hair growth b/l feet. Nummular lesion measuring at the lateral left 5th metatarsal region measure 0.1 cm x 0.1 cm slight edema to the left ankle VASC: Positive palpable pedal pulses bilaterally NEURO: Gross sensation intact to bilateral feet ORTHO: Positive palpation left foot lesion Diminished pain on palpation lateral left foot ankle gutter Positive pain on palpation to toenails of the left 1,2,3,4,5 toes and right 1,2,3,4,5 toes ASSESSMENT 1. Other specified disorders of synovium, left ankle and foot 2. Verruca plantaris 3. Foot pain, left 4. Pain due to onychomycosis of toenails of both feet PLAN Discussed proper foot care with patient today. Debride nails in length and thickness digits 1 through 10 Application of salinocaine acid medication to lesion/lesions located at left foot Informed pt of risks and benefits of procedure including high reoccurence rate, infection, pain and consent given. Application of DSD post procedure. Discussed possible follow up steroid injection and patient declined today however will continue with Tylenol p.r.n. and if worsens consider possible steroid injections in the future Patient to continue with oral anti - inflammatories as needed for pain and recommended OTC medications such as tylenol or Ibuprofen Salo Duque DPM documented in this encounter [facility] 10-07-2024 Evaluation note Diagnosis Onset Date Resolution Type 2 diabetes mellitus with hyperglycemia acute September 9:01am Acute bronchitis due to other specified organisms noneactive October 07 9:01am [facility] Work Phone: 1(875) 794-212601-24-2025 History of Present illness Narrative* Salo Duque, DPM - 09/12/2024 3:00 PM EST 6Patient: Gissell Muñoz : 1950 PCP: Jevon Medina MD SUBJECTIVE Patient presents today with a CC of elongated, thick nails. Pt states nails have been elongated and thick for many years and cause pain with ambulation in shoegear. Pt has tried previous treatment with minimal relief. Pt presents today for nail care and treatment. Patient presents today for follow up of skin lesion/neoplasm of unknown origin to the left foot Pt states that previous treatment of acid tx with some improvement Pt rates pain the pain on a 1-10 scale an intensity of 4 Pt presents today for followup. Patient presents today for follow up of capsulitis and synovitis to the left ankle synovium with djd. Currently they rate their pain on a 1-10 scale a 6 States prior treatments of steroid injection and nsaids with negative improvement States pain is aggrevated with WB. Allergies: Allergies Allergen Reactions Hydroxyzine Unknown Iodinated Contrast Media Itching Metoclopramide Itching Wheat GI intolerance Past Medical History: Past Medical History: Diagnosis Date Arthritis Diverticula of intestine 05/16/2023 Diverticulitis Gastric ulcer 05/16/2023 HTN (hypertension) (CMS/HCC) 05/16/2023 Hyperlipidemia (CMS/HCC) Hypertension (CMS/HCC) Kidney stone 05/16/2023 Kidney stones Lower abdominal pain 05/16/2023 Osteoarthritis of knee Rectal bleed 05/16/2023 Ureteral stone 05/16/2023 Verruca plantaris 05/16/2023 Medications: Current Outpatient Medications: alendronate (Fosamax) 70 MG tablet, Take 70 mg by mouth every 7 (seven) days., Disp: , Rfl: atenolol (Tenormin) 50 MG tablet, Take 50 mg by mouth 1 (one) time each day at the same time., Disp: , Rfl: atorvastatin (Lipitor) 20 MG tablet, Take 20 mg by mouth at bedtime., Disp: , Rfl: hydroxychloroquine (Plaquenil) 200 MG tablet, Take 200 mg by mouth in the morning., Disp: , Rfl: lisinopril 10 MG tablet, Take 10 mg by mouth 1 (one) time each day at the same time., Disp: , Rfl: Social History: Social History Socioeconomic History Marital status: Spouse name: Not on file Number of children: Not on file Years of education: Not on file Highest education level: Not on file Occupational History Not on file Tobacco Use Smoking status: Never Passive exposure: Never Smokeless tobacco: Never Vaping Use Vaping status: Unknown Substance and Sexual Activity Alcohol use: Never Drug use: Never Sexual activity: Defer Partners: Decline to Answer Other Topics Concern Not on file Social History Narrative Not on file Social Drivers of Health Financial Resource Strain: Not on file Food Insecurity: Not on file Transportation Needs: Not on file Physical Activity: Not on file Stress: Not on file Social Connections: Not on file Intimate Partner Violence: Not on file Housing Stability: Not on file ROS: General: denies fever, chills, fatigue, malaise GI: denies abdominal pain or ulcerations with anti-inflammatory medication OBJECTIVE LE EXAM: DERM: Elongated thick yellow crumbly nails digits 1 through 10. Positive hair growth b/l feet. Nummular lesion measuring at the lateral left 5th metatarsal region measure 0.1 cm x 0.1 cm slight edemato the left ankle VASC: Positive palpable pedal pulses bilaterally NEURO: Gross sensation intact to bilateral feet ORTHO: Positive pain on palpation nails 1 through 10 Positive palpation left foot lesion Positive pain on palpation lateral left foot ankle gutter ASSESSMENT 1. DJD (degenerative joint disease), ankle and foot, left 2. Other specified disorders of synovium, left ankle and foot 3. Verruca plantaris 4. Foot pain, left 5. Onychomycosis 6. Toe pain, right 7. Toe pain, left PLAN Discussed proper foot care with patient today. Debride nails in length and thickness digits 1 through 10 Application of salinocaine acid medication to lesion/lesions located at left foot Informed pt of risks and benefits of procedure including high reoccurence rate, infection, pain andconsent given. Application of DSD post procedure. Discussed possible follow up steroid injection and patient declined today however will continue with Tylenol p.r.n. and if worsens consider possible steroid injections in the future Patient to continue with oral anti - inflammatories as needed for pain and recommended OTC medications such as tylenol or Ibuprofen Salo Duque DPM [facility] [id number] Evaluation note* Diagnosis Onset Date Resolution Status Admit Date GERD (gastroesophageal reflu x disease) acute July 28 3:05pm Hypercholesterolemia acute Dece mber 2023 3:05pm Hypertension acute July 3:05pm Obesity acute July 28, 2024 3:05pm Osteoporosis acute July 3:05pm Type 2 diabetes mellitus wit h hyperglycemia acute July 28 3:05pm [facility] Work Phone: 1(108) 478-676011-05-2024 History of Present illness Narrative* Salo Duque DPM - 06/24/2024 3:30 PM EST 6Patient: Gissell Muñoz : 1950 PCP: Jevon Medina MD SUBJECTIVE Patient presents today with a CC of elongated, thick nails. Pt states nails have been elongated and thick for many years and cause pain with ambulation in shoegear. Pt has tried previous treatment with minimal relief. Pt presents today for nail care and treatment. Patient presents today for follow up of skin lesion/neoplasm of unknown origin to the left foot Pt states that previous treatment of acid tx with some improvement Pt rates pain the pain on a 1-10 scale an intensity of 5 Pt presents today for followup. Patient also presents today with complaints of pain to the lateral aspect of the left ankles has been present for the past 3 weeks and denies any trauma to the area has been increased in pain and taking anti-inflammatories with minimal improvement Allergies: Allergies Allergen Reactions Hydroxyzine Unknown Iodinated Contrast Media Itching Metoclopramide Itching Wheat GI intolerance Past Medical History: Past Medical History: Diagnosis Date Arthritis Diverticula of intestine 05/16/2023 Diverticulitis Gastric ulcer 05/16/2023 HTN (hypertension) (CMS/HCC) 05/16/2023 Hyperlipidemia (CMS/HCC) Hypertension (CMS/HCC) Kidney stone 05/16/2023 Kidney stones Lower abdominal pain 05/16/2023 Osteoarthritis of knee Rectal bleed 05/16/2023 Ureteral stone 05/16/2023 Verruca plantaris 05/16/2023 Medications: Current Outpatient Medications: alendronate (Fosamax) 70 MG tablet, Take 70 mg by mouth every 7 (seven) days., Disp: , Rfl: atenolol (Tenormin) 50 MG tablet, Take 50 mg by mouth 1 (one) time each day at the same time., Disp: , Rfl: atorvastatin (Lipitor) 20 MG tablet, Take 20 mg by mouth at bedtime., Disp: , Rfl: hydroxychloroquine (Plaquenil) 200 MG tablet, Take 200 mg by mouth in the morning., Disp: , Rfl: lisinopril 10 MG tablet, Take 10 mg by mouth 1 (one) time each day at the same time., Disp: , Rfl: Social History: Social History Socioeconomic History Marital status: Spouse name: Not on file Number of children: Not on file Years of education: Not on file Highest education level: Not on file Occupational History Not on file Tobacco Use Smoking status: Never Passive exposure: Never Smokeless tobacco: Never Vaping Use Vaping status: Unknown Substance and Sexual Activity Alcohol use: Never Drug use: Never Sexual activity: Defer Partners: Decline to Answer Other Topics Concern Not on file Social History Narrative Not on file Social Drivers of Health Financial Resource Strain: Not on file Food Insecurity: Not on file Transportation Needs: Not on file Physical Activity: Not on file Stress: Not on file Social Connections: Not on file Intimate Partner Violence: Not on file Housing Stability: Not on file ROS: General: denies fever, chills, fatigue, malaise GI: denies abdominal pain or ulcerations with anti-inflammatory medication OBJECTIVE LE EXAM: DERM: Elongated thick yellow crumbly nails digits 1 through 10. Positive hair growth b/l feet. Nummular lesion measuring at the lateral left 5th metatarsal region measure 0.1 cm x 0.1 cm slight edemato the left ankle VASC: Positive palpable pedal pulses bilaterally NEURO: Gross sensation intact to bilateral feet ORTHO: Positive pain on palpation nails 1 through 10 Positive palpation left foot lesion Positive palpation lateral left foot ankle gutter Verbal order today for x-rays be taken by staff. left view ankle film radiographs today of the left ankle demonstrated the following: Notable degenerative changes to the sinus tarsi and subtalar joint as well as to the tibiotalar joint with negative fractures identified DIAGNOSTIC US REPORT: Verbal order for ultrasound today The left ankle was scanned today with a 12 MHz linear probe in the transverse/sagital planes. Images were obtained. FINDINGS: US examination in the longitudinal and transverse images of the ankle joint demonstrates a small amount of hypo-echoic density and signal of the ankle joint indicative of synovitis and capsulitis. IMPRESSION: US findings of capsulitis/synovitis of ankle. ASSESSMENT 1. Pain due to onychomycosis of toenails of both feet 2. DJD (degenerative joint disease), ankle and foot, left 3. Verruca plantaris 4. Foot pain, left 5. Other specified disorders of synovium, left ankle and foot PLAN Discussed proper foot care with patient today. Debride nails in length and thickness digits 1 through 10 Reviewed x-rays and ultrasound today with patient Application of salinocaine acid medication to lesion/lesions located at left foot Informed pt of risks and benefits of procedure including high reoccurence rate, infection, pain andconsent given. Application of DSD post procedure. Pt was given steroid injection to the left ankle joint capsule and synovium under US guidance with visualization of injected fluid into area of concern per imaging. Injection consisted of a 2:1 mixture of xylocaine 2%plain and kenalog 10 for a total of 3ccs. Informed pt of risks and benefits of procedure including infection,damage or rupture to soft tissuestructures and steroid flare. Pt understood and consented. This is the patients 1st injection Patient to continue with oral anti - inflammatories as needed for pain and recommended OTC medications such as tylenol or Ibuprofen Salo Duque DPM documented in this encounterGold[facility] [id number] History of Present illness Narrative* Salo Duque DPM - 04/08/2024 3:30 PM EDT 6Patient: Gissell Kimi Muñoz : 1950 PCP: Jevon Medina MD SUBJECTIVE Patient presents today for follow up of skin lesion/neoplasm of unknown origin to the right foot Pt states that previous treatment of acid tx with improvement and negative pain Patient presents today with a CC of elongated, thick nails. Pt states nails have been elongated and thick for many years and cause pain with ambulation in shoegear. Pt has tried previous treatment with minimal relief. Pt presents today for nail care and treatment. Allergies: Allergies Allergen Reactions Hydroxyzine Unknown Iodinated Contrast Media Itching Metoclopramide Itching Wheat GI intolerance Past Medical History: Past Medical History: Diagnosis Date Arthritis Diverticula of intestine 05/16/2023 Diverticulitis Gastric ulcer 05/16/2023 HTN (hypertension) (CMS/HCC) 05/16/2023 Hyperlipidemia (CMS/HCC) Hypertension (CMS/HCC) Kidney stone 05/16/2023 Kidney stones Lower abdominal pain 05/16/2023 Osteoarthritis of knee Rectal bleed 05/16/2023 Ureteral stone 05/16/2023 Verruca plantaris 05/16/2023 Medications: Current Outpatient Medications: alendronate (Fosamax) 70 MG tablet, Take 70 mg by mouth every 7 (seven) days., Disp: , Rfl: atenolol (Tenormin) 50 MG tablet, Take 50 mg by mouth 1 (one) time each day at the same time., Disp: , Rfl: atorvastatin (Lipitor) 20 MG tablet, Take 20 mg by mouth at bedtime., Disp: , Rfl: hydroxychloroquine (Plaquenil) 200 MG tablet, Take 200 mg by mouth in the morning., Disp: , Rfl: lisinopril 10 MG tablet, Take 10 mg by mouth 1 (one) time each day at the same time., Disp: , Rfl: Social History: Social History Socioeconomic History Marital status: Spouse name: Not on file Number of children: Not on file Years of education: Not on file Highest education level: Not on file Occupational History Not on file Tobacco Use Smoking status: Never Passive exposure: Never Smokeless tobacco: Never Vaping Use Vaping status: Unknown Substance and Sexual Activity Alcohol use: Never Drug use: Never Sexual activity: Defer Partners: Decline to Answer Other Topics Concern Not on file Social History Narrative Not on file Social Determinants of Health Financial Resource Strain: Not on file Food Insecurity: Not on file Transportation Needs: Not on file Physical Activity: Not on file Stress: Not on file Social Connections: Not on file Intimate Partner Violence: Not on file Housing Stability: Not on file ROS: General: denies fever, chills, fatigue, malaise OBJECTIVE LE EXAM: DERM: Elongated thick yellow crumbly nails digits 1 through 10. Positive hair growth b/l feet. Nummular lesion measuring at the lateral left 5th metatarsal region has mostly resolved. And right sub 5th metatarsal lesion has resolved VASC: Positive palpable pedal pulses bilaterally NEURO: Gross sensation intact to bilateral feet ORTHO: Positive pain on palpation nails 1 through 10 ASSESSMENT 1. Onychomycosis 2. Toe pain, bilateral PLAN Discussed proper foot care with patient today. Debride nails in length and thickness digits 1 through 10 Salo Duque DPM documented in this encounterGold[facility] [id number] Hospital Discharge instructions Patient Education 01/08/2024 15:12:44 Kidney Stones Kidney Stones Kidney stones are solid, rock-like deposits that form inside of the kidneys. The kidneys are a pairof organs that make urine. A kidney stone [...] the ribs (flank pain). Pain usually spreads (radiates)to the groin. Needing to urinate often or [...] Follow these instructions at home: Medicines Take [id number] and prescription medicines only as told by [...] Kidney Foundation (NKF): www.kidney.org [facility] (UCF): www.urologyhealth.org Contact a health care provider if: [...] provider. Document Revised: 11/15/2022 Document Reviewed: 11/15/2022 [employer] Patient Education 2022 [employer] Follow Up Care 01/02/2023 15:46:57 With:DELFINA RITTER PA-C, URL Address: [address] [place] [address] [phone] When: Unknown [facility] 10-16-2023 Evaluation note* Encounter Date Diagnosis Assessment Notes Treatment Notes Treatment Clinical Notes May, Sebaceous cyst (ICD-10 - L72.3) [...] continue exercise to achieve/maintain a normal BMI. [email or web address] Other 06-06-2023 Evaluation note* Encounter Date Diagnosis [...] tolerating w/o ADR. DEXA every 2-3 years [email or web address] Other 04-04-2023 Evaluation note* Encounter Date Diagnosis Assessment Notes Treatment Notes Treatment Clinical Notes Nov, Acute bronchitis due to other specified organisms (ICD-10 - J20.8) Instructed to use Robitussin or Mucinex for cough, saline or Flonase NS for congestion, Tylenol for pain and fever. Nov, Essential hypertension (ICD-10 - I10) Avoid use of decongestants [email or web address] Other 02-13-2023 Evaluation note* Encounter Date Diagnosis Assessment Notes Treatment Notes Treatment Clinical Notes Sep, Rectal bleeding (ICD-10 - K62.5) Avoid straining, push fluids, increased fiber. Monitor for now, call if any further bleeding and a referral to GI will be sent Sep, External hemorrhoid, bleeding (ICD-10 - K64.4) Tucks wipes, Lidocaine/cortison e [email or web address] Other Evaluation + Plan note Future Appointments Appointment Date:01/06/2025 03:00:00 PM Scheduled Provider:DELFINA RITTER PA-C Location:[facility] Appointment Type:URO Office Visit [facility] evaluation noteNo InformationNort [employer] Other Evaluation noteNoMobbr [employer] Other evaluation note* Diagnosis Onset Date Resolution Status GERD (gastroesophageal reflux disease) acute Hypercholesterolemia acute Hypertension acute Osteoporosis acute Type 2 diabetes mellitus with hyperglycemia acute Medicare annual wellness visit, subsequent noneactive Screening mammogram for breast cancer noneactive [facility] Work Phone: Evaluation note* Diagnosis Foot pain, left- Primary Pain in soft tissues of limb Pain due to onychomycosis of toenails of both feet DJD (degenerative joint disease), ankle and foot, left Verruca plantaris Plantar wart Other specified disorders of synovium, left ankle and foot documented in this encounter [facility]* Diagnosis Onychomycosis- Primary Dermatophytosis of nail Toe pain, bilateral documented in this encounter [facility]* Diagnosis DJD (degenerative joint disease), ankle and foot, left- Primary Other specified disorders of synovium, left ankle and foot Verruca plantaris Plantar wart Foot pain, left Pain in soft tissues of limb Onychomycosis Dermatophytosis of nail Toe pain, right Pain in soft tissues of limb Toe pain, left Pain in soft tissues of limb documented in this encounter [facility]* Diagnosis Other specified disorders of synovium, left ankle and foot- Primary Verruca plantaris Plantar wart Foot pain, left Pain in soft tissues of limb Pain due to onychomycosis of toenails of both feet documented in this encounter [facility] HealthcareHistory general Narrative - Reported* Type Description Date [...] History Colonscopy 1999 Hospitalization History See Above [facility] R[facility] Relief Other [facility] - [facility] course Narrative No data available for this section [facility] progress note No data available for this section [facility] Chief Complaint * GISSELL MUÑOZ is being [...] [facility]. Apart from [facility] physical [...] follow up with me in as-needed basis Family History No Family History Records FoundUnknown [...] Unknown Malignant neoplasm Unknown Not Specified Unknown Relationship Condition Age at Onset Recorded Date/T rowan father Heart disease Unknown Leukemia Unknown brother Osteoarthritis Unknown Arthritis Unknown Unknown Malignant neoplasm Unknown mother Unknown Summary Purpose Advance Directives No Advanced Directives Records Found Advance Directive Response Recorded Date/ Time Advance Directives No June 28, 2017 9:41am Advance Directive Response Recorded Date/ Time Advance Directives No June 28, 2017 8:41am Chief Complaint and Reason for Visit Chief Complaint Amb Documentation 6 month follow up Reason for Visit GERD (gastroesophage al reflux disease) Hypercholesterolemia Hypertension Osteoporosis Type 2 diabetes mellitus with hyperglycemia Medicare annual wellness visit, subsequent Screening mammogram for breast cancer Chief Complaint Admit Date 6 month follow up July 28, 2024 3 :05pm cough October 07, 2024 9:01am Reason for Visit Admit Date GERD (gastroesophageal reflux disease) D ecember 2023 3:05pm Hypercholesterolemia July 28, 2024 3:05pm Hypertension July 28, 2024 3 :05pm Obesity July 28, 2024 3 :05pm Osteoporosis July 28, 2024 3 :05pm Type 2 diabetes mellitus with hyperglyce juanita July 28, 2024 3:05pm Chief Complaint Admit Date cough October 07, 2024 9:01am [facility] November 25, 2024 8:00 am Reason for Visit Admit Date Type 2 diabetes mellitus with hyperglyce juanita October 07, 2024 9:01am Acute bronchitis due to other specified organisms October 07, 2024 9:01am Additional Source Comments INFORMATION SOURCE (unrecogn ized section and content) DATE CREATED AUTHOR 11/26/2021 [employer] DATE CREATED AUTHOR AUTHOR'S ORGANIZ ATION 12/29/2022 [facility] DATE CREATED AUTHOR AUTHOR'S ORGANIZ ATION 11/22/2024 [facility] EPIC DATE CREATED AUTHOR AUTHOR'S ORGANIZ ATION 12/03/2024 [facility] DATE CREATED AUTHOR AUTHOR'S ORGANIZ ATION 12/06/2024 [facility] REASON FOR VISIT (unrecogniz ed section and content) Reason Comments DM Foot Care Dm Nails Reason Comments Toenail Care Non DM Nails Reason Comments Toenail Care Non dm nail care Patient Care team informatio n (unrecognized section and content) Team Status: Active Member Role Status Dates Jevon Medina DO Primary Care Provider Active Team Status: Inactive Member Role Status Dates Jevon Medina DO Primary Care Provide r, Attending Provider Active Start: July 28, 2024 End: July 28, 2024 Team Status: Active Member Role Status Dates Jevon Medina DO Primary Care Provide r, Attending Provider Active Start: July 31, 2024 Team Status: Inactive Member Role Status Dates Jevon Medina DO Primary Care Provide r, Attending Provider Active Start: October 07, 2024 End: October 07, 2024 Team Status: Active Member Role Status Dates [...] January 22, 2024 End: January 22, 2024 Welder Gun Relationship Specialty Start Date End Date Jevon Medina MD [address] [place] [id number] PCP - General Internal Medicine 11/20/23 Welder Gun Relationship Specialty Start Date End Date Jevon Medina MD [address] [place] [id number] PCP - General Internal Medicine 11/20/23 Welder Gun Relationship Specialty Start Date End Date Jevon Medina MD [address] [place] [address] PCP - General Internal Medicine 11/20/23 Welder Gun Relationship Specialty Start Date End Date Jevon Medina MD [address] [place] [id number] PCP - General Internal Medicine 11/20/23 Welder Gun Relationship Specialty Start Date End Date Jevon Medina MD [address] [place] [address] PCP - General Internal Medicine 11/20/23 Team Status: Inactive Member Role Status Dates Jevon Medina DO Primary Care Provider Active Start: November 25, 2024 End: November 25, 2024 Dwight Pond - [facility] , DO [facility] Attending Provider Active Start: November 25, 2024 End: November 25, 2024 Goals (unrecognized section and content) Goals [...] BE BASED ON THE PRIMARY CLINICAL RECORDS. [employer] provides no warranty or guarantee of the accuracy or completeness of information in this document.
[2024-12-30 14:16] LABS: Basophils Absolute Auto 0.1 10^3/uL (0.0-0.1); Basophils Percent Auto 0.8 % (0.2-2.0); Eosinophils Absolute Auto 0.2 10^3/uL (0.0-0.7); Eosinophils Percent Auto 2.1 % (0.9-7.0); Hematocrit 43.9 % (36.0-48.0); Immature Granulocytes Abs Auto 0.01 10^3/uL (0.00-0.03); Immature Granulocytes Pct Auto 0.1 % (0.0-0.5); Lymphocytes Absolute Auto 3.1 10^3/uL (1.2-3.8); Lymphocytes Percent Auto 35.1 % (20.5-60.0); Mean Corpuscular HGB Conc 34.2 g/dL (29.9-35.2); Mean Corpuscular Hemoglobin 32.3 pg (26.7-34.0); Mean Corpuscular Volume 94.4 fL (81.0-99.0); Mean Platelet Volume 10.6 fL (9.5-13.5); Monocytes Absolute Auto 0.8 10^3/uL (0.3-0.8); Monocytes Percent Auto 9.3 % (1.7-12.0); Neutrophils Absolute Auto 4.7 10^3/uL (1.4-6.5); Neutrophils Percent Auto 52.6 % (43.0-75.0); Platelet Count 172 10^3/uL (150-450); Red Blood Count 4.65 10^6/uL (4.20-5.40); Red Cell Distribution Width 12.8 % (11.0-15.0)
[2024-12-30 14:31] LABS: Estimated GFR (African America 47 (>=60 mL/min/1.73m^2); Estimated GFR (Non-African Ame 39 (>=60 mL/min/1.73m^2)
[2024-12-30 14:34] LABS: C Reactive Protein <0.50 mg/dL (<=0.50)
[2024-12-30 14:36] LABS: Erythrocyte Sedimentation Rate 8 mm/hr (<=30)
[2024-12-30 15:05] LABS: Bilirubin Urine NEGATIVE (NEGATIVE); Blood Urine NEGATIVE (NEGATIVE); Clarity Urine CLEAR (CLEAR); Color Urine LT. YELLOW (YELLOW); Glucose Urine UA NEGATIVE (NEGATIVE); Ketones Urine NEGATIVE (NEGATIVE); Leukocyte Esterase Urine SMALL (NEGATIVE); Nitrite Urine NEGATIVE (NEGATIVE); Protein Urine NEGATIVE (NEG/TRACE); Urobilinogen Urine 0.2 EU/dL (0.2-1.0)
[2024-12-30 16:02] LABS: Bacteria Urine TRACE #/HPF (NONE SEEN); Calcium Oxalate Crystals Urine FEW; Cast Seen? NONE SEEN #/LPF (NONE SEEN); Crystals Seen? Seen #/HPF (None Seen); Mucus Urine NONE SEEN (NONE SEEN); RBC Urine NONE SEEN #/HPF (0-2); Squamous Epithelial Cell Urine FEW #/LPF (NONE/RARE); WBC Urine 0-2 #/HPF (NONE SEEN)
[2024-12-31 05:07] LABS: Complement C3, Serum 144 mg/dL (82-167); Complement C4, Serum 21 mg/dL (12-38)
== END 2024-12-30 13:41 | disposition home or self-care (01) ==
LOC: LAB 13:41
PROVIDERS: PCP Internal Medicine; Visit Provider Internal Medicine Rheumatology
DX: M35.9 Systemic involvement of connective tissue, unspecified (principal)
CPT/HCPCS: 36415; 81001; 82565; 85025; 85652; 86140; 86160

== ENCOUNTER 2025-01-06 13:47 | Outpatient (OUT) | payer OTHER, MEDICARE, SELFPAY ==
--- NOTE | 2025-01-06 14:00 | XR_ITS ---
The [address] [address] Patient Name: LEXII VAZQUEZ MRN: [id number] date: 1950 Sex: F Assigned Patient Location: [facility] Current Patient Location: [facility] Accession/Order Number: [id number] Exam Date: 01/06/2025 15:31 Report Date: 01/06/2025 15:35 At the request of: BELINDA HAMMER Procedure: XR abdomen 1V Single view of abdomen COMPARISON: 12/31/2023 HISTORY: Yearly checkup for kidney stones THORAX: Lung bases unremarkable. FREE AIR: Supine position limits assessment BOWEL: No gaseous intestinal distention. STOOL: Stool overlies the kidneys limiting assessment RENAL STONES: Similar punctate bilateral nephrolithiasis. VASCULAR CALCIFICATIONS: Unremarkable SOFT TISSUE: Unremarkable BONES: Degenerative change of mild scoliosis POSTSURGICAL CHANGES: None XR/XR abdomen 1V IMPRESSION: Similar punctate nephrolithiasis. Impression dictated by: Sharad Mendez M.D. 01/06/2025 3:35 PM Dictation Location[facility] Electronically authenticated by: [id number] Y Date: 01/06/2025 15:35
== END 2025-01-06 13:48 | disposition home or self-care (01) ==
LOC: RAD 13:47
PROVIDERS: PCP Internal Medicine; Visit Provider Physician Assistant
DX: N20.0 Calculus of kidney (principal)
CPT/HCPCS: 74018

== ENCOUNTER 2025-03-09 13:45 | Outpatient (OUT) | payer OTHER, MEDICARE, SELFPAY ==
--- OUTSIDE RECORDS SUMMARY | 2025-03-09 13:47 | XMS_ITS | Clinical Summary ---
Author Organization [facility] Address [address] [place] [address] Care Team Providers Care Legal Examiner Name Role Phone Jevon Medina Primary Care Provider [phone] Allergies Active Allergy Reactions Criticality Noted Date Comments Hydroxyzine Unknown 05/16/2023 Iodinated Contrast Media Itching 02/13/2023 Metoclopramide Itching 05/16/2023 Wheat GI intolerance 02/13/2023 Medications alendronate (Fosamax) 70 MG tablet Take 70 mg by mouth every 7 (seven) days. 01/26/2023 Active atenolol (Tenormin) 50 MG tablet Take 50 mg by mouth 1 (one) time each day at the same time. Active hydroxychloroqui ne (Plaquenil) 200 MG tablet Take 200 mg by mouth in the morning. 01/04/2023 Active lisinopril 10 MG tablet Take 10 mg by mouth 1 (one) time each day at the same time. Active atorvastatin (Lipitor) 20 MG tablet Take 20 mg by mouth at bedtime. 04/21/2023 Active Active Problems No known active problems Resolved Problems Problem Noted Date Diagnosed Date Resolved Date Diverticula of intestine 05/16/2023 Gastric ulcer 05/16/2023 05/16/2023 HTN (hypertension) 05/16/2023 Kidney stone 05/16/2023 05/16/2023 Lower abdominal pain 05/16/2023 023 Rectal bleed 05/16/2023 05/16/2023 Ureteral stone 05/16/2023 05/16/2023 Verruca plantaris 05/16/2023 05/16/2023 Encounters Date Type Department Care Team Description 01/30/2025 2:00 PM EDT Procedure Visit [facility] [address] [place] [address] Salo Duque DPM Verruca plantaris (Primary Dx); Foot pain, left; Other specified disorders of synovium, left ankle and foot; DJD (degenerative joint disease), ankle and foot, left; Pain due to onychomycosis of toenails of both feet 01/30/2025 Bamboo flowsheet [facility] [address] [place] [address] Salo Duque DPM from Last 3 Months Family History Relation Name Status Comments Father Mother Alive Social History Tobacco Use Types Packs/Day Years Used Date Smoking Tobacco: Never Passive Smoke Exposure: Never Smokeless Tobacco: Never Tobacco Cessation:Counseling Given: Yes Alcohol Use Standard Drinks/Week Comments Never 0 (1 standard drink = 0.6 oz pur e alcohol) Comments Unknown Sex and Gender Information Value Date Recorded Sex Assigned at Not on file Legal Sex Female 6:40 PM EDT Gender Identity Not on file Sexual Orientation Not on file Last Filed Vital Signs Vital Sign Reading Time Taken Comments Blood Pressure 125/80 06/24/2024 3:23 PM EST Pulse 79 06/24/2024 3:23 PM EST Temperature - - Respiratory Rate 16 01/30/2025 2:11 PM EDT Oxygen Saturation - - Inhaled Oxygen Concentration - - Weight 90.7 kg (200 lb) 01/30/2025 2:11 PM EDT Height 165.1 cm (5' 5 ) 01/30/2025 2:11 PM EDT Body Mass Index 33.28 01/30/2025 2:11 PM EDT Plan of Treatment Upcoming Encounters Date Type Department Care Team (Late st Contact Info) Description 04/10/2025 2:30 PM EDT Procedure Visit [facility] [address] [place] [address] Salo Duque DPM [address] [address] Health Maintenance Due Date Last Done Comments CT Colonography 1950 FIT-DNA 1950 FIT 1950 FOBT 1950 Sigmoidoscopy 1950 Mammogram 1990 Influenza Vaccine (#1) 2025 4, 05/29/2023, 06/04/2022, Additional history exists Pneumococcal Vaccine: 65+ Ye ars (3 of 3 - PCV20 or PCV21) 06/21/2025 06/21/2020, 08/20/2013 Colonoscopy 06/30/2029 06/30/2019, 09/11/2017 Colorectal Cancer Screening 06/30/2029 Insurance [facility] MEDICARE Care Teams Legal Examiner Relationship Specialty Start Date End Date Jevon Medina DO [address] [place] [address] PCP - General Internal Medicine 11/20/23
--- OUTSIDE RECORDS SUMMARY | 2025-03-09 13:47 | XMS_ITS | Encounter Summary ---
Author Organization [facility] Address [address] [place] [address] Phone Care Team Providers Care Leather Cleaner Name Role Phone Jevon Medina DO Primary Care Provider [phone] Encounter Details Date Type Department Care Team (Late st Contact Info) Description 10/12/2021 Orders Only [facility] [address] [place] [address] Conversion, Onbase Social History Tobacco Use Types Packs/Day Years Used Date Smoking Tobacco: Never Assessed Comments Unknown Sex and Gender Information Value Date Recorded Sex Assigned at Not on file Legal Sex Female 2:24 AM EST Gender Identity Not on file Sexual Orientation Not on file documented as of this encounter Plan of Treatment Scheduled Orders Name Type Priority Associated Diagnoses Orde r Schedule OUTSIDE LAB SCAN Lab Ordered: 10/12/2021 OUTSIDE LAB SCAN Lab Ordered: 10/12/2021 documented as of this encounter Visit Diagnoses Not on filedocumented in this encounter Care Teams Leather Cleaner Relationship Specialty Start Date End Date Jevon Medina DO PCP - General 11/24/21 documented as of this encounter
--- OUTSIDE RECORDS SUMMARY | 2025-03-09 13:47 | XMS_ITS | Encounter Summary ---
Author Organization [facility] Address [address] [place] [address] Phone Care Team Providers Care Lead Software Tester Name Role Phone Jevon Medina DO Primary Care Provider [phone] Encounter Details Date Type Department Care Team (Late st Contact Info) Description 08/24/2021 Orders Only [facility] [address] [place] [address] Conversion, Onbase Social History Tobacco Use Types [...] r Schedule OUTSIDE LAB SCAN Lab Ordered: 08/24/2021 OUTSIDE LAB SCAN Lab Ordered: 08/24/2021 documented as of this encounter Visit Diagnoses Not on filedocumented in this encounter Care Teams Lead Software Tester Relationship Specialty Start Date End Date Jevon Medina DO PCP - General 11/24/21 documented as of this encounter
== END 2025-03-09 13:46 | disposition home or self-care (01) ==
LOC: RAD 13:45
PROVIDERS: PCP Internal Medicine; Visit Provider Internal Medicine
DX: M81.0 Age-related osteoporosis without current pathological fracture (principal); M85.80 Other specified disorders of bone density and structure, unspecified site
CPT/HCPCS: 77080

== ENCOUNTER 2025-04-13 13:38 | Outpatient (OUT) | payer MEDICARE, OTHER, SELFPAY ==
[2025-04-13 13:52] LABS: Hematocrit 41.9 % (36.0-48.0); Hemoglobin 14.0 g/dL (12.0-16.0); Immature Granulocytes Abs Auto 0.02 10^3/uL (0.00-0.03); Immature Granulocytes Pct Auto 0.2 % (0.0-0.5); Lymphocytes Absolute Auto 3.1 10^3/uL (1.2-3.8); Mean Corpuscular HGB Conc 33.4 g/dL (29.9-35.2); Mean Corpuscular Hemoglobin 31.9 pg (26.7-34.0); Mean Corpuscular Volume 95.4 fL (81.0-99.0); Platelet Count 161 10^3/uL (150-450); Red Blood Count 4.39 10^6/uL (4.20-5.40); White Blood Count 8.2 10^3/uL (4.0-11.0)
[2025-04-13 13:55] LABS: Glucose Urine UA NEGATIVE (NEGATIVE)
[2025-04-13 14:01] LABS: Cast Seen? NONE SEEN #/LPF (NONE SEEN); Crystals Seen? None Seen #/HPF (None Seen)
[2025-04-13 14:49] LABS: Alanine Aminotransferase 37 U/L (14-59); Albumin Globulin Ratio 1.0; Albumin Level 3.6 g/dL (3.4-5.0); Alkaline Phosphatase 81 U/L (46-116); Anion Gap 6.9; Aspartate Amino Transferase 20 U/L (15-37); Blood Urea Nitrogen 18.0 mg/dL (7.0-18.0); Calcium 9.0 mg/dL (8.5-10.1); Carbon Dioxide 32.9 mmol/L (21.0-32.0); Chloride 107 mmol/L (98-107); Estimated GFR (African America >60 (>=60 mL/min/1.73m^2); Estimated GFR (Non-African Ame 57 (>=60 mL/min/1.73m^2); Globulin 3.7 g/dL; Glucose 134 mg/dL (74-106); Potassium 3.8 mmol/L (3.5-5.1); Sodium 143 mmol/L (136-145); Total Protein 7.3 g/dL (6.4-8.2)
== END 2025-04-13 13:39 | disposition home or self-care (01) ==
LOC: LAB 13:39
PROVIDERS: PCP Internal Medicine; Visit Provider Nurse Practitioner Family
DX: M35.9 Systemic involvement of connective tissue, unspecified (principal); Z79.899 Other long term (current) drug therapy
CPT/HCPCS: 36415; 80053; 81001; 85025; 85652; 86140; 86160; 86162

== ENCOUNTER 2025-08-10 13:53 | Outpatient (OUT) | payer OTHER, MEDICARE, SELFPAY ==
--- OUTSIDE RECORDS SUMMARY | 2025-08-04 09:36 | XMS_ITS | Continuity of Care Document ---
Author Organization [facility] Address [address] [place] [address] Phone Care Team Providers Care Core Measures Abstractor Name Role Phone Jevon Medina DO Primary Care Provider Jevon Medina DO Attending Provider Care Teams Patient Care Team Team Status: Active Member Role/Relationship Status Dates Jevon Medina DO Primary Care Provider Active Patient Care Team Team Status: Inactive Member Role/Relationship Status Dates Jevon Medina DO Primary Care Provider Active Start: August 04, 2025 End: August 04enantonieta Medina DOAttending ProviderActiveStart: August 04, 2025 End: August 04, 2025 Chief Complaint and Reason for Visit Chief Complaint Admit Date 6 month f/u August 04, 2025 1:46pm Reason for Visit Admit Date GERD (gastroesophageal reflux disease) D ecember 2024 1:46pm Hypercholesterolemia August 04, 2025 1:46pm Hypertension August 04, 2025 1:46pm Obesity August 04, 2025 1:46pm Osteoporosis August 04, 2025 1:46pm Type 2 diabetes mellitus with hyperglyce juanita August 04, 2025 1:46pm Allergies, Adverse Reactions, Alerts Allergen Type Severity Reaction Last Updated Verified Status hydroxyzine Allergy Unknown Swelling of Lip/Tongue/Throat August 04, 2025 1:54pm Yes Active Iodinated Contrast Media Allergy Unknown Difficulty Breathing, shortness of breath August 04, 2025 1:54pm Yes Active wheat Allergy Unknown hives August 04, 2025 1:54pm Yes Active Dyes Allergy Unknown Comment:IVP Dye July 24, 2023 3:30pm No Active Vistazine Allergy Unknown Unknown Reaction January 2:23pm No Active Vistazine *ANTIANXIETY AGENTS* Allergy Unknown Comment:Vistaline July 24, 2023 3:30pm No Active Social History Smoking Status Status Start Date End Date Date of Observa tion Never smoked tobacco (finding) February 02, 2025 4:06pm Observation Status Observation Response Date of Response Legal Sex Female (finding) [facility] Family History Relationship Condition Age at Onset Recorded Date/T rowan father Heart disease Unknown LeukemiaUnknownbrotherOsteoarthritisUnknownArthritisUnknownfatherHeart disease UnknownDeceasedUnknownMalignant neoplasmUnknownmotherDeceasedUnknown Problems Active Problems Problem Diagnosis/Recorded Date Onset Date Stat us Type 2 diabetes mellitus wit h hyperglycemia January 20, 2024 2:44pm Unknown Active Osteoporosis April 30, 2020 12:11pm Unknown Active Hypercholesterolemia January 20, 2024 2:44pm Unknown Active History of nephrolithiasis January 08, 2024 5:02pm Unkno wn Active GERD (gastroesophageal reflux disease) April 30, 2020 12:09pm Unknown Active Hypertension February 17, 2019 10:20am Unknown Activ e Lumbar spondylosis December 29, 2024 11:38am Unknown Active Obesity July 28, 2024 4:33pm Unknown Ac tive Inactive/Resolved Problems Problem Diagnosis/Recorded Date Onset Date Stat us Status post total right knee replacement May 18, 2020 8:23am Unknown Resolved Medications Medication Status Dose Units Route Directions Qty Days Refills S tart Date Stop Date End Date Reason(s) Instructions Adherence Lisinopril 10 mg tablet Discontinued 0 .ROUTE.QNXAXMH696Oonbu 2023 7:41amMarch 2024 8:49pmTAKE ONE TABLET BY MOUTH DAILYAlendronate 70 mg tabletDiscontinued0.ROUTE.HSVPUYO033Ixohp 2023 4:05pmJune 2023 2:35pmTAKE 1 TABLET BY MOUTH ONCE A WEEK WITH GLASS OF WATER NO EATING/LAYING FLAT X30 MINUTESAtorvastatin 10 mg jkffmgSufygwivljsb73OF PODailyMay 2023 11:00pmMay 2023 12:34pmAtorvastatin 20 mg tablet Kucupdnqengm82YPPRPvnjzGvl 2023 11:00pmMay 2023 12:41pmAtorvastatin 20 mg tabletDiscontinued0.ROUTE.NKDLJQW197Zdo 6th, 2024 12:41pmJune 2024 11:39amTAKE 1 TABLET BY MOUTH EVERY DAY AT BEDTIMEAtenolol 50 mg tablet Discontinued0.ROUTE.XHJSGLC183Bqwrslxlw2023 11:57amA2024 8:03pmTAKE 1 TABLET BY MOUTH DAILYPantoprazole 20 mg tablet,delayed release (DR/EC)Discontinued0.ROUTE.IMSREGP482Jlxtmnzmm2023 11:57amAugu2024 8:03pmTAKE 1 TABLET BY MOUTH DAILY ON AN EMPTY STOMACH FOLLOWED IN 30 MINUTES BY BREAKFASTLisinopril 10 mg tabletActive0.ROUTE.YQNCRSN142Yjlvw2024 8:49pmTAKE ONE TABLET BY MOUTH DAILYComplies with drug therapyAlendronate 70 mg tabletDiscontinued0.ROUTE.UENLTBI268Qymgp 2024 2:33pmJuly 2024 4:46pmTAKE 1 TABLET BY MOUTH ONCE WEEKLY FOR 90 DAYSAtorvastatin 20 mg tablet Active0.ROUTE.NPAVYFJ847Gdka2024 11:38amTAKE 1 TABLET BY MOUTH EVERY DAY AT BEDTIMEComplies with drug therapyAlendronate 70 mg gvnjxrVpdyix62AFXLkwikh egjm52604Kuuy 2024 4:45pmComplies with drug therapyPantoprazole 20 mg tablet,delayed release (DR/EC)Active0.ROUTE.2024 8:03pm TAKE 1 TABLET BY MOUTH DAILY ON AN EMPTY STOMACH FOLLOWED IN 30 MINUTES BY BREAKFASTComplies with drug therapyAtenolol 50 mg tabletActive0.ROUTE.PWTXVKO997 April 08, 2025 8:03pmTAKE 1 TABLET BY MOUTH DAILYComplies with drug therapy Sulfamethoxazole-Trimethoprim (Bactrim) 400-80 mg YojsfcDtkaqumuuvtr1JMRLGC32P February 16, 2019 11:00pmSeptember 2019 1:29pmPantoprazole 40 mg Tablet,Delayed Release (Dr/Ec)Wldtfvjpiexk21NLNWXbzrnMegt 2018 11:00pm April 30, 2020 1:19pmLisinopril 10 mg FrpehvUlwffvglrkft88SHSZGtojj at bedtimeJune 2018 11:00pmMar 2023 7:41amHTNAspirin 81 mg Tablet,YhtfziotLvridtumdikt58KHJKJreumGecz 2018 11:00pmSept2019 1:17pmHydroxychloroquine 200 mg UqxyawWjswjlgrpflh350ZTBYacyxd other day February 16, 2019 11:00pmFebruary 2024 9:13amLupusevery other day at 1200. Even daysAtenolol 50 mg TwyxxuAjajczhyuhyt18WXCOSsndmSgwq 2018 11:00pm April 30, 2024 11:58amHTNCranberry 500 mg EnczexdIfqfznqposbk302EKDRGjmei February 16, 2019 11:00pmSept2019 1:18pmCholecalciferol (Vitamin D3) (Vitamin D3) 1,000 unit UwxwypoEduadugnmrnk5645CMIFOCBqvbwHand 2018 11:00pmFebruary 2024 9:13amsupplementCalcium Phosphate-Vitamin D3 (Citracal + D3 (Calcium Phos)) 250 mg calcium- 500 unit Tablet,ChewableActive1 TABPODailyJune 2018 11:00pmsupplementComplies with drug therapyFurosemide 20 mg VvngcnPqxnxmokjiri74AGGOUxyktGogi 2018 11:00pmSept2019 1:18pmEchinacea 380 mg RmhrzraAszjyq355UIRSLvvwjBldcbbvni 10th, 2020 11:00pm supplementComplies with drug therapyCyanocobalamin (Vitamin B-12) 1,000 mcg JemszgExcoac2247PKJIGVjzqfLzdhvjpxc 10th, 2020 11:00pmsupplementComplies with drug therapyAspirin (Meño Low Dose Aspirin) 81 mg Tablet,Delayed Release (Dr/Ec)Seqjgdnpgpfh23VIFWLvywc at bedtimeS2019 11:00pmJun2023 2:51pmprophylaxisOn Hold: Resume on 05/26/20. Hold while taking Xarelto Pantoprazole 20 mg Tablet,Delayed Release (Dr/Ec)Ursrtuqvyayd93XWKAOauwm morning April 29, 2020 11:00pmSept2023 11:58amGERDAscorbic Acid (Vitamin C) (Vitamin C) 500 mg IomyqwFmfthjplbccq454FRQADvhjjHgbkprwvt 10th, 2020 11:00pmJun2023 2:51pmsupplementCalcium Polycarbophil (Fiber-Tabs) 625 mg NokoxeLiqwdr0286LAHNWhquwYfkpnrcpy 10th, 2020 11:00pmcolon healthComplies with drug therapyHydroxychloroquine 200 mg WhecxlVmakvo784FFMDbbeks other day April 29, 2020 11:00pmLupusEvery other day at 1200 and 1800; odd days Complies with drug btadfcyCjngjsru-Sle-Ziphe Acid-Vit K (Multi For Her 50 Plus) 400-80 mcg WcnmxbaQhifnh3FLTTMRgmflIoynbbigk 10th, 2020 11:00pmsupplement Complies with drug therapyPotassium Gluconate 600 mg (99 mg) IbwrfeIurtdn395OMJP DailyApril 29, 2020 11:00pmsupplementComplies with drug therapyTurmeric Curcumin 500 odCutweh989QTJCXzofpAqnsdjacd 10th, 2020 11:00pmsupplementComplies with drug therapyDocusate Sodium (Dok) 100 mg AeylbhzGhuvvsfpajxp734RHZHQebiw kmrjo20Vvywnzuba2019 11:00pmJanuary 22, 2024 2:52pmRivaroxaban (Xarelto) 10 mg FipkhgPqtqkdomrbwt51DNBPYmvlz with yvzvoo30UunmtumnzMay 17, 2020 11:00pmJanuary 22, 2024 2:53pmOxycodone-Acetaminophen (Percocet) 5-325 mg tabletDiscontinued1 - 2TABPOEVERY 4-6 HOURS as needed for betn4470Errvxfqyw 29th, 2020Jun2023 2:38pmPresence of right artificial knee jointTizanidine 4 mg capsuleDiscontinued 8AYMYE9S as needed for muscle ygyuqnqyhc253Wdflukumv 2019 8:28amJune 2023 2:53pmAlendronate 70 mg rlymybHbmkieckyhss95THUZbyaub weekMarch 2023 11:00pmMarch 2023 4:05pmAlendronate 70 mg kwxomdXhqqgwrzjuap91CLADoiban weekJune 2023 2:34pmJune 2023 3:06pmPotassium Bicarb-Citric Acid (Effer-K) 25 mEq tablet, qfnmlqphyzguHsqrjt32ZEIQCWjgsxJdgd 2023 11:00pm Complies with drug therapyAscorbic Acid (Vitamin C) 500 mg capsuleActiveMGPOJune 2023 11:00pmComplies with drug therapyCholecalciferol (Vitamin D3) 25 mcg (1,000 unit) byoxzlbEpfilk00TGMKRBxnakBzzc 2023 11:00pmComplies with drug therapyAlendronate 70 mg ieuufuAtqjmodpobtw19ZSCDtoxki rudw20904Mpmx 2023 3:05pmApril 2024 2:33pmAmoxicillin 875 mg ytugvlWzmhbv311HWDZIfmxj daily14 70February 2024 12:00amComplies with drug therapy Immunizations Immunization Event Date Not Given Reason Dose Number 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 Vaccine, 23 valentJanuary 2013 Zoster Vaccine Recombinant, AdjuvantedMay 2020Zoster Vaccine Recombinant, AdjuvantedOctober 2020Tetanus, Diphtheria adult, 5 Lf pres free abs April 30, 2012Shingles (Zoster)December 20hingles (Zoster)May 28, 2021 Medical Equipment Device Date Implanted Device Details Orthopaedic cement, non-medicated April GERA: ()[id number] Issuing Agency: [employer] Device Id: [id number] Expiration Date: 2024-06-19 Lot Number: [id number] cement, non-medicatedSeptember 2019UDI: ()[id number] Issuing Agency: [employer] Device Id: [id number] Expiration Date: 2024-06-19 Lot Number: [id number] knee femur prosthesisSeptember 2019UDI: ()[id number] Issuing Agency: [employer] Device Id: [id number] Expiration Date: 2029-05-19 Lot Number: [id number] insertSeptember 2019UDI: ()[id number] Issuing Agency: [employer] Device Id: [id number] Expiration Date: 2026-02-16 Lot Number: [id number] patella prosthesisSeptember 2019UDI: ()[id number] Issuing Agency: [employer] Device Id: [id number] Expiration Date: 2028-03-27 Lot Number: [id number] knee tibia prosthesis, metallicSeptember 2019 GERA: ()[id number] Issuing Agency: [employer] Device Id: [id number] Expiration Date: 2029-10-17 Lot Number: [id number] Vital Signs Vital Reading Result Reference Range Collection Date/Time Height 61.5 [in_i] August 04, 2025 1:97adZwbwmk09.49 kgDecekingman regional medical center 2024 1:58pmHeart Rate61 /mbe41-145Rnzqkbni 2024 1:58pmRespiratory rate12 /qla34-49Cjjwexgh 2024 1:58pmBP Tmwhiqoa915 mm[Hg]100-140Decekingman regional medical center 2024 1:58pmBP Rvhmztfeu45 mm[Hg]60-100Decekingman regional medical center 2024 1:58pmBMI (Body Mass Index)32.5 kg/v5Nswgioot 2024 1:58pm Advance Directives Advance Directive Response Recorded Date/ Time Advance Directives No June 28, 2017 8:41am Insurance Providers Guarantor Gissell Bolden Muñoz Address [address] [place] [phone] Info.Home Phone: Payer Group Member ID Coverage Type Subscriber Relationship to Subscriber Effective Date Expiration Date [employer] Access [address] [address] [place] [address] Work Phone: Id: [id number] W Muñoz Id: [id number] [address] [place] [phone] Home Phone: Email: [email or web address] [employer] Id: [id number] W Muñoz Id: [id number] [address] [place] [id number] Home Phone: Email: [email or web address] [facility] [employer] [id number] W Muñoz Id: [id number] [address] [place] [phone] Home Phone: Email: [email or web address] [employer] Id: [id number] Encounters Encounter Location(s) Arrival/Admit Date Discharge/Departure Date Discharge/Departure Disposition Provider(s) Departed Physician/ Provider [facility] Visit [facility] August 04, 2025 1:46pm August 04, 2025 2:34pm Discharged to home care or self care (routine discharge) Jevon Medina , DO Recent Diagnosis Onset Date Admit Date GERD (gastroesophageal reflux disease) Unknown August 04, 2025 1:46pm Hypercholesterolemia Unknown August 042024 1:46pm Hypertension Unknown August 04 025 1:46pm Obesity Unknown August 04 025 1:46pm Osteoporosis Unknown August 04 025 1:46pm Type 2 diabetes mellitus with hyperglycemia Unkn own August 04, 2025 1:46pm Assessments Diagnosis Onset Date Resolution Status Admit Date GERD (gastroesophageal reflux disease) acuteDe2024 1:46pmHypercholesterolemiaacuteDeceer 2024 1:46pmHy[facility]ensionacuteDev[facility] 20[facility] 1:46pmObesityacuteDev[facility] 2024 1:46pmOsteoporosisacuteDecekingman regional medical center 2024 1:46pmType 2 diabetes mellitus with hyperglycemiaacuteDe2024 1:46pm Plan of Treatment Author Jevon Adam [facility] 2024 8:49amI have instructed this patient to follow a comprehensive diabetic treatment plan. I have also instructed them to check their feet daily for calluses and nonhealing ulcers. I have instructed them to have a yearly dilated eye examination. I have reviewed their treatment goals: SBP less than 130, LDL less than 100, FBS less than 140, A1C less than 7%. I have instructed them to maintain a home BS log and bring the results to each of their office visits for review. I have explained the importance of routine monitoring of their A1C, Microalbumin and Lipids. I have explained the benefits of well controlled diabetes in preventing micro and macrovascular complications. A1C 6.8% w/ average BS 150 Recheck every 6mo I have instructed this patient to consume a healthy, low-fat, low-salt diet. I have also encouraged them to continue exercise with weight loss to achieve/maintain a BMI < 30. I have instructed this patient on the correct procedure for obtaining home BP measurements:? - rest for 5 minutes w/o talking. - positioned w/ feet on floor and arms supported. - average best 2/3 readings w/ goal < 135/85. - update office w/ home readings in 2 weeks. Continue Lisinopril and Atenolol without interruption I have instructed this patient on a low fat, high fiber diet and exercise. I have discussed the primary and secondary prevention benefits attributed to lowering LDL cholesterol. I have also discussed the medical treatment of elevated cholesterol, which is based on the 10 year ASCVD risk. Continue Atorvastatin without interruption Instructed to continue calcium and vitamin D supplements. Instructed on weight bearing exercises. Monitor w/ DEXA qoy. Continue Alendronate without interruption - started in 2021 I have instructed this patient to avoid lying flat after eating.?? I have also recommended to avoid eating 2 hours prior to bedtime.?? They were also informed that smaller, frequent meals may be better tolerated. I have discussed additional treatment options for persistent symptoms, which includes: weight loss, H2 blockers and PPI. I have also instructed them to notify the office with any pain or difficulty swallowing. Continue Pantoprazole without interruption I have instructed this patient on a low-fat, high-fiber diet.?? I have also instructed them to reduce calories, portions sizes, sweet drinks and snacks.?? I have also recommended they exercise for 30 minutes, 3-5 times weekly. They are aware of the comorbid conditions associated with excessive weight: Diabetes, HTN, Hyperlipidemia, CAD and arthritis. Future Tests Future scheduled test information is unavailable Pending Tests Pending diagnostic test information is unavailable Future Visits Future appointment information is unavailable Future Procedures Future procedure information is unavailable Future Medications Future medication information is unavailable Patient Instructions Patient instructions are unavailable
--- OUTSIDE RECORDS SUMMARY | 2025-08-10 13:55 | XMS_ITS | Clinical Summary ---
Author Organization [facility] Address [address] [place] [address] Phone Care Team Providers Care Warp Hand Name Role Phone Jevon Medina DO Primary Care Provider [phone] Social History Tobacco UseTypesPacks/DayYears UsedDateSmoking Tobacco: Never Assessed CommentsUnknownSex and Gender InformationValueDate RecordedSex Assigned at Not on fileLegal KghEuwqwk62/26/2022 2:24 AM ESTGender IdentityNot on fileSexual OrientationNot on file Last Filed Vital Signs Vital SignReadingTime TakenCommentsBlood Bfffnwut366/8004 8:28 AM EDT Rzdsn7729 8:28 AM EDTTemperature--Respiratory Rate--Oxygen Saturation-- Inhaled Oxygen Concentration--Uufist00 kg (183 lb)11/24/2021 8:28 AM EDTHeight 157.5 cm (5' 2 )11/24/2021 8:28 AM EDTBody Mass Index33.4704 8:28 AM EDT Plan of Treatment Not on file Care Teams Team MemberRelationshipSpecialtyStart DateEnd Date Jevon Medina DO [facility] - General11/24/21
--- OUTSIDE RECORDS SUMMARY | 2025-08-10 13:55 | XMS_ITS | Clinical Summary ---
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 Name Role Phone Jevon Medina Primary Care Provider [phone] Allergies Active AllergyReactionsCriticalityNoted PmghLbgzmbwyWlxvjdwtefvAqmyjzo65/27/2023 Iodinated Contrast KggitXslzvgt36/27/1762ZdagaxqvbmtgwtQrusdxl90/27/2023WheatGI atnfsteupff86/27/2023 Medications MedicationSigDispense QuantityRefillsLast FilledStart DateEnd DateStatus alendronate (Fosamax) 70 MG tablet Take 70 mg by mouth every 7 (seven) days.01/26/2023ctive atenolol (Tenormin) 50 MG tablet Take 50 mg by mouth 1 (one) time each day at the same time.Active hydroxychloroquine (Plaquenil) 200 MG tablet Take 200 mg by mouth in the morning.01/04/2023ctive lisinopril 10 MG tablet Take 10 mg by mouth 1 (one) time each day at the same time.Active atorvastatin (Lipitor) 20 MG tablet Take 20 mg by mouth at bedtime.04/21/2023ctive Active Problems No known active problems Resolved Problems ProblemNoted DateDiagnosed DateResolved DateDiverticula of qysyehupm70/27/2023 05/16/2023astric ulcerHTN (hypertension)05/16/2023 05/16/2023idney stoneLower abdominal pain05/16/2023 05/16/2023Rectal bleedUreteral stone05/16/ Verruca rcqqfkbke06/ Encounters DateTypeDepartmentCare TmvmGxemzsuubin91/25/2025 2:40 PM ESTProcedure Visit [facility] [address] [place] [phone] Salo Duque DPM Verruca plantaris (Primary Dx); Foot pain, left; Other specified disorders of synovium, left ankle and foot; DJD (degenerative joint disease), ankle and foot, left; Paronychia, toe, left; Pain due to onychomycosis of toenails of both feet07/14/2025amb flowsheet [facility] Meredithy [facility] [address] [place] [address] Salo Duque DPM 06/01/2025 3:00 PM EDTOffice Visit [facility] JasmineMajor [facility] [address] [place] [address] Salo Duque DPM Paronychia, toe, left (Primary Dx); Verruca plantaris; Foot pain, left; Other specified disorders of synovium, left ankle and foot; DJD (degenerative joint disease), ankle and foot, left06/01/2025amb flowsheet [facility] JasmineMajor [facility] [address] [place] [address] Salo Duque DPM from Last 3 Months Family History RelationNameStatusCommentsFatherDeceasedMotherAlive Social History Tobacco UseTypesPacks/DayYears UsedDateSmoking Tobacco: NeverPassive Smoke Exposure: NeverSmokeless Tobacco: Never Tobacco Cessation:Counseling Given: Yes Alcohol UseStandard Drinks/WeekCommentsNever0 (1 standard drink = 0.6 oz pure alcohol)CommentsUnknownSex and Gender InformationValueDate RecordedSex Assigned at BirthNot on fileLegal NhdBzgbxy93/15/2023 6:40 PM EDTGender Identity Not on fileSexual OrientationNot on file Last Filed Vital Signs Vital SignReadingTime TakenCommentsBlood Tjaextro838/8011/12/2023 3:23 PM EST Wsqkg9523 3:23 PM ESTTemperature--Respiratory Zjaw623809/13/2024 2:24 PM ESTOxygen Saturation--Inhaled Oxygen Concentration--Gsowqe51.7 kg (200 lb) 07/14/2025 2:24 PM CSEKrqmrj954.1 cm (5' 5 )07/14/2025 2:24 PM ESTBody Mass Index33.28109/13/2024 2:24 PM EST Plan of Treatment DateTypeDepartmentCare Team (Latest Contact Info)Vpyzxwmyjqz34/06/2026 2:20 PM ESTProcedure Visit [facility]OMLaw[facility] [address] [place] [address] Salo Duque, DPKaylah [address] [phone] Insurance Care Teams Team MemberRelationshipSpecialtyStart DateEnd Date Jevon Medina DO [address] [place] [id number] PCP - GeneralInternal Medicine11/20/23
[2025-08-10 14:08] LABS: Glucose Urine UA NEGATIVE (NEGATIVE)
[2025-08-10 14:16] LABS: Hematocrit 45.6 % (36.0-48.0); Hemoglobin 15.0 g/dL (12.0-16.0); Immature Granulocytes Abs Auto 0.02 10^3/uL (0.00-0.03); Immature Granulocytes Pct Auto 0.2 % (0.0-0.5); Lymphocytes Absolute Auto 2.8 10^3/uL (1.2-3.8); Mean Corpuscular HGB Conc 32.9 g/dL (29.9-35.2); Mean Corpuscular Hemoglobin 31.6 pg (26.7-34.0); Mean Corpuscular Volume 96.0 fL (81.0-99.0); Platelet Count 172 10^3/uL (150-450); Red Blood Count 4.75 10^6/uL (4.20-5.40); White Blood Count 8.3 10^3/uL (4.0-11.0)
[2025-08-10 14:30] LABS: Cast Seen? NONE SEEN #/LPF (NONE SEEN); Crystals Seen? None Seen #/HPF (None Seen)
[2025-08-10 14:35] LABS: Alanine Aminotransferase 32 U/L (14-59); Albumin Globulin Ratio 1.1; Albumin Level 3.8 g/dL (3.4-5.0); Alkaline Phosphatase 88 U/L (46-116); Anion Gap 10.7; Aspartate Amino Transferase 18 U/L (15-37); Blood Urea Nitrogen 19.0 mg/dL (7.0-18.0); Calcium 9.5 mg/dL (8.5-10.1); Carbon Dioxide 32.2 mmol/L (21.0-32.0); Chloride 106 mmol/L (98-107); Estimated GFR (African America >60 (>=60 mL/min/1.73m^2); Estimated GFR (Non-African Ame 52 (>=60 mL/min/1.73m^2); Globulin 3.6 g/dL; Glucose 140 mg/dL (74-106); Potassium 3.9 mmol/L (3.5-5.1); Sodium 145 mmol/L (136-145); Total Protein 7.4 g/dL (6.4-8.2)
== END 2025-08-10 13:54 | disposition home or self-care (01) ==
LOC: LAB 13:53
PROVIDERS: PCP Internal Medicine; Visit Provider Nurse Practitioner Family
DX: M35.9 Systemic involvement of connective tissue, unspecified (principal); Z79.899 Other long term (current) drug therapy
CPT/HCPCS: 36415; 80053; 81001; 85025; 85652; 86140; 86160; 86162